=== PATIENT | female | born 1935 | race Caucasian/White ===

== ENCOUNTER → 2016-07-11 | Outpatient (CLI) | payer MEDICARE, BC ==
--- NOTE | 2016-07-11 13:44 | MM ---
Reason for exam: history of breast cancer, mastectomy. Last mammogram was performed 1 year and 3 months ago. History: Patient is postmenopausal, has history of breast cancer at age 79, and has history of other cancer at age 74. Family history of breast cancer in 2 aunts and breast cancer in 2 cousins. Malignant MG pre op needle loc RT of the right breast, May 21, 2015. Malignant US biopsy breast VAD RT of the right breast, April 23, 2015. Physical Findings: Nurse did not find any significant physical abnormalities on exam. MG 3D Diag Mammo W/Cad LT CC and MLO view(s) were taken of the left breast. Prior study comparison: April 23, 2015, right breast MG diagnostic mammo RT wo CAD. April 13, 2015, bilateral MG 3d diag mammo w/cad NEYMAR. There are scattered fibroglandular densities. Finding: There are typically benign vascular calcifications in the left breast. No significant changes in finding since April 23, 2015 and April 13, 2015. These results were verbally communicated with the patient and result sheet given to the patient on 07/11/16. ASSESSMENT: Benign, BI-RAD 2 RECOMMENDATION: Follow-up diagnostic mammogram of the left breast in 1 year.
== END | disposition home or self-care (01) ==
LOC: RADMAMWWP 12:35
PROVIDERS: ATTEND Family Medicine
DX: Z08 Encounter for follow-up examination after completed treatment for malignant neoplasm (principal); Z85.3 Personal history of malignant neoplasm of breast; Z90.11 Acquired absence of right breast and nipple
CPT/HCPCS: G0206; G0279

== ENCOUNTER 2016-07-25 16:31 | Inpatient (IN) | payer MEDICARE, BC ==
--- NOTE | 2016-07-25 16:40 | ED ---
General Adult HPI - General Chief complaint: Chest Pain Stated complaint: Chest Pain Time Seen by Provider: 07/25/16 16:35 Source: patient, RN notes reviewed, old records reviewed Mode of arrival: wheelchair Limitations: no limitations - History of Present Illness Initial comments: This is an 80-year-old female here with chest pain today. Patient states history of cardiac disease, recent history of mitral valve replacement. She did have cardiac catheterization around time of mitral valve replacement. Patient did have chest pain today which was relieved with 2 nitro, which it wasn 't relieved with the first nitro she became anxious, and the [facility] [place] emergency room for evaluation. Patient still with chest at this time, no shortness of breath. No recent cough congestion or fever. No travel history. - Related Data Home Medications Medication Instructions Recorded Confirmed Cholecalciferol [Vitamin D3] 1,000 unit PO DAILY 05/18/15 07/25/16 Cyanocobalamin [Vitamin B-12] 500 mcg PO DAILY 05/18/15 07/25/16 Meclizine [Antivert] 25 mg PO TID PRN 05/18/15 07/25/16 Multivitamins, Thera [Multivitamin] 1 tab PO DAILY 05/18/15 07/25/16 Anastrozole [Arimidex] 1 mg PO DAILY 09/14/15 07/25/16 Ferrous Sulfate [Iron (65 MG 325 mg PO DAILY 04/25/16 07/25/16 Elemental)] Isosorbide Mononitrate ER [Imdur] 30 mg PO DAILY 04/25/16 07/25/16 Levothyroxine Sodium [Synthroid] 100 mcg PO DAILY 04/25/16 07/25/16 Nitroglycerin Sl Tabs [Nitrostat] 0.4 mg PO Q5M PRN 04/25/16 07/25/16 Pravastatin Sodium 40 mg PO HS 04/25/16 07/25/16 Ranitidine HCl 150 mg PO DAILY 04/25/16 07/25/16 Furosemide [Lasix] 40 mg PO DAILY 05/20/16 07/25/16 Amiodarone [Cordarone] 200 mg PO DAILY 06/08/16 07/25/16 Carvedilol [Coreg*] 25 mg PO BID-W/MEALS 06/08/16 07/25/16 Warfarin [Coumadin] 3 mg PO STEVENSON 06/08/16 07/25/16 Warfarin [Coumadin] 4 mg PO MOTUWETHFRSA 06/08/16 07/25/16 HYDROcodone/APAP 5-325MG [[place] 1 tab PO DAILY PRN 07/25/16 07/25/16 5-325] Previous Rx's Medication Instructions Recorded Aspirin 81 mg PO DAILY chew 03/17/16 Pyridostigmine [Mestinon] 30 mg PO BID tab 03/17/16 Allergies Allergy/AdvReac Type Severity Reaction Status Date / Time morphine AdvReac Severe Nausea & Verified 07/25/16 17:56 Vomiting Review of Systems ROS Statement: Those systems with pertinent positive or pertinent negative responses have been documented in the HPI. ROS Other: All systems not noted in ROS Statement are negative. Past Medical History Past Medical History: Atrial Fibrillation, Coronary Artery Disease (CAD), Cancer , Heart Failure, Diabetes Mellitus, Eye Disorder, Hyperlipidemia, Hypertension, Myocardial Infarction ([place]), Mitral Valve Prolapse (MVP), Osteoarthritis (OA), Pneumonia, Respiratory Disorder, Thyroid Disorder Additional Past Medical History / Comment(s): Paroxysmal Afib. Chronic CHF. RT Eye Occular Myasthenia Gravis. Chronic Back Pain. DJD. 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 DIET CONTROLLED DM. FREQ UTI'S. SKIN CA. RT breast CA with surgery. OCC Vertigo. Chronic Respiratory Failure. HOME 02 2 LITERS N/C ATC PRN. CHRONIC Anemia. DIVERTICULAR DX. hypothyroid Last Myocardial Infarction Date:: 04/2014 History of Any Multi-Drug Resistant Organisms: None Reported Past Surgical History: Appendectomy, Back Surgery, Breast Surgery, Cardiac Valve Replacement, Heart Catheterization, Heart Catheterization With Stent, Hysterectomy, Orthopedic Surgery Additional Past Surgical History / Comment(s): 02/2016 MVR. NEYMAR CTR, bilateral Rotator Cuff Repair. EXC Skin CA. TITANIUM VIMAL IN BACK, 7 BACK FUSIONS, 3 NECK FUSIONS. Stent Proximal RCA; HEART CATH 09-29-14. EXC NEYMAR CATARACTS, POSS Lens Implants, Bilateral Eye Laser. RT BREAST LUMPECTOMY x 2, RT BREAST SIMPLE MASTECTOMY 06/2015. ORIF Ankles. Colonoscopy. Past Anesthesia/Blood Transfusion Reactions: No Reported Reaction Additional Past Anesthesia/Blood Transfusion Reaction / Comment(s): Pt has recently received blood without reaction. Date of Last Stent Placement:: 08/17/2013 Past Psychological History: No Psychological Hx Reported Additional Psychological History / Comment(s): Pt resides with her spouse of 63 yrs. She uses a walker to ambulate. She has a very supportive family. She no longer drives-her spouse takes her to appointments. Smoking Status: Former smoker Past Alcohol Use History: None Reported Additional Past Alcohol Use History / Comment(s): STARTED SMOKING AT AGE 11 SMOKED 1/2 PPD QUIT 40 YEARS AGO Past Drug Use History: None Reported - Past Family History Father History Unknown: Yes Family Medical History: No Reported History Additional Family Medical History / Comment(s): DAD IN MVA AT AGE 52 Mother History Unknown: Yes Family Medical History: Congestive Heart Failure (CHF) Additional Family Medical History / Comment(s): RHEUMATIC FEVER. Mother of CHF at the age of 59yrs. General Exam Limitations: no limitations General appearance: alert, in no apparent distress Head exam: Present: atraumatic, normocephalic, normal inspection Eye exam: Present: normal appearance, PERRL, EOMI. Absent: scleral icterus, conjunctival injection, periorbital swelling ENT exam: Present: normal exam, mucous membranes moist Neck exam: Present: normal inspection. Absent: tenderness, meningismus, lymphadenopathy Respiratory exam: Present: normal lung sounds bilaterally. Absent: respiratory distress, wheezes, rales, rhonchi, stridor Cardiovascular Exam: Present: regular rate, normal rhythm, normal heart sounds. Absent: systolic murmur, diastolic murmur, rubs, gallop, clicks GI/Abdominal exam: Present: soft, normal bowel sounds. Absent: distended, tenderness, guarding, rebound, rigid Extremities exam: Present: normal inspection, full ROM, normal capillary refill. Absent: tenderness, pedal edema, joint swelling, calf tenderness Back exam: Present: normal inspection Neurological exam: Present: alert, oriented X3, CN II-XII intact Psychiatric exam: Present: normal affect, normal mood Skin exam: Present: warm, dry, intact, normal color. Absent: rash Course Vital Signs 07/25/16 07/25/16 07/25/16 16:35 17:34 18:32 Temperature 98 F Pulse Rate 71 53 L Respiratory 20 18 18 Rate Blood Pressure 153/68 185/74 O2 Sat by Pulse 97 96 Oximetry 07/25/16 19:13 Temperature 97.4 F L Pulse Rate 65 Respiratory 18 Rate Blood Pressure 175/77 O2 Sat by Pulse 100 Oximetry - Reevaluation(s) Reevaluation #1: 07/25/16 19:26 Patient still chest pain EKG Findings - EKG Comments: EKG Findings:: EKG shows normal sinus rhythm at 73, MI 180, QRS 84, QTC 489 Medical Decision Making - Medical Decision Making 80 female year for evaluation of chest pain, patient has strong cardiac history and heart disease, EKG shows no still elevation, troponin is negative patient will be admitted for cardiac observation - Lab Data Result diagrams: 07/25/16 17:35 07/25/16 17:35 Lab Results 07/25/16 07/25/16 07/25/16 Range/Units 17:35 17:35 17:35 WBC 4.8 (3.8-10.6) k/uL RBC 3.45 L (3.80-5.40) m/uL Hgb 11.0 L (11.4-16.0) gm/dL Hct 33.4 L (34.0-46.0) % MCV 96.8 (80.0-100.0) fL MCH 32.0 (25.0-35.0) pg MCHC 33.0 (31.0-37.0) g/dL RDW 15.9 H (11.5-15.5) % Plt Count 209 (150-450) k/uL Neutrophils % 61 % Lymphocytes % 23 % Monocytes % 7 % Eosinophils % 4 % Basophils % 1 % Neutrophils # 2.9 (1.3-7.7) k/uL Lymphocytes # 1.1 (1.0-4.8) k/uL Monocytes # 0.3 (0-1.0) k/uL Eosinophils # 0.2 (0-0.7) k/uL Basophils # 0.0 (0-0.2) k/uL PT (9.0-12.0) sec INR (<1.1) APTT (22.0-30.0) sec Sodium 145 (137-145) mmol/L Potassium 3.7 (3.5-5.1) mmol/L Chloride 107 (98-107) mmol/L Carbon Dioxide 31 H (22-30) mmol/L Anion Gap 7 mmol/L BUN 24 H (7-17) mg/dL Creatinine 0.60 (0.52-1.04) mg/dL Est GFR (MDRD) Af Amer >60 (>60 ml/min/1.73 sqM) Est GFR (MDRD) Non-Af >60 (>60 ml/min/1.73 sqM) Glucose 89 (74-99) mg/dL Calcium 8.5 (8.4-10.2) mg/dL Phosphorus 3.9 (2.5-4.5) mg/dL Magnesium 1.8 (1.6-2.3) mg/dL Total Bilirubin 0.7 (0.2-1.3) mg/dL AST 40 H (14-36) U/L ALT 28 (9-52) U/L Alkaline Phosphatase 88 (38-126) U/L Total Creatine Kinase 54 (30-135) U/L CK-MB (CK-2) 0.3 (0.0-2.4) ng/mL CK-MB (CK-2) Rel Index 0.6 Troponin I 0.023 (0.000-0.034) ng/mL NT-Pro-B Natriuret Pep pg/mL Total Protein 6.5 (6.3-8.2) g/dL Albumin 3.7 (3.5-5.0) g/dL Urine Color Urine Appearance (Clear) Urine pH (5.0-8.0) Ur Specific [place] (1.001-1.035) Urine Protein (Negative) Urine Glucose (UA) (Negative) Urine Ketones (Negative) Urine Blood (Negative) Urine Nitrate (Negative) Urine Bilirubin (Negative) Urine Urobilinogen (<2.0) mg/dL Ur Leukocyte Esterase (Negative) Urine WBC (0-5) /hpf Ur Squamous Epith Cells (0-4) /hpf Hyaline Casts (0-2) /lpf Urine Mucus (None) /hpf Urine Yeast (Budding) (None) /hpf 07/25/16 07/25/16 07/25/16 Range/Units 17:35 17:35 17:35 WBC (3.8-10.6) k/uL RBC (3.80-5.40) m/uL Hgb (11.4-16.0) gm/dL Hct (34.0-46.0) % MCV (80.0-100.0) fL MCH (25.0-35.0) pg MCHC (31.0-37.0) g/dL RDW (11.5-15.5) % Plt Count (150-450) k/uL Neutrophils % % Lymphocytes % % Monocytes % % Eosinophils % % Basophils % % Neutrophils # (1.3-7.7) k/uL Lymphocytes # (1.0-4.8) k/uL Monocytes # (0-1.0) k/uL Eosinophils # (0-0.7) k/uL Basophils # (0-0.2) k/uL PT 24.1 H (9.0-12.0) sec INR 2.5 (<1.1) APTT 32.5 H (22.0-30.0) sec Sodium (137-145) mmol/L Potassium (3.5-5.1) mmol/L Chloride (98-107) mmol/L Carbon Dioxide (22-30) mmol/L Anion Gap mmol/L BUN (7-17) mg/dL Creatinine (0.52-1.04) mg/dL Est GFR (MDRD) Af Amer (>60 ml/min/1.73 sqM) Est GFR (MDRD) Non-Af (>60 ml/min/1.73 sqM) Glucose (74-99) mg/dL Calcium (8.4-10.2) mg/dL Phosphorus (2.5-4.5) mg/dL Magnesium (1.6-2.3) mg/dL Total Bilirubin (0.2-1.3) mg/dL AST (14-36) U/L ALT (9-52) U/L Alkaline Phosphatase (38-126) U/L Total Creatine Kinase (30-135) U/L CK-MB (CK-2) (0.0-2.4) ng/mL CK-MB (CK-2) Rel Index Troponin I (0.000-0.034) ng/mL NT-Pro-B Natriuret Pep 1340 pg/mL Total Protein (6.3-8.2) g/dL Albumin (3.5-5.0) g/dL Urine Color Yellow Urine Appearance Cloudy H (Clear) Urine pH 5.5 (5.0-8.0) Ur Specific [place] 1.017 (1.001-1.035) Urine Protein Trace H (Negative) Urine Glucose (UA) Negative (Negative) Urine Ketones Negative (Negative) Urine Blood Trace H (Negative) Urine Nitrate Positive H (Negative) Urine Bilirubin Negative (Negative) Urine Urobilinogen <2.0 (<2.0) mg/dL Ur Leukocyte Esterase Moderate H (Negative) Urine WBC 29 H (0-5) /hpf Ur Squamous Epith Cells 1 (0-4) /hpf Hyaline Casts 1 (0-2) /lpf Urine Mucus Occasional H (None) /hpf Urine Yeast (Budding) Occasional H (None) /hpf - Radiology Data Radiology results: report reviewed (Chest x-ray two-view is negative for acute disease), image reviewed Critical Care Time Critical Care Time: Yes Total Critical Care Time: 31 Disposition Clinical Impression: Chest pain in adult Disposition: ADMITTED IP TO THIS [facility] Condition: Undetermined Referrals: Oscar Blancas MD [Primary Care Provider] - 1-2 days
[2016-07-25 17:43] LABS: Basophils % (A) 1 %; CH 31.7; CHCM 32.9; Eosinophils # (A) 0.2 k/uL (0-0.7); Eosinophils % (A) 4 %; HCT 33.4 % (34.0-46.0); HDW 2.75; Luc # (Auto) 0.19; Luc % (Auto) 4; Lymphocytes # (A) 1.1 k/uL (1.0-4.8); Lymphocytes % (A) 23 %; MCV 96.8 fL (80.0-100.0); Mean Platelet Volume 7.2; Monocytes # (A) 0.3 k/uL (0-1.0); Monocytes % (A) 7 %; Neutrophils # (A) 2.9 k/uL (1.3-7.7); Neutrophils % (A) 61 %; RBC 3.45 m/uL (3.80-5.40); RDW 15.9 % (11.5-15.5); WBC 4.8 k/uL (3.8-10.6); WBC (Perox) 4.89
[2016-07-25 17:53] LABS: ALT 28 U/L (9-52); AST 40 U/L (14-36); Alkaline Phosphatase 88 U/L (38-126); Anion Gap 7 mmol/L; Blood Urea Nitrogen 24 mg/dL (7-17); Calcium 8.5 mg/dL (8.4-10.2); Carbon Dioxide 31 mmol/L (22-30); Chloride 107 mmol/L (98-107); Glucose 89 mg/dL (74-99); Magnesium 1.8 mg/dL (1.6-2.3); Non-African American GFR(MDRD) >60 (>60 ml/min/1.73 sqM); Phosphorous 3.9 mg/dL (2.5-4.5); Potassium 3.7 mmol/L (3.5-5.1); Sodium 145 mmol/L (137-145); Total Bilirubin 0.7 mg/dL (0.2-1.3); Total Protein 6.5 g/dL (6.3-8.2)
[2016-07-25 17:54] LABS: INR 2.5 (<1.1); Partial Thromboplastin Time 32.5 sec (22.0-30.0); Prothrombin Time 24.1 sec (9.0-12.0)
[2016-07-25 17:57] LABS: Appearance,Urine Cloudy (Clear); Bilirubin,Urine Negative (Negative); Glucose,Urine (UA) Negative (Negative); Ketones,Urine Negative (Negative); Leukocyte Esterase,Urine Moderate (Negative); Mucus,Urine Occasional /hpf; Nitrite,Urine Positive (Negative); PH, Urine 5.5 (5.0-8.0); Particle Count 107532; Protein,Urine Trace (Negative); Specific Gravity,Urine 1.017 (1.001-1.035); Squamous Epithelial Cell,Urine 1 /hpf (0-4); UA Billing (MACRO vs. MICRO) MICRO; Urobilinogen,Urine <2.0 mg/dL (<2.0); WBC,Urine 29 /hpf (0-5)
--- NOTE | 2016-07-25 17:58 | XR ---
EXAMINATION TYPE: XR chest 2V DATE OF EXAM: 07/25/2016 5:46 PM COMPARISON: May 20, 2016 HISTORY: Weakness and chest pain TECHNIQUE: Frontal and lateral views of the chest are obtained. FINDINGS: Heart is enlarged. There is no gross heart failure. There are sternal wires. There are blaise st leads. There is posterior fusion surgery at the thoracolumbar junction. There are small calcified granulomata scattered in the lungs. There are chest leads. IMPRESSION: Cardiomegaly. Healed granulomatous disease. No active cardiopulmonary disease. No change .
[2016-07-25 18:16] LABS: Creatine Kinase MB 0.3 ng/mL (0.0-2.4); Troponin I 0.023 ng/mL (0.000-0.034)
[2016-07-25] MEDS ORDERED: ASPIRIN 81 MG CHEW PO STA (19:24)
[2016-07-25] MEDS ORDERED: HEPARIN SODIUM,PORCINE 5,000 UNIT/ML 1 ML VIAL IV PRN (19:24)
[2016-07-25] MEDS ORDERED: HEPARIN SODIUM,PORCINE 5,000 UNIT/ML 1 ML VIAL IV ONE (19:24)
[2016-07-25] MEDS ORDERED: NITROGLYCERIN SL TABS 0.4 MG TAB SUBLINGUAL PRN (19:24)
[2016-07-25] MEDS: SODIUM CHLORIDE 0.9% 1,000 ML IV SCH (19:35)
[2016-07-25] MEDS: HEPARIN SODIUM,PORCINE/D5W PMX 25,000 UNIT in DEXTROSE/WATER 1 500ML.BAG IV SCH (19:39)
[2016-07-25] MEDS ORDERED: MECLIZINE 25 MG TAB PO PRN (20:59)
[2016-07-25] MEDS ORDERED: WARFARIN 2 MG TAB PO SCH (21:00)
[2016-07-25] MEDS: HYDROcodone/APAP 5-325MG 1 EACH TAB PO PRN (21:14)
[2016-07-25] MEDS: PRAVASTATIN SODIUM 40 MG TAB PO SCH (21:42)
[2016-07-25] MEDS: PYRIDOSTIGMINE 60 MG TAB PO SCH (21:43)
[2016-07-25 22:10] LABS: Glucose,Whole Blood 133 mg/dL (75-99)
[2016-07-25] MEDS: KETOROLAC 30 MG/ML 1 ML VIAL IVP PRN (23:04)
[2016-07-26 00:25] LABS: Creatine Kinase MB 0.5 ng/mL (0.0-2.4)
[2016-07-26 00:39] LABS: Troponin I 0.038 ng/mL (0.000-0.034)
[2016-07-26] MEDS: KETOROLAC 30 MG/ML 1 ML VIAL IVP PRN ×2 (04:50→15:44)
[2016-07-26] MEDS ORDERED: ACETAMINOPHEN TAB 325 MG TAB PO PRN (04:58)
[2016-07-26] MEDS: SODIUM CHLORIDE 0.9% 1,000 ML IV SCH ×2 (06:46→20:52)
[2016-07-26] MEDS: LEVOTHYROXINE 100 MCG TAB PO SCH (06:47)
[2016-07-26 06:53] LABS: Cholesterol 168 mg/dL (<200); HDL Cholesterol 62 mg/dL (40-60); Triglycerides 69 mg/dL (<150)
[2016-07-26 06:54] LABS: Glucose,Whole Blood 100 mg/dL (75-99)
[2016-07-26 07:18] LABS: Creatine Kinase MB 0.4 ng/mL (0.0-2.4); Troponin I 0.026 ng/mL (0.000-0.034)
--- NOTE | 2016-07-26 08:43 | CONS ---
DATE OF CONSULTATION: CHIEF COMPLAINT: Chest pain Gi is an 80-year-old lady with a history of coronary artery disease, status post two-vessel angioplasty mitral regurgitation, status post mitral valve replacement, atrial fibrillation, status post cardioversion who presents to [facility] complaining of chest pain. She describes it as a chest pressure in the precardial area without definite radiation to neck, arm or back. She describes it as pressure-like sensation, came on at rest. Was not relieved with first nitroglycerin but was relieved with a second nitroglycerin. When she came to the emergency room. She was still having chest pain. Did not have any shortness of breath and this gradually resolved. She is on Coumadin and INR is therapeutic. EKG shows sinus rhythm with occasional PVCs and nonspecific ST-T wave changes. Past medical history significant for mitral regurgitation, status post mitral valve repair, coronary artery disease, status post multivessel angioplasty, hypertension, dyslipidemia. Medications include: 1. Antivert. 2. Multivitamin. 3. Imdur. 4. Levothyroxine. 5. Pravastatin. 6. Zantac. 7. Lasix. 8. Cordarone. 9. Coreg 25 b.i.d. 10. Coumadin. 11. Max. PATIENT IS ALLERGIC TO MORPHINE. FAMILY HISTORY: Negative for premature coronary artery disease. SOCIAL HISTORY: Negative for smoking, ETOH or drug abuse. REVIEW OF SYSTEMS: HEENT: Unremarkable. CARDIAC: As described above. RESPIRATORY: Negative. GI: Negative. GENITOURINARY: Negative. Allergy/immunology: Negative. SKIN: Negative. MUSCULOSKELETAL: Significant for back pain. PSYCHOSOCIAL: Negative. ENDOCRINE: Negative. DERM: Negative. HEMATOLOGICAL: Negative. CONSTITUTIONAL: Negative. Oncological: Negative. The rest of the system review is not relevant. On exam, patient is comfortable at rest. Heart rate is 68 beats per minute, blood pressure is 160/78, respiratory rate is 18. There is no jugular venous distention. Carotid upstroke is normal. There is no bruit. Chest exam reveals diminished air entry at the bases. Heart exam reveals first and second heart sounds and a systolic murmur at the apex. ABDOMEN: Soft. Exam of the extremities did not reveal any edema. Peripheral pulses are felt. Labs show that she has had 3 sets of troponins that were 0.2, 03 and 03 suggestive of non-ST segment myocardial infarction. Lipid profile shows an LDL cholesterol of 92. EKG reviewed. ASSESSMENT: 1. Non-ST segment elevation myocardial infarction in a patient with known CAD status post prior angioplasty. 2. Mitral regurgitation status post mitral valve repair. 3. History of atrial fibrillation status post cardioversion. 4. Dyslipidemia. 5. Hypertension. PLAN: I am going to admit the patient to the hospital. Continue the IV heparin and once the INR comes down, we will schedule her for a cardiac catheterization with Dr. Cornell Hua her primary speech therapist.
[2016-07-26] MEDS ORDERED: ASPIRIN 325 MG TAB PO SCH (09:00)
[2016-07-26] MEDS: FAMOTIDINE 20 MG TAB PO SCH (09:08)
[2016-07-26] MEDS: CYANOCOBALAMIN 500 MCG TAB PO SCH (09:08)
[2016-07-26] MEDS: FUROSEMIDE 40 MG TAB PO SCH (09:08)
[2016-07-26] MEDS: ISOSORBIDE MONONITRATE ER 30 MG TAB.ER.24H PO SCH (09:08)
[2016-07-26] MEDS: FERROUS SULFATE 325 MG TAB PO SCH (09:09)
[2016-07-26] MEDS: AMIODARONE 200 MG TAB PO SCH (09:09)
[2016-07-26] MEDS: MULTIVITAMINS, THERA 1 EACH TAB PO SCH (09:09)
[2016-07-26] MEDS: ASPIRIN 81 MG CHEW PO SCH (09:09)
[2016-07-26] MEDS: PYRIDOSTIGMINE 60 MG TAB PO SCH ×2 (09:09→21:15)
[2016-07-26] MEDS: CHOLECALCIFEROL 1,000 UNIT TAB PO SCH (09:09)
[2016-07-26] MEDS: CARVEDILOL 12.5 MG TAB PO SCH ×2 (09:10→17:17)
[2016-07-26] MEDS: ANASTROZOLE 1 MG TAB PO SCH (09:11)
[2016-07-26] MEDS: ATORVASTATIN 80 MG TAB PO SCH (10:43)
[2016-07-26 12:15] LABS: Glucose,Whole Blood 92 mg/dL (75-99)
[2016-07-26 12:51] LABS: Hemoglobin A1C 5.1 % (4.2-6.1)
[2016-07-26] MEDS: HYDROcodone/APAP 5-325MG 1 EACH TAB PO PRN (13:35)
--- NOTE | 2016-07-26 14:21 | P.HPIM ---
History of Present Illness H&P Date: 07/26/16 Chief Complaint: Chest pain 80-year-old female presented on the day of admission to the emergency room with a chief complaint of developing chest discomfort. Patient does have a history of coronary artery disease with a recent mitral valve replacement done. Patient reportedly had a heart catheterization done around the time that her mitral valve was replaced. Patient did undergo mitral valve replacement in February 2016 for mitral valve stenosis. Additionally the patient has had an angioplasty with stenting to the right coronary artery. Patient also has a history of atrial fibrillation status post cardioversion. Patient states the chest pressure did not radiate to the neck or arm . Patient stated that she did take a sublingual nitro there was some relief subsequent the patient was admitted to the services of the attending with a cardiology consultation requested. Patient is on Coumadin for atrial fibrillation and the INR on admission was 2.5. Review of Systems Essentially unremarkable except as mentioned in the present illness Past Medical History Past Medical History: Atrial Fibrillation, Coronary Artery Disease (CAD), Cancer , Heart Failure, Diabetes Mellitus, Eye Disorder, Hyperlipidemia, Hypertension, Myocardial Infarction ([place]), Mitral Valve Prolapse (MVP), Osteoarthritis (OA), Pneumonia, Respiratory Disorder, Thyroid Disorder Additional Past Medical History / Comment(s): Paroxysmal Afib. Chronic CHF. RT Eye Occular Myasthenia Gravis. Chronic Back Pain. DJD. 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 DIET CONTROLLED DM. FREQ UTI'S. SKIN CA. RT breast CA with surgery. OCC Vertigo. Chronic Respiratory Failure. HOME 02 2 LITERS N/C ATC PRN. CHRONIC Anemia. DIVERTICULAR DX. hypothyroid Last Myocardial Infarction Date:: 04/2014 History of Any Multi-Drug Resistant Organisms: None Reported Past Surgical History: Appendectomy, Back Surgery, Breast Surgery, Cardiac Valve Replacement, Heart Catheterization, Heart Catheterization With Stent, Hysterectomy, Orthopedic Surgery Additional Past Surgical History / Comment(s): 02/2016 MVR. NEYMAR CTR, bilateral Rotator Cuff Repair. EXC Skin CA. TITANIUM VIMAL IN BACK, 7 BACK FUSIONS, 3 NECK FUSIONS. Stent Proximal RCA; HEART CATH 09-29-14. EXC NEYMAR CATARACTS, POSS Lens Implants, Bilateral Eye Laser. RT BREAST LUMPECTOMY x 2, RT BREAST SIMPLE MASTECTOMY 06/2015. ORIF Ankles. Colonoscopy. Past Anesthesia/Blood Transfusion Reactions: No Reported Reaction Additional Past Anesthesia/Blood Transfusion Reaction / Comment(s): Pt has recently received blood without reaction. Date of Last Stent Placement:: 08/17/2013 Past Psychological History: No Psychological Hx Reported Additional Psychological History / Comment(s): Pt resides with her spouse of 63 yrs. She uses a walker NEEDED. She has a very supportive family. She no longer drives-her spouse takes her to appointments. Smoking Status: Former smoker Past Alcohol Use History: None Reported Additional Past Alcohol Use History / Comment(s): STARTED SMOKING AT AGE 11 SMOKED 1/2 PPD QUIT 40 YEARS AGO Past Drug Use History: None Reported - Past Family History Father History Unknown: Yes Family Medical History: No Reported History Additional Family Medical History / Comment(s): DAD IN MVA AT AGE 52 Mother History Unknown: Yes Family Medical History: Congestive Heart Failure (CHF) Additional Family Medical History / Comment(s): RHEUMATIC FEVER. Mother of CHF at the age of 59yrs. Medications and Allergies Home Medications Medication Instructions Recorded Confirmed Type Cholecalciferol [Vitamin D3] 1,000 unit PO DAILY 05/18/15 07/25/16 History Cyanocobalamin [Vitamin B-12] 500 mcg PO DAILY 05/18/15 07/25/16 History Meclizine [Antivert] 25 mg PO TID PRN 05/18/15 07/25/16 History Multivitamins, Thera [Multivitamin] 1 tab PO DAILY 05/18/15 07/25/16 History Anastrozole [Arimidex] 1 mg PO DAILY 09/14/15 07/25/16 History Ferrous Sulfate [Iron (65 MG 325 mg PO DAILY 04/25/16 07/25/16 History Elemental)] Isosorbide Mononitrate ER [Imdur] 30 mg PO DAILY 04/25/16 07/25/16 History Levothyroxine Sodium [Synthroid] 100 mcg PO DAILY 04/25/16 07/25/16 History Nitroglycerin Sl Tabs [Nitrostat] 0.4 mg PO Q5M PRN 04/25/16 07/25/16 History Pravastatin Sodium 40 mg PO HS 04/25/16 07/25/16 History Ranitidine HCl 150 mg PO DAILY 04/25/16 07/25/16 History Furosemide [Lasix] 40 mg PO DAILY 05/20/16 07/25/16 History Amiodarone [Cordarone] 200 mg PO DAILY 06/08/16 07/25/16 History Carvedilol [Coreg*] 25 mg PO BID-W/MEALS 06/08/16 07/25/16 History Warfarin [Coumadin] 3 mg PO STEVENSON 06/08/16 07/25/16 History Warfarin [Coumadin] 4 mg PO MOTUWETHFRSA 06/08/16 07/25/16 History HYDROcodone/APAP 5-325MG [[place] 1 tab PO BID PRN 07/25/16 07/25/16 History 5-325] Allergies Allergy/AdvReac Type Severity Reaction Status Date / Time morphine AdvReac Severe Nausea & Verified 07/25/16 20:21 Vomiting Physical Exam Vitals: Vital Signs Temp Pulse Resp BP Pulse Ox 07/26/16 12:00 97.4 F L 56 L 16 114/56 98 Intake and Output 07/25/16 07/26/16 07/26/16 22:59 06:59 14:59 Intake Total 240 Balance 240 Intake: Oral 240 Other: Voiding Method Toilet # Voids 1 # Bowel Movements 1 GENERAL APPEARANCE: 80-year-old female patient is alert, oriented, in no acute distress resting comfortably in bed. VITAL SIGNS: Reviewed HEENT: Head is normocephalic and atraumatic. Pupils are equal and reactive. The nares are patent. Oropharynx is clear without lesions. NECK: Supple without lymphadenopathy. Traches midline. HEART: S1, S2. Irregular monitor atrial fibrillation LUNGS: No crackles or wheezes are heard adequate air movement bilaterally posterior diminished at the bases. ABDOMEN: Soft, nontender, nondistended with good bowel sounds. No peritoneal signs. No palpable organomegaly or masses. EXTREMITIES: Normal skin color and turgor. No cyanosis, rash, ulceration, clubbing or edema. Radial pedal pulses are 2/4 bilaterally. NEUROLOGICAL: No focal deficits. Strength and sensation are grossly intact. Results CBC & Chem 7: 07/25/16 17:35 07/25/16 17:35 Thrombosis Risk Factor Assmnt - Choose All That Apply Any of the Below Risk Factors Present?: Yes Each Factor Represents 1 point: Serious lung disease incl. pneumonia (< 1month) Other Risk Factors: Yes Each Risk Factor Represents 2 Points: Malignancy Each Risk Factor Represents 3 Points: Age 75 years or older Other congenital or acquired thrombophilia - If yes, enter type in comment: No Thrombosis Risk Factor Assessment Total Risk Factor Score: 6 Thrombosis Risk Factor Assessment Level: High Risk Assessment and Plan Plan: Impression Present on admission chest pain elevated troponin suspect due to a non-ST elevated [place] History of paroxysmal atrial fibrillation monitor currently showing sinus rhythm History of breast cancer right with a right mastectomy Mitral valve stenosis status post mitral valve replacement February 2016 Acute on chronic diastolic and systolic congestive heart failure EF 4 45-50% per echocardiogram May 2016 Echocardiogram May 2016 pulmonary hypertension Therapeutic INR present on admission Hypertension essential History of atrial fibrillation status post cardioversion currently sinus Dyslipidemia Plan Hold Coumadin for now cardiology indicate they will do a heart catheterization by her primary inseam trimmer Dr. ADAM Hua when the INR comes down Repeat labs in the morning Resume home meds DVT and GI prophylaxis Further recommendations pending Continue IV heparin until the INR comes down patient will be scheduled for the heart catheterization The above dictated assessment and findings were discussed with dr mejia . Impression and the plan of care have been dictated as directed. Antonina Appiah nurse practitioner acting as a scribe for dr mejia
[2016-07-26 14:41] LABS: INR 2.3 (<1.1); Prothrombin Time 22.2 sec (9.0-12.0)
[2016-07-26 17:16] LABS: Glucose,Whole Blood 93 mg/dL (75-99)
[2016-07-26] MEDS: HEPARIN SODIUM,PORCINE/D5W PMX 25,000 UNIT in DEXTROSE/WATER 1 500ML.BAG IV SCH (20:51)
[2016-07-26 21:10] LABS: Glucose,Whole Blood 92 mg/dL (75-99)
[2016-07-26] MEDS: PRAVASTATIN SODIUM 40 MG TAB PO SCH (21:15)
[2016-07-27] MEDS: KETOROLAC 30 MG/ML 1 ML VIAL IVP PRN ×2 (03:39→17:09)
[2016-07-27 04:31] LABS: INR 2.5 (<1.1); Prothrombin Time 23.8 sec (9.0-12.0)
[2016-07-27 04:40] LABS: Partial Thromboplastin Time 109.8 sec (22.0-30.0)
[2016-07-27] MEDS: SODIUM CHLORIDE 0.9% 1,000 ML IV SCH ×3 (06:03→20:26)
[2016-07-27 06:20] LABS: Glucose,Whole Blood 97 mg/dL (75-99)
[2016-07-27] MEDS: LEVOTHYROXINE 100 MCG TAB PO SCH (06:30)
[2016-07-27] MEDS: CARVEDILOL 12.5 MG TAB PO SCH ×2 (06:30→17:09)
[2016-07-27] MEDS ORDERED: PHYTONADIONE ORAL 5 MG/5 ML ORAL.SYRG PO STA (08:07)
[2016-07-27] MEDS: MULTIVITAMINS, THERA 1 EACH TAB PO SCH (08:22)
[2016-07-27] MEDS: FERROUS SULFATE 325 MG TAB PO SCH (08:22)
[2016-07-27] MEDS: FAMOTIDINE 20 MG TAB PO SCH (08:22)
[2016-07-27] MEDS: CHOLECALCIFEROL 1,000 UNIT TAB PO SCH (08:22)
[2016-07-27] MEDS: ASPIRIN 81 MG CHEW PO SCH (08:22)
[2016-07-27] MEDS: CYANOCOBALAMIN 500 MCG TAB PO SCH (08:22)
[2016-07-27] MEDS: PYRIDOSTIGMINE 60 MG TAB PO SCH ×2 (08:23→20:26)
[2016-07-27] MEDS: ANASTROZOLE 1 MG TAB PO SCH (08:23)
[2016-07-27] MEDS: AMIODARONE 200 MG TAB PO SCH (08:24)
[2016-07-27] MEDS: ATORVASTATIN 80 MG TAB PO SCH (08:25)
[2016-07-27] MEDS: FUROSEMIDE 40 MG TAB PO SCH (08:29)
--- NOTE | 2016-07-27 10:05 | P.PN ---
Subjective 80-year-old female up ambulating in the room. Patient currently is denying any chest pain shortness of breath dizziness or lightheadedness. Patient is aware the plan of care. Patient is scheduled for heart catheterization tomorrow if the INR has been corrected. The INR this morning was 2.5. Patient was given vitamin K. Objective - Vital Signs Vital signs: Vital Signs Temp 96.9 F L 07/27/16 04:00 Pulse 58 L 07/27/16 04:00 Resp 16 07/27/16 04:00 BP 118/59 07/27/16 04:00 Pulse Ox 94 L 07/27/16 04:00 Intake & Output 07/26/16 07/27/16 07/27/16 18:59 06:59 18:59 Intake Total 740 1347.352 Balance 740 1347.352 Weight 59.4 kg Intake: IV 840 Heparin Sodium,Porcine/ 700 D5w Pmx 25,000 unit In Dextrose/Water 1 500ml. bag @ 12 UNITS/KG/HR 14. 26 mls/hr IV .Q24H [facility] Rx #:[id number] Sodium Chloride 0.9% 1, 140 000 ml @ 100 mls/hr IV . Q10H [facility] Rx#:[id number] Intake, IV Titration 507.352 Amount Heparin Sodium,Porcine/ 507.352 D5w Pmx 25,000 unit In Dextrose/Water 1 500ml. bag @ 12 UNITS/KG/HR 14. 26 mls/hr IV .Q24H [facility] Rx #:[id number] Oral 740 Other: Voiding Method Toilet # Voids 1 1 # Bowel Movements 1 - Exam GENERAL APPEARANCE: 80-year-old female patient is alert, oriented, in no acute distress. Up in room denying shortness of breath denying chest pain VITAL SIGNS: Reviewed HEENT: Head is normocephalic and atraumatic. Pupils are equal and reactive. The nares are patent. Oropharynx is clear without lesions. NECK: Supple without lymphadenopathy. Traches midline. HEART: S1, S2. Regular rate and rhythm. Monitor currently is showing sinus bradycardia rate in the 50s denying chest pain there is been no further episodes of atrial fibrillation LUNGS: No crackles or wheezes are heard. On room air with no shortness of breath ABDOMEN: Soft, nontender, nondistended with good bowel sounds. No peritoneal signs. No palpable organomegaly or masses. EXTREMITIES: Normal skin color and turgor. No cyanosis, rash, ulceration, clubbing or edema. Radial pedal pulses are 2/4 bilaterally. NEUROLOGICAL: No focal deficits. Strength and sensation are grossly intact. - Labs CBC & Chem 7: 07/25/16 17:35 07/25/16 17:35 Labs: Abnormal Lab Results - Last 24 Hours (Table) 07/27/16 Range/Units 04:08 PT 23.8 H (9.0-12.0) sec APTT 109.8 H* (22.0-30.0) sec Assessment and Plan Plan: Impression Present on admission chest pain elevated troponin suspect due to a non-ST elevated RI History of paroxysmal atrial fibrillation monitor currently showing sinus rhythm History of breast cancer right with a right mastectomy Mitral valve stenosis status post mitral valve replacement February 2016 Acute on chronic diastolic and systolic congestive heart failure EF 4 45-50% per echocardiogram May 2016 Echocardiogram May 2016 pulmonary hypertension Therapeutic INR present on admission Hypertension essential History of atrial fibrillation status post cardioversion currently sinus Dyslipidemia Plan Hold Coumadin for now cardiology indicate they will do a heart catheterization by 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 ADAM Hua when the INR comes down Repeat labs in the morning Resume home meds DVT and GI prophylaxis Further recommendations pending Continue IV heparin until the INR comes down patient will be scheduled for the heart catheterization The above dictated assessment and findings were discussed with dr mejia . Impression and the plan of care have been dictated as directed. Antonina Appiah nurse practitioner acting as a scribe for dr mejia
[2016-07-27] MEDS: ISOSORBIDE MONONITRATE ER 30 MG TAB.ER.24H PO SCH (11:40)
[2016-07-27 11:56] LABS: Glucose,Whole Blood 86 mg/dL (75-99)
--- NOTE | 2016-07-27 12:43 | HP ---
DATE OF ADMISSION: CHIEF COMPLAINT: Chest pain. HISTORY OF PRESENT ILLNESS: This is another admission for this 80-year-old white female who is in and out of the hospital all the time for cardiac problems. She has coronary artery disease and unstable angina. She recently underwent a mitral valve replacement. She also has had a right mastectomy in the last year, started to have chest pain once again typical of her angina She came back to the emergency room. REVIEW OF SYSTEMS: She has had no fever, chills, nausea, vomiting, syncope, diaphoresis, etc. Past medical history, family history and personal and social histories are all otherwise unremarkable and noncontributory or unchanged. PHYSICAL EXAMINATION: Blood pressure 121/64 with a pulse of 71 and irregular, respirations of 32 and she is afebrile. GENERAL: She appeared to be comfortable and in no acute distress. Skin color is normal. Head, ears, eyes, nose, mouth, and throat were normal. Neck veins not distended. Thyroid is not enlarged. Chest is clear. Cardiac exam demonstrated atrial fibrillation. The abdomen is soft, nontender. Extremities are normal. IMPRESSION: 1. Unstable angina. 2. Coronary artery disease. 3. Status post mitral valve replacement. 4. Status post right mastectomy. PLAN: 1. Bed rest. 2. IV fluids. 3. Cardiac enzymes. 4. Cardiology consult. 5. She is going for cardiac cath tomorrow.
--- NOTE | 2016-07-27 13:28 | PN ---
80-year-old lady that was admitted to the hospital with chest pain and is to undergo cardiac catheterization by my associate, Dr. Cornell Hua. Her INR is still elevated at 2.5. She is on heparin, which I am going to stop. Her trope was slightly elevated at 0.038. She has had episodes of chest, but comfortable now. On exam, comfortable at rest. Vital signs are stable. Chest exam reveals good air entry bilaterally. Heart exam reveals first and second heart sounds, irregular rhythm. ABDOMEN: Soft. Exam of the extremities did not reveal edema. Peripheral pulses are felt. ASSESSMENT: 1. Non-ST segment elevation myocardial infarction. 2. History of atrial fibrillation status post cardioversion. PLAN: Mitral regurgitation, status post mitral valve repair. PLAN: I am giving a dose of vitamin K to the patient today, hoping that we can do the cardiac catheterization tomorrow.
[2016-07-27] MEDS: PRAVASTATIN SODIUM 40 MG TAB PO SCH (20:26)
[2016-07-27] MEDS: HYDROcodone/APAP 5-325MG 1 EACH TAB PO PRN (20:51)
[2016-07-28] MEDS: CARVEDILOL 12.5 MG TAB PO SCH ×2 (06:19→17:27)
[2016-07-28] MEDS: LEVOTHYROXINE 100 MCG TAB PO SCH (06:19)
[2016-07-28] MEDS: CYANOCOBALAMIN 500 MCG TAB PO SCH (06:20)
[2016-07-28] MEDS: ATORVASTATIN 80 MG TAB PO SCH (06:20)
[2016-07-28] MEDS: AMIODARONE 200 MG TAB PO SCH (06:20)
[2016-07-28] MEDS: ANASTROZOLE 1 MG TAB PO SCH (06:20)
[2016-07-28] MEDS: ASPIRIN 81 MG CHEW PO SCH (06:20)
[2016-07-28] MEDS: FAMOTIDINE 20 MG TAB PO SCH (06:21)
[2016-07-28] MEDS: PYRIDOSTIGMINE 60 MG TAB PO SCH ×2 (06:21→21:17)
[2016-07-28] MEDS: CHOLECALCIFEROL 1,000 UNIT TAB PO SCH (06:21)
[2016-07-28] MEDS: MULTIVITAMINS, THERA 1 EACH TAB PO SCH (06:21)
[2016-07-28] MEDS: FERROUS SULFATE 325 MG TAB PO SCH (06:21)
[2016-07-28] MEDS: ISOSORBIDE MONONITRATE ER 30 MG TAB.ER.24H PO SCH (06:21)
[2016-07-28] MEDS: SODIUM CHLORIDE 0.9% 1,000 ML IV SCH ×5 (06:29→21:17)
[2016-07-28 06:51] LABS: INR 1.4 (<1.1); Prothrombin Time 13.7 sec (9.0-12.0)
[2016-07-28] MEDS ORDERED: IV FLUID CONTINUATION 1,000 ML IV ONE (09:10)
[2016-07-28] MEDS ORDERED: MIDAZOLAM 2 MG/2 ML VIAL ONE (09:15)
[2016-07-28] MEDS ORDERED: diphenhydrAMINE 50 MG/ML 1 ML VIAL ONE (09:15)
[2016-07-28] MEDS ORDERED: diphenhydrAMINE 50 MG/ML 1 ML VIAL IVP ONE (09:21)
[2016-07-28] MEDS ORDERED: MIDAZOLAM 2 MG/2 ML VIAL IV ONE (09:23)
[2016-07-28] MEDS ORDERED: LIDOCAINE 2% INJ 20 MG/ML SQ ONE (09:24)
[2016-07-28] MEDS ORDERED: IOHEXOL 350 MG/ML 100 ML BOTTLE INJ ONE (09:52)
[2016-07-28] MEDS ORDERED: RX INFO: IV CONTRAST WAS GIVEN 1 EACH MISC MISCELLANE PRN (09:53)
[2016-07-28] MEDS: HYDROcodone/APAP 5-325MG 1 EACH TAB PO PRN ×2 (10:33→21:17)
[2016-07-28] MEDS: KETOROLAC 30 MG/ML 1 ML VIAL IVP PRN (11:30)
[2016-07-28] MEDS: FUROSEMIDE 40 MG TAB PO SCH (12:34)
--- NOTE | 2016-07-28 16:03 | P.PN ---
Subjective 80-year-old female being seen on rounds is scheduled today for heart catheterization by cardiology service as part of workup for elevated troponin suggesting a non-ST elevated IN. The INR is down to 1.4 today the plan is to proceed with the planned scheduled heart catheterization patient currently states that she's having intermittent episodes of chest discomfort. Objective - Vital Signs Vital signs: Vital Signs Temp 97.5 F L 07/28/16 14:52 Pulse 55 L 07/28/16 14:52 Resp 16 07/28/16 14:52 BP 88/41 07/28/16 14:52 Pulse Ox 93 L 07/28/16 14:52 Intake & Output 07/27/16 07/28/16 07/28/16 18:59 06:59 18:59 Intake Total 270 400 495 Output Total 975 400 Balance -705 0 495 Weight 62.6 kg Intake: IV 400 Sodium Chloride 0.9% 1, 400 000 ml @ 100 mls/hr IV . Q10H [facility] Rx#:[id number] Intake, IV Titration 375 Amount Sodium Chloride 0.9% 1, 375 000 ml @ 75 mls/hr IV . [id number] [facility] Rx#:[id number] Oral 270 120 Output: Urine 975 400 Other: Voiding Method Toilet # Voids 2 1 - Exam GENERAL APPEARANCE: 80-year-old female patient is alert, oriented, in no acute distress. Resting comfortably in bed states still has intermittent episodes of chest discomfort VITAL SIGNS: Reviewed HEENT: Head is normocephalic and atraumatic. Pupils are equal and reactive. The nares are patent. Oropharynx is clear without lesions. NECK: Supple without lymphadenopathy. Traches midline. HEART: S1, S2. Regular rate and rhythm. Monitor showing sinus rhythm denying chest pain there is been no further episodes of atrial fibrillation LUNGS: No crackles or wheezes are heard. On room air with no shortness of breath ABDOMEN: Soft, nontender, nondistended with good bowel sounds. No peritoneal signs. No palpable organomegaly or masses. EXTREMITIES: Normal skin color and turgor. No cyanosis, rash, ulceration, clubbing or edema. Radial pedal pulses are 2/4 bilaterally. NEUROLOGICAL: No focal deficits. Strength and sensation are grossly intact. - Labs CBC & Chem 7: 07/25/16 17:35 07/25/16 17:35 Labs: Abnormal Lab Results - Last 24 Hours (Table) 07/28/16 Range/Units 05:33 PT 13.7 H (9.0-12.0) sec Assessment and Plan Plan: Impression Present on admission chest pain elevated troponin suspect due to a non-ST elevated IN History of paroxysmal atrial fibrillation monitor currently showing sinus rhythm History of breast cancer right with a right mastectomy Mitral valve stenosis status post mitral valve replacement February 2016 Acute on chronic diastolic and systolic congestive heart failure EF 4 45-50% per echocardiogram May 2016 Echocardiogram May 2016 pulmonary hypertension Therapeutic INR present on admission Hypertension essential History of atrial fibrillation status post cardioversion currently sinus Dyslipidemia Plan Await the results from heart catheterization Repeat labs in the morning Resume home meds DVT and GI prophylaxis Further recommendations pending Continue IV heparin until the INR comes down patient will be scheduled for the heart catheterization The above dictated assessment and findings were discussed with dr mejia . Impression and the plan of care have been dictated as directed. Antonina Appiah nurse practitioner acting as a scribe for dr mejia
[2016-07-28] MEDS: ENOXAPARIN 60 MG/0.6 ML SYRINGE SQ SCH (17:29)
--- NOTE | 2016-07-28 17:49 | PN ---
DATE OF SERVICE: 07/27/2016 CHIEF COMPLAINT: Unstable angina. HISTORY OF PRESENT ILLNESS: This lady is still having a little discomfort but she is stable. Vital signs are normal. She is still over anticoagulated and will go for a cath tomorrow. PHYSICAL EXAM: CHEST: Clear. CARDIAC: Unchanged with A. fib and her murmur. ABDOMEN: Soft, nontender. IMPRESSION: 1. Unstable angina pectoris. 2. Coronary artery disease. 3. Status post mitral valve replacement. PLAN: Postpone cardiac catheter until tomorrow.
[2016-07-28] MEDS ORDERED: WARFARIN 2 MG TAB PO SCH (18:00)
[2016-07-28] MEDS: PRAVASTATIN SODIUM 40 MG TAB PO SCH (21:17)
[2016-07-29] MEDS: HYDROcodone/APAP 5-325MG 1 EACH TAB PO PRN (05:46)
[2016-07-29 06:31] LABS: Basophils % (A) 0 %; CH 31.3; CHCM 31.3; Eosinophils # (A) 0.2 k/uL (0-0.7); Eosinophils % (A) 5 %; HCT 32.1 % (34.0-46.0); HDW 2.62; HGB 10.1 gm/dL (11.4-16.0); Hypochromasia Slight; Luc # (Auto) 0.14; Luc % (Auto) 3; Lymphocytes # (A) 0.8 k/uL (1.0-4.8); Lymphocytes % (A) 18 %; MCH 31.9 pg (25.0-35.0); MCHC 31.6 g/dL (31.0-37.0); MCV 100.7 fL (80.0-100.0); Macrocytosis Slight; Mean Platelet Volume 7.6; Monocytes # (A) 0.4 k/uL (0-1.0); Monocytes % (A) 8 %; Neutrophils % (A) 65 %; RBC 3.18 m/uL (3.80-5.40); RDW 15.9 % (11.5-15.5); WBC 4.6 k/uL (3.8-10.6); WBC (Perox) 5.02
[2016-07-29] MEDS: CARVEDILOL 12.5 MG TAB PO SCH (06:33)
[2016-07-29] MEDS: LEVOTHYROXINE 100 MCG TAB PO SCH (06:33)
[2016-07-29] MEDS: ENOXAPARIN 60 MG/0.6 ML SYRINGE SQ SCH (06:33)
[2016-07-29 06:39] LABS: INR 1.2 (<1.1); Prothrombin Time 11.5 sec (9.0-12.0)
[2016-07-29 06:48] LABS: Anion Gap 8 mmol/L; Blood Urea Nitrogen 24 mg/dL (7-17); Calcium 8.1 mg/dL (8.4-10.2); Carbon Dioxide 23 mmol/L (22-30); Chloride 110 mmol/L (98-107); Glucose 114 mg/dL (74-99); Non-African American GFR(MDRD) >60 (>60 ml/min/1.73 sqM); Potassium 4.3 mmol/L (3.5-5.1); Sodium 141 mmol/L (137-145)
[2016-07-29 07:09] LABS: Manual Review Performed
--- NOTE | 2016-07-29 08:09 | CC ---
DATE OF SERVICE: 07/28/2016 PROCEDURE: Left heart catheterization and coronary angiography and left ventriculography. PERFORMED BY: Dr. Cornell Hua. CLINICAL INFORMATION: Mrs. Nia Castañeda is an 80-year-old lady with a history of paroxysmal A. 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 Coronary angiography at that time revealed a stable 40% mid RCA lesion and no significant disease in left system and therefore she only had isolated mitral valve replacement with a tissue valve but did not have bypass surgery. She came into the hospital with chest pain, had a borderline troponin elevation, was advised cardiac catheterization after evaluation by Dr. Wills. PROCEDURE NOTE: Under local anesthesia and strict aseptic precautions, a 6 Argentine introduced was placed in the right femoral artery. Prior to the procedure, I had a long discussion with the patient regarding the rationale, risks, benefits, and options. Using standard Sera catheters, I performed coronary angiography, and a pigtail catheter was used to perform an LV gram. The sheath was taken out and Angio-Seal device used to secure hemostasis and she was sent to the room in stable condition. CARDIAC CATHETERIZATION FINDINGS: HEMODYNAMICS: The left ventricular end-diastolic pressure was about 16 mmHg and there was no gradient across the aortic valve. CORONARY ANGIOGRAPHY FINDINGS: RIGHT CORONARY ARTERY: This vessel was stented in 2013 when she presented with acute [place]. This stent was performed in the ostial portion. RCA is widely patent in the proximal one third. In the middle one third, there is a 40% stable unchanged lesion compared to the study from 2013. Distally the vessel bifurcates into PDA and PLV, both of which have minor irregularities. LEFT MAIN CORONARY ARTERY: A short, patent, disease-free vessel that bifurcates into LAD and circumflex. LEFT ANTERIOR DESCENDING CORONARY ARTERY: Fair caliber vessel extends along the anterior wall, gives of a diagonal branch that has about a 40% narrowing and LAD runs along all the way to the apex supplying a fair amount of myocardium, has minor irregularities, but no significant obstructive disease is noted. LEFT POSTERIOR CIRCUMFLEX CORONARY ARTERY: Technically, a nondominant vessel; gives off 3 different branches. All 3 of them have about 30% to 40% narrowing, minor irregularities. No significant disease is noted. Compared to the previous angiogram from the fall of 2015, there is no significant progression of disease in the coronary system. LEFT VENTRICULOGRAM: This was performed in 30-degree ROPER projection. The study reveals the left ventricle is of normal size with good systolic function; ejection fraction of 60% without mitral regurgitation. FINAL IMPRESSION: This patient has noncritical triple-vessel disease with 30% to 40% narrowing specifically the RCA that was stented in 2013 is widely patent at the ostium, midportion has a stable 40% lesion, unchanged. Left ventricular systolic function is well-preserved. Left system has noncritical disease, unchanged. RECOMMENDATIONS: Findings were discussed with the patient in detail. There was no family available. I am recommending continued medical therapy with risk factor modification and patient can be discharged tomorrow.
--- NOTE | 2016-07-29 08:11 | LTR ---
July 28, 2016 SHANITA GARCIA MD RE: GarryDante Dear Dr. Garcia: Thank you for the opportunity to participate in the care f Mrs. Castañeda. I am pleased to report to you that she does not have any significant obstructive CAD that would require intervention. Continued medical therapy with risk factor modification is being advised. I am enclosing a cardiac cath report for your records. Thank you for your referral and please call for questions. With kindest regards. Sincerely yours, KENDALL MCKEON MD
[2016-07-29 08:44] VITALS: BP 125/64; PULSE 60; RESP 16; TEMP 96.9
[2016-07-29] MEDS: FAMOTIDINE 20 MG TAB PO SCH (08:54)
[2016-07-29] MEDS: CHOLECALCIFEROL 1,000 UNIT TAB PO SCH (08:54)
[2016-07-29] MEDS: ATORVASTATIN 80 MG TAB PO SCH (08:54)
[2016-07-29] MEDS: ASPIRIN 81 MG CHEW PO SCH (08:54)
[2016-07-29] MEDS: AMIODARONE 200 MG TAB PO SCH (08:54)
[2016-07-29] MEDS: CYANOCOBALAMIN 500 MCG TAB PO SCH (08:54)
[2016-07-29] MEDS: ANASTROZOLE 1 MG TAB PO SCH (08:54)
[2016-07-29] MEDS: ISOSORBIDE MONONITRATE ER 30 MG TAB.ER.24H PO SCH (08:54)
[2016-07-29] MEDS: FERROUS SULFATE 325 MG TAB PO SCH (08:54)
[2016-07-29] MEDS: PYRIDOSTIGMINE 60 MG TAB PO SCH (08:56)
[2016-07-29] MEDS ORDERED: ENOXAPARIN 60 MG/0.6 ML SYRINGE SQ SCH (09:30)
--- NOTE | 2016-07-29 09:45 | P.DS ---
Providers Date of admission: 07/26/16 08:04 Expected date of discharge: 07/29/16 Attending physician: Oscar Blancas Consults: Dr. Anand cardiology Primary care physician: Oscar Blancas Hospital Course: 80-year-old female who presented on the day of admission to the emergency room to be evaluated for chief complaint of chest discomfort. Patient does have a history of paroxysmal atrial fibrillation is on anticoagulation Coumadin. 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 Additionally at that time patient had an angiogram done which showed a stable 40 % RCA lesion with no significant disease in the left system. Patient has been followed by cardiology. Patient was admitted this time with elevated troponin. The INR was also elevated when the INR was corrected and the Coumadin had been held patient did undergo heart catheterization on July 26 it showed a noncritical triple-vessel disease with 30% in the RCA that was stented in 2013 which is patent stent stable postprocedure patient was denying any chest pain shortness of breath dizziness or lightheadedness patient was felt to be appropriate to be discharged home Cardiology recommended that the patient be given Lovenox daily subcu at home for 3 days to bridge the INR patient was aware of how to give the Lovenox and this was set up by the case briefer 3 doses $10 co-pay Impression discharge diagnosis Status post left heart catheterization July 28 showed noncritical triple- vessel disease patent stent to the RCA LV gram preserved EF 60% without mitral regurgImpression Present on admission chest pain elevated troponin suspect due to a non-ST elevated MD History of paroxysmal atrial fibrillation monitor currently showing sinus rhythm History of breast cancer right with a right mastectomy Mitral valve stenosis status post mitral valve replacement February 2016 Acute on chronic diastolic and systolic congestive heart failure EF 4 45-50% per echocardiogram May 2016 Echocardiogram May 2016 pulmonary hypertension Therapeutic INR present on admission Hypertension essential History of paroxysmal atrial fibrillation status post cardioversion currently sinus Dyslipidemia The above dictated assessment and findings were discussed with Dr. Blancas. Impression and the plan of care have been dictated as directed. Antonina Appiah nurse practitioner acting as a scribe for Dr. Blancas. Patient Condition at Discharge: Undetermined Plan - Discharge Summary New Discharge Prescriptions: Enoxaparin [Lovenox] 60 mg SQ Q12HR #6 syringe Discharge Medication List Cholecalciferol [Vitamin D3] 1,000 unit PO DAILY 05/18/15 [History] Cyanocobalamin [Vitamin B-12] 500 mcg PO DAILY 05/18/15 [History] Meclizine [Antivert] 25 mg PO TID PRN 05/18/15 [History] Multivitamins, Thera [Multivitamin] 1 tab PO DAILY 05/18/15 [History] Anastrozole [Arimidex] 1 mg PO DAILY 09/14/15 [History] Aspirin 81 mg PO DAILY chew 03/17/16 [Rx] Pyridostigmine [Mestinon] 30 mg PO BID tab 03/17/16 [Rx] Ferrous Sulfate [Iron (65 MG Elemental)] 325 mg PO DAILY 04/25/16 [History] Isosorbide Mononitrate ER [Imdur] 30 mg PO DAILY 04/25/16 [History] Levothyroxine Sodium [Synthroid] 100 mcg PO DAILY 04/25/16 [History] Nitroglycerin Sl Tabs [Nitrostat] 0.4 mg PO Q5M PRN 04/25/16 [History] Pravastatin Sodium 40 mg PO HS 04/25/16 [History] Ranitidine HCl 150 mg PO DAILY 04/25/16 [History] Furosemide [Lasix] 40 mg PO DAILY 05/20/16 [History] Amiodarone [Cordarone] 200 mg PO DAILY 06/08/16 [History] Carvedilol [Coreg*] 25 mg PO BID-W/MEALS 06/08/16 [History] Warfarin [Coumadin] 3 mg PO STEVENSON 06/08/16 [History] Warfarin [Coumadin] 4 mg PO [id number] 06/08/16 [History] HYDROcodone/APAP 5-325MG [[place] 5-325] 1 tab PO BID PRN 07/25/16 [History] Enoxaparin [Lovenox] 60 mg SQ Q12HR #6 syringe 07/29/16 [Rx] Follow up Appointment(s)/Referral(s): Oscar Blancas MD [Primary Care Provider] - 1-2 days Glenis Hua MD [STAFF PHYSICIAN] - 08/02/16 8:30 am Activity/Diet/Wound Care/Special Instructions: Nursing is to instruct the patient on taking Lovenox as directed for next 3 days Discharge Disposition: HOME SELF-CARE
--- NOTE | 2016-07-29 10:05 | P.PN ---
Subjective Principal diagnosis: Chest pain This is an 80-year-old female with history of coronary artery disease status post two-vessel angioplasty, mitral regurgitation status post mitral valve replacement, proximal atrial fibrillation status post cardioversion, who presented to the hospital with symptoms of chest discomfort. She was taken to the cardiac catheterization lab, where patient was found to have noncritical triple-vessel disease with 30-40% narrowing specifically the RCA that was stented in 2013 is widely patent at the ostium, midportion has a stable 40% lesion, unchanged. LV function is well-preserved. Medical therapy is advised. Patient was seen and examined this morning, complained of some mild dizziness earlier, blood pressure stable. She was initiated on Lovenox 60 mg subcu twice a day to be discharged with, PT/INR will be obtained on Monday. She has been resumed on her home Coumadin dose. INR 1.2 today. Objective - Vital Signs Vital signs: Vital Signs Temp 96.9 F L 07/29/16 08:00 Pulse 60 07/29/16 08:00 Resp 16 07/29/16 08:00 BP 125/64 07/29/16 08:00 Pulse Ox 96 07/29/16 08:00 Intake & Output 07/28/16 07/29/16 07/29/16 18:59 06:59 18:59 Intake Total 715 Output Total 325 200 Balance 715 -325 -200 Weight 62.4 kg Intake: Intake, IV Titration 375 Amount Sodium Chloride 0.9% 1, 375 000 ml @ 75 mls/hr IV . [id number] [facility] Rx#:[id number] Oral 340 Output: Urine 325 200 Other: Voiding Method Toilet # Voids 1 - Exam PHYSICAL EXAMINATION: HEENT: Head is atraumatic, normocephalic. Pupils equal, round. Neck is supple. There is no elevated jugular venous pressure. HEART EXAMINATION: Heart S1 and S2 systolic murmur is heard. CHEST EXAMINATION: Lungs are clear to auscultation and precussion. No chest wall tenderness is noted on palpation or with deep breathing. ABDOMEN: Soft, nontender. Bowel sounds are heard. No organomegaly noted. Right groin soft, no evidence of any hematoma. EXTREMITIES: 2+ peripheral pulses with no evidence of peripheral edema and no calf tenderness noted. NEUROLOGIC patient is awake, alert and oriented -3. . - Labs CBC & Chem 7: 07/29/16 05:42 07/29/16 05:42 Labs: Abnormal Lab Results - Last 24 Hours (Table) 07/29/16 07/29/16 Range/Units 05:42 05:42 RBC 3.18 L (3.80-5.40) m/uL Hgb 10.1 L (11.4-16.0) gm/dL Hct 32.1 L (34.0-46.0) % MCV 100.7 H (80.0-100.0) fL RDW 15.9 H (11.5-15.5) % Lymphocytes # 0.8 L (1.0-4.8) k/uL Chloride 110 H (98-107) mmol/L BUN 24 H (7-17) mg/dL Glucose 114 H (74-99) mg/dL Calcium 8.1 L (8.4-10.2) mg/dL Assessment and Plan (1) Chest pain Status: Acute (2) Status post cardiac catheterization Status: Acute (3) CAD (coronary artery disease) Status: Acute (4) Diabetes Status: Acute (5) HTN (hypertension) Status: Acute (6) Hyperlipemia Status: Acute (7) Hypothyroid Status: Acute (8) Paroxysmal a-fib Status: Acute (9) S/P MVR (mitral valve replacement) Status: Acute Plan: From cardiology's perspective, patient may be able to be discharged home today. She will be discharged home with Lovenox 60 mg subcu twice a day or 3 days along with her home Coumadin dose. A follow-up appointment will be made with Dr. Pricilla Hua in the office post discharge. DNP note has been reviewed, I agree with a documented findings and plan of care. Patient was seen and examined.
[2016-07-29] MEDS ORDERED: MULTIVITAMINS, THERA 1 EACH TAB PO SCH (12:00)
--- NOTE | 2016-07-30 11:28 | PN ---
DATE OF SERVICE: 07/28/2016 CHIEF COMPLAINT: Chest pain. HISTORY OF PRESENT ILLNESS: This lady is doing well and she may be going home today and this will be arranged by the nurse practitioner. We will follow her up in the office. PHYSICAL EXAMINATION: Chest is clear. Cardiac exam is unchanged in A. fib. ABDOMEN: Soft, nontender. IMPRESSION: 1. Unstable angina pectoris. 2. Coronary artery disease. 3. Atrial fibrillation. 4. Cancer of the breast. PLAN: Probably home today.
[2016-07-31] MEDS ORDERED: WARFARIN 3 MG TAB PO SCH (18:00)
== END 2016-07-29 11:06 | disposition home or self-care (01) | DRG 280 ==
LOC: EC 16:31 → 3OBS 19:35 → OBSVTOIN 07-26 08:04 → 6SEL 07-26 20:13
PROVIDERS: ADMIT Family Medicine; ATTEND Family Medicine
PROC: B2111ZZ Fluoroscopy of Multiple Coronary Arteries using Low Osmolar Contrast (ICD-10-PCS; principal; 2016-07-28 09:00)
PROC: B2151ZZ Fluoroscopy of Left Heart using Low Osmolar Contrast (ICD-10-PCS; principal; 2016-07-28 09:00)
PROC: 4A023N7 Measurement of Cardiac Sampling and Pressure, Left Heart, Percutaneous Approach (ICD-10-PCS; principal; 2016-07-28 09:00)
DX: I21.4 Non-ST elevation (NSTEMI) myocardial infarction (principal); I50.43 Acute on chronic combined systolic (congestive) and diastolic (congestive) heart failure; J96.10 Chronic respiratory failure, unspecified whether with hypoxia or hypercapnia; G70.00 Myasthenia gravis without (acute) exacerbation; I27.2 Other secondary pulmonary hypertension; E11.9 Type 2 diabetes mellitus without complications; D64.9 Anemia, unspecified; E03.9 Hypothyroidism, unspecified; E78.5 Hyperlipidemia, unspecified; I25.2 Old myocardial infarction; I48.0 Paroxysmal atrial fibrillation; I49.3 Ventricular premature depolarization; G89.29 Other chronic pain; M19.90 Unspecified osteoarthritis, unspecified site; M54.9 Dorsalgia, unspecified; I25.10 Atherosclerotic heart disease of native coronary artery without angina pectoris; I11.0 Hypertensive heart disease with heart failure; Z79.01 Long term (current) use of anticoagulants; Z79.82 Long term (current) use of aspirin; Z79.899 Other long term (current) drug therapy; Z85.3 Personal history of malignant neoplasm of breast; Z87.891 Personal history of nicotine dependence; Z85.828 Personal history of other malignant neoplasm of skin; Z88.5 Allergy status to narcotic agent; Z95.2 Presence of prosthetic heart valve; Z95.5 Presence of coronary angioplasty implant and graft; Z98.1 Arthrodesis status; Z82.49 Family history of ischemic heart disease and other diseases of the circulatory system
CPT/HCPCS: 36415; 71020; 80048; 80053; 80061; 81001; 82550; 82553; 83036; 83735; 83880; 84100; 84484; 85025; 85610; 85730; 93005; 93458; 94760; 96365; 96366; 96375; 96376; 99291

== ENCOUNTER 2016-08-25 18:59 | Observation (INO) | payer MEDICARE, BC ==
[2016-08-25] MEDS ORDERED: ASPIRIN 81 MG CHEW PO STA (19:33)
[2016-08-25] MEDS ORDERED: NITROGLYCERIN OINT 1 INCH/GM PACKET TOPICAL STA (19:33)
--- NOTE | 2016-08-25 19:36 | ED ---
General Adult HPI - General Chief complaint: Upper Respiratory Infection Stated complaint: CHEST CONGESTION, PAIN, POSS PNEUMONIA Time Seen by Provider: 08/25/16 19:15 Source: patient, RN notes reviewed Mode of arrival: ambulatory Limitations: no limitations - History of Present Illness Initial comments: This is an 80-year-old female with past medical history significant for bypass surgery breast cancer with mastectomy and cervical spine and lumbar spine surgeries. Patient comes in today because she states late this afternoon she started having chest pain across her chest and made her mildly short of breath. Patient states she did notice anything making it better or worse. Patient states he first became went and now it's there constantly. Patient states she was worried that she might have pneumonia. Patient denies any coughing patient denies any fever or chills. Patient states she had pneumonia one year ago and was concerned that it might be pneumonia again. Patient denies any upper respiratory symptoms. Patient denies a sore throat or ear pain. Patient denies headache patient denies numbness weakness. Patient denies lightheadedness dizziness or near syncopal episode. Patient denies abdominal pain patient denies nausea vomiting or diarrhea. - Related Data Home Medications Medication Instructions Recorded Confirmed Cholecalciferol [Vitamin D3] 1,000 unit PO DAILY 05/18/15 08/25/16 Cyanocobalamin [Vitamin B-12] 500 mcg PO DAILY 05/18/15 08/25/16 Meclizine [Antivert] 25 mg PO TID PRN 05/18/15 08/25/16 Multivitamins, Thera [Multivitamin] 1 tab PO DAILY 05/18/15 08/25/16 Anastrozole [Arimidex] 1 mg PO DAILY 09/14/15 08/25/16 Ferrous Sulfate [Iron (65 MG 325 mg PO DAILY 04/25/16 08/25/16 Elemental)] Isosorbide Mononitrate ER [Imdur] 30 mg PO DAILY 04/25/16 08/25/16 Levothyroxine Sodium [Synthroid] 100 mcg PO DAILY 04/25/16 08/25/16 Nitroglycerin Sl Tabs [Nitrostat] 0.4 mg PO Q5M PRN 04/25/16 08/25/16 Pravastatin Sodium 40 mg PO HS 04/25/16 08/25/16 Ranitidine HCl 150 mg PO DAILY 04/25/16 08/25/16 Furosemide [Lasix] 40 mg PO DAILY 05/20/16 08/25/16 Amiodarone [Cordarone] 200 mg PO DAILY 06/08/16 08/25/16 Carvedilol [Coreg*] 25 mg PO BID-W/MEALS 06/08/16 08/25/16 Warfarin [Coumadin] 4 mg PO SUMOTUWEFRSA 06/08/16 08/25/16 Warfarin [Coumadin] 5 mg PO TH 06/08/16 08/25/16 Previous Rx's Medication Instructions Recorded Aspirin 81 mg PO DAILY chew 03/17/16 Pyridostigmine [Mestinon] 30 mg PO BID tab 03/17/16 Allergies Allergy/AdvReac Type Severity Reaction Status Date / Time morphine AdvReac Severe Nausea & Verified 08/25/16 19:36 Vomiting Review of Systems ROS Statement: Those systems with pertinent positive or pertinent negative responses have been documented in the HPI. ROS Other: All systems not noted in ROS Statement are negative. Past Medical History Past Medical History: Atrial Fibrillation, Coronary Artery Disease (CAD), Cancer , Heart Failure, Diabetes Mellitus, Eye Disorder, Hyperlipidemia, Hypertension, Myocardial Infarction (LA), Mitral Valve Prolapse (MVP), Osteoarthritis (OA), Pneumonia, Respiratory Disorder, Thyroid Disorder Additional Past Medical History / Comment(s): Paroxysmal Afib. Chronic CHF. RT Eye Occular Myasthenia Gravis. Chronic Back Pain. DJD. 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 DIET CONTROLLED DM. FREQ UTI'S. SKIN CA. RT breast CA with surgery. OCC Vertigo. Chronic Respiratory Failure. HOME 02 2 LITERS N/C ATC PRN. CHRONIC Anemia. DIVERTICULAR DX. hypothyroid Last Myocardial Infarction Date:: 04/2014 History of Any Multi-Drug Resistant Organisms: None Reported Past Surgical History: Appendectomy, Back Surgery, Breast Surgery, Cardiac Valve Replacement, Heart Catheterization, Heart Catheterization With Stent, Hysterectomy, Orthopedic Surgery Additional Past Surgical History / Comment(s): 02/2016 MVR. NEYMAR CTR, bilateral Rotator Cuff Repair. EXC Skin CA. TITANIUM VIMAL IN BACK, 7 BACK FUSIONS, 3 NECK FUSIONS. Stent Proximal RCA; HEART CATH 09-29-14. EXC NEYMAR CATARACTS, POSS Lens Implants, Bilateral Eye Laser. RT BREAST LUMPECTOMY x 2, RT BREAST SIMPLE MASTECTOMY 06/2015. ORIF Ankles. Colonoscopy. Past Anesthesia/Blood Transfusion Reactions: No Reported Reaction Additional Past Anesthesia/Blood Transfusion Reaction / Comment(s): Pt has recently received blood without reaction. Date of Last Stent Placement:: 08/17/2013 Past Psychological History: No Psychological Hx Reported Additional Psychological History / Comment(s): Pt resides with her spouse of 63 yrs. She uses a walker NEEDED. She has a very supportive family. She no longer drives-her spouse takes her to appointments. Smoking Status: Former smoker Past Alcohol Use History: None Reported Additional Past Alcohol Use History / Comment(s): STARTED SMOKING AT AGE 11 SMOKED 1/2 PPD QUIT 40 YEARS AGO Past Drug Use History: None Reported - Past Family History Father History Unknown: Yes Family Medical History: No Reported History Additional Family Medical History / Comment(s): DAD IN MVA AT AGE 52 Mother History Unknown: Yes Family Medical History: Congestive Heart Failure (CHF) Additional Family Medical History / Comment(s): RHEUMATIC FEVER. Mother of CHF at the age of 59yrs. General Exam - General Exam Comments Initial Comments: GENERAL: Patient is well-developed and well-nourished. Patient is nontoxic and well- hydrated and is in no acute distress. ENT: Neck is soft and supple. No significant lymphadenopathy is noted. Oropharynx is clear. Moist mucous membranes. Neck has full range of motion without eliciting any pain. EYES: The sclera were anicteric and conjunctiva were pink and moist. Extraocular movements were intact and pupils were equal round and reactive to light. Eyelids were unremarkable. PULMONARY: Unlabored respirations. Good breath sounds bilaterally. No audible rales rhonchi or wheezing was noted. CARDIOVASCULAR: There is a regular rate and rhythm without any murmurs gallops or rubs. Patient has had a mastectomy ABDOMEN: Soft and nontender with normal bowel sounds. No palpable organomegaly was noted. There is no palpable pulsatile mass. SKIN: Skin is clear with no lesions or rashes and otherwise unremarkable. NEUROLOGIC: Patient is alert and oriented x3. Cranial nerves II through XII are grossly intact. Motor and sensory are also intact. Normal speech, volume and content. Symmetrical smile. MUSCULOSKELETAL: Normal extremities with adequate strength and full range of motion. No lower extremity swelling or edema. No calf tenderness. LYMPHATICS: No significant lymphadenopathy is noted PSYCHIATRIC: Normal psychiatric evaluation. Normal interpersonal interactions appears functionally intact in deals appropriately with others. No signs of depression. No signs of anxiety. Limitations: no limitations Course Vital Signs 08/25/16 08/25/16 19:12 19:48 Temperature 97.6 F Pulse Rate 65 62 Respiratory 18 18 Rate Blood Pressure 171/81 158/72 O2 Sat by Pulse 96 98 Oximetry Medical Decision Making - Medical Decision Making She has a normal sinus rhythm 64 bpm WV interval is 210 QRS 78 QT interval is 456 QTC is 470. Patient's EKG shows no ST segment elevation or depression. Patient's chest x-ray shows no acute abnormality. I reviewed the patient's recent cardiac catheterization in July. I spoke with Dr. Mcconnell and he wanted the patient observed overnight. I wrote admitting orders. - Lab Data Result diagrams: 08/25/16 19:45 08/25/16 19:45 Lab Results 08/25/16 08/25/16 08/25/16 Range/Units 19:45 19:45 19:45 WBC 5.4 (3.8-10.6) k/uL RBC 3.79 L (3.80-5.40) m/uL Hgb 12.3 (11.4-16.0) gm/dL Hct 37.2 (34.0-46.0) % MCV 98.1 (80.0-100.0) fL MCH 32.5 (25.0-35.0) pg MCHC 33.2 (31.0-37.0) g/dL RDW 15.6 H (11.5-15.5) % Plt Count 169 (150-450) k/uL Neutrophils % 57 % Lymphocytes % 26 % Monocytes % 8 % Eosinophils % 5 % Basophils % 1 % Neutrophils # 3.1 (1.3-7.7) k/uL Lymphocytes # 1.4 (1.0-4.8) k/uL Monocytes # 0.4 (0-1.0) k/uL Eosinophils # 0.3 (0-0.7) k/uL Basophils # 0.0 (0-0.2) k/uL PT (9.0-12.0) sec INR (<1.1) APTT (22.0-30.0) sec Sodium 141 (137-145) mmol/L Potassium 3.9 (3.5-5.1) mmol/L Chloride 102 (98-107) mmol/L Carbon Dioxide 31 H (22-30) mmol/L Anion Gap 8 mmol/L BUN 21 H (7-17) mg/dL Creatinine 0.69 (0.52-1.04) mg/dL Est GFR (MDRD) Af Amer >60 (>60 ml/min/1.73 sqM) Est GFR (MDRD) Non-Af >60 (>60 ml/min/1.73 sqM) Glucose 95 (74-99) mg/dL Calcium 9.0 (8.4-10.2) mg/dL Magnesium 1.8 (1.6-2.3) mg/dL Total Bilirubin 0.9 (0.2-1.3) mg/dL AST 46 H (14-36) U/L ALT 28 (9-52) U/L Alkaline Phosphatase 102 (38-126) U/L Total Creatine Kinase 37 (30-135) U/L CK-MB (CK-2) 0.4 (0.0-2.4) ng/mL CK-MB (CK-2) Rel Index 1.1 Troponin I 0.018 (0.000-0.034) ng/mL Total Protein 7.3 (6.3-8.2) g/dL Albumin 4.2 (3.5-5.0) g/dL 08/25/16 Range/Units 19:45 WBC (3.8-10.6) k/uL RBC (3.80-5.40) m/uL Hgb (11.4-16.0) gm/dL Hct (34.0-46.0) % MCV (80.0-100.0) fL MCH (25.0-35.0) pg MCHC (31.0-37.0) g/dL RDW (11.5-15.5) % Plt Count (150-450) k/uL Neutrophils % % Lymphocytes % % Monocytes % % Eosinophils % % Basophils % % Neutrophils # (1.3-7.7) k/uL Lymphocytes # (1.0-4.8) k/uL Monocytes # (0-1.0) k/uL Eosinophils # (0-0.7) k/uL Basophils # (0-0.2) k/uL PT 25.0 H (9.0-12.0) sec INR 2.6 (<1.1) APTT 32.1 H (22.0-30.0) sec Sodium (137-145) mmol/L Potassium (3.5-5.1) mmol/L Chloride (98-107) mmol/L Carbon Dioxide (22-30) mmol/L Anion Gap mmol/L BUN (7-17) mg/dL Creatinine (0.52-1.04) mg/dL Est GFR (MDRD) Af Amer (>60 ml/min/1.73 sqM) Est GFR (MDRD) Non-Af (>60 ml/min/1.73 sqM) Glucose (74-99) mg/dL Calcium (8.4-10.2) mg/dL Magnesium (1.6-2.3) mg/dL Total Bilirubin (0.2-1.3) mg/dL AST (14-36) U/L ALT (9-52) U/L Alkaline Phosphatase (38-126) U/L Total Creatine Kinase (30-135) U/L CK-MB (CK-2) (0.0-2.4) ng/mL CK-MB (CK-2) Rel Index Troponin I (0.000-0.034) ng/mL Total Protein (6.3-8.2) g/dL Albumin (3.5-5.0) g/dL Disposition Clinical Impression: Chest pain Disposition: ADMITTED IP TO THIS [facility] Time of Disposition: 20:37
[2016-08-25 20:01] LABS: Basophils % (A) 1 %; CH 32.2; CHCM 33.1; Eosinophils # (A) 0.3 k/uL (0-0.7); Eosinophils % (A) 5 %; HCT 37.2 % (34.0-46.0); HDW 2.72; HGB 12.3 gm/dL (11.4-16.0); Luc # (Auto) 0.21; Luc % (Auto) 4; Lymphocytes # (A) 1.4 k/uL (1.0-4.8); Lymphocytes % (A) 26 %; MCH 32.5 pg (25.0-35.0); MCHC 33.2 g/dL (31.0-37.0); MCV 98.1 fL (80.0-100.0); Mean Platelet Volume 8.3; Monocytes # (A) 0.4 k/uL (0-1.0); Monocytes % (A) 8 %; Neutrophils # (A) 3.1 k/uL (1.3-7.7); Neutrophils % (A) 57 %; RBC 3.79 m/uL (3.80-5.40); RDW 15.6 % (11.5-15.5); WBC 5.4 k/uL (3.8-10.6); WBC (Perox) 5.14
[2016-08-25 20:15] LABS: ALT 28 U/L (9-52); AST 46 U/L (14-36); Alkaline Phosphatase 102 U/L (38-126); Anion Gap 8 mmol/L; Blood Urea Nitrogen 21 mg/dL (7-17); Carbon Dioxide 31 mmol/L (22-30); Chloride 102 mmol/L (98-107); Glucose 95 mg/dL (74-99); Magnesium 1.8 mg/dL (1.6-2.3); Non-African American GFR(MDRD) >60 (>60 ml/min/1.73 sqM); Potassium 3.9 mmol/L (3.5-5.1); Sodium 141 mmol/L (137-145); Total Bilirubin 0.9 mg/dL (0.2-1.3); Total Protein 7.3 g/dL (6.3-8.2)
[2016-08-25 20:19] LABS: INR 2.6 (<1.1); Partial Thromboplastin Time 32.1 sec (22.0-30.0)
[2016-08-25 20:28] LABS: Creatine Kinase MB 0.4 ng/mL (0.0-2.4); Troponin I 0.018 ng/mL (0.000-0.034)
--- NOTE | 2016-08-25 20:30 | XR ---
EXAMINATION TYPE: XR chest 2V DATE OF EXAM: 08/25/2016 8:07 PM COMPARISON: 07/25/2016 HISTORY: Chest pain cough and congestion TECHNIQUE: Frontal and lateral views of the chest are obtained. FINDINGS: Heart appears enlarged. There is no heart failure. Lungs are clear of consolidation. There are no hilar masses. There is no pleural effusion. There is vertebroplasty noted. There is posterior thoracolumbar spine fusion surgery. Thoracic aorta is atheromatous. IMPRESSION: Cardiomegaly. No active cardiopulmonary disease. No change.
[2016-08-25] MEDS ORDERED: NITROGLYCERIN SL TABS 0.4 MG TAB SUBLINGUAL PRN (20:37)
[2016-08-25] MEDS ORDERED: WARFARIN 1 MG TAB PO SCH (21:00)
[2016-08-25] MEDS ORDERED: PRAVASTATIN SODIUM 40 MG TAB PO SCH (21:00)
[2016-08-25] MEDS ORDERED: HYDROcodone/APAP 5-325MG 1 EACH TAB PO STA (21:01)
[2016-08-25] MEDS ORDERED: WARFARIN 5 MG TAB PO SCH (21:07)
[2016-08-25 22:33] VITALS: BMI 23.1
[2016-08-25] MEDS ORDERED: HYDROmorphone 1 MG/ML 1 ML SYRINGE IVP PRN (23:28)
[2016-08-25] MEDS: NITROGLYCERIN OINT 1 INCH/GM PACKET TOPICAL SCH (23:51)
[2016-08-26 02:56] LABS: Creatine Kinase MB 0.3 ng/mL (0.0-2.4); Troponin I 0.017 ng/mL (0.000-0.034)
[2016-08-26] MEDS ORDERED: MECLIZINE 25 MG TAB PO PRN (05:09)
[2016-08-26] MEDS ORDERED: LEVOTHYROXINE 100 MCG TAB PO SCH (06:30)
[2016-08-26 06:33] LABS: Glucose,Whole Blood 93 mg/dL (75-99)
[2016-08-26] MEDS: NITROGLYCERIN OINT 1 INCH/GM PACKET TOPICAL SCH (06:35)
[2016-08-26] MEDS ORDERED: CARVEDILOL 12.5 MG TAB PO SCH (07:30)
[2016-08-26] MEDS ORDERED: ACETAMINOPHEN TAB 325 MG TAB PO PRN (08:17)
[2016-08-26 08:29] VITALS: RESP 20
[2016-08-26 08:43] LABS: Creatine Kinase MB 0.3 ng/mL (0.0-2.4); Troponin I 0.021 ng/mL (0.000-0.034)
[2016-08-26] MEDS ORDERED: FUROSEMIDE 40 MG TAB PO SCH (09:00)
[2016-08-26] MEDS ORDERED: FERROUS SULFATE 325 MG TAB PO SCH (09:00)
[2016-08-26] MEDS ORDERED: PYRIDOSTIGMINE 60 MG TAB PO SCH (09:00)
[2016-08-26] MEDS ORDERED: ASPIRIN 325 MG TAB PO SCH (09:00)
[2016-08-26] MEDS ORDERED: FAMOTIDINE 20 MG TAB PO SCH (09:00)
[2016-08-26] MEDS ORDERED: MULTIVITAMINS, THERA 1 EACH TAB PO SCH (09:00)
[2016-08-26] MEDS ORDERED: AMIODARONE 200 MG TAB PO SCH (09:00)
[2016-08-26] MEDS ORDERED: CHOLECALCIFEROL 1,000 UNIT TAB PO SCH (09:00)
[2016-08-26] MEDS ORDERED: ISOSORBIDE MONONITRATE ER 30 MG TAB.ER.24H PO SCH (09:00)
[2016-08-26] MEDS ORDERED: CYANOCOBALAMIN 500 MCG TAB PO SCH (09:00)
[2016-08-26] MEDS ORDERED: ANASTROZOLE 1 MG TAB PO SCH (09:00)
[2016-08-26] MEDS ORDERED: HYDROcodone/APAP 5-325MG 1 EACH TAB PO PRN (09:29)
[2016-08-26 10:28] LABS: Cholesterol 185 mg/dL (<200); HDL Cholesterol 57 mg/dL (40-60); Triglycerides 133 mg/dL (<150)
[2016-08-26 11:30] VITALS: BP 132/62; PULSE 62; TEMP 97
[2016-08-26 11:31] LABS: Glucose,Whole Blood 90 mg/dL (75-99)
--- NOTE | 2016-08-26 13:04 | HP ---
DATE OF ADMISSION: CHIEF COMPLAINT: Chest pain. HISTORY OF PRESENT ILLNESS: This is another recent admission for this 80-year-old white female who is in and out frequently with episodes of chest pain. She has also had a right mastectomy. She had a cath recently. REVIEW OF SYSTEMS: She denies any palpitation, syncope, nausea, etc. She was short of breath and diaphoretic. She has had no neurologic problems, change in the vision or the hearing, cough, hemoptysis, abdominal pain, vomiting, diarrhea, melena, hematochezia, jaundice, etc. Past medical history, family history, and personal and social histories are all otherwise unremarkable and noncontributory or unchanged. PHYSICAL EXAMINATION: Blood pressure 138/80 with a pulse of 78 and regular, respirations 30, and she is afebrile. GENERAL: She appeared to well developed, well nourished in no acute distress. Skin color is normal. Skin is warm and dry. Lymph nodes are not enlarged. Head, ears, eyes, nose, mouth, and throat were normal. Neck veins are not distended. Thyroid is not enlarged. Chest is clear. Cardiac exam is normal. ABDOMEN: Soft, nontender. IMPRESSION: 1. Chest pain. 2. Coronary artery disease. 3. Status post right mastectomy. PLAN: 1. Bed rest. 2. IV fluids. 3. Serial EKGs and enzymes. 4. Cardiology consult.
--- NOTE | 2016-08-26 13:06 | PN ---
DATE OF SERVICE: 08/26/2016 CHIEF COMPLAINT: Chest pain. HISTORY OF PRESENT ILLNESS: This lady is doing well and enzymes are being followed. She probably will be able to go home later today. PHYSICAL EXAM: CHEST: Clear. Cardiac exam is normal. ABDOMEN: Soft, nontender. IMPRESSION: 1. Coronary artery disease. 2. Unstable angina pectoris. 3. Carcinoma of the right breast. OPERATIONS: None. CONSULTATIONS: Cardiology. She is improved.
--- NOTE | 2016-08-26 13:42 | NM ---
EXAMINATION TYPE: NM bone scan whole body DATE OF EXAM: 08/26/2016 1:36 PM COMPARISON: NONE HISTORY: Chronic back pain Delayed whole-body scanning was performed following the injection of 27.5 mCi Tc 99m MDP. Images acq uired 3.25 hours post injection. FINDINGS: There is increased activity in the posterior elements at T11 and T12. No other definite focal abnorma lity is seen. IMPRESSION: Increased activity in the posterior elements at T11 and T12, likely degenerative.
--- NOTE | 2016-08-26 14:25 | P.DS ---
Providers Date of admission: 08/25/16 20:37 Expected date of discharge: 08/26/16 Attending physician: Oscar Mejia Primary care physician: Oscar Mejia [facility] Course: This is an 80-year-old female presented on the day of admission to the emergency room to be evaluated for chest congestion. Patient stated that she started having some chest discomfort across her chest in the afternoon decided to come to the emergency room to be evaluated. Patient additionally stated that she felt slightly short of breath. Patient denies any cough fever or chills. Patient states that she was concerned since she had pneumonia approximately a year ago was concerned that it might be pneumonia again patient was afebrile no white count chest x-ray showed no acute abnormality. Additionally the patient had a recent heart catheterization in July 2016 that showed no acute findings heart catheterization was done on 07/28/2016 showed noncritical triple-vessel disease patent stent to the RCA LV gram preserved EF 60% without mitral regurg patient does have a history of mitral valve stenosis status post mitral valve replacement February 2016 patient was admitted to the services of the attending. Cardiac enzymes were negative 3 sets. Patient was complaining of generalized body pain. Did undergo a nuclear bone scan of the whole body done on the it showed increase activity in the posterior elements at T11 and T12 likely degenerative no definitive focal abnormality noted. Patient is clinically stable and appropriate proceed with a discharge to home Impression discharge diagnosis Present on admission chest pain atypical features evidence of acute coronary syndrome Nuclear bone scan whole body showed increase activity in the posterior elements at T11 and T 12 likely degenerative History of breast cancer right breast Known coronary artery disease Hypertension essential Chronic diastolic and systolic congestive heart failure LV gram EF 60% Paroxysmal atrial fibrillation status post cardioversion current sinus on Coumadin therapeutic on the INR Dyslipidemia Chronic debility The above dictated assessment and findings were discussed with dr mejia Impression and the plan of care have been dictated as directed. Antonina Appiah nurse practitioner acting as a scribe for dr mejia Plan - Discharge Summary Discharge Medication List Cholecalciferol [Vitamin D3] 1,000 unit PO DAILY 05/18/15 [History] Cyanocobalamin [Vitamin B-12] 500 mcg PO DAILY 05/18/15 [History] Meclizine [Antivert] 25 mg PO TID PRN 05/18/15 [History] Multivitamins, Thera [Multivitamin] 1 tab PO DAILY 05/18/15 [History] Anastrozole [Arimidex] 1 mg PO DAILY 09/14/15 [History] Aspirin 81 mg PO DAILY chew 03/17/16 [Rx] Pyridostigmine [Mestinon] 30 mg PO BID tab 03/17/16 [Rx] Ferrous Sulfate [Iron (65 MG Elemental)] 325 mg PO DAILY 04/25/16 [History] Isosorbide Mononitrate ER [Imdur] 30 mg PO DAILY 04/25/16 [History] Levothyroxine Sodium [Synthroid] 100 mcg PO DAILY 04/25/16 [History] Nitroglycerin Sl Tabs [Nitrostat] 0.4 mg PO Q5M PRN 04/25/16 [History] Pravastatin Sodium 40 mg PO HS 04/25/16 [History] Ranitidine HCl 150 mg PO DAILY 04/25/16 [History] Furosemide [Lasix] 40 mg PO DAILY 05/20/16 [History] Amiodarone [Cordarone] 200 mg PO DAILY 06/08/16 [History] Carvedilol [Coreg*] 25 mg PO BID-W/MEALS 06/08/16 [History] Warfarin [Coumadin] 4 mg PO SUMOTUWEFRSA 06/08/16 [History] Warfarin [Coumadin] 5 mg PO TH 06/08/16 [History] Follow up Appointment(s)/Referral(s): Oscar Mejia MD [Primary Care Provider] - 1-2 days Discharge Disposition: HOME SELF-CARE
[2016-08-26] MEDS ORDERED: WARFARIN 2 MG TAB PO SCH (18:00)
[2016-08-27] MEDS ORDERED: ASPIRIN 81 MG CHEW PO SCH (09:00)
== END 2016-08-26 15:28 | disposition home or self-care (01) ==
LOC: EC 18:59 → 6SEL 20:37
PROVIDERS: ADMIT Family Medicine; ATTEND Family Medicine
DX: R07.89 Other chest pain (principal); I24.9 Acute ischemic heart disease, unspecified; C50.911 Malignant neoplasm of unspecified site of right female breast; I25.10 Atherosclerotic heart disease of native coronary artery without angina pectoris; I50.42 Chronic combined systolic (congestive) and diastolic (congestive) heart failure; I11.0 Hypertensive heart disease with heart failure; I48.0 Paroxysmal atrial fibrillation; E78.5 Hyperlipidemia, unspecified; R53.81 Other malaise; E11.9 Type 2 diabetes mellitus without complications; I25.2 Old myocardial infarction; Z79.899 Other long term (current) drug therapy; Z79.01 Long term (current) use of anticoagulants; Z79.811 Long term (current) use of aromatase inhibitors; Z88.5 Allergy status to narcotic agent; Z87.891 Personal history of nicotine dependence; Z82.49 Family history of ischemic heart disease and other diseases of the circulatory system; Z95.5 Presence of coronary angioplasty implant and graft; Z95.2 Presence of prosthetic heart valve; M54.9 Dorsalgia, unspecified; G89.29 Other chronic pain; E03.9 Hypothyroidism, unspecified; Z79.82 Long term (current) use of aspirin; Z90.11 Acquired absence of right breast and nipple; G70.00 Myasthenia gravis without (acute) exacerbation; R42 Dizziness and giddiness; J96.10 Chronic respiratory failure, unspecified whether with hypoxia or hypercapnia; Z98.1 Arthrodesis status
CPT/HCPCS: 36415; 93005; 80061; 80053; 82550 ×2; 82553 ×2; 83735; 84484 ×2; 85025; 85610; 85730; 71020; 78306; 99284; G0378 ×2; A9503; S0170; J1170; 96374

== ENCOUNTER 2016-09-26 04:49 | Observation (INO) | payer MEDICARE, BC ==
[2016-09-26 05:56] LABS: Basophils # (A) 0.1 k/uL (0-0.2); Basophils % (A) 1 %; CH 32.4; CHCM 32.9; Eosinophils # (A) 0.2 k/uL (0-0.7); Eosinophils % (A) 4 %; Luc # (Auto) 0.11; Luc % (Auto) 2; Lymphocytes # (A) 1.3 k/uL (1.0-4.8); Lymphocytes % (A) 25 %; MCH 31.2 pg (25.0-35.0); MCHC 31.5 g/dL (31.0-37.0); MCV 98.9 fL (80.0-100.0); Macrocytosis Slight; Mean Platelet Volume 7.2; Monocytes # (A) 0.3 k/uL (0-1.0); Monocytes % (A) 6 %; Neutrophils # (A) 3.2 k/uL (1.3-7.7); Neutrophils % (A) 62 %; RBC 3.54 m/uL (3.80-5.40); RDW 15.4 % (11.5-15.5); WBC 5.1 k/uL (3.8-10.6); WBC (Perox) 5.12
[2016-09-26 06:12] LABS: ALT 29 U/L (9-52); AST 40 U/L (14-36); Alkaline Phosphatase 70 U/L (38-126); Amylase 69 U/L (30-110); Anion Gap 7 mmol/L; Blood Urea Nitrogen 19 mg/dL (7-17); Calcium 8.8 mg/dL (8.4-10.2); Carbon Dioxide 32 mmol/L (22-30); Chloride 104 mmol/L (98-107); Glucose 89 mg/dL (74-99); Magnesium 1.7 mg/dL (1.6-2.3); Non-African American GFR(MDRD) >60 (>60 ml/min/1.73 sqM); Potassium 3.7 mmol/L (3.5-5.1); Sodium 143 mmol/L (137-145); Total Bilirubin 0.8 mg/dL (0.2-1.3); Total Protein 6.9 g/dL (6.3-8.2)
[2016-09-26 06:16] LABS: INR 2.9 (<1.1); Partial Thromboplastin Time 37.3 sec (22.0-30.0); Prothrombin Time 28.5 sec (9.0-12.0)
--- NOTE | 2016-09-26 06:18 | XR ---
EXAM: XR Chest, 1 View. CLINICAL HISTORY: Reason: chest pain TECHNIQUE: Frontal view of the chest. COMPARISON: 08/25/16 FINDINGS: Allowing for differences in technique, cardiac and mediastinal silhouette likely stable with cardiomegaly again noted. No edema appreciated. Questionable increased left lung base opacity versus summation with overlying soft tissues. Correlate for left lung base symptoms. Postop changes and other unchanged findings. IMPRESSION: Possible increased left lung base opacity.
[2016-09-26 06:27] LABS: Creatine Kinase 28 U/L (30-135)
--- NOTE | 2016-09-26 06:37 | ED ---
Chest Pain HPI - General Source: patient Mode of arrival: wheelchair Limitations: no limitations - History of Present Illness MD Complaint: chest pain Onset/Timin -: hour(s) Onset: during rest Pain Location: substernal Pain Radiation: back Severity: moderate Quality: aching Consistency: constant Improves With: nothing Worsens With: nothing Treatments Prior to Arrival: nitroglycerin <Naseem Pollard - Last Filed: 09/26/16 06:52> <Conrado Agosto - Last Filed: 09/26/16 09:04> - General Chief Complaint: Chest Pain Stated Complaint: CHEST PAIN Time Seen by Provider: 09/26/16 04:55 - History of Present Illness Initial Comments: This patient is an 80-year-old woman who presents to be evaluated after she developed substernal chest pain this morning. The patient states that she had been sleeping then got up to use the bathroom. When she returned to the bed she noted that she was having some substernal chest pain. She states that it is an ache, constant, moderate intensity. She took 2 nitroglycerin without any change in the pain and then they called EMS. She did not have any associated symptoms. (Naseem Pollard) - Related Data Home Medications Medication Instructions Recorded Confirmed Cholecalciferol [Vitamin D3] 1,000 unit PO DAILY 05/18/15 09/26/16 Cyanocobalamin [Vitamin B-12] 500 mcg PO DAILY 05/18/15 09/26/16 Meclizine [Antivert] 25 mg PO TID PRN 05/18/15 09/26/16 Multivitamins, Thera [Multivitamin 1 tab PO DAILY 05/18/15 09/26/16 (formulary)] Anastrozole [Arimidex] 1 mg PO DAILY 09/14/15 09/26/16 Ferrous Sulfate [Iron (65 MG 325 mg PO DAILY 04/25/16 09/26/16 Elemental)] Isosorbide Mononitrate ER [Imdur] 30 mg PO DAILY 04/25/16 09/26/16 Levothyroxine Sodium [Synthroid] 100 mcg PO DAILY 04/25/16 09/26/16 Nitroglycerin Sl Tabs [Nitrostat] 0.4 mg PO Q5M PRN 04/25/16 09/26/16 Pravastatin Sodium 40 mg PO HS 04/25/16 09/26/16 Ranitidine HCl 150 mg PO DAILY 04/25/16 09/26/16 Furosemide [Lasix] 40 mg PO DAILY 05/20/16 09/26/16 Amiodarone [Cordarone] 200 mg PO DAILY 06/08/16 09/26/16 Carvedilol [Coreg*] 25 mg PO BID-W/MEALS 06/08/16 09/26/16 Warfarin [Coumadin] 4 mg PO SUMOTUWEFRSA 06/08/16 09/26/16 Warfarin [Coumadin] 5 mg PO TH 06/08/16 09/26/16 Ibuprofen [Advil] 200 mg PO Q8HR PRN 09/26/16 09/26/16 Previous Rx's Medication Instructions Recorded Aspirin 81 mg PO DAILY chew 03/17/16 Pyridostigmine [Mestinon] 30 mg PO BID tab 03/17/16 Allergies Allergy/AdvReac Type Severity Reaction Status Date / Time morphine AdvReac Severe Nausea & Verified 09/26/16 07:25 Vomiting Review of Systems ROS Other: All systems not noted in ROS Statement are negative. Constitutional: Denies: fever, chills Respiratory: Denies: cough, dyspnea Cardiovascular: Reports: chest pain. Denies: palpitations, orthopnea, edema, syncope Gastrointestinal: Denies: abdominal pain, nausea, vomiting Genitourinary: Denies: dysuria Musculoskeletal: Denies: back pain Skin: Denies: rash Neurological: Denies: headache, weakness, numbness <Naseem Pollard - Last Filed: 09/26/16 06:52> ROS Other: All systems not noted in ROS Statement are negative. <Conrado Agosto - Last Filed: 09/26/16 09:04> ROS Statement: Those systems with pertinent positive or pertinent negative responses have been documented in the HPI. EKG Findings - EKG Comments: EKG Findings:: Old anteroseptal infarct - EKG Results: EKG: interpreted by [facility], sinus rhythm (Rate 63 bpm), normal axis, normal ST/T <Naseem Pollard - Last Filed: 09/26/16 06:52> Past Medical History Past Medical History: Atrial Fibrillation, Coronary Artery Disease (CAD), Cancer , Heart Failure, Diabetes Mellitus, Eye Disorder, Hyperlipidemia, Hypertension, Myocardial Infarction ([place]), Mitral Valve Prolapse (MVP), Osteoarthritis (OA), Pneumonia, Respiratory Disorder, Thyroid Disorder Additional Past Medical History / Comment(s): Paroxysmal Afib. Chronic CHF. RT Eye Occular Myasthenia Gravis. Chronic Back Pain. DJD. 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 DIET CONTROLLED DM. FREQ UTI'S. SKIN CA. RT breast CA with surgery. OCC Vertigo. Chronic Respiratory Failure. HOME 02 2 LITERS N/C ATC PRN. CHRONIC Anemia. DIVERTICULAR DX. hypothyroid Last Myocardial Infarction Date:: 04/2014 History of Any Multi-Drug Resistant Organisms: None Reported Past Surgical History: Appendectomy, Back Surgery, Breast Surgery, Cardiac Valve Replacement, Heart Catheterization, Heart Catheterization With Stent, Hysterectomy, Orthopedic Surgery Additional Past Surgical History / Comment(s): 02/2016 MVR. NEYMAR CTR, bilateral Rotator Cuff Repair. EXC Skin CA. TITANIUM VIMAL IN BACK, 7 BACK FUSIONS, 3 NECK FUSIONS. Stent Proximal RCA; HEART CATH 09-29-14. EXC NEYMAR CATARACTS, POSS Lens Implants, Bilateral Eye Laser. RT BREAST LUMPECTOMY x 2, RT BREAST SIMPLE MASTECTOMY 06/2015. ORIF Ankles. Colonoscopy. Past Anesthesia/Blood Transfusion Reactions: No Reported Reaction Additional Past Anesthesia/Blood Transfusion Reaction / Comment(s): Pt has recently received blood without reaction. Date of Last Stent Placement:: 08/17/2013 Past Psychological History: No Psychological Hx Reported Additional Psychological History / Comment(s): Pt resides with her spouse of 63 yrs. She uses a walker NEEDED. She has a very supportive family. She no longer drives-her spouse takes her to appointments. Smoking Status: Former smoker Past Alcohol Use History: None Reported Additional Past Alcohol Use History / Comment(s): STARTED SMOKING AT AGE 11 SMOKED 1/2 PPD QUIT 40 YEARS AGO Past Drug Use History: None Reported - Past Family History Father History Unknown: Yes Family Medical History: No Reported History Additional Family Medical History / Comment(s): DAD IN MVA AT AGE 52 Mother History Unknown: Yes Family Medical History: Congestive Heart Failure (CHF) Additional Family Medical History / Comment(s): RHEUMATIC FEVER. Mother of CHF at the age of 59yrs. <Naseem Pollard - Last Filed: 09/26/16 06:52> General Exam Limitations: no limitations General appearance: alert, in no apparent distress Head exam: Present: atraumatic, normocephalic Eye exam: Present: normal appearance. Absent: scleral icterus, conjunctival injection Neck exam: Present: normal inspection, full ROM Respiratory exam: Present: normal lung sounds bilaterally. Absent: respiratory distress, wheezes, rales, rhonchi, stridor Cardiovascular Exam: Present: regular rate, normal rhythm, normal heart sounds. Absent: systolic murmur, diastolic murmur, rubs, gallop GI/Abdominal exam: Present: soft. Absent: distended, tenderness, guarding, rebound Extremities exam: Present: normal inspection, normal capillary refill. Absent: pedal edema, calf tenderness Back exam: Present: normal inspection. Absent: CVA tenderness (R), CVA tenderness (L) Neurological exam: Present: alert Skin exam: Present: warm, dry, intact, normal color. Absent: rash <Naseem Pollard - Last Filed: 09/26/16 06:52> Course <Naseem Pollard - Last Filed: 09/26/16 06:52> <Conrado Agosto - Last Filed: 09/26/16 09:04> Vital Signs 09/26/16 09/26/16 09/26/16 04:50 06:30 08:00 Temperature 97.9 F Pulse Rate 65 61 62 Respiratory 16 16 14 Rate Blood Pressure 196/82 153/70 148/65 O2 Sat by Pulse 97 93 L 93 L Oximetry - Reevaluation(s) Reevaluation #1: 09/26/16 08:26 Chest x-ray shows cardiomegaly. Cannot rule out left lung base opacity versus summation. (Conrado Agosto) Chest Pain MDM <Naseem Pollard - Last Filed: 09/26/16 06:52> <Conrado Agosto - Last Filed: 09/26/16 09:04> - [facility] Patient reevaluated and resting comfortably in bed without complaints. Case discussed in detail with Dr. Blancas who does want his patient to be admitted secondary to substantial previous cardiac history. Cardiology consult. Patient and family updated. (Conrado Agosto) Disposition <Naseem Pollard - Last Filed: 09/26/16 06:52> <Conrado Agosto - Last Filed: 09/26/16 09:04> Clinical Impression: Chest pain in adult Disposition: ADMITTED IP TO THIS HOSP
[2016-09-26 06:40] LABS: Creatine Kinase MB 0.3 ng/mL (0.0-2.4); Troponin I <0.012 ng/mL (0.000-0.034)
[2016-09-26] MEDS ORDERED: ASPIRIN 81 MG CHEW PO STA (09:05)
[2016-09-26] MEDS ORDERED: NITROGLYCERIN SL TABS 0.4 MG TAB SUBLINGUAL PRN (09:05)
[2016-09-26] MEDS ORDERED: IBUPROFEN 200 MG TAB PO PRN (10:14)
[2016-09-26] MEDS ORDERED: MECLIZINE 25 MG TAB PO PRN (10:14)
[2016-09-26] MEDS ORDERED: NITROGLYCERIN OINT 1 INCH/GM PACKET TOPICAL SCH (12:00)
[2016-09-26 12:04] LABS: Glucose,Whole Blood 107 mg/dL (75-99)
[2016-09-26 13:03] LABS: Creatine Kinase MB 0.2 ng/mL (0.0-2.4); Troponin I 0.018 ng/mL (0.000-0.034)
[2016-09-26] MEDS: HYDROcodone/APAP 5-325MG 1 EACH TAB PO PRN ×2 (16:15→22:40)
[2016-09-26] MEDS ORDERED: CARVEDILOL 12.5 MG TAB PO SCH (17:30)
[2016-09-26] MEDS: CARVEDILOL 12.5 MG TAB PO SCH (17:39)
[2016-09-26] MEDS ORDERED: WARFARIN 2 MG TAB PO SCH (18:00)
[2016-09-26 20:24] LABS: Creatine Kinase MB 0.2 ng/mL (0.0-2.4); Troponin I 0.017 ng/mL (0.000-0.034)
[2016-09-26] MEDS ORDERED: PRAVASTATIN SODIUM 40 MG TAB PO SCH (21:00)
--- NOTE | 2016-09-26 21:21 | CONS ---
DATE OF CONSULTATION: This is an 80-year-old lady with a known history of CAD, previous inferior KS and PTCA and stenting of RCA. She has rheumatic mitral valve stenosis and regurgitation and underwent mitral valve replacement with a tissue valve that was performed probably almost like a year ago. This lady has paroxysmal atrial fibrillation and has had a previous electrical cardioversion. She presents here mostly with complaints of chest pain. Her mitral valve replacement with a tissue valve and modified Maze procedure was performed in February 2016. Since then, she has had multiple hospitalizations. Prior to that cardiac cath revealed that the RCA was patent. She had no significant disease and did not have any bypass. She has electrical cardioversion since then. She presented to the hospital mainly with an episode of chest pain. The quality of the pain seems very atypical. She is pain-free, resting comfortably. Denies any chest pain at the time of my evaluation. She is not short of breath. Pain occurred in the midsternal area, sharp in nature, lasting a few seconds with some radiation to the back, but it was a very brief episode of pain occurred at rest. PAST MEDICAL HISTORY: 1. CAD, previous inferior KS and PCI of RCA, but no bypass surgery when she had valve replacement since RCA was patent. 2. Status post mitral valve replacement for rheumatic mitral stenosis. 3. Paroxysmal atrial fibrillation. 4. Hypertension. 5. History of myasthenia gravis. Medications at home include: 1. Vitamin supplements. 2. Antivert. 3. Coumadin and INR was 2.9. 4. Thyroid supplements. 5. Pravastatin 40 mg daily. 6. Lasix 40 mg daily. 7. Amiodarone 200 mg daily. 8. Carvedilol 25 mg b.i.d. 9. ( ) 12.5 mg daily. 10. Coumadin. 11. She also takes Mestinon 30 mg b.i.d. 12. Aspirin 81 a day. SHE IS ALLERGIC TO MORPHINE. On examination, blood pressure is 110/70, pulse rate is 70 per minute, regular. HEENT: Unremarkable. Fundus was not examined by me. Neck is supple. There is JVD of 1 cm. No carotid bruit. Heart exam reveals S1 and S2 heard normally. There is a short systolic murmur. No diastolic murmur is audible. Lungs are clear. ABDOMEN: Soft, nontender. Lower extremities reveal diminished pulses. No edema. Central nervous system is normal. EKG revealed sinus mechanism, sinus bradycardia, nonspecific ST-T changes. LABORATORY DATA: Revealed that her 3 sets of troponins are normal. IMPRESSION: 1. Atypical chest pain. 2. History of paroxysmal atrial fibrillation now sinus rhythm well anticoagulated. 3. Status post mitral valve replacement with a tissue valve for rheumatic mitral stenosis. 4. History of hypertension. 5. History of previous inferior myocardial infarction and PCI of RCA. RECOMMENDATIONS: I am recommending that we continue current medications. Increase activity. No heparinization is necessary. If she has no further symptoms, and additional troponin is normal, she can be discharged tomorrow and follow-up with me as an outpatient. I explained to the patient the pain was atypical, but no intervention is necessary and no work-up is necessary at this time. She understands and agrees and will be discharged tomorrow. Thank you very much for the consult.
[2016-09-26] MEDS: PYRIDOSTIGMINE 60 MG TAB PO SCH (22:40)
[2016-09-27] MEDS ORDERED: LEVOTHYROXINE 100 MCG TAB PO SCH (06:30)
[2016-09-27 08:56] VITALS: BP 118/61; PULSE 53; RESP 18; TEMP 97.5
[2016-09-27] MEDS: HYDROcodone/APAP 5-325MG 1 EACH TAB PO PRN (08:58)
[2016-09-27] MEDS: PYRIDOSTIGMINE 60 MG TAB PO SCH (08:59)
[2016-09-27] MEDS ORDERED: FAMOTIDINE 20 MG TAB PO SCH (09:00)
[2016-09-27] MEDS ORDERED: ISOSORBIDE MONONITRATE ER 30 MG TAB.ER.24H PO SCH (09:00)
[2016-09-27] MEDS ORDERED: FUROSEMIDE 40 MG TAB PO SCH (09:00)
[2016-09-27] MEDS ORDERED: ASPIRIN 325 MG TAB PO SCH (09:00)
[2016-09-27] MEDS: CARVEDILOL 12.5 MG TAB PO SCH (09:00)
[2016-09-27] MEDS ORDERED: AMIODARONE 200 MG TAB PO SCH (09:00)
[2016-09-27] MEDS ORDERED: ASPIRIN 81 MG CHEW PO SCH (09:00)
[2016-09-27] MEDS ORDERED: FERROUS SULFATE 325 MG TAB PO SCH (09:00)
[2016-09-27] MEDS ORDERED: ANASTROZOLE 1 MG TAB PO SCH (09:00)
[2016-09-27 09:16] LABS: Cholesterol 164 mg/dL (<200); HDL Cholesterol 46 mg/dL (40-60); Triglycerides 107 mg/dL (<150)
--- NOTE | 2016-09-27 09:48 | P.DS ---
Providers Date of admission: 09/26/16 09:05 Expected date of discharge: 09/27/16 Attending physician: Oscar Mejia Consults: Dr. ADAM Hua Primary care physician: Oscar Mejia [facility] Course: 80-year-old female presented presented to the emergency room with a chief complaint of developing midsternal chest discomfort. Patient stated that she woke up with the discomfort took 3 sublingual nitroglycerin did not obtain relief came into the emergency room to be evaluated for the above-mentioned symptoms cardiology consultation was requested. Patient does have a history of coronary artery disease prior inferior wall myocardial infarction with prior stenting to the RCA. Additionally patient has history of rheumatic mitral valve disease and underwent a mitral valve replacement tissue valve approximately a year ago. Additionally patient has a history of paroxysmal atrial fibrillation and has had a previous electrical cardioversion. Patient was admitted monitored with no further episodes of chest pain. Cardiac enzymes 3 sets were negative. Cardiology indicates the patient could be discharged recommendations were to decrease the beta brijesh Coreg dose down secondary to episodes of sinus bradycardia rate in the 50s. Since being admitted patient has remained pain-free no further recommendations patient was felt to be stable and appropriate proceed with a discharge to home Impression discharge diagnosis Present on admission atypical chest pain negative cardiac enzymes no evidence of acute coronary syndrome History of paroxysmal atrial fibrillation now sinus rhythm anticoagulated History of coronary artery disease prior coronary stenting to the right coronary artery Hypertension essential benign A history of valvular heart disease status post tissue mitral valve replacement History of breast cancer The above dictated assessment and findings were discussed with dr mejia Impression and the plan of care have been dictated as directed. Antonina Appiah nurse practitioner acting as a scribe for dr mejia Plan - Discharge Summary New Discharge Prescriptions: Carvedilol [Coreg*] 12.5 mg PO BID-W/MEALS #60 tab Discharge Medication List Cholecalciferol [Vitamin D3] 1,000 unit PO DAILY 05/18/15 [History] Cyanocobalamin [Vitamin B-12] 500 mcg PO DAILY 05/18/15 [History] Meclizine [Antivert] 25 mg PO TID PRN 05/18/15 [History] Multivitamins, Thera [Multivitamin (formulary)] 1 tab PO DAILY 05/18/15 [History ] Anastrozole [Arimidex] 1 mg PO DAILY 09/14/15 [History] Aspirin 81 mg PO DAILY chew 03/17/16 [Rx] Pyridostigmine [Mestinon] 30 mg PO BID tab 03/17/16 [Rx] Ferrous Sulfate [Iron (65 MG Elemental)] 325 mg PO DAILY 04/25/16 [History] Isosorbide Mononitrate ER [Imdur] 30 mg PO DAILY 04/25/16 [History] Levothyroxine Sodium [Synthroid] 100 mcg PO DAILY 04/25/16 [History] Nitroglycerin Sl Tabs [Nitrostat] 0.4 mg PO Q5M PRN 04/25/16 [History] Pravastatin Sodium 40 mg PO HS 04/25/16 [History] Ranitidine HCl 150 mg PO DAILY 04/25/16 [History] Furosemide [Lasix] 40 mg PO DAILY 05/20/16 [History] Amiodarone [Cordarone] 200 mg PO DAILY 06/08/16 [History] Warfarin [Coumadin] 4 mg PO SUMOTUWEFRSA 06/08/16 [History] Warfarin [Coumadin] 5 mg PO TH 06/08/16 [History] Ibuprofen [Advil] 200 mg PO Q8HR PRN 09/26/16 [History] Carvedilol [Coreg*] 12.5 mg PO BID-W/MEALS #60 tab 09/27/16 [Rx] Follow up Appointment(s)/Referral(s): Oscar Mejia MD [Primary Care Provider] - 1-2 days Glenis Hua MD [STAFF PHYSICIAN] - 1 Week Discharge Disposition: HOME SELF-CARE
[2016-09-27] MEDS ORDERED: MULTIVITAMINS, THERA 1 EACH TAB PO SCH (12:00)
[2016-09-27] MEDS ORDERED: CHOLECALCIFEROL 1,000 UNIT TAB PO SCH (12:00)
[2016-09-27] MEDS ORDERED: CYANOCOBALAMIN 500 MCG TAB PO SCH (12:00)
--- NOTE | 2016-09-28 06:22 | HP ---
DATE OF ADMISSION: 09/26/2016 CHIEF COMPLAINT: Chest pain. HISTORY OF PRESENT ILLNESS: This is another admission for this 80-year-old white female who has coronary artery disease and has been in and out of the hospital frequently with unstable angina. She just had a heart catheterization a few weeks ago. She came back in with typical angina with shortness of breath and mild diaphoresis. It was not relieved by her nitroglycerin. In the emergency room, her studies were negative. REVIEW OF SYSTEMS: She has no other complaints such as syncope, dizziness, orthopnea, PND, etc. Past medical history, family history and personal and social histories are all otherwise unremarkable and noncontributory and unchanged. PHYSICAL EXAMINATION: Blood pressure 152/83 with a pulse of 77, respirations of 20, and she is afebrile. In general, she appeared to be well developed, well nourished and well preserved for her age. Skin color is normal. Skin is warm and dry. Lymph nodes are not enlarged. Head, ears, eyes, nose, mouth, and throat were normal. Neck veins distended. Thyroid is not enlarged. Chest is clear. Cardiac exam is normal. ABDOMEN: Soft, nontender. EXTREMITIES: Normal. IMPRESSION: 1. Unstable angina pectoris. 2. Coronary artery disease. 3. Status post right mastectomy. PLAN: 1. Bed rest. 2. IV fluids. 3. Serial EKGs and enzymes. 4. Cardiology consult.
--- NOTE | 2016-09-28 06:38 | PN ---
DATE OF SERVICE: 09/27/2016 CHIEF COMPLAINT: Chest pain. HISTORY OF PRESENT ILLNESS: This lady is doing well and she has had no further pain. She has been cleared by Cardiology and her enzymes are normal. PHYSICAL EXAM: Chest is clear. Cardiac exam is normal. ABDOMEN: Soft, nontender. IMPRESSION: Unstable angina. PLAN: Home today and this will be arranged by the nurse practitioner.
[2016-09-29] MEDS ORDERED: WARFARIN 5 MG TAB PO SCH (18:00)
== END 2016-09-27 11:07 | disposition home or self-care (01) ==
LOC: EC 04:49 → INTOOBSV 09:05 → 3OBS 09:05
PROVIDERS: ADMIT Family Medicine; ATTEND Family Medicine
DX: R07.89 Other chest pain (principal); I48.0 Paroxysmal atrial fibrillation; I25.10 Atherosclerotic heart disease of native coronary artery without angina pectoris; I11.0 Hypertensive heart disease with heart failure; I50.9 Heart failure, unspecified; I25.2 Old myocardial infarction; E78.5 Hyperlipidemia, unspecified; I05.2 Rheumatic mitral stenosis with insufficiency; I05.8 Other rheumatic mitral valve diseases; J96.10 Chronic respiratory failure, unspecified whether with hypoxia or hypercapnia; E03.9 Hypothyroidism, unspecified; Z79.01 Long term (current) use of anticoagulants; Z79.811 Long term (current) use of aromatase inhibitors; Z79.82 Long term (current) use of aspirin; Z79.899 Other long term (current) drug therapy; Z87.891 Personal history of nicotine dependence; Z88.5 Allergy status to narcotic agent; Z95.2 Presence of prosthetic heart valve; Z95.5 Presence of coronary angioplasty implant and graft; E11.9 Type 2 diabetes mellitus without complications; Z99.81 Dependence on supplemental oxygen
CPT/HCPCS: 99285 ×2; 36415; 93005; 85379; 80061; 80053; 82150; 82550; 82553; 83690; 83735; 84484; 85025; 85610; 85730; 71010; G0378 ×2; S0170

== ENCOUNTER 2016-10-23 11:56 | Emergency (ER) | payer MEDICARE, BC ==
[2016-10-23 12:03] VITALS: BP 167/70; PULSE 86; RESP 20; TEMP 97.5
--- NOTE | 2016-10-23 12:56 | ED ---
Fall HPI - General Chief Complaint: Fall Stated Complaint: Fall Time Seen by Provider: 10/23/16 12:42 Source: patient, family Mode of arrival: wheelchair - History of Present Illness MD Complaint: fall Fall From: standing When Fall Occurred: 1-3 hours [employer] Fall Witnessed: no Place Fall Occurred: home Loss of Consciousness: none Prolonged Down Time?: no Symptoms Prior to Fall: none (Denies dizziness, chest pain, headache. Was reaching for something on the ground. ) Location: head Severity: mild Severity scale (1-10): 3 Quality: burning, sharp, aching Context: tripped/slipped (Was reaching for a pop on the ground, walker was not locked and slipped foward, she then fell down asw the walker moved forward and she hit her head on a glass table, then sat down. Did not injure herself any where else. ) Associated Symptoms: headache, other (Denies vision change, nausea, abdominal pain, vomiting, substance use. ) - Related Data Home Medications Medication Instructions Recorded Confirmed Cholecalciferol [Vitamin D3] 1,000 unit PO DAILY 05/18/15 09/26/16 Cyanocobalamin [Vitamin B-12] 500 mcg PO DAILY 05/18/15 09/26/16 Meclizine [Antivert] 25 mg PO TID PRN 05/18/15 09/26/16 Multivitamins, Thera [Multivitamin 1 tab PO DAILY 05/18/15 09/26/16 (formulary)] Anastrozole [Arimidex] 1 mg PO DAILY 09/14/15 09/26/16 Ferrous Sulfate [Iron (65 MG 325 mg PO DAILY 04/25/16 09/26/16 Elemental)] Isosorbide Mononitrate ER [Imdur] 30 mg PO DAILY 04/25/16 09/26/16 Levothyroxine Sodium [Synthroid] 100 mcg PO DAILY 04/25/16 09/26/16 Nitroglycerin Sl Tabs [Nitrostat] 0.4 mg PO Q5M PRN 04/25/16 09/26/16 Pravastatin Sodium 40 mg PO HS 04/25/16 09/26/16 Ranitidine HCl 150 mg PO DAILY 04/25/16 09/26/16 Furosemide [Lasix] 40 mg PO DAILY 05/20/16 09/26/16 Amiodarone [Cordarone] 200 mg PO DAILY 06/08/16 09/26/16 Warfarin [Coumadin] 4 mg PO SUMOTUWEFRSA 06/08/16 09/26/16 Warfarin [Coumadin] 5 mg PO TH 06/08/16 09/26/16 Ibuprofen [Advil] 200 mg PO Q8HR PRN 09/26/16 09/26/16 Previous Rx's Medication Instructions Recorded Aspirin 81 mg PO DAILY chew 03/17/16 Pyridostigmine [Mestinon] 30 mg PO BID tab 03/17/16 Carvedilol [Coreg*] 12.5 mg PO BID-W/MEALS #60 tab 09/27/16 Allergies Allergy/AdvReac Type Severity Reaction Status Date / Time morphine AdvReac Severe Nausea & Verified 10/23/16 12:04 Vomiting Review of Systems ROS Statement: Those systems with pertinent positive or pertinent negative responses have been documented in the HPI. ROS Other: All systems not noted in ROS Statement are negative. Past Medical History Past Medical History: Atrial Fibrillation, Coronary Artery Disease (CAD), Cancer , Heart Failure, Diabetes Mellitus, Eye Disorder, Hyperlipidemia, Hypertension, Myocardial Infarction ([place]), Mitral Valve Prolapse (MVP), Osteoarthritis (OA), Pneumonia, Respiratory Disorder, Thyroid Disorder Additional Past Medical History / Comment(s): Paroxysmal Afib. Chronic CHF. RT Eye Occular Myasthenia Gravis. Chronic Back Pain. DJD. 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 DIET CONTROLLED DM. FREQ UTI'S. SKIN CA. RT breast CA with surgery. OCC Vertigo. Chronic Respiratory Failure. HOME 02 2 LITERS N/C ATC PRN. CHRONIC Anemia. DIVERTICULAR DX. hypothyroid Last Myocardial Infarction Date:: 04/2014 History of Any Multi-Drug Resistant Organisms: None Reported Past Surgical History: Appendectomy, Back Surgery, Breast Surgery, Cardiac Valve Replacement, Heart Catheterization, Heart Catheterization With Stent, Hysterectomy, Orthopedic Surgery Additional Past Surgical History / Comment(s): 02/2016 MVR. NEYMAR CTR, bilateral Rotator Cuff Repair. EXC Skin CA. TITANIUM VIMAL IN BACK, 7 BACK FUSIONS, 3 NECK FUSIONS. Stent Proximal RCA; HEART CATH 09-29-14. EXC NEYMAR CATARACTS, POSS Lens Implants, Bilateral Eye Laser. RT BREAST LUMPECTOMY x 2, RT BREAST SIMPLE MASTECTOMY 06/2015. ORIF Ankles. Colonoscopy. Past Anesthesia/Blood Transfusion Reactions: No Reported Reaction Additional Past Anesthesia/Blood Transfusion Reaction / Comment(s): Pt has recently received blood without reaction. Date of Last Stent Placement:: 08/17/2013 Past Psychological History: No Psychological Hx Reported Additional Psychological History / Comment(s): Pt resides with her spouse of 63 yrs. She uses a walker NEEDED. She has a very supportive family. She no longer drives-her spouse takes her to appointments. Smoking Status: Former smoker Past Alcohol Use History: None Reported Additional Past Alcohol Use History / Comment(s): STARTED SMOKING AT AGE 11 SMOKED 1/2 PPD QUIT 40 YEARS AGO Past Drug Use History: None Reported - Past Family History Father History Unknown: Yes Family Medical History: No Reported History Additional Family Medical History / Comment(s): DAD IN MVA AT AGE 52 Mother History Unknown: Yes Family Medical History: Congestive Heart Failure (CHF) Additional Family Medical History / Comment(s): RHEUMATIC FEVER. Mother of CHF at the age of 59yrs. General Exam Limitations: no limitations General appearance: alert, in no apparent distress Head exam: Present: other (edema left parietal scalp with central abrasion, 1mm opening centrally, hemostasis obtained) Eye exam: Present: normal appearance, PERRL, EOMI Pupils: Present: normal accommodation, irregular ENT exam: Present: normal exam Neck exam: Present: normal inspection, full ROM Respiratory exam: Present: normal lung sounds bilaterally Cardiovascular Exam: Present: regular rate, normal rhythm GI/Abdominal exam: Present: soft Extremities exam: Present: normal inspection, full ROM Back exam: Present: normal inspection Neurological exam: Present: alert, oriented X3, CN II-XII intact Psychiatric exam: Present: normal affect, normal mood Skin exam: Present: other (2cm abrasion with 1mm opening centrally) Course Vital Signs 10/23/16 12:00 Temperature 97.5 F L Pulse Rate 86 Respiratory 20 Rate Blood Pressure 167/70 O2 Sat by Pulse 100 Oximetry Medical Decision Making - Medical Decision Making 80-year-old female came to the ER with her daughter after sustaining a fall at home. She was reaching for a soda on the ground when her walker pushed forward in front of her as it was not blocked. As the walker advanced forward she fell down and hit her head on a glass coffee table and then sat on the ground. She did not injure anything else. She also states that she was feeling well prior to the fall. She had no symptoms prior to the fall and does report a headache after. She denies any constitutional symptoms including dizziness, vision change, nausea, vomiting, abdominal pain. On physical exam she does have a nodule on her parietal scalp with a central abrasion approximately 2 cm in length with a 1 mm opening centrally. She had no neurological deficits. She was given a Tylenol 3 in the ER to help with discomfort. She is to continue [id number] Tylenol or Motrin at home for pain. The area was thoroughly cleansed and explored bacitracin was applied and wound care structures were given. Based on the appearance of the wound no repair is needed. The patient is following up with her primary care on Monday. Discussed warning signs and symptoms that would prompt her return to the ER and her and her daughter voiced understanding. Disposition Clinical Impression: Fall, Scalp abrasion, non-infected Disposition: HOME SELF-CARE Condition: Good Instructions: Fall Prevention for Older Adults (ED), Abrasion (ED) Referrals: Oscar Blancas MD [Primary Care Provider] - 1-2 days Time of Disposition: 13:14
== END 2016-10-23 13:21 | disposition home or self-care (01) ==
LOC: EC 11:56
DX: S00.01XA Abrasion of scalp, initial encounter (principal); I25.10 Atherosclerotic heart disease of native coronary artery without angina pectoris; I50.9 Heart failure, unspecified; I48.0 Paroxysmal atrial fibrillation; E78.5 Hyperlipidemia, unspecified; I10 Essential (primary) hypertension; I25.2 Old myocardial infarction; E03.9 Hypothyroidism, unspecified; Z87.891 Personal history of nicotine dependence; Z79.899 Other long term (current) drug therapy; Z79.01 Long term (current) use of anticoagulants; Z88.5 Allergy status to narcotic agent; Z85.3 Personal history of malignant neoplasm of breast; Z85.828 Personal history of other malignant neoplasm of skin; Z95.5 Presence of coronary angioplasty implant and graft; Z90.11 Acquired absence of right breast and nipple; W01.198A Fall on same level from slipping, tripping and stumbling with subsequent striking against other object, initial encounter; Y92.009 Unspecified place in unspecified non-institutional (private) residence as the place of occurrence of the external cause
CPT/HCPCS: 99283

== ENCOUNTER → 2016-11-01 | Outpatient (CLI) | payer MEDICARE, BC ==
--- NOTE | 2016-11-01 13:44 | CT ---
EXAMINATION TYPE: CT brain wo con DATE OF EXAM: 11/01/2016 1:40 PM COMPARISON: 06/08/2016 HISTORY: Recent fall, struck Lt side of head CT DLP: 1047.[address] of the brain was performed. The ventricles, basal cisterns and sulci overlying the cerebral convexities demonstrate moderate enla rgement. There is no evidence for intracranial hemorrhage or sulcal effacement. There is decreased attenuation about the periventricular white matter and deep white matter of both c erebral hemispheres, compatible with chronic small vessel ischemia. Differential diagnosis does inclu de demyelination. No mass effects are seen.No midline shift. Osseous calvarium is intact. If symptoms persist consider MRI. IMPRESSION: 1. Age related atrophic and chronic small vessel ischemic change without acute intracranial process s een at this time.
== END | disposition home or self-care (01) ==
LOC: RADCTMAIN 12:40
PROVIDERS: ATTEND Psychiatry & Neurology Neurology
DX: G31.1 Senile degeneration of brain, not elsewhere classified (principal); I67.82 Cerebral ischemia; Z87.820 Personal history of traumatic brain injury
CPT/HCPCS: 70450

== ENCOUNTER → 2016-11-11 | Outpatient (CLI) | payer MEDICARE, BC ==
--- NOTE | 2016-11-11 17:00 | BD ---
EXAMINATION TYPE: MG DEXA axial skeleton. DATE OF EXAM: 11/11/2016 9:41 AM COMPARISON: 04.13.2015 CLINICAL HISTORY: 81-year-old female M54.9 BACK PAIN Height: 60.5 Weight: 134 FRAX RISK QUESTIONS: Alcohol (3 or more units per day): NO Family History (Parent hip fracture): NO HIP BREAK Glucocorticoids (More than 3mos): NO (Ex: prednisone, prednisolone, methylprednisolone, dexamethasone, and hydrocortisone). History of Fracture in Adulthood: YES Secondary Osteoporosis: 1. Type 1 Diabetes: YES 2. Hyperthyroidism: NO 3. Menopause before 45: AT 44 4. Malnutrition: UNKNOWN 5. Chronic liver disease: YES Rheumatoid Arthritis: NO Current Tobacco Use: NO RISK FACTORS HISTORY OF: Surgery to Spine YES, BOTH CERVICAL FUSION AND LUMBAR FUSION... When: Approximately 5 YRS AGO Other Fractures since Age 49: YES, BOTH ANKLES AND FINGERS When: >AGE 50 Family History of Osteoporosis: YES, MOTHER Smoke tobacco: NO Drink Alcohol: NO Active: CANNOT, SO NO Diet low in dairy products/other sources of calcium: NO Postmenopausal woman: AT AGE 44 YRS OLD, HYST. Lost more than 2 inches in height since high school: YES Frequent falls: UNSTEADY, IN W/C Poor Health: FRAIL Adrenal Insufficiency: NO MEDICATIONS: Osteoporosis Medications: NO Additional Medications: LASIX, MESTINON, VITAMIN D, ASPIRIN, NITRO STAT, ZANTAC, ISOSORBIDE, L THYROX INE, NARCO, ANASTROZOLE, CARVEDILOL, AMIODARONE, COUMADIN, ANTIVERT, attached MED LIST IN PACS Additional History: HX OF BREAST CANCER AND SPINAL FUSIONS, EXAM MEASUREMENTS: LUMBAR AND CERVICAL FUSIONS, NO LUMBAR SCAN. Bone mineral density about the R hip (g/cm2): 0.971 Bone mineral density about the L hip (g/cm2): 1.038 T Score values are as follows: -----R Neck: -1.5 -----L Neck: -1.4 -----R Total: -0.3 -----L Total: 0.2 Bone mineral density has: Decreased -11.1%SINCE THE STUDY OF 04.13.2015 FRAX %'S: 19.5% CHANCE OF A MAJOR OSTEOPOROTIC FX AND A 4.5% CHANCE OIF A HIP FX.....PROBABILITY OF FX IN 10 YRS TIME IMPRESSION: Osteopenia as indicated by T score values in both hips. Lumbar spine measurements were not taken give n prior surgery. There is slightly increased risk of fracture and the patient may be considered for treatment. Re-Screen 2-5 years. NOTE: T-SCORE=SD OF THE YOUNG ADULT MEAN.
== END | disposition home or self-care (01) ==
LOC: RADBDWWP 09:00
PROVIDERS: ATTEND Family Medicine
DX: M85.80 Other specified disorders of bone density and structure, unspecified site (principal); M54.9 Dorsalgia, unspecified; Z88.5 Allergy status to narcotic agent; Z88.6 Allergy status to analgesic agent
CPT/HCPCS: 77080

== ENCOUNTER → 2016-11-23 | Outpatient (CLI) | payer MEDICARE, BC ==
--- NOTE | 2016-11-23 14:39 | CT ---
EXAMINATION TYPE: CT hip LT wo con DATE OF EXAM: 11/23/2016 COMPARISON: Previous CT pelvis dated 06/08/2016 HISTORY: Fall TECHNIQUE: Helical acquisition through the left hip was obtained without intravenous contrast. The da ta was reformatted in axial, coronal and sagittal projections. Volume rendered three-dimensional imag ing was performed on the CT scanner. CT DLP: 321 mGycm Automated exposure control for dose reduction was used. FINDINGS: There is extensive diverticulosis involving the sigmoid colon. There are mild degenerative changes within the left hip. No fracture, dislocation or other acute osse ous lesion is seen. IMPRESSION: 1. NO EVIDENCE OF FRACTURE. 2. DEGENERATIVE CHANGE. 3. DIVERTICULOSIS OF THE SIGMOID COLON.
== END | disposition home or self-care (01) ==
LOC: RADCTMAIN 14:09
PROVIDERS: ATTEND Family Medicine
DX: M25.852 Other specified joint disorders, left hip (principal)

== ENCOUNTER 2016-11-25 14:35 | Emergency (ER) | payer MEDICARE, BC ==
[2016-11-25 14:49] VITALS: BP 155/68; PULSE 74; RESP 18; TEMP 98.1
--- NOTE | 2016-11-25 15:28 | ED ---
Fall HPI - General Chief Complaint: Fall Stated Complaint: Fell/Hip pain Time Seen by Provider: 11/25/16 15:23 Source: patient, RN notes reviewed Mode of arrival: ambulatory Limitations: no limitations - History of Present Illness Initial Comments: 81-year-old female presents emergency Department chief complaint left hip pain. Patient states she fell on Monday. Patient was seen in the hospital in [place] and had x-rays, CAT scans performed. She states she had a CAT scan her head, neck, hip and hand. Patient states that they're all negative at a time she's had continued pain follow-up with PCP had x-ray and a CT of her left hip and states that did not show any fracture. Patient states that she was not given any pain medication and states that she needs something for the pain. Patient denies any back pain no bowel bladder incontinence or retention. Patient states she is able to family but it just feels sore. - Related Data Home Medications Medication Instructions Recorded Confirmed Cholecalciferol [Vitamin D3] 1,000 unit PO DAILY 05/18/15 09/26/16 Cyanocobalamin [Vitamin B-12] 500 mcg PO DAILY 05/18/15 09/26/16 Meclizine [Antivert] 25 mg PO TID PRN 05/18/15 09/26/16 Multivitamins, Thera [Multivitamin 1 tab PO DAILY 05/18/15 09/26/16 (formulary)] Anastrozole [Arimidex] 1 mg PO DAILY 09/14/15 09/26/16 Ferrous Sulfate [Iron (65 MG 325 mg PO DAILY 04/25/16 09/26/16 Elemental)] Isosorbide Mononitrate ER [Imdur] 30 mg PO DAILY 04/25/16 09/26/16 Levothyroxine Sodium [Synthroid] 100 mcg PO DAILY 04/25/16 09/26/16 Nitroglycerin Sl Tabs [Nitrostat] 0.4 mg PO Q5M PRN 04/25/16 09/26/16 Pravastatin Sodium 40 mg PO HS 04/25/16 09/26/16 Ranitidine HCl 150 mg PO DAILY 04/25/16 09/26/16 Furosemide [Lasix] 40 mg PO DAILY 05/20/16 09/26/16 Amiodarone [Cordarone] 200 mg PO DAILY 06/08/16 09/26/16 Warfarin [Coumadin] 4 mg PO SUMOTUWEFRSA 06/08/16 09/26/16 Warfarin [Coumadin] 5 mg PO TH 06/08/16 09/26/16 Ibuprofen [Advil] 200 mg PO Q8HR PRN 09/26/16 09/26/16 Previous Rx's Medication Instructions Recorded Aspirin 81 mg PO DAILY chew 03/17/16 Pyridostigmine [Mestinon] 30 mg PO BID tab 03/17/16 Carvedilol [Coreg*] 12.5 mg PO BID-W/MEALS #60 tab 09/27/16 Acetaminophen-Codeine 300-30mg 1 tab PO Q4H PRN #20 tablet 11/25/16 [Tylenol #3] Allergies Allergy/AdvReac Type Severity Reaction Status Date / Time morphine AdvReac Severe Nausea & Verified 10/23/16 12:04 Vomiting Review of Systems ROS Statement: Those systems with pertinent positive or pertinent negative responses have been documented in the HPI. ROS Other: All systems not noted in ROS Statement are negative. Past Medical History Past Medical History: Atrial Fibrillation, Coronary Artery Disease (CAD), Cancer , Heart Failure, Diabetes Mellitus, Eye Disorder, Hyperlipidemia, Hypertension, Myocardial Infarction (GA), Mitral Valve Prolapse (MVP), Osteoarthritis (OA), Pneumonia, Respiratory Disorder, Thyroid Disorder Additional Past Medical History / Comment(s): Paroxysmal Afib. Chronic CHF. RT Eye Occular Myasthenia Gravis. Chronic Back Pain. DJD. 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 DIET CONTROLLED DM. FREQ UTI'S. SKIN CA. RT breast CA with surgery. OCC Vertigo. Chronic Respiratory Failure. HOME 02 2 LITERS N/C ATC PRN. CHRONIC Anemia. DIVERTICULAR DX. hypothyroid Last Myocardial Infarction Date:: 04/2014 History of Any Multi-Drug Resistant Organisms: None Reported Past Surgical History: Appendectomy, Back Surgery, Breast Surgery, Cardiac Valve Replacement, Heart Catheterization, Heart Catheterization With Stent, Hysterectomy, Orthopedic Surgery Additional Past Surgical History / Comment(s): 02/2016 MVR. NEYMAR CTR, bilateral Rotator Cuff Repair. EXC Skin CA. TITANIUM VIMAL IN BACK, 7 BACK FUSIONS, 3 NECK FUSIONS. Stent Proximal RCA; HEART CATH 09-29-14. EXC NEYMAR CATARACTS, POSS Lens Implants, Bilateral Eye Laser. RT BREAST LUMPECTOMY x 2, RT BREAST SIMPLE MASTECTOMY 06/2015. ORIF Ankles. Colonoscopy. Past Anesthesia/Blood Transfusion Reactions: No Reported Reaction Additional Past Anesthesia/Blood Transfusion Reaction / Comment(s): Pt has recently received blood without reaction. Date of Last Stent Placement:: 08/17/2013 Past Psychological History: No Psychological Hx Reported Additional Psychological History / Comment(s): Pt resides with her spouse of 63 yrs. She uses a walker NEEDED. She has a very supportive family. She no longer drives-her spouse takes her to appointments. Smoking Status: Former smoker Past Alcohol Use History: None Reported Additional Past Alcohol Use History / Comment(s): STARTED SMOKING AT AGE 11 SMOKED 1/2 PPD QUIT 40 YEARS AGO Past Drug Use History: None Reported - Past Family History Father History Unknown: Yes Family Medical History: No Reported History Additional Family Medical History / Comment(s): DAD IN MVA AT AGE 52 Mother History Unknown: Yes Family Medical History: Congestive Heart Failure (CHF) Additional Family Medical History / Comment(s): RHEUMATIC FEVER. Mother of CHF at the age of 59yrs. General Exam Limitations: no limitations General appearance: alert, in no apparent distress Neck exam: Present: normal inspection, full ROM. Absent: tenderness, meningismus, lymphadenopathy Respiratory exam: Present: normal lung sounds bilaterally. Absent: respiratory distress, wheezes, rales, rhonchi, stridor Cardiovascular Exam: Present: regular rate, normal rhythm, normal heart sounds. Absent: systolic murmur, diastolic murmur, rubs, gallop, clicks Extremities exam: Present: other (There is mild tenderness in the lateral portion, patient has full range of motion neurovascular intact full strength 5/5 ) Course Vital Signs 11/25/16 14:45 Temperature 98.1 F Pulse Rate 74 Respiratory 18 Rate Blood Pressure 155/68 O2 Sat by Pulse 95 Oximetry Medical Decision Making - Medical Decision Making 81-year-old female presented for pain in her left hip. Patient's had extensive imaging of her left hip including multiple x-rays and CAT scan with no abnormality. Patient be given pain medication at this time and discharge. Disposition Clinical Impression: Fall, Contusion of left hip Disposition: HOME SELF-CARE Condition: Stable Instructions: Hip Contusion (ED) Additional Instructions: Please return to the Emergency Department if symptoms worsen or any other concerns. Prescriptions: Acetaminophen-Codeine 300-30mg [Tylenol #3] 1 tab PO Q4H PRN #20 tablet PRN Reason: pain Referrals: Oscar Blancas MD [Primary Care Provider] - 1-2 days Time of Disposition: 15:28
== END 2016-11-25 15:42 | disposition home or self-care (01) ==
LOC: EC 14:35
DX: S70.02XA Contusion of left hip, initial encounter (principal); I48.0 Paroxysmal atrial fibrillation; E03.9 Hypothyroidism, unspecified; E78.5 Hyperlipidemia, unspecified; I11.0 Hypertensive heart disease with heart failure; I50.9 Heart failure, unspecified; Z85.3 Personal history of malignant neoplasm of breast; Z85.828 Personal history of other malignant neoplasm of skin; Z88.5 Allergy status to narcotic agent; Z87.891 Personal history of nicotine dependence; Z79.811 Long term (current) use of aromatase inhibitors; Z79.01 Long term (current) use of anticoagulants; Z79.899 Other long term (current) drug therapy; W19.XXXA Unspecified fall, initial encounter
CPT/HCPCS: 99283

== ENCOUNTER 2016-11-28 21:06 | Emergency (ER) | payer MEDICARE, BC ==
[2016-11-28 21:11] VITALS: BP 154/69; PULSE 70; RESP 18; TEMP 99.2
[2016-11-28] MEDS ORDERED: HYDROcodone/APAP 5-325MG 1 EACH TAB PO STA (21:38)
--- NOTE | 2016-11-28 21:44 | ED ---
General Adult HPI - General Chief complaint: Recheck/Abnormal Lab/Rx Stated complaint: Lt Hip Pain/Fall Time Seen by Provider: 11/28/16 21:18 Source: patient, family, RN notes reviewed, old records reviewed Mode of arrival: EMS Limitations: no limitations - History of Present Illness Initial comments: Chief complaint and history of present illness a 81-year-old female here because of persistent left hip pain. Past history finds the patient fell in the [facility]. Had x-rays and CAT scan at that time reported to be negative. She returned home he continued complaining of pain another set of x- rays and CAT scan was done that was reported as negative. Patient takes [place] for pain one tablet per day he states when she takes [place] the pain goes away is able to ambulate with a walker. - Related Data Home Medications Medication Instructions Recorded Confirmed Cholecalciferol [Vitamin D3] 1,000 unit PO DAILY 05/18/15 09/26/16 Cyanocobalamin [Vitamin B-12] 500 mcg PO DAILY 05/18/15 09/26/16 Meclizine [Antivert] 25 mg PO TID PRN 05/18/15 09/26/16 Multivitamins, Thera [Multivitamin 1 tab PO DAILY 05/18/15 09/26/16 (formulary)] Anastrozole [Arimidex] 1 mg PO DAILY 09/14/15 09/26/16 Ferrous Sulfate [Iron (65 MG 325 mg PO DAILY 04/25/16 09/26/16 Elemental)] Isosorbide Mononitrate ER [Imdur] 30 mg PO DAILY 04/25/16 09/26/16 Levothyroxine Sodium [Synthroid] 100 mcg PO DAILY 04/25/16 09/26/16 Nitroglycerin Sl Tabs [Nitrostat] 0.4 mg PO Q5M PRN 04/25/16 09/26/16 Pravastatin Sodium 40 mg PO HS 04/25/16 09/26/16 Ranitidine HCl 150 mg PO DAILY 04/25/16 09/26/16 Furosemide [Lasix] 40 mg PO DAILY 05/20/16 09/26/16 Amiodarone [Cordarone] 200 mg PO DAILY 06/08/16 09/26/16 Warfarin [Coumadin] 4 mg PO SUMOTUWEFRSA 06/08/16 09/26/16 Warfarin [Coumadin] 5 mg PO TH 06/08/16 09/26/16 Ibuprofen [Advil] 200 mg PO Q8HR PRN 09/26/16 09/26/16 Previous Rx's Medication Instructions Recorded Aspirin 81 mg PO DAILY chew 03/17/16 Pyridostigmine [Mestinon] 30 mg PO BID tab 03/17/16 Carvedilol [Coreg*] 12.5 mg PO BID-W/MEALS #60 tab 09/27/16 Acetaminophen-Codeine 300-30mg 1 tab PO Q4H PRN #20 tablet 11/25/16 [Tylenol #3] Hydrocodone/Acetaminophen [[place] 1 each PO Q6HR PRN #20 tab 11/28/16 5-325] Allergies Allergy/AdvReac Type Severity Reaction Status Date / Time morphine AdvReac Severe Nausea & Verified 11/28/16 21:11 Vomiting Review of Systems ROS Statement: Those systems with pertinent positive or pertinent negative responses have been documented in the HPI. Review of systems no other complaints other than persistent area pain around the left hip. All systems are reviewed. Past medical processing significant for rhinitis or hyperlipidemia, hypertension, previous ID, M.D., OA, pneumonia, respiratory, hypothyroidism, paroxysmal A. fib. The patient's surgeries include back surgery and breast surgery cardiac valve replacement. Heart catheterization several times. Hysterectomy, appendectomy, mitral valve replacement. Family history noncontributory ALLERGIES to morphine. Patient does take [place] for the past year for chronic pain to her neck and back she's had fusion of her cervical spine and lumbar spine nonsmoker nondrinker ROS Other: All systems not noted in ROS Statement are negative. Past Medical History Past Medical History: Atrial Fibrillation, Coronary Artery Disease (CAD), Cancer , Heart Failure, Diabetes Mellitus, Eye Disorder, Hyperlipidemia, Hypertension, Myocardial Infarction (ID), Mitral Valve Prolapse (MVP), Osteoarthritis (OA), Pneumonia, Respiratory Disorder, Thyroid Disorder Additional Past Medical History / Comment(s): Paroxysmal Afib. Chronic CHF. RT Eye Occular Myasthenia Gravis. Chronic Back Pain. DJD. 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 DIET CONTROLLED DM. FREQ UTI'S. SKIN CA. RT breast CA with surgery. OCC Vertigo. Chronic Respiratory Failure. HOME 02 2 LITERS N/C ATC PRN. CHRONIC Anemia. DIVERTICULAR DX. hypothyroid Last Myocardial Infarction Date:: 04/2014 History of Any Multi-Drug Resistant Organisms: None Reported Past Surgical History: Appendectomy, Back Surgery, Breast Surgery, Cardiac Valve Replacement, Heart Catheterization, Heart Catheterization With Stent, Hysterectomy, Orthopedic Surgery Additional Past Surgical History / Comment(s): 02/2016 MVR. NEYMAR CTR, bilateral Rotator Cuff Repair. EXC Skin CA. TITANIUM VIMAL IN BACK, 7 BACK FUSIONS, 3 NECK FUSIONS. Stent Proximal RCA; HEART CATH 09-29-14. EXC NEYMAR CATARACTS, POSS Lens Implants, Bilateral Eye Laser. RT BREAST LUMPECTOMY x 2, RT BREAST SIMPLE MASTECTOMY 06/2015. ORIF Ankles. Colonoscopy. Past Anesthesia/Blood Transfusion Reactions: No Reported Reaction Additional Past Anesthesia/Blood Transfusion Reaction / Comment(s): Pt has recently received blood without reaction. Date of Last Stent Placement:: 08/17/2013 Past Psychological History: No Psychological Hx Reported Additional Psychological History / Comment(s): Pt resides with her spouse of 63 yrs. She uses a walker NEEDED. She has a very supportive family. She no longer drives-her spouse takes her to appointments. Smoking Status: Former smoker Past Alcohol Use History: None Reported Additional Past Alcohol Use History / Comment(s): STARTED SMOKING AT AGE 11 SMOKED 1/2 PPD QUIT 40 YEARS AGO Past Drug Use History: None Reported - Past Family History Father History Unknown: Yes Family Medical History: No Reported History Additional Family Medical History / Comment(s): DAD IN MVA AT AGE 52 Mother History Unknown: Yes Family Medical History: Congestive Heart Failure (CHF) Additional Family Medical History / Comment(s): RHEUMATIC FEVER. Mother of CHF at the age of 59yrs. General Exam - General Exam Comments Initial Comments: General: Vital signs stable temperature 99.2 pulse 70 respiratory rate 18 pulse ox 97% room air blood pressure 154/69 The patient is awake and alert, in no distress, and does not appear acutely ill. Pain if she rests and sits still. Pain increases if she sits in a chair become stiff and sore to get up. When she uses her muscles to lift twist return abduct or adduct her leg hurts. The neck is supple, there is no tenderness . Cardiovascular: No complaint chest pain or palpitations. Respiratory: No shortness of breath no audible wheezes. Back: Chronic back pain Musculoskeletal: Ankle left hip area. Active range of motion causes pain passive range of motion does not cause pain. Review of the CAT scan of the hip with report by radiologist that it is negative. Scuffs patient bone bruise and musculoskeletal pain without fracture. Neurological: No neuro deficit Skin: No rash Cooperative, appropriate mood & affect, normal judgment. Limitations: no limitations Course Vital Signs 11/28/16 21:07 Temperature 99.2 F Pulse Rate 70 Respiratory 18 Rate Blood Pressure 154/69 O2 Sat by Pulse 97 Oximetry Medical Decision Making - Medical Decision Making Vital decision making patient states she ran out of her [place] at home. She wants a refill. She's been on it for a year. We discussed range of motion both active and passively. She has no pain with passive range of motion. Area neurovascular status of the foot is intact. No pain with manipulation of the knee passively. Patient states her family physician is arranging for her to have follow-up. Announced her tomorrow. She is requesting [place] pain medication for home use as needed. Disposition Clinical Impression: Left hip pain, Encounter for medication refill Disposition: HOME SELF-CARE Condition: Fair Instructions: Hip Pain (ED), Arthralgia (ED) Additional Instructions: Keep moving her muscles around her hip gently. Don't sit in one place for a prolonged period of time. Take pain medication as directed and follow up with your family physician Prescriptions: Hydrocodone/Acetaminophen [[place] 5-325] 1 each PO Q6HR PRN #20 tab PRN Reason: Pain Referrals: Oscar Blancas MD [Primary Care Provider] - 1-2 days Time of Disposition: 21:47
== END 2016-11-28 21:59 | disposition home or self-care (01) ==
LOC: EC 21:06
DX: M25.552 Pain in left hip (principal); Z76.0 Encounter for issue of repeat prescription; I11.0 Hypertensive heart disease with heart failure; I50.9 Heart failure, unspecified; E78.5 Hyperlipidemia, unspecified; I25.10 Atherosclerotic heart disease of native coronary artery without angina pectoris; M19.90 Unspecified osteoarthritis, unspecified site; E03.9 Hypothyroidism, unspecified; D64.9 Anemia, unspecified; I48.0 Paroxysmal atrial fibrillation; Z87.891 Personal history of nicotine dependence; Z79.01 Long term (current) use of anticoagulants; Z79.899 Other long term (current) drug therapy; Z88.5 Allergy status to narcotic agent; Z95.5 Presence of coronary angioplasty implant and graft; Z85.828 Personal history of other malignant neoplasm of skin
CPT/HCPCS: 99284

== ENCOUNTER 2016-11-29 15:27 | Inpatient (IN) | payer MEDICARE, BC ==
--- NOTE | 2016-11-29 15:51 | ED ---
Fall HPI - General Chief Complaint: Fall Stated Complaint: Fall. Hip Injury Time Seen by Provider: 11/29/16 15:28 Source: patient, RN notes reviewed Mode of arrival: ambulatory - History of Present Illness Initial Comments: 81-year-old female presents emergency Department with chief complaint of fall. Patient states that she was getting up from her chair she stood up and lost her balance and fell onto her left hip. Patient states she was unable to get up again and then called the ambulance. Patient complains of left hip pain. Patient states that even when they did get her up to standing she still was unable to bear weight onto her left hip. Patient denies any head injury or any other trauma. Patient states she was concerned due to her symptoms so she thought that she should be seen. Patient denies any recent fever, chills, shortness of breath, chest pain, back pain, abdominal pain, nausea vomiting, numbness or tingling, dysuria or hematuria, constipation or diarrhea, headaches or visual changes, or any other current symptoms. - Related Data Home Medications Medication Instructions Recorded Confirmed Cholecalciferol [Vitamin D3] 1,000 unit PO DAILY 05/18/15 11/29/16 Cyanocobalamin [Vitamin B-12] 500 mcg PO DAILY 05/18/15 11/29/16 Meclizine [Antivert] 25 mg PO TID PRN 05/18/15 11/29/16 Multivitamins, Thera [Multivitamin 1 tab PO DAILY 05/18/15 11/29/16 (formulary)] Anastrozole [Arimidex] 1 mg PO DAILY 09/14/15 11/29/16 Isosorbide Mononitrate ER [Imdur] 30 mg PO DAILY 04/25/16 11/29/16 Levothyroxine Sodium [Synthroid] 100 mcg PO DAILY 04/25/16 11/29/16 Nitroglycerin Sl Tabs [Nitrostat] 0.4 mg PO Q5M PRN 04/25/16 11/29/16 Ranitidine HCl 150 mg PO DAILY 04/25/16 11/29/16 Furosemide [Lasix] 40 mg PO DAILY 05/20/16 11/29/16 Amiodarone [Cordarone] 200 mg PO DAILY 06/08/16 11/29/16 Carvedilol [Coreg] 6.25 mg PO BID 11/28/16 11/29/16 Ranolazine [Ranexa] 500 mg PO BID 11/28/16 11/29/16 Warfarin Sodium [Coumadin] 4 mg PO MOWEFR 11/28/16 11/29/16 Warfarin [Coumadin] 3 mg PO SUTUTHSA 11/28/16 11/29/16 Hydrocodone/Acetaminophen [Jordan 1 tab PO Q6HR PRN 11/29/16 11/29/16 5-325] Previous Rx's Medication Instructions Recorded Aspirin 81 mg PO DAILY chew 03/17/16 Pyridostigmine [Mestinon] 30 mg PO BID tab 03/17/16 Allergies Allergy/AdvReac Type Severity Reaction Status Date / Time morphine AdvReac Severe Nausea & Verified 11/29/16 15:52 Vomiting Review of Systems ROS Statement: Those systems with pertinent positive or pertinent negative responses have been documented in the HPI. ROS Other: All systems not noted in ROS Statement are negative. Past Medical History Past Medical History: Atrial Fibrillation, Coronary Artery Disease (CAD), Cancer , Heart Failure, Diabetes Mellitus, Eye Disorder, Hyperlipidemia, Hypertension, Myocardial Infarction ([place]), Mitral Valve Prolapse (MVP), Osteoarthritis (OA), Pneumonia, Respiratory Disorder, Thyroid Disorder Additional Past Medical History / Comment(s): Paroxysmal Afib. Chronic CHF. RT Eye Occular Myasthenia Gravis. Chronic Back Pain. DJD. 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 DIET CONTROLLED DM. FREQ UTI'S. SKIN CA. RT breast CA with surgery. OCC Vertigo. Chronic Respiratory Failure. HOME 02 2 LITERS N/C ATC PRN. CHRONIC Anemia. DIVERTICULAR DX. hypothyroid Last Myocardial Infarction Date:: 04/2014 History of Any Multi-Drug Resistant Organisms: None Reported Past Surgical History: Appendectomy, Back Surgery, Breast Surgery, Cardiac Valve Replacement, Heart Catheterization, Heart Catheterization With Stent, Hysterectomy, Orthopedic Surgery Additional Past Surgical History / Comment(s): 02/2016 MVR. NEYMAR CTR, bilateral Rotator Cuff Repair. EXC Skin CA. TITANIUM VIMAL IN BACK, 7 BACK FUSIONS, 3 NECK FUSIONS. Stent Proximal RCA; HEART CATH 09-29-14. EXC NEYMAR CATARACTS, POSS Lens Implants, Bilateral Eye Laser. RT BREAST LUMPECTOMY x 2, RT BREAST SIMPLE MASTECTOMY 06/2015. ORIF Ankles. Colonoscopy. Past Anesthesia/Blood Transfusion Reactions: No Reported Reaction Additional Past Anesthesia/Blood Transfusion Reaction / Comment(s): Pt has recently received blood without reaction. Date of Last Stent Placement:: 08/17/2013 Past Psychological History: No Psychological Hx Reported Additional Psychological History / Comment(s): Pt resides with her spouse of 63 yrs. She uses a walker NEEDED. She has a very supportive family. She no longer drives-her spouse takes her to appointments. Smoking Status: Former smoker Past Alcohol Use History: None Reported Additional Past Alcohol Use History / Comment(s): STARTED SMOKING AT AGE 11 SMOKED 1/2 PPD QUIT 40 YEARS AGO Past Drug Use History: None Reported - Past Family History Father History Unknown: Yes Family Medical History: No Reported History Additional Family Medical History / Comment(s): DAD IN MVA AT AGE 52 Mother History Unknown: Yes Family Medical History: Congestive Heart Failure (CHF) Additional Family Medical History / Comment(s): RHEUMATIC FEVER. Mother of CHF at the age of 59yrs. General Exam - General Exam Comments Initial Comments: General: The patient is awake and alert, in no distress, and does not appear acutely ill. Neck: The neck is supple, there is no tenderness. Cardiovascular: There is a regular rate and rhythm. No murmur, rub or gallop is appreciated. Respiratory: Lungs are clear to auscultation, respirations are non-labored, breath sounds are equal. No wheezes, stridor, rales, or rhonchi. Musculoskeletal: sensation intact with 2+ pulses throughout the left lower extremity. Left ankle. Patient has pain in the hip with range motion of left knee. Patient has tenderness along the lateral left hip. No obvious deformity noted. There is some external rotation noted and pain on logroll test. Neurological: CN II-XII intact, There are no obvious motor or sensory deficits. Coordination appears grossly intact. Speech is normal. Skin: Skin is warm and dry and no rashes or lesions are noted. Psychiatric: Normal mood and affect. Limitations: no limitations Course Vital Signs 11/29/16 15:35 Temperature 98.7 F Pulse Rate 72 Respiratory 18 Rate Blood Pressure 156/97 O2 Sat by Pulse 95 Oximetry Medical Decision Making - Medical Decision Making 81-year-old female presents emergency department chief complaint of fall with left hip pain. This time patient does appear to have a femoral neck fracture. This time Dr. Sanchez through their PA neck was discussed with and they will admit. The like medical and cardiology consult. We'll place the patient nothing by mouth at midnight. This tenderness was discussed with patient management plan. All questions have been answered. - Lab Data Result diagrams: 11/29/16 16:20 11/29/16 16:20 Lab Results 11/29/16 11/29/16 11/29/16 Range/Units 16:20 16:20 16:20 WBC 5.4 (3.8-10.6) k/uL RBC 3.41 L (3.80-5.40) m/uL Hgb 11.3 L (11.4-16.0) gm/dL Hct 34.9 (34.0-46.0) % MCV 102.3 H (80.0-100.0) fL MCH 33.1 (25.0-35.0) pg MCHC 32.4 (31.0-37.0) g/dL RDW 16.2 H (11.5-15.5) % Plt Count 215 (150-450) k/uL Neutrophils % 74 % Lymphocytes % 13 % Monocytes % 6 % Eosinophils % 3 % Basophils % 1 % Neutrophils # 4.0 (1.3-7.7) k/uL Lymphocytes # 0.7 L (1.0-4.8) k/uL Monocytes # 0.3 (0-1.0) k/uL Eosinophils # 0.2 (0-0.7) k/uL Basophils # 0.0 (0-0.2) k/uL Anisocytosis Slight Macrocytosis Slight PT 11.6 (9.0-12.0) sec INR 1.2 (<1.1) APTT 27.4 (22.0-30.0) sec Sodium 137 (137-145) mmol/L Potassium 4.2 (3.5-5.1) mmol/L Chloride 108 H (98-107) mmol/L Carbon Dioxide 22 (22-30) mmol/L Anion Gap 7 mmol/L BUN 18 H (7-17) mg/dL Creatinine 0.53 (0.52-1.04) mg/dL Est GFR (MDRD) Af Amer >60 (>60 ml/min/1.73 sqM) Est GFR (MDRD) Non-Af >60 (>60 ml/min/1.73 sqM) Glucose 124 H (74-99) mg/dL Calcium 8.2 L (8.4-10.2) mg/dL Total Bilirubin 1.1 (0.2-1.3) mg/dL AST 45 H (14-36) U/L ALT 24 (9-52) U/L Alkaline Phosphatase 74 (38-126) U/L Total Protein 6.3 (6.3-8.2) g/dL Albumin 3.3 L (3.5-5.0) g/dL - Radiology Data Radiology results: report reviewed, image reviewed Disposition Clinical Impression: Fracture of neck of left femur, Fall Disposition[facility] Condition: Stable Referrals: Oscar Blancas MD [Primary Care Provider] - 1-2 days Time of Disposition: 17:05 Decision Date: 11/29/16 Decision Time: 17:05
[2016-11-29] MEDS ORDERED: HYDROmorphone 1 MG/ML 1 ML SYRINGE IVP STA (16:08)
[2016-11-29 16:32] LABS: Anisocytosis Slight; Basophils % (A) 1 %; CH 33.3; CHCM 32.8; Eosinophils # (A) 0.2 k/uL (0-0.7); Eosinophils % (A) 3 %; HCT 34.9 % (34.0-46.0); HDW 2.83; HGB 11.3 gm/dL (11.4-16.0); Luc # (Auto) 0.18; Luc % (Auto) 3; Lymphocytes # (A) 0.7 k/uL (1.0-4.8); Lymphocytes % (A) 13 %; MCH 33.1 pg (25.0-35.0); MCHC 32.4 g/dL (31.0-37.0); MCV 102.3 fL (80.0-100.0); Macrocytosis Slight; Mean Platelet Volume 7.7; Monocytes # (A) 0.3 k/uL (0-1.0); Monocytes % (A) 6 %; Neutrophils % (A) 74 %; RBC 3.41 m/uL (3.80-5.40); RDW 16.2 % (11.5-15.5); WBC 5.4 k/uL (3.8-10.6)
[2016-11-29 16:40] LABS: ALT 24 U/L (9-52); AST 45 U/L (14-36); Alkaline Phosphatase 74 U/L (38-126); Anion Gap 7 mmol/L; Blood Urea Nitrogen 18 mg/dL (7-17); Calcium 8.2 mg/dL (8.4-10.2); Carbon Dioxide 22 mmol/L (22-30); Chloride 108 mmol/L (98-107); Glucose 124 mg/dL (74-99); Non-African American GFR(MDRD) >60 (>60 ml/min/1.73 sqM); Potassium 4.2 mmol/L (3.5-5.1); Sodium 137 mmol/L (137-145); Total Bilirubin 1.1 mg/dL (0.2-1.3); Total Protein 6.3 g/dL (6.3-8.2)
[2016-11-29 16:47] LABS: INR 1.2 (<1.1); Partial Thromboplastin Time 27.4 sec (22.0-30.0); Prothrombin Time 11.6 sec (9.0-12.0)
[2016-11-29] MEDS ORDERED: HYDROcodone/APAP 5-325MG 1 EACH TAB PO PRN (17:06)
[2016-11-29] MEDS ORDERED: NALOXONE 0.4 MG/ML 1 ML VIAL IV PRN (17:06)
[2016-11-29] MEDS ORDERED: ONDANSETRON 4 MG/2 ML VIAL IVP PRN (17:06)
--- NOTE | 2016-11-29 17:07 | XR ---
EXAMINATION TYPE: XR Hip LT and AP Pelvis DATE OF EXAM: 11/29/2016 COMPARISON: 06/08/2016 HISTORY: Hip pain TECHNIQUE: A single AP view of the pelvis is obtained. Two views of the left hip are obtained. FINDINGS: There is an impacted subcapital fracture of the left femur. Pelvic ring is intact. Sacroili ac joints are intact. There is multilevel lower lumbar spine fusion surgery. IMPRESSION: There is an acute impacted subcapital fracture left femur.
--- NOTE | 2016-11-29 17:08 | XR ---
EXAMINATION TYPE: XR chest 1V DATE OF EXAM: 11/29/2016 COMPARISON: 09/26/2016 HISTORY: Chest pain TECHNIQUE: Single frontal view of the chest is obtained. FINDINGS: Heart is enlarged. There is no gross heart failure. There are sternal wires. There is no d efinite pleural effusion. There are multiple surgical clips over the right breast. IMPRESSION: Cardiomegaly. No heart failure. No significant change compared to last exam.
[2016-11-29] MEDS ORDERED: MECLIZINE 25 MG TAB PO PRN (17:09)
[2016-11-29] MEDS: SODIUM CHLORIDE 0.9% 1,000 ML IV SCH (18:21)
[2016-11-29] MEDS: HYDROmorphone 1 MG/ML 1 ML SYRINGE IV PRN ×2 (18:22→21:23)
--- NOTE | 2016-11-29 19:16 | P.HPOR ---
History of Present Illness H&P Date: 11/29/16 Chief Complaint: Left femoral neck fracture This is an 81-year-old female who was seen and examined today on the surgical floor [facility]. Patient was brought to the emergency room today after a fall at home. After arrival at the hospital, imaging and lab test were done. Images did demonstrate a left femoral neck fracture. I was contacted by the emergency room PA, we discussed the case and images. She was admitted under our orthopedic care. Both internal medicine and cardiac consults have been placed for clearance. Patient is a detailed history with regards to left hip over the last week or so. She describes a fall that happened in [facility] [place] at [facility] when she was visiting. She was taken to an urgent care at that time were imaging studies were done, and there were no acute fractures or dislocations appreciated. She later returned home, and followed up with her primary care doctor is still had a lot of pain in the left hip. A CAT scan have been ordered, those results reviewed no acute fractures or dislocations. Patient states that today she was getting up out of her chair, her daughter and were helping her, when she lost her balance and fell directly on the left side. She was unable to weight-bear, EMS was contacted and she was brought to the hospital. Patient denies any previous orthopedic surgery to the left lower or right lower extremities. Patient has a rather extensive cervical and lumbar spine history with multiple surgeries. Her most recent surgery was on her lumbar spine in 2009. Patient does utilize a walker with ambulation. Patient denies any chest pain, shortness of breath, lightheadedness, headaches, abdominal discomfort, fever or chills. Patient has a rather extensive cardiac history with a open heart procedure done less than a year ago, she is treated for A. fib with Coumadin. Review of Systems Constitutional: Reports as per HPI Past Medical History Past Medical History: Atrial Fibrillation, Coronary Artery Disease (CAD), Cancer , Heart Failure, Diabetes Mellitus, Eye Disorder, Hyperlipidemia, Hypertension, Myocardial Infarction ([place]), Mitral Valve Prolapse (MVP), Osteoarthritis (OA), Pneumonia, Respiratory Disorder, Thyroid Disorder Additional Past Medical History / Comment(s): Paroxysmal Afib. Chronic CHF. RT Eye Occular Myasthenia Gravis. Chronic Back Pain. DJD. 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 DIET CONTROLLED DM. FREQ UTI'S. SKIN CA. RT breast CA with surgery. OCC Vertigo. Chronic Respiratory Failure. HOME 02 2 LITERS N/C ATC PRN. CHRONIC Anemia. DIVERTICULAR DX. hypothyroid Last Myocardial Infarction Date:: 04/2014 History of Any Multi-Drug Resistant Organisms: None Reported Past Surgical History: Appendectomy, Back Surgery, Breast Surgery, Cardiac Valve Replacement, Heart Catheterization, Heart Catheterization With Stent, Hysterectomy, Orthopedic Surgery Additional Past Surgical History / Comment(s): 02/2016 MVR. NEYMAR CTR, bilateral Rotator Cuff Repair. EXC Skin CA. TITANIUM VIMAL IN BACK, 7 BACK FUSIONS, 3 NECK FUSIONS. Stent Proximal RCA; HEART CATH 09-29-14. EXC NEYMAR CATARACTS, POSS Lens Implants, Bilateral Eye Laser. RT BREAST LUMPECTOMY x 2, RT BREAST SIMPLE MASTECTOMY 06/2015. ORIF Ankles. Colonoscopy. Past Anesthesia/Blood Transfusion Reactions: No Reported Reaction Additional Past Anesthesia/Blood Transfusion Reaction / Comment(s): Pt has recently received blood without reaction. Date of Last Stent Placement:: 08/17/2013 Past Psychological History: No Psychological Hx Reported Additional Psychological History / Comment(s): Pt resides with her spouse of 63 yrs. She uses a walker NEEDED. She has a very supportive family. She no longer drives-her spouse takes her to appointments. Smoking Status: Former smoker Past Alcohol Use History: None Reported Additional Past Alcohol Use History / Comment(s): STARTED SMOKING AT AGE 11 SMOKED 1/2 PPD QUIT 40 YEARS AGO Past Drug Use History: None Reported - Past Family History Father History Unknown: Yes Family Medical History: No Reported History Additional Family Medical History / Comment(s): DAD IN MVA AT AGE 52 Mother History Unknown: Yes Family Medical History: Congestive Heart Failure (CHF) Additional Family Medical History / Comment(s): RHEUMATIC FEVER. Mother of CHF at the age of 59yrs. Medications and Allergies Home Medications Medication Instructions Recorded Confirmed Type Cholecalciferol [Vitamin D3] 1,000 unit PO DAILY 05/18/15 11/29/16 History Cyanocobalamin [Vitamin B-12] 500 mcg PO DAILY 05/18/15 11/29/16 History Meclizine [Antivert] 25 mg PO TID PRN 05/18/15 11/29/16 History Multivitamins, Thera [Multivitamin 1 tab PO DAILY 05/18/15 11/29/16 History (formulary)] Anastrozole [Arimidex] 1 mg PO DAILY 09/14/15 11/29/16 History Isosorbide Mononitrate ER [Imdur] 30 mg PO DAILY 04/25/16 11/29/16 History Levothyroxine Sodium [Synthroid] 100 mcg PO DAILY 04/25/16 11/29/16 History Nitroglycerin Sl Tabs [Nitrostat] 0.4 mg PO Q5M PRN 04/25/16 11/29/16 History Ranitidine HCl 150 mg PO DAILY 04/25/16 11/29/16 History Furosemide [Lasix] 40 mg PO DAILY 05/20/16 11/29/16 History Amiodarone [Cordarone] 200 mg PO DAILY 06/08/16 11/29/16 History Carvedilol [Coreg] 6.25 mg PO BID 11/28/16 11/29/16 History Ranolazine [Ranexa] 500 mg PO BID 11/28/16 11/29/16 History Warfarin Sodium [Coumadin] 4 mg PO MOWEFR 11/28/16 11/29/16 History Warfarin [Coumadin] 3 mg PO SUTUTHSA 11/28/16 11/29/16 History Hydrocodone/Acetaminophen [Wells 1 tab PO Q6HR PRN 11/29/16 11/29/16 History 5-325] Allergies Allergy/AdvReac Type Severity Reaction Status Date / Time morphine AdvReac Severe Nausea & Verified 11/29/16 15:52 Vomiting Physical Examination Left lower extremity: No obvious open lesions or sores visualized. There is no significant ecchymosis or soft tissue swelling present. Patient's leg is shortened and externally rotated. Logroll maneuver reproduces pain in the groin. She is unable to straight leg raise. She is nontender with palpation surrounding the left knee, left foot or ankle. Plantar flexion, dorsiflexion, EHL, FHL are intact. Her sensory exam to light touch throughout the extremity is intact. Dorsal pedis pulses 2+ Exam of the right lower extremity, no obvious open lesions or sores. Her range of motion is intact with both hip flexion, internal and external rotation. Her range of motion is also intact at the knee and foot and ankle. Brief exam of the upper extremities demonstrated no obvious loss of motion. She denies any pain involving the bilateral shoulders, elbows, wrist, hands. Results - Labs Labs: Abnormal Lab Results - Last 24 Hours (Table) 11/29/16 11/29/16 Range/Units 16:20 16:20 RBC 3.41 L (3.80-5.40) m/uL Hgb 11.3 L (11.4-16.0) gm/dL MCV 102.3 H (80.0-100.0) fL RDW 16.2 H (11.5-15.5) % Lymphocytes # 0.7 L (1.0-4.8) k/uL Chloride 108 H (98-107) mmol/L BUN 18 H (7-17) mg/dL Glucose 124 H (74-99) mg/dL Calcium 8.2 L (8.4-10.2) mg/dL AST 45 H (14-36) U/L Albumin 3.3 L (3.5-5.0) g/dL H & H 11/29/16 Range/Units 16:20 Hgb 11.3 L (11.4-16.0) gm/dL Hct 34.9 (34.0-46.0) % Coagulation 11/29/16 Range/Units 16:20 INR 1.2 (<1.1) Result Diagrams: 11/29/16 16:20 11/29/16 16:20 - Diagnostic results Hip x-ray: report reviewed, image reviewed Assessment and Plan Plan: Imaging: Views of the left hip were reviewed, they do demonstrate a left femoral neck fracture. No other fractures or dislocations were noted Assessment: 1. Left femoral neck fracture 2. Status post fall from standing 3. Multiple medical comorbidities Plan: 1. I did discuss with the patient today that she will need surgical intervention for this problem. She understands this and would like to proceed. I did discuss with her that there will be the possibility of 2 separate surgeries, either a hemiarthroplasty or total hip arthroplasty. I will be discussion with my attending regarding this, and we will discuss the procedure further with the patient when the decision has been made. 2. Nonweightbearing left lower extremity 3. Regular diet at this time, she'll be nothing by mouth the night before surgery 4. GI and DVT prophylaxis, we'll discontinue Coumadin. We'll begin Lovenox tonight 5. Medical clearances 6. Cardiac clearances 7. Pain control, utilize oral medication 8. Obtain consent, planning for surgery on 12/01/2016 9. We'll continue to follow the patient during inpatient stay, further recommendations to follow Time with Patient: Less than 30
[2016-11-29 21:15] LABS: Glucose,Whole Blood 158 mg/dL (75-99)
[2016-11-29] MEDS: CARVEDILOL 6.25 MG TAB PO SCH (21:19)
[2016-11-29] MEDS: RANOLAZINE 500 MG TAB.ER.12H PO SCH (21:19)
[2016-11-30 00:11] VITALS: BMI 22.9
[2016-11-30] MEDS: HYDROmorphone 1 MG/ML 1 ML SYRINGE IV PRN ×7 (01:23→22:51)
[2016-11-30] MEDS: SODIUM CHLORIDE 0.9% 1,000 ML IV SCH ×2 (05:20→11:22)
[2016-11-30 07:25] LABS: Anisocytosis Slight; Basophils % (A) 0 %; CH 33.1; CHCM 32.4; Eosinophils # (A) 0.2 k/uL (0-0.7); Eosinophils % (A) 3 %; HDW 2.79; HGB 11.1 gm/dL (11.4-16.0); Luc # (Auto) 0.21; Luc % (Auto) 3; Lymphocytes # (A) 0.8 k/uL (1.0-4.8); Lymphocytes % (A) 11 %; MCH 32.7 pg (25.0-35.0); MCHC 31.8 g/dL (31.0-37.0); MCV 102.9 fL (80.0-100.0); Macrocytosis Slight; Mean Platelet Volume 7.5; Monocytes # (A) 0.4 k/uL (0-1.0); Monocytes % (A) 6 %; Neutrophils # (A) 5.6 k/uL (1.3-7.7); Neutrophils % (A) 78 %; WBC 7.2 k/uL (3.8-10.6); WBC (Perox) 7.31
[2016-11-30 07:30] LABS: ALT 19 U/L (9-52); AST 47 U/L (14-36); Alkaline Phosphatase 60 U/L (38-126); Anion Gap 5 mmol/L; Blood Urea Nitrogen 13 mg/dL (7-17); Calcium 8.3 mg/dL (8.4-10.2); Carbon Dioxide 26 mmol/L (22-30); Chloride 106 mmol/L (98-107); Glucose 98 mg/dL (74-99); Non-African American GFR(MDRD) >60 (>60 ml/min/1.73 sqM); Potassium 4.4 mmol/L (3.5-5.1); Sodium 137 mmol/L (137-145); Total Bilirubin 1.1 mg/dL (0.2-1.3); Total Protein 6.1 g/dL (6.3-8.2)
[2016-11-30 07:33] LABS: Glucose,Whole Blood 113 mg/dL (75-99)
[2016-11-30 07:43] LABS: INR 1.1 (<1.1); Prothrombin Time 11.3 sec (9.0-12.0)
[2016-11-30 08:09] LABS: Hemoglobin A1C 4.5 % (4.2-6.1)
[2016-11-30] MEDS: INSULIN LISPRO (humaLOG) 300 UNIT/3 ML VIAL SQ SCH ×4 (08:47→20:28)
[2016-11-30] MEDS: LEVOTHYROXINE 100 MCG TAB PO SCH (08:50)
[2016-11-30] MEDS: AMIODARONE 200 MG TAB PO SCH (08:50)
[2016-11-30] MEDS: CARVEDILOL 6.25 MG TAB PO SCH ×2 (08:50→17:43)
[2016-11-30] MEDS: FAMOTIDINE 20 MG TAB PO SCH (08:51)
[2016-11-30] MEDS: ANASTROZOLE 1 MG TAB PO SCH (08:51)
[2016-11-30] MEDS: ASPIRIN 81 MG CHEW PO SCH (08:51)
[2016-11-30] MEDS: RANOLAZINE 500 MG TAB.ER.12H PO SCH ×2 (08:52→20:27)
[2016-11-30] MEDS: FUROSEMIDE 40 MG TAB PO SCH (08:52)
[2016-11-30] MEDS: ISOSORBIDE MONONITRATE ER 30 MG TAB.ER.24H PO SCH (08:52)
[2016-11-30] MEDS: CHOLECALCIFEROL 1,000 UNIT TAB PO SCH (08:53)
[2016-11-30] MEDS: MULTIVITAMINS, THERA 1 EACH TAB PO SCH (08:53)
[2016-11-30] MEDS: CYANOCOBALAMIN 500 MCG TAB PO SCH (08:53)
[2016-11-30] MEDS ORDERED: ENOXAPARIN 30 MG/0.3 ML SYRINGE SQ STA (10:16)
[2016-11-30] MEDS ORDERED: FUROSEMIDE 10 MG/ML 2 ML VIAL IV ONE (10:23)
[2016-11-30 11:53] LABS: Glucose,Whole Blood 112 mg/dL (75-99)
--- NOTE | 2016-11-30 12:17 | CONS ---
DATE OF CONSULTATION: Mrs. Castañeda is an 81-year-old female who is seen for cardiac evaluation. This patient is admitted with a fall and sustained the fracture of the hip and she requires surgery. Patient has multiple cardiac problems. She has a history of coronary artery disease with a prior history of stent and the valvular heart disease, patient had mitral valve replacement with bioprosthetic valve in February 2016. Patient had a repeat cardiac catheterization done in July 2016, which it showed only mild coronary artery disease. She has a history of paroxysmal atrial fibrillation and history of prior myocardial infarction, hypertension, and hyperlipidemia. According to the patient, she had been functional. She has been up and about and she was up walking around. She denied any orthopnea, PND or any significant chest pain. Patient denies any cough with expectoration or significant bladder or bowel problems at present. Past medical history includes mitral valve replacement, prior history of cardiac catheterization, history of neck fusion and back fusion, right breast lumpectomy, history of colonoscopy, bilateral cataract surgery and lens implantation, appendectomy, history of hypertension, hyperlipidemia and paroxysmal atrial fibrillation. Patient's home medications included Coumadin, Ranexa, Zantac, Mestinon, Antivert, Synthroid, Imdur, Lasix 40 mg daily, Coreg 6.25 mg daily and Cordarone 200 mg daily. Physical examination at present reveals an 81-year-old female who does not appear to be in any acute distress. She is lying flat. The patient is afebrile. Blood pressure is 154/67 mmHg, heart rate is 75 per minute, oxygen saturation is 98%. Head/ENT examination is negative. Neck is supple. There is no significant increase in jugular venous pressure noted. Both the carotid pulses are felt. There is no bruit. Chest is symmetrical. HEART: There is mild left parasternal heave noted. First and second heart sounds are normal. There is a systolic murmur heard at the apex suggestive of mitral insufficiency. There is ejection systolic murmur noted suggestive of mild degree of aortic stenosis. Lungs reveal a few scattered wheezes. Abdomen is soft. EXTREMITIES: There is no evidence of any leg edema. Chest x-ray is suggestive of mild congestive cardiac failure. Patient's hemoglobin is 11.1. Electrolytes are normal. Creatinine is 0.49. Patient's INR is 1.1. FINAL IMPRESSION: This patient is admitted with a hip fracture. Patient has a history of mitral valve replacement, paroxysmal atrial fibrillation and coronary artery disease. The patient is not in any acute respiratory distress or not having any symptoms of unstable angina. Chest x-ray is suggestive of mild congestive cardiac failure. We do not have any EKG available in the chart at present. We will get an EKG and echocardiogram to assess the left ventricular systolic function. I will give patient one dose of Lasix 20 mg IV and BNP will be done. Patient is considered an acceptable, but increased risk of surgery. This was discussed with the patient. Patient will get one dose of Lovenox today and in the postop period when it is okay with the surgeons, patient will be treated with Coumadin and Lovenox. Thank you very much for letting me participate in the care of this nice lady.
--- NOTE | 2016-11-30 12:20 | P.PN ---
Subjective Principal diagnosis: Left femoral neck fracture Patient is seen today resting in her hospital bed, she appears comfortable. Her pain is controlled at this time. She denies any chest pain, shortness of breath, lightheadedness, headache, abdominal discomfort, fever or chills. Objective - Vital Signs Vital signs: Vital Signs Temp 97.6 F 11/30/16 07:00 Pulse 77 11/30/16 07:00 Resp 16 11/30/16 07:00 BP 154/67 11/30/16 07:00 Pulse Ox 98 11/30/16 07:00 Intake & Output 11/29/16 11/30/16 11/30/16 18:59 06:59 18:59 Intake Total 1200 Output Total 800 Balance 1200 -800 Weight 62.596 kg Intake: Intake, IV Titration 1200 Amount Sodium Chloride 0.9% 1, 1200 000 ml @ 100 mls/hr IV . Q10H MAYNOR Rx#:[id number] Output: Urine 800 Other: Voiding Method Indwelling Catheter - Exam Left lower extremity: Obvious shortening and and external rotation of the left leg noted. There are no obvious open lesions or sores present. No significant areas of ecchymosis or soft tissue swelling. Plantar flexion, dorsiflexion, EHL, FHL are intact. Logroll maneuver the hip reproduces pain, she is unable to straight leg raise. Sensory exam to light touch throughout the extremity is intact. Dorsal pedis pulses 2+. - Labs CBC & Chem 7: 11/30/16 06:36 11/30/16 06:36 Labs: Abnormal Lab Results - Last 24 Hours (Table) 11/29/16 11/29/16 11/29/16 Range/Units 16:20 16:20 20:53 RBC 3.41 L (3.80-5.40) m/uL Hgb 11.3 L (11.4-16.0) gm/dL MCV 102.3 H (80.0-100.0) fL RDW 16.2 H (11.5-15.5) % Lymphocytes # 0.7 L (1.0-4.8) k/uL Chloride 108 H (98-107) mmol/L BUN 18 H (7-17) mg/dL Creatinine (0.52-1.04) mg/dL Glucose 124 H (74-99) mg/dL POC Glucose (mg/dL) 158 H (75-99) mg/dL Calcium 8.2 L (8.4-10.2) mg/dL AST 45 H (14-36) U/L Total Protein (6.3-8.2) g/dL Albumin 3.3 L (3.5-5.0) g/dL 11/30/16 11/30/16 11/30/16 Range/Units 06:36 06:36 07:01 RBC 3.40 L (3.80-5.40) m/uL Hgb 11.1 L (11.4-16.0) gm/dL MCV 102.9 H (80.0-100.0) fL RDW 16.0 H (11.5-15.5) % Lymphocytes # 0.8 L (1.0-4.8) k/uL Chloride (98-107) mmol/L BUN (7-17) mg/dL Creatinine 0.49 L (0.52-1.04) mg/dL Glucose (74-99) mg/dL POC Glucose (mg/dL) 113 H (75-99) mg/dL Calcium 8.3 L (8.4-10.2) mg/dL AST 47 H (14-36) U/L Total Protein 6.1 L (6.3-8.2) g/dL Albumin 3.2 L (3.5-5.0) g/dL 11/30/16 Range/Units 11:50 RBC (3.80-5.40) m/uL Hgb (11.4-16.0) gm/dL MCV (80.0-100.0) fL RDW (11.5-15.5) % Lymphocytes # (1.0-4.8) k/uL Chloride (98-107) mmol/L BUN (7-17) mg/dL Creatinine (0.52-1.04) mg/dL Glucose (74-99) mg/dL POC Glucose (mg/dL) 112 H (75-99) mg/dL Calcium (8.4-10.2) mg/dL AST (14-36) U/L Total Protein (6.3-8.2) g/dL Albumin (3.5-5.0) g/dL Assessment and Plan Plan: Assessment: 1. Left femoral neck fracture Plan: 1. Pain control, continue use of oral medication 2. Nonweightbearing left lower extremity 3. Patient is scheduled for a hemiarthroplasty of the left hip on the morning of 12/01/2016. 4. Medical and cardiac clearances 5. Obtain consent 6. Nothing by mouth after midnight 7. Further recommendations to follow Time with Patient: Less than 30
--- NOTE | 2016-11-30 12:49 | ECHOF ---
Referral Reason:pre-op MEASUREMENTS -------- HEIGHT: 165.1 cm WEIGHT: 62.6 kg BP: 154/67 IVSd: 1.3 cm (0.6 - 1.1) LVIDd: 3.8 cm (3.9 - 5.3) LVPWd: 1.3 cm (0.6 - 1.1) IVSs: 1.7 cm LVIDs: 2.4 cm LVPWs: 1.7 cm Ao Diam: 2.9 cm (2.0 - 3.7) AV Cusp: 1.3 cm (1.5 - 2.6) LA Diam: 4.9 cm (2.7 - 3.8) MV E Harry: 1.73 m/s MV DecT: 186 ms MV A Harry: 1.16 m/s MV E/A Ratio: 1.49 AR PHT: 481 ms RAP: 5.00 mmHg RVSP: 45.15 mmHg FINDINGS -------- Sinus rhythm. This was a technically good study. There is mild concentric left ventricular hypertrophy. Overall left ventricular systolic function is low-normal with, an EF between 50 - 55 %. The right ventricle is normal in size and function. The left atrium is markedly dilated. The right atrium is normal in size. Aortic valve is trileaflet and is mildly thickened. There is moderate aortic regurgitation. Mild mitral annular calcification present. Mild mitral regurgitation is present. Normally functioning bioprosthetic mitral valve. Mild tricuspid regurgitation present. There is mild pulmonary hypertension. The right ventricular systolic pressure, as measured by Doppler, is 45.15mmHg. Pulmonic valve appears structurally normal. The aortic root size is normal. The pericardium is normal. CONCLUSIONS -------- 1. Sinus rhythm. 2. Mild mitral annular calcification present. 3. Mild mitral regurgitation is present. 4. Normally functioning bioprosthetic mitral valve. 5. Mild tricuspid regurgitation present. 6. There is mild pulmonary hypertension. 7. The right ventricular systolic pressure, as measured by Doppler, is 45.15mmHg. 8. Pulmonic valve appears structurally normal. 9. The aortic root size is normal. 10. The pericardium is normal. 11. This was a technically good study. 12. There is mild concentric left ventricular hypertrophy. 13. Overall left ventricular systolic function is low-normal with, an EF between 50 - 55 %. 14. The right ventricle is normal in size and function. 15. The left atrium is markedly dilated. 16. The right atrium is normal in size. 17. Aortic valve is trileaflet and is mildly thickened. 18. There is moderate aortic regurgitation. SHUTTLE FINAL INSPECTOR: Yoko Terrazas RDCS
--- NOTE | 2016-11-30 15:24 | P.CONS ---
History of Present Illness - Reason for Consult Consult date: 11/30/16 Medical management - History of Present Illness 81-year-old female presented on the day of admission to the emergency room to be evaluated after patient had experienced a fall landing on the left hip developed left hip pain was not able to get up needed to activate the EMS system. Patient stated that she was getting up from her chair when she went to stand up she lost balance and fell onto the left hip. Patient stated that she could not get herself back up. Patient not able to bear any weight on the left hip without experiencing pain. Patient denied head injury or denied any other trauma. Patient was seen in the emergency room x-rays obtained showed a left femoral neck fracture. Subsequently the [facility] a request for medical eval for medical management patient is well known to Dr. Blancas service. Patient's last hospitalization was September 27 at which time the patient was treated for chest discomfort. Patient was seen by cardiology service that admission . Patient does have a history of coronary artery disease with prior stenting to the RCA. 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 Patient does have a history of paroxysmal atrial fibrillation. In which the patient is on anticoagulation Coumadin at home. When questioning patient patient states has not been experiencing any recent chest pain INR on admission was 1.1 currently patient is resting in bed does not appear in acute distress and denying dizziness lightheadedness denies chest pain or shortness of breath when questioning Review of Systems Essentially unremarkable except as mentioned in the present illness Past Medical History Past Medical History: Atrial Fibrillation, Coronary Artery Disease (CAD), Cancer , Heart Failure, Diabetes Mellitus, Eye Disorder, Hyperlipidemia, Hypertension, Myocardial Infarction (AR), Mitral Valve Prolapse (MVP), Osteoarthritis (OA), Pneumonia, Respiratory Disorder, Thyroid Disorder Additional Past Medical History / Comment(s): Paroxysmal Afib. Chronic CHF. RT Eye Occular Myasthenia Gravis. Chronic Back Pain. DJD. 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 DIET CONTROLLED DM. FREQ UTI'S. SKIN CA. RT breast CA with surgery. OCC Vertigo. Chronic Respiratory Failure. HOME 02 2 LITERS N/C ATC PRN. CHRONIC Anemia. DIVERTICULAR DX. hypothyroid Last Myocardial Infarction Date:: 04/2014 History of Any Multi-Drug Resistant Organisms: None Reported Past Surgical History: Appendectomy, Back Surgery, Breast Surgery, Cardiac Valve Replacement, Heart Catheterization, Heart Catheterization With Stent, Hysterectomy, Orthopedic Surgery Additional Past Surgical History / Comment(s): 02/2016 MVR. NEYMAR CTR, bilateral Rotator Cuff Repair. EXC Skin CA. TITANIUM VIMAL IN BACK, 7 BACK FUSIONS, 3 NECK FUSIONS. Stent Proximal RCA; HEART CATH 09-29-14. EXC NEYMAR CATARACTS, POSS Lens Implants, Bilateral Eye Laser. RT BREAST LUMPECTOMY x 2, RT BREAST SIMPLE MASTECTOMY 06/2015. ORIF Ankles. Colonoscopy. Past Anesthesia/Blood Transfusion Reactions: No Reported Reaction Additional Past Anesthesia/Blood Transfusion Reaction / Comm: Pt has recently received blood without reaction. Date of Last Stent Placement:: 08/17/2013 Past Psychological History: No Psychological Hx Reported Additional Psychological History / Comment(s): Pt resides with her spouse of 63 yrs. She uses a walker NEEDED. She has a very supportive family. She no longer drives-her spouse takes her to appointments. Smoking Status: Former smoker Past Alcohol Use History: None Reported Additional Past Alcohol Use History / Comment(s): STARTED SMOKING AT AGE 11 SMOKED 1/2 PPD QUIT 40 YEARS AGO Past Drug Use History: None Reported - Past Family History Father History Unknown: Yes Family Medical History: No Reported History Additional Family Medical History / Comment(s): DAD IN MVA AT AGE 52 Mother History Unknown: Yes Family Medical History: Congestive Heart Failure (CHF) Additional Family Medical History / Comment(s): RHEUMATIC FEVER. Mother of CHF at the age of 59yrs. Medications and Allergies Home Medications Medication Instructions Recorded Confirmed Type Cholecalciferol [Vitamin D3] 1,000 unit PO DAILY 05/18/15 11/29/16 History Cyanocobalamin [Vitamin B-12] 500 mcg PO DAILY 05/18/15 11/29/16 History Meclizine [Antivert] 25 mg PO TID PRN 05/18/15 11/29/16 History Multivitamins, Thera [Multivitamin 1 tab PO DAILY 05/18/15 11/29/16 History (formulary)] Anastrozole [Arimidex] 1 mg PO DAILY 09/14/15 11/29/16 History Isosorbide Mononitrate ER [Imdur] 30 mg PO DAILY 04/25/16 11/29/16 History Levothyroxine Sodium [Synthroid] 100 mcg PO DAILY 04/25/16 11/29/16 History Nitroglycerin Sl Tabs [Nitrostat] 0.4 mg PO Q5M PRN 04/25/16 11/29/16 History Ranitidine HCl 150 mg PO DAILY 04/25/16 11/29/16 History Furosemide [Lasix] 40 mg PO DAILY 05/20/16 11/29/16 History Amiodarone [Cordarone] 200 mg PO DAILY 06/08/16 11/29/16 History Carvedilol [Coreg] 6.25 mg PO BID 11/28/16 11/29/16 History Ranolazine [Ranexa] 500 mg PO BID 11/28/16 11/29/16 History Warfarin Sodium [Coumadin] 4 mg PO MOWEFR 11/28/16 11/29/16 History Warfarin [Coumadin] 3 mg PO SUTUTHSA 11/28/16 11/29/16 History Hydrocodone/Acetaminophen [[place] 1 tab PO Q6HR PRN 11/29/16 11/29/16 History 5-325] Allergies Allergy/AdvReac Type Severity Reaction Status Date / Time morphine AdvReac Severe Nausea & Verified 11/29/16 15:52 Vomiting Physical Exam Vitals: Vital Signs Temp Pulse Pulse Resp BP BP Pulse Ox 11/30/16 07:00 97.6 F 77 16 154/67 98 11/30/16 02:23 96.9 F L 77 16 151/75 98 11/29/16 20:00 97.3 F L 72 18 146/99 11/29/16 18:05 99.5 F 74 16 157/69 96 11/29/16 17:07 68 18 181/73 99 11/29/16 15:35 98.7 F 72 18 156/97 95 Intake and Output 11/30/16 11/30/16 11/30/16 06:59 14:59 22:59 Intake Total 1200 Output Total 2575 Balance 1200 -2575 Intake: Intake, IV Titration 1200 Amount Sodium Chloride 0.9% 1, 1200 000 ml @ 100 mls/hr IV . Q10H [facility] Rx#:[id number] Output: Urine 2575 Uretheral (Quigley) 1775 Other: Voiding Method Indwelling Catheter GENERAL APPEARANCE: The patient is alert, oriented, in no acute distress. VITAL SIGNS: HEENT: Head is normocephalic and atraumatic. Pupils are equal and reactive. The nares are patent. Oropharynx is clear without lesions. NECK: Supple without lymphadenopathy. Traches midline. HEART: S1, S2. Regular rate and rhythm. LUNGS: No crackles or wheezes are heard. ABDOMEN: Soft, nontender, nondistended with good bowel sounds. No peritoneal signs. No palpable organomegaly or masses. EXTREMITIES: Normal skin color and turgor. No cyanosis, rash, ulceration, clubbing or edema. Radial pedal pulses are 2/4 bilaterally. NEUROLOGICAL: No focal deficits. Strength and sensation are grossly intact. Results CBC & Chem 7: 11/30/16 06:36 11/30/16 06:36 Labs: Abnormal Lab Results - Last 24 Hours (Table) 11/29/16 11/29/16 11/29/16 Range/Units 16:20 16:20 20:53 RBC 3.41 L (3.80-5.40) m/uL Hgb 11.3 L (11.4-16.0) gm/dL MCV 102.3 H (80.0-100.0) fL RDW 16.2 H (11.5-15.5) % Lymphocytes # 0.7 L (1.0-4.8) k/uL Chloride 108 H (98-107) mmol/L BUN 18 H (7-17) mg/dL Creatinine (0.52-1.04) mg/dL Glucose 124 H (74-99) mg/dL POC Glucose (mg/dL) 158 H (75-99) mg/dL Calcium 8.2 L (8.4-10.2) mg/dL AST 45 H (14-36) U/L Total Protein (6.3-8.2) g/dL Albumin 3.3 L (3.5-5.0) g/dL 11/30/16 11/30/16 11/30/16 Range/Units 06:36 06:36 07:01 RBC 3.40 L (3.80-5.40) m/uL Hgb 11.1 L (11.4-16.0) gm/dL MCV 102.9 H (80.0-100.0) fL RDW 16.0 H (11.5-15.5) % Lymphocytes # 0.8 L (1.0-4.8) k/uL Chloride (98-107) mmol/L BUN (7-17) mg/dL Creatinine 0.49 L (0.52-1.04) mg/dL Glucose (74-99) mg/dL POC Glucose (mg/dL) 113 H (75-99) mg/dL Calcium 8.3 L (8.4-10.2) mg/dL AST 47 H (14-36) U/L Total Protein 6.1 L (6.3-8.2) g/dL Albumin 3.2 L (3.5-5.0) g/dL 11/30/16 Range/Units 11:50 RBC (3.80-5.40) m/uL Hgb (11.4-16.0) gm/dL MCV (80.0-100.0) fL RDW (11.5-15.5) % Lymphocytes # (1.0-4.8) k/uL Chloride (98-107) mmol/L BUN (7-17) mg/dL Creatinine (0.52-1.04) mg/dL Glucose (74-99) mg/dL POC Glucose (mg/dL) 112 H (75-99) mg/dL Calcium (8.4-10.2) mg/dL AST (14-36) U/L Total Protein (6.3-8.2) g/dL Albumin (3.5-5.0) g/dL Assessment and Plan Plan: Impression Present on admission pain left hip suspect due to a left femoral neck fracture Prior to admission of fall getting out of a chair stood lost balance landed on left hip Known coronary artery disease prior coronary stenting to the right coronary 2013 History of paroxysmal atrial fibrillation on anticoagulation Coumadin History of mitral valve replacement History of breast cancer right breast Hypertension Dyslipidemia Echocardiogram done November 30 left ventricular systolic function normal EF between 50 and 55%. Heart catheterization 07/26/2016 noncritical triple-vessel disease with patent stent to the RCA Chronic debility due to comorbidities advanced age plan Pain control Resume home meds as appropriate Hold Coumadin Anticipate patient will need subacute rehab in the discharge plan Patient is felt to be medically stable and appropriate to proceed with the orthopedic procedure for repair of the left femoral neck fracture defer to the timing per orthopedic service The above dictated assessment and findings were discussed with dr jackie Mohamud and the plan of care have been dictated as directed. Antonina Appiah nurse practitioner acting as a scribe for dr blancas
[2016-11-30 17:07] LABS: Glucose,Whole Blood 146 mg/dL (75-99)
--- NOTE | 2016-11-30 17:21 | CONS ---
DATE OF CONSULTATION: CHIEF COMPLAINT: Fall and pain in the left hip. HISTORY OF PRESENT ILLNESS: This is another of many hospitalizations for this 81-year-old female who has had multiple medical problems over the last several years including coronary artery disease, cancer of the right breast and fracture left hip. She apparently fell at home and was brought in, evaluated, diagnosed and admitted. REVIEW OF SYSTEMS: She has not had any TIAs, syncope, dizziness, etc. She has had no change in vision or the hearing. She has had no recent chest pain, diaphoresis, shortness of breath, cough, hemoptysis, abdominal pain, vomiting, diarrhea, melena, hematochezia, hematuria, frequency, urgency, etc. Past medical history, family history, personal and social histories were all unremarkable and unchanged from her recent admitting and discharge summaries. ALLERGIES: SHE IS ALLERGIC TO PRAVASTATIN, ULTRAM AND MORPHINE. She is on: 1. Levothyroxine 0.1 a day. 2. Ranexa 500 mg twice a day. 3. Coumadin 3 mg Monday, , Monday and Monday and 4 mg the other days. 4. She is on Zantac 150 mg twice a day. 5. Coreg 6.25 twice a day. 6. Trazodone 50 mg 1 or 2 q.h.s. 7. Vicodin 5 q.4 p.r.n. 8. Lasix 40 mg once a day./ 9. Isosorbide mononitrate 30 mg once a day. 10. Updrafts, albuterol and ipratropium. 11. Iron 325 once a day. 12. Meclizine 12.5 t.i.d. p.r.n. 13. Pyridostigmine 60 mg once a day. 14. Anastrozole 1 mg once a day. 15. Vitamin D3. 16. Vitamin B12. 17. Nitrostat sublingual p.r.n. 18. 81 mg of aspirin. Her history is otherwise unchanged. PHYSICAL EXAM: Blood pressure 100/58, pulse 84, respirations 16. She is afebrile. GENERAL: She appeared to be slightly pale and in no acute distress. She is awake, alert. HEENT: Head, ears, eyes, nose, mouth, and throat were normal. NECK: Neck veins are not distended. Carotids are normal. CHEST: Clear. The right breast is absent. CARDIAC: Normal with normal sinus rhythm. Cardiac exam is normal. ABDOMEN: Soft and nontender without visceromegaly or masses. Right breast is absent. EXTREMITIES: Normal except for the left hip, which is ( ). NEUROLOGICAL: She is intact. IMPRESSION: 1. Fracture of the left hip. 2. Coronary artery disease. 3. Carcinoma of the right breast. 4. Unstable angina pectoris. RECOMMENDATIONS: None. Should be evaluated by pulmonology and cardiology.
--- NOTE | 2016-11-30 17:45 | PN ---
DATE OF SERVICE: Left hip fracture. HISTORY OF PRESENT ILLNESS: This lady is doing fairly well and is being prepared for surgery tomorrow. She is not particularly short of breath and she has had no fever, cough, chest pain, etc. PHYSICAL EXAMINATION: CHEST: Clear and cardiac murmurs heard. ABDOMEN: Soft, nontender. IMPRESSION: 1. Fracture of left hip. 2. Coronary artery disease. 3. Carcinoma of the breast. PLAN: Prepare for surgery tomorrow.
[2016-11-30 20:09] LABS: Glucose,Whole Blood 147 mg/dL (75-99)
[2016-12-01] MEDS: HYDROmorphone 1 MG/ML 1 ML SYRINGE IV PRN (02:26)
[2016-12-01] MEDS ORDERED: ONDANSETRON 4 MG/2 ML VIAL IVP ONE ×3 (05:53→08:44)
[2016-12-01] MEDS ORDERED: DEXAMETHASONE SOD PHOSPHATE 10 MG/ML 1 ML VIAL IV ONE (05:53)
[2016-12-01] MEDS ORDERED: LIDOCAINE 1% 20 ML VIAL (10MG/ML) FOR IV START INTRADERMA PRN (05:53)
[2016-12-01] MEDS ORDERED: MIDAZOLAM 2 MG/2 ML VIAL IV PRN (05:53)
[2016-12-01] MEDS ORDERED: IV FLUID CONTINUATION 1,000 ML IV ONE ×2 (06:11)
[2016-12-01 06:36] LABS: Glucose,Whole Blood 123 mg/dL (75-99)
[2016-12-01] MEDS ORDERED: PHENYLEPHRINE-0.9% NACL SYG 1 MG/10 ML SYRINGE ONE (06:56)
[2016-12-01] MEDS ORDERED: LIDOCAINE 1% INJ 10MG/ML (20 ML MDV) ONE (06:56)
[2016-12-01] MEDS ORDERED: fentaNYL (PF) 50 MCG/ML 2 ML AMP ONE (06:56)
[2016-12-01] MEDS ORDERED: PROPOFOL 10 MG/ML 20 ML VIAL IV ONE (06:56)
[2016-12-01] MEDS ORDERED: SUCCINYLCHOLINE CHLORIDE 100 MG/5 ML SYR IV ONE (06:56)
[2016-12-01] MEDS ORDERED: SODIUM CHLORIDE 0.9% 50 ML with ceFAZolin 2,000 MG IV ONE ×2 (07:00)
[2016-12-01] MEDS ORDERED: ceFAZolin 3,000 MG in SODIUM CHLORIDE 0.9% IRRIGATIO 3,000 ML IRRIGATION ONE (07:28)
[2016-12-01] MEDS ORDERED: LACTATED RINGERS 1,000 ML IV ONE (07:44)
--- NOTE | 2016-12-01 08:16 | P.OP ---
Date of Procedure: 12/01/16 Preoperative Diagnosis: Left hip displaced femoral neck fracture Postoperative Diagnosis: Left hip displaced femoral neck fracture Procedure(s) Performed: Left hip hemiarthroplasty Implants: 1. Depuy Corail cementless femoral stem KA size 11 standard collar 2. Depuy modular metal femoral head 45 mm with a 0 tapered spacer Anesthesia: spinal Surgeon: Kevin Sanchez Vehicle Maintenance Technician #1: Willem Elliott Estimated Blood Loss (ml): 60 Pathology: other (Femoral head) Condition: stable Disposition: PACU Indications for Procedure: 81-year-old patient seen with a displaced left hip femoral neck fracture. I recommended left hip hemiarthroplasty. I discussed the procedure, risks, complications and recovery. Patient and family were agreeable. Consent was obtained. Operative Findings: See description of procedure Description of Procedure: The patient was taken to the operative suite. The patient received preoperative IV antibiotics. The patient underwent a spinal anesthetic by the department of anesthesia. The patient was then transferred to the operative table and placed a lateral position. The left hip was then prepped and draped in the normal sterile orthopedic fashion. A posterior lateral incision was made sharply through skin. Dissection was taken down to the tensor fascia deepti. That was incised along line the skin incision. We then inserted and rotated the extremity which exposed the short external rotators. They were tagged and incised and retracted. A 19 incision was made through the capsule. This exposed the displaced femoral neck fracture. A saw was utilized to resect the residual femoral neck. A corkscrew was utilized to remove the fractured femoral head. That was templated to a 45 mm. I began serial broaching working with her to a size 11 which had good rotational stability and fit. I calcar planed. I placed a trial standard offset neck with a 45 mm endoprosthetic head 0 neck offset. The hip was reduced. We did with range of motion good stability noted. Leg lengths appeared grossly equal. The hip was now dislocated. The trial components removed. We irrigated the wound copiously with pulse lavage mechanical irrigation. There appeared be good hemostasis. The implants were opened. I now introduced my size 11 standard offset Corail femoral stem with purchase noted. I then introduced my 45 mm metallic endoprosthetic head with a 0 offset tapped it down major secure. We now reduce the hip. We good stability. Wound was irrigated with pulse lavage mechanical irrigation. The posterior capsule was repaired with #3 Vicryl. The short external rotators were repaired with #3 Vicryl. The tensor fascia lot was repaired with #3 Vicryl. The subcu soft tissues were approximated 2-0 Vicryl. The skin was approximated with 3-0 running subcutaneous suture followed by pernio and Dermabond. Sterile dressings were applied. Patient was then transferred to a bed and then recovery stable condition. Darrick RIOS assisted with the procedure.
[2016-12-01] MEDS ORDERED: NALOXONE 0.4 MG/ML 1 ML VIAL IV PRN (08:17)
[2016-12-01] MEDS ORDERED: hydrOXYzine PAMOATE 25 MG CAP PO PRN (08:17)
[2016-12-01] MEDS ORDERED: HYDROmorphone 1 MG/ML 1 ML SYRINGE IVP PRN ×3 (08:17)
[2016-12-01] MEDS: HYDROmorphone 1 MG/ML 1 ML SYRINGE IVP PRN ×2 (08:50→09:00)
[2016-12-01] MEDS ORDERED: ENOXAPARIN 30 MG/0.3 ML SYRINGE SQ SCH (09:00)
[2016-12-01] MEDS: LACTATED RINGERS 1,000 ML IV SCH (09:38)
[2016-12-01] MEDS: SODIUM CHLORIDE 0.9% 1,000 ML IV SCH ×3 (09:39→21:02)
[2016-12-01] MEDS: INSULIN LISPRO (humaLOG) 300 UNIT/3 ML VIAL SQ SCH ×4 (09:39→21:03)
--- NOTE | 2016-12-01 09:54 | XR ---
EXAMINATION TYPE: XR Hip Complete LT DATE OF EXAM: 12/01/2016 COMPARISON: NONE HISTORY: Postsurgical TECHNIQUE: One view submitted. FINDINGS: There is a prosthetic hip in near anatomic alignment. There is soft tissue edema and emphysema. IMPRESSION: 1. Postoperative change. Appears in near-anatomic alignment.
[2016-12-01 11:44] LABS: Glucose,Whole Blood 169 mg/dL (75-99)
[2016-12-01] MEDS: ANASTROZOLE 1 MG TAB PO SCH (12:05)
[2016-12-01] MEDS: ASPIRIN 81 MG CHEW PO SCH (12:05)
[2016-12-01] MEDS: CARVEDILOL 6.25 MG TAB PO SCH ×2 (12:05→17:23)
[2016-12-01] MEDS: AMIODARONE 200 MG TAB PO SCH (12:05)
[2016-12-01] MEDS: LEVOTHYROXINE 100 MCG TAB PO SCH (12:05)
[2016-12-01] MEDS: ISOSORBIDE MONONITRATE ER 30 MG TAB.ER.24H PO SCH (12:06)
[2016-12-01] MEDS: RANOLAZINE 500 MG TAB.ER.12H PO SCH ×2 (12:06→21:07)
--- NOTE | 2016-12-01 12:29 | PN ---
This patient underwent hip surgery. No complications were noted during surgery. She is stable. She is alert and awake. Denies any chest pain, shortness of breath. No respiratory distress is noted. Skin is dry and warm. Blood pressure is 100/60 mmHg. First and second heart sounds are normal. Lungs are clear to auscultation and percussion. We will give her a dose of Coreg this evening as long as her blood pressure is about 90 systolic.
[2016-12-01] MEDS: CHOLECALCIFEROL 1,000 UNIT TAB PO SCH (12:45)
[2016-12-01] MEDS: FUROSEMIDE 40 MG TAB PO SCH (12:46)
[2016-12-01] MEDS: CYANOCOBALAMIN 500 MCG TAB PO SCH (12:46)
[2016-12-01] MEDS: MULTIVITAMINS, THERA 1 EACH TAB PO SCH (12:46)
[2016-12-01] MEDS: FAMOTIDINE 20 MG TAB PO SCH (12:46)
[2016-12-01 13:38] LABS: Basophils % (A) 0 %; CHCM 32.8; Eosinophils % (A) 0 %; HCT 33.1 % (34.0-46.0); HDW 2.86; HGB 10.7 gm/dL (11.4-16.0); Luc # (Auto) 0.07; Luc % (Auto) 1; Lymphocytes # (A) 0.4 k/uL (1.0-4.8); Lymphocytes % (A) 4 %; MCHC 32.5 g/dL (31.0-37.0); MCV 101.5 fL (80.0-100.0); Macrocytosis Slight; Mean Platelet Volume 7.6; Monocytes # (A) 0.3 k/uL (0-1.0); Monocytes % (A) 3 %; Neutrophils # (A) 8.3 k/uL (1.3-7.7); Neutrophils % (A) 92 %; RBC 3.26 m/uL (3.80-5.40); WBC 9.1 k/uL (3.8-10.6); WBC (Perox) 9.13
[2016-12-01 13:50] LABS: INR 1.1 (<1.1); Prothrombin Time 11.3 sec (9.0-12.0)
[2016-12-01] MEDS: HYDROcodone/APAP 5-325MG 1 EACH TAB PO PRN (15:46)
[2016-12-01 17:14] LABS: Glucose,Whole Blood 169 mg/dL (75-99)
[2016-12-01] MEDS: ceFAZolin 2 GM in SODIUM CHLORIDE 0.9% 100 ML IVPB SCH ×2 (17:22→23:39)
[2016-12-01] MEDS ORDERED: WARFARIN 7.5 MG TAB PO ONE (18:00)
[2016-12-01 20:02] LABS: Glucose,Whole Blood 183 mg/dL (75-99)
[2016-12-01] MEDS: SENNOSIDES-DOCUSATE SODIUM 1 EACH TAB PO SCH (21:07)
--- NOTE | 2016-12-01 22:06 | PN ---
CHIEF COMPLAINT: Fracture of the left hip. HISTORY OF PRESENT ILLNESS: This lady is doing well. She is awake and alert and going down for surgery. PHYSICAL EXAMINATION: She is slightly pale. Cardiac exam is normal. Chest is clear. ABDOMEN: Soft, nontender. IMPRESSION: 1. Fracture of the left hip. 2. Carcinoma of the right breast. 3. Coronary artery disease. 4. Congestive heart failure. PLAN: No change in program. Set up rehab after her surgery.
[2016-12-02] MEDS: HYDROcodone/APAP 5-325MG 1 EACH TAB PO PRN ×3 (01:05→15:09)
[2016-12-02 01:34] VITALS: RESP 16
[2016-12-02] MEDS: LEVOTHYROXINE 100 MCG TAB PO SCH (05:54)
[2016-12-02] MEDS: LACTATED RINGERS 1,000 ML IV SCH (07:12)
[2016-12-02] MEDS: CARVEDILOL 6.25 MG TAB PO SCH (07:25)
[2016-12-02] MEDS: ANASTROZOLE 1 MG TAB PO SCH (07:26)
[2016-12-02] MEDS: AMIODARONE 200 MG TAB PO SCH (07:26)
[2016-12-02] MEDS: ISOSORBIDE MONONITRATE ER 30 MG TAB.ER.24H PO SCH (07:27)
[2016-12-02] MEDS: RANOLAZINE 500 MG TAB.ER.12H PO SCH (07:27)
[2016-12-02] MEDS: SODIUM CHLORIDE 0.9% 1,000 ML IV SCH (07:27)
[2016-12-02] MEDS: FUROSEMIDE 40 MG TAB PO SCH (07:27)
[2016-12-02] MEDS: FAMOTIDINE 20 MG TAB PO SCH (07:27)
[2016-12-02] MEDS: INSULIN LISPRO (humaLOG) 300 UNIT/3 ML VIAL SQ SCH ×2 (07:39→12:37)
[2016-12-02 07:47] LABS: Glucose,Whole Blood 137 mg/dL (75-99)
[2016-12-02] MEDS ORDERED: ENOXAPARIN 40 MG/0.4 ML SYRINGE SQ SCH (09:00)
[2016-12-02] MEDS: ASPIRIN 81 MG CHEW PO SCH (09:16)
[2016-12-02] MEDS ORDERED: MAGNESIUM HYDROXIDE 2,400 MG/10 ML CUP PO PRN (11:11)
[2016-12-02] MEDS: CYANOCOBALAMIN 500 MCG TAB PO SCH (11:19)
[2016-12-02] MEDS: MULTIVITAMINS, THERA 1 EACH TAB PO SCH (11:19)
[2016-12-02] MEDS: CHOLECALCIFEROL 1,000 UNIT TAB PO SCH (11:19)
[2016-12-02] MEDS: SENNOSIDES-DOCUSATE SODIUM 1 EACH TAB PO SCH (11:22)
[2016-12-02 11:54] LABS: Glucose,Whole Blood 209 mg/dL (75-99)
[2016-12-02 13:27] LABS: INR 1.2 (<1.1)
--- NOTE | 2016-12-02 13:44 | P.PN ---
Subjective 81-year-old female being seen this morning is sitting up in a chair. Patient is pleasant cooperative oriented 3. Denies dizziness lightheadedness or chest pain or shortness of breath Patient states pain medication effective for pain control. Patient is postop December 01 left hip hemiarthroplasty due to a left hip displaced femoral neck fracture after patient had sustained a fall from a standing position when getting up out of a chair Objective - Vital Signs Vital signs: Vital Signs Temp 97.7 F 12/02/16 07:00 Pulse 90 12/02/16 08:00 Resp 16 12/02/16 08:00 BP 118/56 12/02/16 07:00 Pulse Ox 97 12/02/16 07:00 Intake & Output 12/01/16 12/02/16 12/02/16 18:59 06:59 18:59 Intake Total 1261 590 Output Total 830 350 200 Balance 431 240 -200 Weight 62.596 kg Intake: IV 701 Intake, IV Titration 560 Amount Sodium Chloride 0.9% 1, 560 000 ml @ 80 mls/hr IV . [id number] [facility] Rx#:[id number] Oral 590 Output: Urine 770 350 200 Uretheral (Quigley) 550 200 Estimated Blood Loss 60 Other: Voiding Method Indwelling Catheter Indwelling Catheter - Exam Physical exam 81-year-old female pleasant cooperative oriented 3 sitting up in a chair Lungs essentially clear adequate air entry on room air Heart S1-S2 audible and regular denying chest pain Abdomen soft nontender reports no nausea vomiting Extremities dressing to the left hip dry below-knee MARLYN hose on trace pedal edema - Labs CBC & Chem 7: 12/01/16 13:27 11/30/16 06:36 Labs: Abnormal Lab Results - Last 24 Hours (Table) 12/01/16 12/01/16 12/01/16 Range/Units 13:27 16:47 19:56 RBC 3.26 L (3.80-5.40) m/uL Hgb 10.7 L (11.4-16.0) gm/dL Hct 33.1 L (34.0-46.0) % MCV 101.5 H (80.0-100.0) fL RDW 16.0 H (11.5-15.5) % Neutrophils # 8.3 H (1.3-7.7) k/uL Lymphocytes # 0.4 L (1.0-4.8) k/uL POC Glucose (mg/dL) 169 H 183 H (75-99) mg/dL 12/02/16 12/02/16 Range/Units 07:37 11:52 RBC (3.80-5.40) m/uL Hgb (11.4-16.0) gm/dL Hct (34.0-46.0) % MCV (80.0-100.0) fL RDW (11.5-15.5) % Neutrophils # (1.3-7.7) k/uL Lymphocytes # (1.0-4.8) k/uL POC Glucose (mg/dL) 137 H 209 H (75-99) mg/dL Assessment and Plan Plan: Impression Present on admission pain left hip suspect due to a left femoral neck fracture Prior to admission of fall getting out of a chair stood lost balance landed on left hip Known coronary artery disease prior coronary stenting to the right coronary 2013 History of paroxysmal atrial fibrillation on anticoagulation Coumadin History of mitral valve replacement History of breast cancer right breast Hypertension Dyslipidemia Echocardiogram done November 30 left ventricular systolic function normal EF between 50 and 55%. Heart catheterization 07/26/2016 noncritical triple-vessel disease with patent stent to the RCA Chronic debility due to comorbidities advanced age Postop December 01 left hip hemiarthroplasty due to a left hip displaced femoral neck fracture plan Pain control Resume home meds as appropriate Continue recommendations by cardiology and orthopedic service Continue postop orthopedic care Anticipate patient will need subacute rehab in the discharge plan patient requests [facility] ECF placement The above dictated assessment and findings were discussed with Dr. Lloyd nowak covering for dr mejia Impression and the plan of care have been dictated as directed. Antonina Appiah nurse practitioner acting as a scribe fo Dr. Lloyd nowak covering for dr mejia
[2016-12-02 14:10] VITALS: TEMP 98.1
--- NOTE | 2016-12-02 14:54 | PN ---
This patient is status post hip surgery. Patient is doing fairly well. She remains comfortable. No respiratory distress is noted. Patient's vital signs are stable. Blood pressure is 130/80 mmHg. First and second heart sounds are normal. There is a grade 2/6 systolic murmur noted over the left sternal border. Lungs are clinically clear to auscultation and percussion. IMPRESSION: Patient is stable status post surgery. I will recommend increasing the dose of Lovenox to 40 mg subcutaneously twice a day. Discontinue baby aspirin and continue the Coumadin. Lovenox can be discontinued when the patient's INR is in the therapeutic range. Thank you very much for letting us participate in the care of this nice lady.
[2016-12-02 15:07] VITALS: BP 101/49
--- NOTE | 2016-12-02 15:57 | P.PN ---
Subjective Principal diagnosis: Status post left hip hemiarthroplasty Patient is seen today resting in her hospital chair, she appears comfortable. Her pain is controlled at this time. She denies any chest pain, shortness of breath, lightheadedness, headache, abdominal discomfort, fever or chills. Objective - Vital Signs Vital signs: Vital Signs Temp 98.1 F 12/02/16 14:09 Pulse 79 12/02/16 15:07 Resp 16 12/02/16 14:09 BP 101/49 12/02/16 15:07 Pulse Ox 93 L 12/02/16 14:09 Intake & Output 12/01/16 12/02/16 12/02/16 18:59 06:59 18:59 Intake Total 1261 590 Output Total 830 350 250 Balance 431 240 -250 Weight 62.596 kg Intake: IV 701 Intake, IV Titration 560 Amount Sodium Chloride 0.9% 1, 560 000 ml @ 80 mls/hr IV . [id number] MAYNOR Rx#:[id number] Oral 590 Output: Urine 770 350 250 Uretheral ([place]) 550 200 Estimated Blood Loss 60 Other: Voiding Method Indwelling Catheter Indwelling Catheter # Voids 1 - Exam Left lower extremity: Incision is clean, dry and intact. Minimal soft tissue swelling and ecchymosis present around the left posterior hip. Calf is soft, no tenderness with palpation. Plantar flexion, dorsiflexion, EHL, FHL are intact. Sensory exam to light touch throughout the extremities intact. Cap refills less than 2 seconds. - Labs CBC & Chem 7: 12/01/16 13:27 11/30/16 06:36 Labs: Abnormal Lab Results - Last 24 Hours (Table) 12/01/16 12/01/16 12/02/16 Range/Units 16:47 19:56 07:37 POC Glucose (mg/dL) 169 H 183 H 137 H (75-99) mg/dL 12/02/16 Range/Units 11:52 POC Glucose (mg/dL) 209 H (75-99) mg/dL Assessment and Plan Plan: Assessment: 1. Postop day # 1 status post left hip hemiarthroplasty Plan: 1. Pain control, patient will be discharged home on oral medication 2. GI and DVT prophylaxis, patient will be discharged to rehab with Lovenox and Coumadin 3. Weight-bear as tolerated, posterior hip precautions, utilize hip abductor pillow while lying flat 4. Medical recommendations 5. Cardiac recommendations 6. Discharge planning: Patient will be discharged to rehab today Time with Patient: Less than 30
--- NOTE | 2016-12-02 16:01 | P.DS ---
Providers Date of admission: 11/29/16 17:31 Expected date of discharge: 12/02/16 Attending physician: Kevin Sanchez Consults: 11/29/16 17:07 Consult Physician Routine Consulting Provider: Glenis Hua Consult Reason/Comments: medical clearance Do you want consulting provider notified?: Yes Consult Physician Routine Consulting Provider: Oscar Blancas Reason/Comments: medical clearance Do you want consulting provider notified?: Yes Primary care physician: Oscar Blancas Hospital Course: Date of admission: 11/29/2016 Date of discharge: 12/02/2016 Admission diagnosis: Left femoral neck fracture Discharge diagnosis: Status post left hip hemiarthroplasty Attending physician: Dr. Sanchez Surgical procedures: Left hip hemiarthroplasty Brief history: Patient is a 81-year-old female who was admitted to the hospital on 11/29/2016 after sustaining a fall at home which caused a left femoral neck fracture. Patient was scheduled for surgery on 12/01/[address] Sanchez for a left hip hemiarthroplasty. Hospital course: Details of patient's surgery can be found in operative report. Patient tolerated the procedure well and was subsequently transported to orthopedic floor. Patient's orthopeidc and medical care was provided daily. Patient had daily laboratory tests performed for evaluation of overall blood counts. Patient had daily physical therapy to include strengthening range of motion as well as education with walker ambulation. Patient was treated with Lovenox and Coumadin for their postoperative DVT prophylaxis during their inpatient stay. Patient was noted to have a relatively uneventful postoperative course. Patient reported satisfactory pain control with oral pain medications by postoperative day 1. Patient showed satisfactory progress with physical therapy. Patient moved steadily through the program and had no difficulty meeting the goals by postoperative day 1. Given patient's otherwise satisfactory course and having met physical therapy goals, plan is to discharge patient rehab on postoperative day 1. Discharge condition/disposition: Patient will be discharged rehab in stable condition. Discharge medications: Instructions are given on resumption of patient's normal daily medications per primary care recommendation, in addition patient will be prescribed [place] 5 mg/325 mg, Colace 100 mg, Lovenox 30 mg. Discharge instructions: 1. Wound care and infection precautions, keep incision dry and covered while showering, no lotions, creams, moisturizers. No soaking, tubs, pools, hottubs. Do not scrub over the incision. 2. Weight-bear as tolerated with walker / cane until follow-up. Posterior hip precautions, utilize hip abductor pillow 3. Ice and elevate when necessary. Do not exceed 20 minutes per hour with ice pack. 4. Utilize compression sleeve until seen at first follow up appointment. 5. Visiting nursing care. 6. Home physical therapy 7. Pain meds and anticoagulants per prescription. 8. Pain medication has potential to cause constipation. Increase oral fluid and fiber intake. Contact primary care provider if you have not had a bowel movement within 48 hours after discharge 9. No anti-inflammatory medication until discussed at first post operative visit, this including Motrin, Aleve, Mobic, Diclofenac. 10. Follow up in office at 2 weeks postop with Darrick Elliott PA-C 11. Follow up with your primary care doctor 7-10 days after discharge. 12. Contact [facility] with any questions, . Procedures: Left hip hemiarthroplasty Patient Condition at Discharge: Fair Plan - Discharge Summary New Discharge Prescriptions: New Docusate [Colace] 100 mg PO DAILY #30 capsule Hydrocodone/Acetaminophen [[place] 5-325] 1 each PO Q6HR PRN #60 tab PRN Reason: Pain Enoxaparin [Lovenox] 30 mg SQ Q12H #30 syringe No Action Meclizine [Antivert] 25 mg PO TID PRN PRN Reason: DIZZINESS Multivitamins, Thera [Multivitamin (formulary)] 1 tab PO DAILY Cyanocobalamin [Vitamin B-12] 500 mcg PO DAILY Cholecalciferol [Vitamin D3] 1,000 unit PO DAILY Anastrozole [Arimidex] 1 mg PO DAILY Pyridostigmine [Mestinon] 30 mg PO BID tab Levothyroxine Sodium [Synthroid] 100 mcg PO DAILY Isosorbide Mononitrate ER [Imdur] 30 mg PO DAILY Ranitidine HCl 150 mg PO DAILY Nitroglycerin Sl Tabs [Nitrostat] 0.4 mg PO Q5M PRN PRN Reason: Chest Pain Furosemide [Lasix] 40 mg PO DAILY Amiodarone [Cordarone] 200 mg PO DAILY Ranolazine [Ranexa] 500 mg PO BID Carvedilol [Coreg] 6.25 mg PO BID Warfarin [Coumadin] 3 mg PO SUTUTHSA Warfarin Sodium [Coumadin] 4 mg PO MOWEFR Discharge Medication List Cholecalciferol [Vitamin D3] 1,000 unit PO DAILY 05/18/15 [History] Cyanocobalamin [Vitamin B-12] 500 mcg PO DAILY 05/18/15 [History] Meclizine [Antivert] 25 mg PO TID PRN 05/18/15 [History] Multivitamins, Thera [Multivitamin (formulary)] 1 tab PO DAILY 05/18/15 [History ] Anastrozole [Arimidex] 1 mg PO DAILY 09/14/15 [History] Pyridostigmine [Mestinon] 30 mg PO BID tab 03/17/16 [Rx] Isosorbide Mononitrate ER [Imdur] 30 mg PO DAILY 04/25/16 [History] Levothyroxine Sodium [Synthroid] 100 mcg PO DAILY 04/25/16 [History] Nitroglycerin Sl Tabs [Nitrostat] 0.4 mg PO Q5M PRN 04/25/16 [History] Ranitidine HCl 150 mg PO DAILY 04/25/16 [History] Furosemide [Lasix] 40 mg PO DAILY 05/20/16 [History] Amiodarone [Cordarone] 200 mg PO DAILY 06/08/16 [History] Carvedilol [Coreg] 6.25 mg PO BID 11/28/16 [History] Ranolazine [Ranexa] 500 mg PO BID 11/28/16 [History] Warfarin Sodium [Coumadin] 4 mg PO MOWEFR 11/28/16 [History] Warfarin [Coumadin] 3 mg PO SUTUTHSA 11/28/16 [History] Docusate [Colace] 100 mg PO DAILY #30 capsule 12/02/16 [Rx] Enoxaparin [Lovenox] 30 mg SQ Q12H #30 syringe 12/02/16 [Rx] Hydrocodone/Acetaminophen [[place] 5-325] 1 each PO Q6HR PRN #60 tab 12/02/16 [Rx] Follow up Appointment(s)/Referral(s): Oscar Blancas MD [Primary Care Provider] - 1-2 days (Patient to call and schedule follow up appointment after discharge from [facility].) Kevin Sanchez DO [Doctor of Osteopathic Medicine] - 2 Weeks (Office closed. Patient to call and schedule follow up appointment.) [facility], [NON-STAFF] - As Needed Willem Elliott PAC [PHYSICIAN DEBURRER] - 2 Weeks Activity/Diet/Wound Care/Special Instructions: Orthopedic Discharge Instructions: 1. Wound care and infection precautions, keep incision dry and covered while showering, no lotions, creams, moisturizers. No soaking, pools, hot tubs. Do not scrub over incision. 2. Weight-bear as tolerated with walker / cane until follow-up. 3. Posterior hip precautions, please utilize a hip abductor pillow while lying in bed 4. Ice and elevate when necessary. Do not exceed 20 minutes per hour with ice pack. 5. Utilize compression sleeve until seen at first follow up appointment. 6. Visiting nursing care. 7. Home physical therapy. 8. Pain meds and anticoagulants per prescription. 9. Pain medication has potential to cause constipation. Increase oral fluid and fiber intake. Contact primary care provider if you have not had a bowel movement within 48 hours after discharge. 10. No anti-inflammatory medication until discussed at first post operative visit, this including Motrin, Aleve, Mobic, Diclofenac, Aspirin. 11. Follow up in office at 2 weeks postop with Darrick Elliott PA-C 12. Follow up with your primary care doctor 7-10 days after discharge. 13. Contact [facility] with any questions, . Anticoagulation instructions: Utilize Lovenox and Coumadin until INR is therapeutic Daily INR draws Discharge Disposition: TRANSFER TO SNF/ECF
[2016-12-02 16:41] VITALS: PULSE 90
[2016-12-02] MEDS ORDERED: WARFARIN 5 MG TAB PO ONE ×2 (18:00)
[2016-12-02] MEDS ORDERED: ENOXAPARIN 30 MG/0.3 ML SYRINGE SQ SCH (21:00)
== END 2016-12-02 17:20 | DRG 470 ==
LOC: EC 15:27 → 3SUR 17:31
PROVIDERS: ADMIT Orthopaedic Surgery; ATTEND Orthopaedic Surgery
PROC: 0SRS0JA Replacement of Left Hip Joint, Femoral Surface with Synthetic Substitute, Uncemented, Open Approach (ICD-10-PCS; principal; 2016-12-01 07:00)
DX: S72.002A Fracture of unspecified part of neck of left femur, initial encounter for closed fracture (principal); J96.10 Chronic respiratory failure, unspecified whether with hypoxia or hypercapnia; G70.00 Myasthenia gravis without (acute) exacerbation; I11.0 Hypertensive heart disease with heart failure; I50.9 Heart failure, unspecified; E11.9 Type 2 diabetes mellitus without complications; E03.9 Hypothyroidism, unspecified; E78.5 Hyperlipidemia, unspecified; I05.8 Other rheumatic mitral valve diseases; I25.2 Old myocardial infarction; I48.0 Paroxysmal atrial fibrillation; G89.29 Other chronic pain; M19.90 Unspecified osteoarthritis, unspecified site; M54.9 Dorsalgia, unspecified; K57.90 Diverticulosis of intestine, part unspecified, without perforation or abscess without bleeding; I25.10 Atherosclerotic heart disease of native coronary artery without angina pectoris; Z79.01 Long term (current) use of anticoagulants; Z79.811 Long term (current) use of aromatase inhibitors; Z79.82 Long term (current) use of aspirin; Z79.899 Other long term (current) drug therapy; Z85.828 Personal history of other malignant neoplasm of skin; Z85.3 Personal history of malignant neoplasm of breast; Z88.5 Allergy status to narcotic agent; Z88.8 Allergy status to other drugs, medicaments and biological substances; Z98.1 Arthrodesis status; Z95.5 Presence of coronary angioplasty implant and graft; Z95.2 Presence of prosthetic heart valve; Z87.891 Personal history of nicotine dependence; Z82.49 Family history of ischemic heart disease and other diseases of the circulatory system; W01.0XXA Fall on same level from slipping, tripping and stumbling without subsequent striking against object, initial encounter; Y92.009 Unspecified place in unspecified non-institutional (private) residence as the place of occurrence of the external cause
CPT/HCPCS: 36415; 71010; 73502; 80053; 83036; 83880; 85025; 85610; 85730; 86850; 86900; 86901; 88305; 88311; 93306; 96374; 99284; 99285

== ENCOUNTER 2017-03-22 08:13 | Emergency (ER) | payer BC, MEDICARE ==
[2017-03-22] MEDS ORDERED: HYDROcodone/APAP 5-325MG 1 EACH TAB PO STA (08:42)
--- NOTE | 2017-03-22 08:48 | ED ---
Fall HPI - General Chief Complaint: Fall Stated Complaint: FALL Time Seen by Provider: 03/22/17 08:36 Source: patient, family, RN notes reviewed Mode of arrival: wheelchair Limitations: no limitations - History of Present Illness Initial Comments: This 81-year-old female presents emergency Department chief complaint head injury, left elbow pain in left foot pain. She states she was in her walker wheelchair yesterday being pushed by her daughter nausea hit a bump and she fell backwards striking her head. Patient states is a large area of swelling which has improved though she takes Coumadin. Patient also complains of abrasion to her left elbow pain with range of motion. She also states her left foot is very painful when she steps on it and she's had prior fractures. Patient denies any areas of bleeding denies dizziness denies headache at this time. - Related Data Home Medications Medication Instructions Recorded Confirmed Cholecalciferol [Vitamin D3] 1,000 unit PO DAILY 05/18/15 03/22/17 Cyanocobalamin [Vitamin B-12] 500 mcg PO DAILY 05/18/15 03/22/17 Meclizine [Antivert] 25 mg PO TID PRN 05/18/15 03/22/17 Multivitamins, Thera [Multivitamin 1 tab PO DAILY 05/18/15 03/22/17 (formulary)] Anastrozole [Arimidex] 1 mg PO DAILY 09/14/15 03/22/17 Isosorbide Mononitrate ER [Imdur] 30 mg PO DAILY 04/25/16 03/22/17 Levothyroxine Sodium [Synthroid] 100 mcg PO DAILY 04/25/16 03/22/17 Nitroglycerin Sl Tabs [Nitrostat] 0.4 mg PO Q5M PRN 04/25/16 03/22/17 Ranitidine HCl 150 mg PO DAILY 04/25/16 03/22/17 Furosemide [Lasix] 40 mg PO DAILY 05/20/16 03/22/17 Carvedilol [Coreg] 6.25 mg PO BID 11/28/16 03/22/17 Ranolazine [Ranexa] 500 mg PO BID 11/28/16 03/22/17 Warfarin Sodium [Coumadin] 4 mg PO MOWEFR 11/28/16 03/22/17 Warfarin [Coumadin] 3 mg PO SUTUTHSA 11/28/16 03/22/17 Amiodarone [Cordarone] 100 mg PO DAILY 03/22/17 03/22/17 Aspirin 81 mg PO DAILY 03/22/17 03/22/17 Hydrocodone/Acetaminophen [[place] 1 tab PO Q6HR PRN 03/22/17 03/22/17 5-325] Lisinopril [Prinivil] 10 mg PO DAILY 03/22/17 03/22/17 Previous Rx's Medication Instructions Recorded Pyridostigmine [Mestinon] 30 mg PO BID tab 03/17/16 Allergies Allergy/AdvReac Type Severity Reaction Status Date / Time morphine AdvReac Severe Nausea & Verified 03/22/17 08:30 Vomiting Review of Systems ROS Statement: Those systems with pertinent positive or pertinent negative responses have been documented in the HPI. ROS Other: All systems not noted in ROS Statement are negative. Past Medical History Past Medical History: Atrial Fibrillation, Coronary Artery Disease (CAD), Cancer , Heart Failure, Diabetes Mellitus, Eye Disorder, Hyperlipidemia, Hypertension, Myocardial Infarction ([place]), Mitral Valve Prolapse (MVP), Osteoarthritis (OA), Pneumonia, Respiratory Disorder, Thyroid Disorder Additional Past Medical History / Comment(s): Paroxysmal Afib. Chronic CHF. RT Eye Occular Myasthenia Gravis. Chronic Back Pain. DJD. 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 DIET CONTROLLED DM. FREQ UTI'S. SKIN CA. RT breast CA with surgery. OCC Vertigo. Chronic Respiratory Failure. HOME 02 2 LITERS N/C ATC PRN. CHRONIC Anemia. DIVERTICULAR DX. hypothyroid Last Myocardial Infarction Date:: 04/2014 History of Any Multi-Drug Resistant Organisms: None Reported Past Surgical History: Appendectomy, Back Surgery, Breast Surgery, Cardiac Valve Replacement, Heart Catheterization, Heart Catheterization With Stent, Hysterectomy, Orthopedic Surgery Additional Past Surgical History / Comment(s): 02/2016 MVR. NEYMAR CTR, bilateral Rotator Cuff Repair. EXC Skin CA. TITANIUM VIMAL IN BACK, 7 BACK FUSIONS, 3 NECK FUSIONS. Stent Proximal RCA; HEART CATH 09-29-14. EXC NEYMAR CATARACTS, POSS Lens Implants, Bilateral Eye Laser. RT BREAST LUMPECTOMY x 2, RT BREAST SIMPLE MASTECTOMY 06/2015. ORIF Ankles. Colonoscopy. Past Anesthesia/Blood Transfusion Reactions: No Reported Reaction Additional Past Anesthesia/Blood Transfusion Reaction / Comment(s): Pt has recently received blood without reaction. Date of Last Stent Placement:: 08/17/2013 Past Psychological History: No Psychological Hx Reported Smoking Status: Former smoker Past Alcohol Use History: None Reported Past Drug Use History: None Reported - Past Family History Father History Unknown: Yes Family Medical History: No Reported History Additional Family Medical History / Comment(s): DAD IN MVA AT AGE 52 Mother History Unknown: Yes Family Medical History: Congestive Heart Failure (CHF) Additional Family Medical History / Comment(s): RHEUMATIC FEVER. Mother of CHF at the age of 59yrs. General Exam Limitations: no limitations, physical limitation General appearance: alert, in no apparent distress Head exam: Present: atraumatic, normocephalic, normal inspection Eye exam: Present: normal appearance, PERRL, EOMI. Absent: scleral icterus, conjunctival injection, periorbital swelling ENT exam: Present: normal exam, normal oropharynx, mucous membranes moist, TM's normal bilaterally, normal external ear exam Neck exam: Present: normal inspection, full ROM. Absent: tenderness, meningismus, lymphadenopathy Respiratory exam: Present: normal lung sounds bilaterally. Absent: respiratory distress, wheezes, rales, rhonchi, stridor Cardiovascular Exam: Present: regular rate, normal rhythm, normal heart sounds. Absent: systolic murmur, diastolic murmur, rubs, gallop, clicks Extremities exam: Present: other (Left elbow there is tenderness palpation pain with range of motion small abrasion, left foot tenderness with palpation, no obvious deformity neurovascular intact) Neurological exam: Present: alert, oriented X3, CN II-XII intact, reflexes normal. Absent: motor sensory deficit Skin exam: Present: warm, dry, intact, normal color. Absent: rash Course Vital Signs 03/22/17 03/22/17 08:16 10:05 Temperature 97.5 F L 97.0 F L Pulse Rate 80 68 Respiratory 20 16 Rate Blood Pressure 124/68 100/50 O2 Sat by Pulse 98 98 Oximetry Medical Decision Making - Medical Decision Making 81-year-old gentleman emergency Department chief complaint of fall. Patient CT does not show an acute intracranial bleed. Patient does have hematoma on her scalp. Patient left elbow does not show acute fracture. Patient right flank there is no acute fracture on x-ray there is questionable fracture over her first MTP region though she has no tenderness. Patient follow-up with PCP and orthopedic and return if symptoms worsen. Disposition Clinical Impression: Fall, Scalp hematoma, Head injury, Foot sprain, Contusion, elbow Disposition: HOME SELF-CARE Condition: Stable Instructions: Head Injury (ED) Additional Instructions: Please return to the Emergency Department if symptoms worsen or any other concerns. Referrals: Oscar Blancas MD [Primary Care Provider] - 1-2 days Time of Disposition: 10:12
--- NOTE | 2017-03-22 09:33 | CT ---
EXAMINATION TYPE: CT brain wo con DATE OF EXAM: 03/22/2017 COMPARISON: Prior CT brain 11/01/2016 HISTORY: Fall and trauma and pain CT DLP: 1144.7 mGycm Automated exposure control for dose reduction was used. Helical imaging through the brain FINDINGS: No significant interval change is evident. Cerebral vascular calcifications are present. There is no hemorrhage or hydrocephalus. Periventricular white matter low-attenuation is again seen. Calvarium an d orbits shows a stable appearance. Minimal hemorrhage present within the posterior parietal scalp to wards the midline. IMPRESSION: NO ACUTE BRAIN ABNORMALITY. SMALL CEPHALOHEMATOMA. AGE-RELATED CHANGES.
--- NOTE | 2017-03-22 09:57 | XR ---
EXAMINATION TYPE: XR elbow complete LT DATE OF EXAM: 03/22/2017 CLINICAL HISTORY: Fall with olecranon pain TECHNIQUE: Frontal, lateral and oblique images of the left elbow are obtained. COMPARISON: None FINDINGS: Mild olecranon enthesopathy at the insertion of the distal triceps tendon is seen. No evid ence of acute fracture or dislocation of the left elbow. No abnormal fat pad signs are seen. The ove rlying soft tissue appears unremarkable. No joint effusion. IMPRESSION: 1. There is no acute fracture or dislocation in the left elbow. 2. Mild olecranon enthesopathy at the insertion of the distal triceps tendon. 3. No joint effusion.
--- NOTE | 2017-03-22 10:02 | XR ---
EXAMINATION TYPE: XR foot complete LT DATE OF EXAM: 03/22/2017 CLINICAL HISTORY: Fall and foot pain history of fracture in the left lateral malleolus. TECHNIQUE: Frontal, lateral, and oblique images of the left foot are obtained. COMPARISON: None FINDINGS: There is diffuse osseous demineralization and mild osteoarthropathy with hallux valgus def ormity. Small Achilles and plantar enthesophytes are also noted. Bipartite sesamoid bone deep to the distal first metatarsal versus sesamoid bone fracture is present. No other suspicious areas seen to s uggest additional possible fracture. No radiopaque foreign body. The overlying soft tissue appears un remarkable. IMPRESSION: 1. Bipartite sesamoid versus fracture of the sesamoid at the plantar surface of the distal first meta tarsal. Correlate for point tenderness. 2. Diffuse osseous demineralization. 3. Mild osteoarthropathy. 4. Small Achilles and plantar fascial enthesophytes.
[2017-03-22 10:05] VITALS: BP 100/50; PULSE 68; RESP 16; TEMP 97
== END 2017-03-22 10:21 | disposition home or self-care (01) ==
LOC: EC 08:13
DX: S93.602A Unspecified sprain of left foot, initial encounter (principal); S00.03XA Contusion of scalp, initial encounter; S50.02XA Contusion of left elbow, initial encounter; I48.91 Unspecified atrial fibrillation; I25.10 Atherosclerotic heart disease of native coronary artery without angina pectoris; I50.9 Heart failure, unspecified; I11.0 Hypertensive heart disease with heart failure; E11.9 Type 2 diabetes mellitus without complications; E78.5 Hyperlipidemia, unspecified; I25.2 Old myocardial infarction; M19.90 Unspecified osteoarthritis, unspecified site; E03.9 Hypothyroidism, unspecified; Z85.828 Personal history of other malignant neoplasm of skin; Z87.891 Personal history of nicotine dependence; Z79.82 Long term (current) use of aspirin; Z79.01 Long term (current) use of anticoagulants; Z79.899 Other long term (current) drug therapy; Z88.5 Allergy status to narcotic agent; W18.00XA Striking against unspecified object with subsequent fall, initial encounter; Y92.89 Other specified places as the place of occurrence of the external cause
CPT/HCPCS: 70450; 99284

== ENCOUNTER 2017-05-06 05:03 | Observation (INO) | payer MEDICARE, BC ==
--- NOTE | 2017-05-06 05:05 | ED ---
General Adult HPI - General Stated complaint: Chest Pain Time Seen by Provider: 05/06/17 05:05 Source: RN notes reviewed, old records reviewed - History of Present Illness Initial comments: This is a 81-year-old female to the ER for evaluation. Patient coming in for evaluation of chest pain. Patient has anterior chest pain heaviness and shortness of breath. Patient is also feeling nauseous. Patient states that she hasn't been taking all medications as prescribed, she was recently prescribed. Medication for urinary tract infection states that it is upsetting her stomach. Denies diarrhea without still nauseous. No fevers. Mild cough and congestion mild shortness of breath. Patient does do breathing treatments at home but has not been doing them lately. And complaining of chest pain at this time - Related Data Home Medications Medication Instructions Recorded Confirmed Cholecalciferol [Vitamin D3] 1,000 unit PO DAILY 05/18/15 05/06/17 Cyanocobalamin [Vitamin B-12] 500 mcg PO DAILY 05/18/15 05/06/17 Anastrozole [Arimidex] 1 mg PO DAILY 09/14/15 05/06/17 Isosorbide Mononitrate ER [Imdur] 30 mg PO DAILY 04/25/16 05/06/17 Levothyroxine Sodium [Synthroid] 100 mcg PO DAILY 04/25/16 05/06/17 Nitroglycerin Sl Tabs [Nitrostat] 0.4 mg PO Q5M PRN 04/25/16 05/06/17 Ranitidine HCl 150 mg PO DAILY 04/25/16 05/06/17 Furosemide [Lasix] 40 mg PO DAILY 05/20/16 05/06/17 Carvedilol [Coreg] 12.5 mg PO QAM 11/28/16 05/06/17 Ranolazine [Ranexa] 500 mg PO BID 11/28/16 05/06/17 Aspirin 81 mg PO DAILY 03/22/17 05/06/17 Lisinopril [Prinivil] 10 mg PO DAILY 03/22/17 05/06/17 Amiodarone [Cordarone] 200 mg PO DAILY 05/06/17 05/06/17 Carvedilol [Coreg] 6.25 mg PO DAILY@1200 05/06/17 05/06/17 Ipratropium-Albuterol Nebulize 3 ml INHALATION RT-TID 05/06/17 05/06/17 [Duoneb 0.5 mg-3 mg/3 ml Soln] Meclizine [Antivert] 25 mg PO TID 05/06/17 05/06/17 Multivitamins, Thera [Multivitamin 1 tab PO DAILY 05/06/17 05/06/17 (formulary)] Warfarin [Coumadin] 8 mg PO DAILY@1800 05/06/17 05/06/17 Previous Rx's Medication Instructions Recorded Pyridostigmine [Mestinon] 30 mg PO BID tab 03/17/16 Potassium Chloride [K-Tab ER] 20 meq PO DAILY #30 tablet.er 05/06/17 Allergies Allergy/AdvReac Type Severity Reaction Status Date / Time morphine AdvReac Severe Nausea & Verified 05/06/17 11:28 Vomiting Review of Systems ROS Statement: Those systems with pertinent positive or pertinent negative responses have been documented in the HPI. ROS Other: All systems not noted in ROS Statement are negative. Past Medical History Past Medical History: Atrial Fibrillation, Coronary Artery Disease (CAD), Cancer , Heart Failure, Diabetes Mellitus, Eye Disorder, Hyperlipidemia, Hypertension, Myocardial Infarction ([place]), Mitral Valve Prolapse (MVP), Osteoarthritis (OA), Pneumonia, Respiratory Disorder, Thyroid Disorder Additional Past Medical History / Comment(s): Paroxysmal Afib. Chronic CHF. RT Eye Occular Myasthenia Gravis. Chronic Back Pain. DJD. 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 DIET CONTROLLED DM. FREQ UTI'S. SKIN CA. RT breast CA with surgery. OCC Vertigo. Chronic Respiratory Failure. HOME 02 2 LITERS N/C ATC PRN. CHRONIC Anemia. DIVERTICULAR DX. hypothyroid Last Myocardial Infarction Date:: 04/2014 History of Any Multi-Drug Resistant Organisms: None Reported Past Surgical History: Appendectomy, Back Surgery, Breast Surgery, Cardiac Valve Replacement, Heart Catheterization, Heart Catheterization With Stent, Hysterectomy, Orthopedic Surgery Additional Past Surgical History / Comment(s): 02/2016 MVR. NEYMAR CTR, bilateral Rotator Cuff Repair. EXC Skin CA. TITANIUM VIMAL IN BACK, 7 BACK FUSIONS, 3 NECK FUSIONS. Stent Proximal RCA; HEART CATH 09-29-14. EXC NEYMAR CATARACTS, POSS Lens Implants, Bilateral Eye Laser. RT BREAST LUMPECTOMY x 2, RT BREAST SIMPLE MASTECTOMY 06/2015. ORIF Ankles. Colonoscopy. Past Anesthesia/Blood Transfusion Reactions: No Reported Reaction Additional Past Anesthesia/Blood Transfusion Reaction / Comment(s): Pt has recently received blood without reaction. Date of Last Stent Placement:: 08/17/2013 Past Psychological History: No Psychological Hx Reported Smoking Status: Former smoker Past Alcohol Use History: None Reported Past Drug Use History: None Reported - Past Family History Father History Unknown: Yes Family Medical History: No Reported History Additional Family Medical History / Comment(s): DAD IN MVA AT AGE 52 Mother History Unknown: Yes Family Medical History: Congestive Heart Failure (CHF) Additional Family Medical History / Comment(s): RHEUMATIC FEVER. Mother of CHF at the age of 59yrs. General Exam General appearance: alert, in no apparent distress, anxious Head exam: Present: atraumatic, normocephalic, normal inspection Eye exam: Present: normal appearance, PERRL, EOMI. Absent: scleral icterus, conjunctival injection, periorbital swelling ENT exam: Present: normal exam, mucous membranes moist Neck exam: Present: normal inspection. Absent: tenderness, meningismus, lymphadenopathy Respiratory exam: Present: normal lung sounds bilaterally. Absent: respiratory distress, wheezes, rales, rhonchi, stridor Cardiovascular Exam: Present: regular rate, normal rhythm, normal heart sounds. Absent: systolic murmur, diastolic murmur, rubs, gallop, clicks GI/Abdominal exam: Present: soft, normal bowel sounds. Absent: distended, tenderness, guarding, rebound, rigid Extremities exam: Present: normal inspection, full ROM, normal capillary refill. Absent: tenderness, pedal edema, joint swelling, calf tenderness Back exam: Present: normal inspection Neurological exam: Present: alert, oriented X3, CN II-XII intact Psychiatric exam: Present: normal affect, normal mood Skin exam: Present: warm, dry, intact, normal color. Absent: rash Course Vital Signs 05/06/17 05/06/17 05/06/17 05:05 05:19 05:21 Temperature 98.6 F Pulse Rate 87 80 Pulse Rate [ Pulse Oximetery ] Respiratory 18 Rate Blood Pressure 172/75 Blood Pressure [Left Arm] O2 Sat by Pulse 91 L 95 Oximetry 05/06/17 05/06/17 05/06/17 05:36 06:42 07:40 Temperature 98.0 F Pulse Rate 77 75 Pulse Rate [ 70 Pulse Oximetery ] Respiratory 18 16 Rate Blood Pressure 126/82 Blood Pressure 123/71 [Left Arm] O2 Sat by Pulse 98 96 Oximetry - Reevaluation(s) Reevaluation #1: 05/06/17 05:09 Patient well-known to facility, medical record prior ER record full reviewed Reevaluation #2: 05/06/17 05:09 Patient is not taking care of herself up to par, states that yesterday was the would have been the birthday of her who recently passed EKG Findings - EKG Comments: EKG Findings:: EKG shows normal sinus rhythm rate of 76, PA 150, QRS 80, QTC 5: 15 Medical Decision Making - Medical Decision Making 81 female to ER for evaluation regarding chest pain. History of chest pain history of heart disease. Also coming in with recent history of increased stress. Patient will be admitted for cardiac observation. - Lab Data Result diagrams: 05/06/17 05:40 05/06/17 16:40 - Radiology Data Radiology results: report reviewed (rest x-rays negative for acute disease), image reviewed Disposition Clinical Impression: CAD (coronary artery disease), Chest pain Disposition: ADMITTED IP TO THIS [facility] Condition: Undetermined
[2017-05-06] MEDS ORDERED: IPRATROPIUM-ALBUTEROL 3 ML NEB INHALATION STA (05:09)
[2017-05-06] MEDS ORDERED: LORazepam 2 MG/ML INJ IV STA (05:09)
[2017-05-06] MEDS ORDERED: NITROGLYCERIN SL TABS 0.4 MG TAB SUBLINGUAL PRN (05:19)
[2017-05-06] MEDS ORDERED: ALPRAZolam 0.25 MG TAB PO PRN (05:19)
[2017-05-06] MEDS ORDERED: SODIUM CHLORIDE 0.9% 1,000 ML IV SCH (05:30)
[2017-05-06 05:56] LABS: Basophils % (A) 0 %; CH 32.9; CHCM 34.2; Eosinophils # (A) 0.4 k/uL (0-0.7); Eosinophils % (A) 6 %; HCT 37.7 % (34.0-46.0); HDW 3.37; HGB 12.6 gm/dL (11.4-16.0); Luc # (Auto) 0.19; Luc % (Auto) 3; Lymphocytes # (A) 0.5 k/uL (1.0-4.8); Lymphocytes % (A) 6 %; MCH 32.4 pg (25.0-35.0); MCHC 33.5 g/dL (31.0-37.0); MCV 96.8 fL (80.0-100.0); Mean Platelet Volume 7.3; Monocytes # (A) 0.4 k/uL (0-1.0); Monocytes % (A) 5 %; Neutrophils # (A) 5.9 k/uL (1.3-7.7); Neutrophils % (A) 80 %; RBC 3.89 m/uL (3.80-5.40); RDW 15.6 % (11.5-15.5); WBC 7.4 k/uL (3.8-10.6); WBC (Perox) 7.53
[2017-05-06 06:15] LABS: INR 2.9 (<1.2); Prothrombin Time 28.1 sec (9.0-12.0)
--- NOTE | 2017-05-06 06:21 | XR ---
INDICATION: Weakness COMPARISON: CXR 11/29/16 FINDINGS: Frontal and lateral views of the chest are obtained. The heart is mildly enlarged. Pulmonary vascularity is mildly increased. There is been prior midline sternotomy. Thoracic aorta is calcified. There is blunting of the left costophrenic angle suggesting small pleural effusion. There is left basilar airspace disease, most likely atelectasis. There is no pneumothorax. Surgical clips project over the right breast. There is no evidence of acute fracture. There has been prior instrumentation of the lumbar spine with multilevel vertebral augmentation. There has been prior fusion of the upper thoracic spine. IMPRESSION: 1. Cardiomegaly, mild pulmonary congestion, and small left pleural effusion with left basilar atelectasis.
[2017-05-06 06:32] LABS: Anion Gap 8 mmol/L; Calcium 8.2 mg/dL (8.4-10.2); Carbon Dioxide 27 mmol/L (22-30); Chloride 105 mmol/L (98-107); Glucose 102 mg/dL (74-99); Non-African American GFR(MDRD) >60 (>60 ml/min/1.73 sqM); Sodium 140 mmol/L (137-145); Total Protein 6.8 g/dL (6.3-8.2)
[2017-05-06 06:36] LABS: AST 42 U/L (14-36); Blood Urea Nitrogen 18 mg/dL (7-17); Magnesium 1.5 mg/dL (1.6-2.3); Phosphorus 2.9 mg/dL (2.5-4.5)
[2017-05-06 06:37] LABS: ALT 29 U/L (9-52); Alkaline Phosphatase 68 U/L (38-126)
[2017-05-06] MEDS ORDERED: POTASSIUM BICARB-CITRIC ACID 25 MEQ TABLET.EFF PO STA (06:40)
[2017-05-06] MEDS ORDERED: MAGNESIUM OXIDE 400 MG TAB PO STA (06:40)
[2017-05-06 06:51] LABS: Creatine Kinase MB 0.3 ng/mL (0.0-2.4); Troponin I 0.021 ng/mL (0.000-0.034)
[2017-05-06] MEDS: POTASSIUM CHLORIDE 10 MEQ, LIDOCAINE 2% INJ 10 MG in SODIUM CHLORIDE 0.9% 100 ML IVPB SCH ×3 (07:00→10:42)
[2017-05-06] MEDS: MAGNESIUM SULFATE-D5W PMX 1 GM in DEXTROSE/WATER 1 100ML.BAG IVPB SCH ×2 (07:01→10:43)
[2017-05-06 07:04] LABS: Appearance,Urine Cloudy (Clear); Bilirubin,Urine Negative (Negative); Glucose,Urine (UA) Negative (Negative); Granular Casts,Urine 1 /lpf (0); Ketones,Urine 1+ (Negative); Leukocyte Esterase,Urine Negative (Negative); Mucus,Urine Many /hpf; Nitrite,Urine Negative (Negative); Particle Count 15604; Protein,Urine 1+ (Negative); RBC,Urine 3 /hpf (0-5); Squamous Epithelial Cell,Urine 1 /hpf (0-4); UA Billing (MACRO vs. MICRO) MICRO; Urobilinogen,Urine <2.0 mg/dL (<2.0); WBC,Urine 2 /hpf (0-5)
[2017-05-06 09:41] VITALS: RESP 16
[2017-05-06] MEDS ORDERED: Potassium Replacement Protocol 1 EACH MISC MISCELLANE PRN (09:52)
--- NOTE | 2017-05-06 10:06 | CONS ---
CONSULTATION This is an 81-year-old lady with a known history of rheumatic mitral valve disease, status post mitral valve replacement, CAD with previous inferior NV and stenting of RCA. She also has paroxysmal atrial fibrillation, hypothyroidism, and hypertension. This lady underwent cardiac catheterization in July of this year and the cardiac cath revealed a 40% RCA lesion without any other significant disease. She recently lost her a couple of months ago and still seems to be grieving. She came into the hospital with complaints of having an anterior chest pain and shortness of breath and also had some nausea. Apparently, she had some emesis as well at home. Her potassium level is low. She was recently diagnosed with a UTI and took some antibiotics which upset her stomach. She had nausea and vomiting with this and then had some pain in the chest after this episode. The pain in the chest appears to be musculoskeletal. Her EKG is unremarkable. Her initial troponin is normal and EKG is unremarkable. She remains in a sinus rhythm. PAST MEDICAL HISTORY: 1. CAD with a history of inferior NV and PCI in 2013 of RCA. 2. Status post mitral valve replacement with a tissue valve for rheumatic heart disease for mitral valve, rheumatic heart disease and rheumatic mitral valve stenosis. 3. History of hypothyroidism. 4. Paroxysmal atrial fibrillation status post previous cardioversion. 5. History of some depression. MEDICATIONS: At home include lisinopril, amiodarone 100 mg daily, levothyroxine 100 mcg daily, Lasix 40 mg daily, Coreg 12.5 mg in the morning, 6.25 in the afternoon and Coumadin 3 mg daily. PT/INR today is good at 2.6. PHYSICAL EXAMINATION: Blood pressure is 120/70, pulse rate is about 70 per minute, regular. HEENT: Unremarkable. Fundus was not examined by me. Neck is supple. There is no JVD of 1 cm. No carotid bruit. Heart exam reveals S1, S2 heard normally. There is a short systolic murmur. Lungs revealed decent air entry. Abdomen is soft, nontender. Lower extremities reveal normal pulses. No edema. Central nervous system is normal. EKG revealed sinus mechanism with a slightly prolonged QT. Evidence of Q-waves in inferior leads. Prior inferior NV cannot be totally excluded. IMPRESSION: 1. Atypical chest pain. 2. History of mitral valve replacement for a rheumatic mitral valve stenosis with a tissue valve. 3. Paroxysmal atrial fibrillation, now in sinus rhythm. 4. Hypothyroidism. RECOMMENDATIONS: Her laboratory data suggests that the potassium is 3.2 and magnesium is also low. I am recommending that we supplement potassium and magnesium aggressively. Repeat a blood test at 4 o'clock. If this is normal, she can be discharged this evening. I discussed my thoughts in detail with the patient. Thank you very much for the consult. DAO / MARIKAN: [id number] /
[2017-05-06 12:09] LABS: Creatine Kinase MB 0.3 ng/mL (0.0-2.4); Troponin I 0.021 ng/mL (0.000-0.034)
[2017-05-06] MEDS: POTASSIUM CHLORIDE ER 20 MEQ TAB.ER PO SCH ×3 (12:12→15:06)
--- NOTE | 2017-05-06 12:52 | P.HPIM ---
History of Present Illness This is a 81-year-old female to the ER for evaluation. Patient coming in for evaluation of chest pain. Patient has anterior chest pain heaviness and shortness of breath. Patient is also feeling nauseous. Patient states that she hasn't been taking all medications as prescribed, she was recently prescribed. Medication for urinary tract infection states that it is upsetting her stomach. Denies diarrhea without still nauseous. No fevers. Mild cough and congestion mild shortness of breath. Patient does do breathing treatments at home but has not been doing them lately. And complaining of chest pain at this time he had patient's chest pain completely resolved at this point of time he is to be [place] skeletal reproducible patient had the cannot disease in the past patient underwent cardiac ablation of July which showed 40% stenosis of RCA patient was a valid by cardiology rule out a concurrent syndromes they cleared her for discharge patient will be discharged to follow with primary care patient is an outpatient patient is on Lasix at this time which will be continued and the patient is hypokalemic potassium will be supplemented and patient will be given prescription for potassium upon discharge and patient will follow with Dr. Blancas as an outpatient Review of Systems REVIEW OF SYSTEMS: CONSTITUTIONAL: No fever, no malaise, no fatigue. HEENT: No recent visual problems or hearing problems. Denied any sore throat. CARDIOVASCULAR: No orthopnea, PND, no palpitations, no syncope. PULMONARY: No shortness of breath, no cough, no hemoptysis. GASTROINTESTINAL: No diarrhea, no nausea, no vomiting, no abdominal pain. Normoactive bowel sounds. NEUROLOGICAL: No headaches, no weakness, no numbness. HEMATOLOGICAL: Denies any bleeding or petechiae. GENITOURINARY: Denies any burning micturition, frequency, or urgency. MUSCULOSKELETAL/RHEUMATOLOGICAL: Denies any joint pain, swelling, or any muscle pain. ENDOCRINE: Denies any polyuria or polydipsia. The rest of the 14-point review of systems is negative. Past Medical History Past Medical History: Atrial Fibrillation, Coronary Artery Disease (CAD), Cancer , Heart Failure, Diabetes Mellitus, Eye Disorder, Hyperlipidemia, Hypertension, Myocardial Infarction ([place]), Mitral Valve Prolapse (MVP), Osteoarthritis (OA), Pneumonia, Respiratory Disorder, Thyroid Disorder Additional Past Medical History / Comment(s): Paroxysmal Afib. Chronic CHF. RT Eye Occular Myasthenia Gravis. Chronic Back Pain. DJD. 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 DIET CONTROLLED DM. FREQ UTI'S. SKIN CA. RT breast CA with surgery. OCC Vertigo. Chronic Respiratory Failure. HOME 02 2 LITERS N/C ATC PRN. CHRONIC Anemia. DIVERTICULAR DX. hypothyroid Last Myocardial Infarction Date:: 04/2014 History of Any Multi-Drug Resistant Organisms: None Reported Past Surgical History: Appendectomy, Back Surgery, Breast Surgery, Cardiac Valve Replacement, Heart Catheterization, Heart Catheterization With Stent, Hysterectomy, Orthopedic Surgery Additional Past Surgical History / Comment(s): 02/2016 MVR. NEYMAR CTR, bilateral Rotator Cuff Repair. EXC Skin CA. TITANIUM VIMAL IN BACK, 7 BACK FUSIONS, 3 NECK FUSIONS. Stent Proximal RCA; HEART CATH 09-29-14. EXC NEYMAR CATARACTS, POSS Lens Implants, Bilateral Eye Laser. RT BREAST LUMPECTOMY x 2, RT BREAST SIMPLE MASTECTOMY 06/2015. ORIF Ankles. Colonoscopy. Past Anesthesia/Blood Transfusion Reactions: No Reported Reaction Additional Past Anesthesia/Blood Transfusion Reaction / Comment(s): Pt has recently received blood without reaction. Date of Last Stent Placement:: 08/17/2013 Past Psychological History: No Psychological Hx Reported Additional Psychological History / Comment(s): Pt resides with her spouse of 63 yrs. She uses a walker NEEDED. She has a very supportive family. She no longer drives-her spouse takes her to appointments. Smoking Status: Former smoker Past Alcohol Use History: None Reported Additional Past Alcohol Use History / Comment(s): STARTED SMOKING AT AGE 11 SMOKED 1/2 PPD QUIT 40 YEARS AGO Past Drug Use History: None Reported - Past Family History Father History Unknown: Yes Family Medical History: No Reported History Additional Family Medical History / Comment(s): DAD IN MVA AT AGE 52 Mother History Unknown: Yes Family Medical History: Congestive Heart Failure (CHF) Additional Family Medical History / Comment(s): RHEUMATIC FEVER. Mother of CHF at the age of 59yrs. Medications and Allergies Home Medications Medication Instructions Recorded Confirmed Type Cholecalciferol [Vitamin D3] 1,000 unit PO DAILY 05/18/15 05/06/17 History Cyanocobalamin [Vitamin B-12] 500 mcg PO DAILY 05/18/15 05/06/17 History Anastrozole [Arimidex] 1 mg PO DAILY 09/14/15 05/06/17 History Pyridostigmine [Mestinon] 30 mg PO BID tab 03/17/16 05/06/17 Rx Isosorbide Mononitrate ER [Imdur] 30 mg PO DAILY 04/25/16 05/06/17 History Levothyroxine Sodium [Synthroid] 100 mcg PO DAILY 04/25/16 05/06/17 History Nitroglycerin Sl Tabs [Nitrostat] 0.4 mg PO Q5M PRN 04/25/16 05/06/17 History Ranitidine HCl 150 mg PO DAILY 04/25/16 05/06/17 History Furosemide [Lasix] 40 mg PO DAILY 05/20/16 05/06/17 History Carvedilol [Coreg] 12.5 mg PO QAM 11/28/16 05/06/17 History Ranolazine [Ranexa] 500 mg PO BID 11/28/16 05/06/17 History Aspirin 81 mg PO DAILY 03/22/17 05/06/17 History Lisinopril [Prinivil] 10 mg PO DAILY 03/22/17 05/06/17 History Amiodarone [Cordarone] 200 mg PO DAILY 05/06/17 05/06/17 History Carvedilol [Coreg] 6.25 mg PO DAILY@1200 05/06/17 05/06/17 History Ipratropium-Albuterol Nebulize 3 ml INHALATION RT-TID 05/06/17 05/06/17 History [Duoneb 0.5 mg-3 mg/3 ml Soln] Meclizine [Antivert] 25 mg PO TID 05/06/17 05/06/17 History Multivitamins, Thera [Multivitamin 1 tab PO DAILY 05/06/17 05/06/17 History (formulary)] Potassium Chloride [K-Tab ER] 20 meq PO DAILY #30 tablet.er 05/06/17 Rx Warfarin [Coumadin] 8 mg PO DAILY@1800 05/06/17 05/06/17 History Allergies Allergy/AdvReac Type Severity Reaction Status Date / Time morphine AdvReac Severe Nausea & Verified 05/06/17 11:28 Vomiting Physical Exam Vitals: Vital Signs Temp Pulse Pulse Resp BP BP Pulse Ox 05/06/17 12:00 98.2 F 72 16 107/53 95 05/06/17 07:40 98.0 F 70 16 123/71 96 05/06/17 06:42 75 18 126/82 98 05/06/17 05:36 77 05/06/17 05:21 80 05/06/17 05:05 98.6 F 87 18 172/75 91 L Intake and Output 05/05/17 05/06/17 05/06/17 22:59 06:59 14:59 Other: Weight 58.967 kg 59.4 kg Patient Weight 05/07/17 06:59 Weight 59.4 kg PHYSICAL EXAMINATION: GENERAL: The patient is alert and oriented x3, not in any acute distress. Well developed, well nourished. HEENT: Pupils are round and equally reacting to light. EOMI. No scleral icterus. No conjunctival pallor. Normocephalic, atraumatic. No pharyngeal erythema. No thyromegaly. CARDIOVASCULAR: S1 and S2 present. No murmurs, rubs, or gallops. Reproducible chest pain PULMONARY: Chest is clear to auscultation, no wheezing or crackles. ABDOMEN: Soft, nontender, nondistended, normoactive bowel sounds. No palpable organomegaly. MUSCULOSKELETAL: No joint swelling or deformity. EXTREMITIES: No cyanosis, clubbing, or pedal edema. NEUROLOGICAL: Gross neurological examination did not reveal any focal deficits. SKIN: No rashes. Results CBC & Chem 7: 05/06/17 05:40 05/06/17 05:40 Labs: Abnormal Lab Results - Last 24 Hours (Table) 05/06/17 05/06/17 05/06/17 Range/Units 05:40 05:40 05:40 RDW 15.6 H (11.5-15.5) % Lymphocytes # 0.5 L (1.0-4.8) k/uL PT 28.1 H (9.0-12.0) sec INR 2.9 H (<1.2) Potassium 3.0 L* (3.5-5.1) mmol/L BUN 18 H (7-17) mg/dL Glucose 102 H (74-99) mg/dL Calcium 8.2 L (8.4-10.2) mg/dL Magnesium 1.5 L (1.6-2.3) mg/dL AST 42 H (14-36) U/L Total Creatine Kinase (30-135) U/L Urine Appearance (Clear) Urine Protein (Negative) Urine Ketones (Negative) Urine Blood (Negative) Urine Mucus (None) /hpf 05/06/17 05/06/17 Range/Units 06:28 11:13 RDW (11.5-15.5) % Lymphocytes # (1.0-4.8) k/uL PT (9.0-12.0) sec INR (<1.2) Potassium (3.5-5.1) mmol/L BUN (7-17) mg/dL Glucose (74-99) mg/dL Calcium (8.4-10.2) mg/dL Magnesium (1.6-2.3) mg/dL AST (14-36) U/L Total Creatine Kinase 29 L (30-135) U/L Urine Appearance Cloudy H (Clear) Urine Protein 1+ H (Negative) Urine Ketones 1+ H (Negative) Urine Blood Small H (Negative) Urine Mucus Many H (None) /hpf Thrombosis Risk Factor Assmnt - Choose All That Apply Each Factor Represents 1 point: Abnormal pulmonary function (COPD) Each Risk Factor Represents 3 Points: Age 75 years or older Thrombosis Risk Factor Assessment Total Risk Factor Score: 4 Thrombosis Risk Factor Assessment Level: Moderate Risk Assessment and Plan Plan: 1 chest pain atypical and musculoskeletal was a valid by cardiology and patient is being discharged today #2 history of rheumatic mitral valve disease and mitral stenosis with mitral valve replacement and patient is on Coumadin which will be continued #3 proximal atrial fibrillation #4 hypothyroidism #5 coronary artery disease #6 congestive heart failure patient is euvolemic and do not know her ejection fraction at this time. #7 hypothyroidism #8 gastroesophageal reflux disease for which patient is on ranitidine which will be continued #9 hyperlipidemia #10 type 2 diabetes mellitus #11 hypertension For above-mentioned chronic medical problems patient will continue her home medication all the medications were reviewed prescription for potassium will be provided potassium will be replaced before her discharge she today and magnesium will be replaced as well
--- NOTE | 2017-05-06 12:53 | P.DS ---
Providers Date of admission: 05/06/17 05:19 Attending physician: Sammi Sheth Consults: 05/06/17 08:38 Consult Physician Routine Consulting Provider: Glenis Hua Consult Reason/Comments: chest pain Do you want consulting provider notified?: Yes Primary care physician: Oscar Blancas [facility] Course: Please refer to my departs summary and H&P for further details Patient Condition at Discharge: Undetermined Plan - Discharge Summary Discharge Rx Participant: No New Discharge Prescriptions: New Potassium Chloride [K-Tab ER] 20 meq PO DAILY #30 tablet.er No Action Cyanocobalamin [Vitamin B-12] 500 mcg PO DAILY Cholecalciferol [Vitamin D3] 1,000 unit PO DAILY Anastrozole [Arimidex] 1 mg PO DAILY Pyridostigmine [Mestinon] 30 mg PO BID tab Levothyroxine Sodium [Synthroid] 100 mcg PO DAILY Isosorbide Mononitrate ER [Imdur] 30 mg PO DAILY Ranitidine HCl 150 mg PO DAILY Nitroglycerin Sl Tabs [Nitrostat] 0.4 mg PO Q5M PRN PRN Reason: Chest Pain Furosemide [Lasix] 40 mg PO DAILY Ranolazine [Ranexa] 500 mg PO BID Carvedilol [Coreg] 12.5 mg PO QAM Lisinopril [Prinivil] 10 mg PO DAILY Aspirin 81 mg PO DAILY Amiodarone [Cordarone] 200 mg PO DAILY Carvedilol [Coreg] 6.25 mg PO DAILY@1200 Warfarin [Coumadin] 8 mg PO DAILY@1800 Multivitamins, Thera [Multivitamin (formulary)] 1 tab PO DAILY Ipratropium-Albuterol Nebulize [Duoneb 0.5 mg-3 mg/3 ml Soln] 3 ml INHALATION RT-TID Meclizine [Antivert] 25 mg PO TID Discharge Medication List Cholecalciferol [Vitamin D3] 1,000 unit PO DAILY 05/18/15 [History] Cyanocobalamin [Vitamin B-12] 500 mcg PO DAILY 05/18/15 [History] Anastrozole [Arimidex] 1 mg PO DAILY 09/14/15 [History] Pyridostigmine [Mestinon] 30 mg PO BID tab 03/17/16 [Rx] Isosorbide Mononitrate ER [Imdur] 30 mg PO DAILY 04/25/16 [History] Levothyroxine Sodium [Synthroid] 100 mcg PO DAILY 04/25/16 [History] Nitroglycerin Sl Tabs [Nitrostat] 0.4 mg PO Q5M PRN 04/25/16 [History] Ranitidine HCl 150 mg PO DAILY 04/25/16 [History] Furosemide [Lasix] 40 mg PO DAILY 05/20/16 [History] Carvedilol [Coreg] 12.5 mg PO QAM 11/28/16 [History] Ranolazine [Ranexa] 500 mg PO BID 11/28/16 [History] Aspirin 81 mg PO DAILY 03/22/17 [History] Lisinopril [Prinivil] 10 mg PO DAILY 03/22/17 [History] Amiodarone [Cordarone] 200 mg PO DAILY 05/06/17 [History] Carvedilol [Coreg] 6.25 mg PO DAILY@1200 05/06/17 [History] Ipratropium-Albuterol Nebulize [Duoneb 0.5 mg-3 mg/3 ml Soln] 3 ml INHALATION RT -TID 05/06/17 [History] Meclizine [Antivert] 25 mg PO TID 05/06/17 [History] Multivitamins, Thera [Multivitamin (formulary)] 1 tab PO DAILY 05/06/17 [History ] Potassium Chloride [K-Tab ER] 20 meq PO DAILY #30 tablet.er 05/06/17 [Rx] Warfarin [Coumadin] 8 mg PO DAILY@1800 05/06/17 [History] Follow up Appointment(s)/Referral(s): Oscar Blancas MD [Primary Care Provider] - 3 Days Discharge Disposition: HOME SELF-CARE
[2017-05-06 16:07] VITALS: BP 107/46; PULSE 75; TEMP 98
[2017-05-06 17:09] LABS: Anion Gap 5 mmol/L; Blood Urea Nitrogen 18 mg/dL (7-17); Carbon Dioxide 29 mmol/L (22-30); Chloride 104 mmol/L (98-107); Glucose 102 mg/dL (74-99); Magnesium 2.1 mg/dL (1.6-2.3); Non-African American GFR(MDRD) >60 (>60 ml/min/1.73 sqM); Potassium 3.9 mmol/L (3.5-5.1); Sodium 138 mmol/L (137-145)
[2017-05-06 17:20] LABS: Creatine Kinase MB 0.3 ng/mL (0.0-2.4); Troponin I 0.016 ng/mL (0.000-0.034)
[2017-05-07] MEDS ORDERED: ASPIRIN 325 MG TAB PO SCH (09:00)
== END 2017-05-06 18:07 | disposition home or self-care (01) ==
LOC: EC 05:03 → 3OBS 05:19
PROVIDERS: ADMIT Internal Medicine; ATTEND Internal Medicine
DX: R07.89 Other chest pain (principal); E83.42 Hypomagnesemia; I48.0 Paroxysmal atrial fibrillation; I25.10 Atherosclerotic heart disease of native coronary artery without angina pectoris; E11.9 Type 2 diabetes mellitus without complications; E78.5 Hyperlipidemia, unspecified; I25.2 Old myocardial infarction; I11.0 Hypertensive heart disease with heart failure; I50.9 Heart failure, unspecified; J96.10 Chronic respiratory failure, unspecified whether with hypoxia or hypercapnia; G70.00 Myasthenia gravis without (acute) exacerbation; M19.90 Unspecified osteoarthritis, unspecified site; M54.9 Dorsalgia, unspecified; G89.29 Other chronic pain; D64.9 Anemia, unspecified; E03.9 Hypothyroidism, unspecified; K21.9 Gastro-esophageal reflux disease without esophagitis; N39.0 Urinary tract infection, site not specified; F32.9 Major depressive disorder, single episode, unspecified; Z79.899 Other long term (current) drug therapy; Z79.811 Long term (current) use of aromatase inhibitors; Z79.82 Long term (current) use of aspirin; Z88.5 Allergy status to narcotic agent; Z79.01 Long term (current) use of anticoagulants; Z82.49 Family history of ischemic heart disease and other diseases of the circulatory system; Z85.3 Personal history of malignant neoplasm of breast; Z95.2 Presence of prosthetic heart valve; Z87.891 Personal history of nicotine dependence; Z99.81 Dependence on supplemental oxygen; Z95.5 Presence of coronary angioplasty implant and graft
CPT/HCPCS: 96361; 96366; 96365; 96375; 99285; 36415; 94640; 93005; 83880; 80053; 80048; 82550; 82553; 83735; 84100; 84484; 85025; 85610; 85730; 81001; 71020; G0378; J2001; J2060; J3480; J3475

== ENCOUNTER 2017-06-03 06:32 | Observation (INO) | payer MEDICARE, BC ==
[2017-06-03 06:56] LABS: Basophils # (A) 0.1 k/uL (0-0.2); Basophils % (A) 1 %; Eosinophils # (A) 0.2 k/uL (0-0.7); Eosinophils % (A) 4 %; HCT 36.3 % (34.0-46.0); HGB 11.9 gm/dL (11.4-16.0); Lymphocytes # (A) 1.4 k/uL (1.0-4.8); Lymphocytes % (A) 25 %; MCHC 32.8 g/dL (31.0-37.0); MCV 97.6 fL (80.0-100.0); Mean Platelet Volume 7.8; Monocytes # (A) 0.3 k/uL (0-1.0); Monocytes % (A) 6 %; Neutrophils # (A) 3.5 k/uL (1.3-7.7); Neutrophils % (A) 62 %; Platelet Count 241 k/uL (150-450); RBC 3.72 m/uL (3.80-5.40); RDW 15.2 % (11.5-15.5); WBC 5.6 k/uL (3.8-10.6)
[2017-06-03 07:08] LABS: INR 1.2 (<1.2); Partial Thromboplastin Time 25.9 sec (22.0-30.0); Prothrombin Time 11.3 sec (9.0-12.0)
[2017-06-03 07:18] LABS: Albumin 3.7 g/dL (3.5-5.0); Calcium 9.6 mg/dL (8.4-10.2); Magnesium 1.8 mg/dL (1.6-2.3); Potassium 4.7 mmol/L (3.5-5.1); Total Bilirubin 0.7 mg/dL (0.2-1.3); Total Protein 6.9 g/dL (6.3-8.2)
--- NOTE | 2017-06-03 07:22 | XR ---
EXAMINATION TYPE: XR chest 2V DATE OF EXAM: 06/03/2017 HISTORY: Chest Pain. REFERENCE: Previous study dated 05/24/2017. FINDINGS: There has been a midline sternotomy. There has been josette fixation of the thoracolumbar junct ion. There is also been an ACDF as well as posterior fusion in the lower cervical spine. Heart size is upper limits of normal. There are chronic increased markings throughout the chest. Ther e is no evidence of pneumonia or edema. Pleural spaces are clear. IMPRESSION: BORDERLINE CARDIOMEGALY.
[2017-06-03] MEDS ORDERED: SODIUM CHLORIDE 0.9% 500 ML IV ONE (07:47)
--- NOTE | 2017-06-03 07:47 | ED ---
General Adult HPI - General Chief complaint: Chest Pain Stated complaint: Chest Pain Time Seen by Provider: 06/03/17 07:00 Source: patient, family, EMS, RN notes reviewed, old records reviewed Mode of arrival: EMS Limitations: no limitations - History of Present Illness Initial comments: 81-year-old female presents for evaluation of dysuria and decreased urine output. No known history of kidney disease. She has been eating and drinking normally. She did have recent hospital admission for dizziness and chest pain. She does complain of some intermittent chest pain. This morning while walking to the bathroom she became very lightheaded. She denies any fever or chills. Denies abdominal pain. Denies vomiting or diarrhea. Chest pain is resolved at the time my evaluation. No shortness of breath. No diaphoresis. - Related Data Home Medications Medication Instructions Recorded Confirmed Cholecalciferol [Vitamin D3] 1,000 unit PO DAILY 05/18/15 05/24/17 Cyanocobalamin [Vitamin B-12] 500 mcg PO DAILY 05/18/15 05/24/17 Anastrozole [Arimidex] 1 mg PO DAILY 09/14/15 05/24/17 Isosorbide Mononitrate ER [Imdur] 30 mg PO DAILY 04/25/16 05/24/17 Levothyroxine Sodium [Synthroid] 100 mcg PO DAILY 04/25/16 05/24/17 Nitroglycerin Sl Tabs [Nitrostat] 0.4 mg PO Q5M PRN 04/25/16 05/24/17 Ranitidine HCl 150 mg PO DAILY 04/25/16 05/24/17 Furosemide [Lasix] 40 mg PO BID 05/20/16 05/24/17 Carvedilol [Coreg] 12.5 mg PO QAM 11/28/16 05/24/17 Ranolazine [Ranexa] 500 mg PO BID 11/28/16 05/24/17 Aspirin 81 mg PO DAILY 03/22/17 05/24/17 Lisinopril [Prinivil] 10 mg PO DAILY 03/22/17 05/24/17 Carvedilol [Coreg] 6.25 mg PO HS 05/06/17 05/24/17 Meclizine [Antivert] 25 mg PO TID 05/06/17 05/24/17 Multivitamins, Thera [Multivitamin 1 tab PO DAILY 05/06/17 05/24/17 (formulary)] Amiodarone HCl [Pacerone] 100 mg PO DAILY 05/16/17 05/24/17 Warfarin Sodium [Coumadin] 3 mg PO DAILY@1730 05/16/17 05/24/17 Previous Rx's Medication Instructions Recorded Pyridostigmine [Mestinon] 30 mg PO BID tab 03/17/16 Potassium Chloride [K-Tab ER] 20 meq PO DAILY #30 tablet.er 05/06/17 Levofloxacin [Levaquin] 250 mg PO Q24H #10 tab 05/29/17 Ondansetron [Zofran] 4 mg PO Q8HR PRN #30 tab 05/29/17 Polyethylene Glycol 3350 [Miralax] 17 gm PO BID #60 powd.pack 05/29/17 Allergies Allergy/AdvReac Type Severity Reaction Status Date / Time morphine AdvReac Severe Nausea & Verified 06/03/17 06:33 Vomiting Review of Systems ROS Statement: Those systems with pertinent positive or pertinent negative responses have been documented in the HPI. ROS Other: All systems not noted in ROS Statement are negative. Past Medical History Past Medical History: Atrial Fibrillation, Coronary Artery Disease (CAD), Cancer , Heart Failure, Diabetes Mellitus, Eye Disorder, Hyperlipidemia, Hypertension, Myocardial Infarction ([place]), Mitral Valve Prolapse (MVP), Osteoarthritis (OA), Pneumonia, Respiratory Disorder, Thyroid Disorder Additional Past Medical History / Comment(s): Paroxysmal Afib. Chronic CHF. RT Eye Occular Myasthenia Gravis. Chronic Back Pain. DJD. 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 DIET CONTROLLED DM. RECENT UTI. SKIN CA. RT breast CA with surgery. OCC Vertigo. CHRONIC Anemia. DIVERTICULAR DX. hypothyroid, L hip fracture with surgery. Last Myocardial Infarction Date:: 04/2014 History of Any Multi-Drug Resistant Organisms: None Reported Past Surgical History: Appendectomy, Back Surgery, Breast Surgery, Cardiac Valve Replacement, Heart Catheterization, Heart Catheterization With Stent, Hysterectomy, Orthopedic Surgery Additional Past Surgical History / Comment(s): 11/2016 L hip hemiarthroplasty, 2015 MVR. NEYMAR CTR, bilateral Rotator Cuff Repair. EXC Skin CA. TITANIUM VIMAL IN BACK, 7 BACK FUSIONS, 3 NECK FUSIONS. Stent Proximal RCA; HEART CATH . EXC NEYMAR CATARACTS, POSS Lens Implants, Bilateral Eye Laser. RT BREAST LUMPECTOMY x 2, RT BREAST SIMPLE MASTECTOMY 06/2015. ORIF Ankles. Colonoscopy. Past Anesthesia/Blood Transfusion Reactions: No Reported Reaction Additional Past Anesthesia/Blood Transfusion Reaction / Comment(s): Pt has recently received blood without reaction. Date of Last Stent Placement:: 08/17/2013 Past Psychological History: No Psychological Hx Reported Smoking Status: Former smoker Past Alcohol Use History: None Reported Past Drug Use History: None Reported - Past Family History Father History Unknown: Yes Family Medical History: No Reported History Additional Family Medical History / Comment(s): DAD IN MVA AT AGE 52 Mother History Unknown: Yes Family Medical History: Congestive Heart Failure (CHF) Additional Family Medical History / Comment(s): RHEUMATIC FEVER. Mother of CHF at the age of 59yrs. General Exam Limitations: no limitations General appearance: alert, in no apparent distress Head exam: Present: atraumatic, normocephalic Eye exam: Present: normal appearance, PERRL ENT exam: Present: normal exam Neck exam: Present: normal inspection. Absent: tenderness, meningismus Respiratory exam: Present: normal lung sounds bilaterally. Absent: respiratory distress, wheezes Cardiovascular Exam: Present: regular rate, normal rhythm GI/Abdominal exam: Present: soft. Absent: distended, tenderness Extremities exam: Present: normal inspection, normal capillary refill. Absent: pedal edema Neurological exam: Present: alert, oriented X3, CN II-XII intact. Absent: motor sensory deficit Psychiatric exam: Present: normal affect, normal mood Skin exam: Present: warm, dry, intact, cyanosis. Absent: diaphoretic Course Vital Signs 06/03/17 06/03/17 06/03/17 06:33 09:28 09:47 Temperature 98.0 F Pulse Rate 75 73 72 Respiratory 18 18 18 Rate Blood Pressure 139/63 131/58 132/59 O2 Sat by Pulse 97 100 98 Oximetry EKG Findings - EKG Comments: EKG Findings:: Normal sinus rhythm, rate of 77, VT interval 172, castration 92, QTC 477, no ST segment elevation or depression Medical Decision Making - Medical Decision Making 81-year-old female presenting with decreased urine output, and lightheadedness. Laboratory studies reveal normal white blood cell count, hemoglobin 11 9, creatinine 1.43 from recent baseline of 0.92. Troponin 0.018 which is at the patient's baseline level of troponin leak. Urinalysis is unremarkable. Patient proximally 100 mL of urine on bladder scan. Chest x-ray negative for focal pneumonia or edema. She is given IV hydration. Unable to contact patient's primary care physician. Patient will be placed in observation for IV hydration and repeat laboratory studies and reevaluation. - Lab Data Result diagrams: 06/03/17 06:46 06/03/17 06:46 Lab Results 06/03/17 06/03/17 06/03/17 Range/Units 06:46 06:46 06:46 WBC 5.6 (3.8-10.6) k/uL RBC 3.72 L (3.80-5.40) m/uL Hgb 11.9 (11.4-16.0) gm/dL Hct 36.3 (34.0-46.0) % MCV 97.6 (80.0-100.0) fL MCH 32.0 (25.0-35.0) pg MCHC 32.8 (31.0-37.0) g/dL RDW 15.2 (11.5-15.5) % Plt Count 241 (150-450) k/uL Neutrophils % 62 % Lymphocytes % 25 % Monocytes % 6 % Eosinophils % 4 % Basophils % 1 % Neutrophils # 3.5 (1.3-7.7) k/uL Lymphocytes # 1.4 (1.0-4.8) k/uL Monocytes # 0.3 (0-1.0) k/uL Eosinophils # 0.2 (0-0.7) k/uL Basophils # 0.1 (0-0.2) k/uL PT (9.0-12.0) sec INR (<1.2) APTT (22.0-30.0) sec Sodium 137 (137-145) mmol/L Potassium 4.7 (3.5-5.1) mmol/L Chloride 100 (98-107) mmol/L Carbon Dioxide 33 H (22-30) mmol/L Anion Gap 4 mmol/L BUN 35 H (7-17) mg/dL Creatinine 1.43 H (0.52-1.04) mg/dL Est GFR (MDRD) Af Amer 43 (>60 ml/min/1.73 sqM) Est GFR (MDRD) Non-Af 35 (>60 ml/min/1.73 sqM) Glucose 99 (74-99) mg/dL Calcium 9.6 (8.4-10.2) mg/dL Magnesium 1.8 (1.6-2.3) mg/dL Total Bilirubin 0.7 (0.2-1.3) mg/dL AST 35 (14-36) U/L ALT 25 (9-52) U/L Alkaline Phosphatase 65 (38-126) U/L Total Creatine Kinase <20 L (30-135) U/L CK-MB (CK-2) <0.2 (0.0-2.4) ng/mL CK-MB (CK-2) Rel Index Troponin I 0.018 (0.000-0.034) ng/mL Total Protein 6.9 (6.3-8.2) g/dL Albumin 3.7 (3.5-5.0) g/dL Urine Color Urine Appearance (Clear) Urine pH (5.0-8.0) Ur Specific [place] (1.001-1.035) Urine Protein (Negative) Urine Glucose (UA) (Negative) Urine Ketones (Negative) Urine Blood (Negative) Urine Nitrite (Negative) Urine Bilirubin (Negative) Urine Urobilinogen (<2.0) mg/dL Ur Leukocyte Esterase (Negative) 06/03/17 06/03/17 Range/Units 06:46 08:05 WBC (3.8-10.6) k/uL RBC (3.80-5.40) m/uL Hgb (11.4-16.0) gm/dL Hct (34.0-46.0) % MCV (80.0-100.0) fL MCH (25.0-35.0) pg MCHC (31.0-37.0) g/dL RDW (11.5-15.5) % Plt Count (150-450) k/uL Neutrophils % % Lymphocytes % % Monocytes % % Eosinophils % % Basophils % % Neutrophils # (1.3-7.7) k/uL Lymphocytes # (1.0-4.8) k/uL Monocytes # (0-1.0) k/uL Eosinophils # (0-0.7) k/uL Basophils # (0-0.2) k/uL PT 11.3 (9.0-12.0) sec INR 1.2 H (<1.2) APTT 25.9 (22.0-30.0) sec Sodium (137-145) mmol/L Potassium (3.5-5.1) mmol/L Chloride (98-107) mmol/L Carbon Dioxide (22-30) mmol/L Anion Gap mmol/L BUN (7-17) mg/dL Creatinine (0.52-1.04) mg/dL Est GFR (MDRD) Af Amer (>60 ml/min/1.73 sqM) Est GFR (MDRD) Non-Af (>60 ml/min/1.73 sqM) Glucose (74-99) mg/dL Calcium (8.4-10.2) mg/dL Magnesium (1.6-2.3) mg/dL Total Bilirubin (0.2-1.3) mg/dL AST (14-36) U/L ALT (9-52) U/L Alkaline Phosphatase (38-126) U/L Total Creatine Kinase (30-135) U/L CK-MB (CK-2) (0.0-2.4) ng/mL CK-MB (CK-2) Rel Index Troponin I (0.000-0.034) ng/mL Total Protein (6.3-8.2) g/dL Albumin (3.5-5.0) g/dL Urine Color Yellow Urine Appearance Clear (Clear) Urine pH 6.5 (5.0-8.0) Ur Specific [place] 1.012 (1.001-1.035) Urine Protein Negative (Negative) Urine Glucose (UA) Negative (Negative) Urine Ketones Negative (Negative) Urine Blood Negative (Negative) Urine Nitrite Negative (Negative) Urine Bilirubin Negative (Negative) Urine Urobilinogen <2.0 (<2.0) mg/dL Ur Leukocyte Esterase Negative (Negative) Disposition Clinical Impression: Acute renal injury, Dehydration Disposition: ADMITTED IP TO THIS [facility] Condition: Stable Referrals: Oscar Blancas MD [Primary Care Provider] - 1-2 days Decision to Admit Reason: Admit from EC Decision Date: 06/03/17 Decision Time: 09:25
[2017-06-03 07:55] LABS: Creatine Kinase <20 U/L (30-135)
[2017-06-03] MEDS: SODIUM CHLORIDE 0.9% 1,000 ML IV SCH ×2 (07:57→19:34)
[2017-06-03 08:07] LABS: Creatine Kinase MB <0.2 ng/mL (0.0-2.4); Troponin I 0.018 ng/mL (0.000-0.034)
[2017-06-03 08:16] LABS: Appearance,Urine Clear (Clear); Bilirubin,Urine Negative (Negative); Blood,Urine Negative (Negative); Color,Urine Yellow; Glucose,Urine (UA) Negative (Negative); Ketones,Urine Negative (Negative); Leukocyte Esterase,Urine Negative (Negative); Nitrite,Urine Negative (Negative); PH, Urine 6.5 (5.0-8.0); Protein,Urine Negative (Negative); Specific Gravity,Urine 1.012 (1.001-1.035); Urobilinogen,Urine <2.0 mg/dL (<2.0)
[2017-06-03] MEDS ORDERED: NALOXONE 0.4 MG/ML 1 ML VIAL IV PRN (10:32)
[2017-06-03] MEDS ORDERED: NITROGLYCERIN SL TABS 0.4 MG TAB SUBLINGUAL PRN (11:48)
[2017-06-03] MEDS ORDERED: HYDROcodone/APAP 5-325MG 1 EACH TAB PO PRN (11:48)
[2017-06-03] MEDS ORDERED: ONDANSETRON 4 MG TAB PO PRN (11:48)
[2017-06-03 11:51] LABS: Glucose,Whole Blood 150 mg/dL (75-99)
[2017-06-03] MEDS: CHOLECALCIFEROL 1,000 UNIT TAB PO SCH (12:45)
[2017-06-03] MEDS: FAMOTIDINE 20 MG TAB PO SCH (12:45)
[2017-06-03] MEDS: LEVOTHYROXINE 100 MCG TAB PO SCH (12:45)
[2017-06-03] MEDS: AMIODARONE 100 MG TAB PO SCH (12:45)
[2017-06-03] MEDS: ANASTROZOLE 1 MG TAB PO SCH (12:46)
[2017-06-03] MEDS: CARVEDILOL 12.5 MG TAB PO SCH (12:46)
[2017-06-03] MEDS: MULTIVITAMINS, THERA 1 EACH TAB PO SCH (12:46)
[2017-06-03] MEDS: FUROSEMIDE 40 MG TAB PO SCH ×2 (12:46→16:17)
[2017-06-03] MEDS: RANOLAZINE 500 MG TAB.ER.12H PO SCH ×2 (12:46→19:34)
[2017-06-03] MEDS: LISINOPRIL 10 MG TAB PO SCH (12:46)
[2017-06-03] MEDS: CYANOCOBALAMIN 500 MCG TAB PO SCH (12:46)
[2017-06-03] MEDS: POTASSIUM CHLORIDE ER 20 MEQ TAB.ER PO SCH (12:47)
[2017-06-03] MEDS: LEVOFLOXACIN 250 MG TAB PO SCH (12:47)
[2017-06-03] MEDS: ISOSORBIDE MONONITRATE ER 30 MG TAB.ER.24H PO SCH (12:47)
[2017-06-03] MEDS: MECLIZINE 25 MG TAB PO SCH ×3 (12:48→19:34)
[2017-06-03] MEDS: PYRIDOSTIGMINE 60 MG TAB PO SCH ×2 (12:48→19:33)
[2017-06-03] MEDS: POLYETHYLENE GLYCOL 3350 17 GM POWD.PACK PO SCH ×2 (12:49→19:31)
[2017-06-03] MEDS: ASPIRIN 81 MG PO SCH (16:21)
[2017-06-03 16:55] LABS: Glucose,Whole Blood 109 mg/dL (75-99)
[2017-06-03] MEDS: WARFARIN 3 MG TAB PO SCH (17:40)
[2017-06-03] MEDS: CARVEDILOL 6.25 MG TAB PO SCH (19:33)
[2017-06-03] MEDS: ACETAMINOPHEN TAB 325 MG TAB PO PRN (19:34)
[2017-06-04] MEDS: ACETAMINOPHEN TAB 325 MG TAB PO PRN ×2 (02:45→18:07)
[2017-06-04] MEDS: LEVOTHYROXINE 100 MCG TAB PO SCH (06:55)
[2017-06-04 07:03] LABS: Glucose,Whole Blood 107 mg/dL (75-99)
[2017-06-04] MEDS: FUROSEMIDE 40 MG TAB PO SCH ×2 (08:40→15:21)
[2017-06-04] MEDS: POTASSIUM CHLORIDE ER 20 MEQ TAB.ER PO SCH (08:41)
[2017-06-04] MEDS: CARVEDILOL 12.5 MG TAB PO SCH (08:41)
[2017-06-04] MEDS: AMIODARONE 100 MG TAB PO SCH (08:41)
[2017-06-04] MEDS: ANASTROZOLE 1 MG TAB PO SCH (08:41)
[2017-06-04] MEDS: MECLIZINE 25 MG TAB PO SCH ×3 (08:41→20:47)
[2017-06-04] MEDS: LISINOPRIL 10 MG TAB PO SCH (08:42)
[2017-06-04] MEDS: PYRIDOSTIGMINE 60 MG TAB PO SCH ×2 (08:42→20:47)
[2017-06-04] MEDS: RANOLAZINE 500 MG TAB.ER.12H PO SCH ×2 (08:42→20:47)
[2017-06-04] MEDS: FAMOTIDINE 20 MG TAB PO SCH (08:42)
[2017-06-04] MEDS: ISOSORBIDE MONONITRATE ER 30 MG TAB.ER.24H PO SCH (08:42)
[2017-06-04] MEDS: ASPIRIN 81 MG PO SCH (08:44)
[2017-06-04] MEDS: POLYETHYLENE GLYCOL 3350 17 GM POWD.PACK PO SCH ×2 (08:56→20:48)
[2017-06-04 09:16] LABS: ALT 28 U/L (9-52); AST 29 U/L (14-36); Albumin 3.2 g/dL (3.5-5.0); Alkaline Phosphatase 54 U/L (38-126); Anion Gap 7 mmol/L; Blood Urea Nitrogen 27 mg/dL (7-17); Carbon Dioxide 25 mmol/L (22-30); Chloride 105 mmol/L (98-107); Glucose 109 mg/dL (74-99); Potassium 4.5 mmol/L (3.5-5.1); Sodium 137 mmol/L (137-145); Total Bilirubin 0.4 mg/dL (0.2-1.3); Total Protein 6.3 g/dL (6.3-8.2)
[2017-06-04 09:28] LABS: Anisocytosis Slight; Basophils # (A) 0.1 k/uL (0-0.2); Basophils % (A) 1 %; Eosinophils # (A) 0.3 k/uL (0-0.7); Eosinophils % (A) 6 %; HGB 10.7 gm/dL (11.4-16.0); Hypochromasia Slight; Lymphocytes # (A) 1.1 k/uL (1.0-4.8); Lymphocytes % (A) 24 %; MCH 31.5 pg (25.0-35.0); MCHC 30.6 g/dL (31.0-37.0); Macrocytosis Slight; Monocytes # (A) 0.3 k/uL (0-1.0); Monocytes % (A) 7 %; Neutrophils # (A) 2.8 k/uL (1.3-7.7); Neutrophils % (A) 61 %; Platelet Count 193 k/uL (150-450); RDW 16.2 % (11.5-15.5); WBC 4.6 k/uL (3.8-10.6)
[2017-06-04 09:29] LABS: INR 1.2 (<1.2); MCV 102.9 fL (80.0-100.0); Prothrombin Time 11.8 sec (9.0-12.0)
[2017-06-04 11:41] LABS: Glucose,Whole Blood 112 mg/dL (75-99)
[2017-06-04] MEDS: CYANOCOBALAMIN 500 MCG TAB PO SCH (13:35)
[2017-06-04] MEDS: MULTIVITAMINS, THERA 1 EACH TAB PO SCH (13:35)
[2017-06-04] MEDS: LEVOFLOXACIN 250 MG TAB PO SCH (13:36)
[2017-06-04] MEDS: CHOLECALCIFEROL 1,000 UNIT TAB PO SCH (13:36)
[2017-06-04] MEDS: SODIUM CHLORIDE 0.9% 1,000 ML IV SCH ×2 (13:37→20:46)
[2017-06-04 16:47] LABS: Glucose,Whole Blood 103 mg/dL (75-99)
[2017-06-04] MEDS: WARFARIN 3 MG TAB PO SCH ×2 (17:21→18:08)
[2017-06-04 19:53] LABS: Glucose,Whole Blood 105 mg/dL (75-99)
[2017-06-04] MEDS: CARVEDILOL 6.25 MG TAB PO SCH (20:46)
[2017-06-04] MEDS: traZODone HCL 50 MG TAB PO PRN (22:41)
[2017-06-05] MEDS: LEVOTHYROXINE 100 MCG TAB PO SCH (06:34)
--- NOTE | 2017-06-05 06:49 | HP ---
HISTORY AND PHYSICAL CHIEF COMPLAINT: Chest pain and shortness of breath. HISTORY OF PRESENT ILLNESS: This another admission for this 81-year-old, white female. She just went home several days ago. Every time she goes home she develops shortness of breath, nausea, vomiting and chest pain. She came back to the emergency room and was admitted. REVIEW OF SYSTEMS: She denies any headaches, hemoptysis, fever and chills, melena hematochezia, renal disease, etc. Past medical history, family history, personal and social history are all otherwise unremarkable and unchanged. PHYSICAL EXAMINATION: Blood pressure is 141/79 with a pulse of 83 and irregular. Respirations were 40. In general, she appeared to be in no acute distress. Skin is dry and lymph nodes not enlarged. Head, ears, eyes, nose, mouth, and throat were normal. Neck veins were slightly distended. Chest demonstrates rales at bases. The cardiac exam demonstrated what sounded like atrial fibrillation with an S4. The abdomen is soft, nontender. EXTREMITIES: Normal. Neurologic: She was intact. IMPRESSION: 1. Chest pain. 2. Coronary artery disease. 3. Unstable angina. 4. Heart failure. 5. Intractable nausea and vomiting. 6. Diabetes. 7. Depression. PLAN: 1. Bed rest. 2. IV fluids. 3. Monitor chest pain and vomiting and try to discharge again soon. MMODL / IJN: [id number] /
--- NOTE | 2017-06-05 06:55 | PN ---
PROGRESS NOTE CHIEF COMPLAINT: Abdominal pain and near syncope and nausea. HISTORY OF PRESENT ILLNESS: This lady is feeling better. She is not nauseated now and she has had no chest pain. PHYSICAL EXAM: CHEST: Clear. Cardiac exam is normal. Abdomen is soft, nontender. IMPRESSION: 1. Near syncope. 2. Nausea. 3. Coronary artery disease. 4. Carcinoma of the breast. PLAN: Increase activity and if she remains stable, we will send her home tomorrow. MMODL / IJN: [id number] /
[2017-06-05 07:22] LABS: Glucose,Whole Blood 116 mg/dL (75-99)
[2017-06-05] MEDS: ISOSORBIDE MONONITRATE ER 30 MG TAB.ER.24H PO SCH (08:48)
[2017-06-05] MEDS: ASPIRIN 81 MG PO SCH (08:48)
[2017-06-05] MEDS: MECLIZINE 25 MG TAB PO SCH ×3 (08:48→22:34)
[2017-06-05] MEDS: AMIODARONE 100 MG TAB PO SCH (08:48)
[2017-06-05] MEDS: LISINOPRIL 10 MG TAB PO SCH (08:48)
[2017-06-05] MEDS: FUROSEMIDE 40 MG TAB PO SCH (08:48)
[2017-06-05] MEDS: FAMOTIDINE 20 MG TAB PO SCH (08:48)
[2017-06-05] MEDS: CARVEDILOL 12.5 MG TAB PO SCH (08:49)
[2017-06-05] MEDS: RANOLAZINE 500 MG TAB.ER.12H PO SCH ×2 (08:49→22:34)
[2017-06-05] MEDS: POTASSIUM CHLORIDE ER 20 MEQ TAB.ER PO SCH (08:49)
[2017-06-05] MEDS: ANASTROZOLE 1 MG TAB PO SCH (08:49)
[2017-06-05] MEDS: PYRIDOSTIGMINE 60 MG TAB PO SCH ×2 (08:49→22:34)
[2017-06-05] MEDS: POLYETHYLENE GLYCOL 3350 17 GM POWD.PACK PO SCH ×2 (08:53→22:34)
[2017-06-05] MEDS ORDERED: CARVEDILOL 6.25 MG TAB PO STA (11:14)
[2017-06-05 11:36] LABS: Glucose,Whole Blood 110 mg/dL (75-99)
[2017-06-05] MEDS: LEVOFLOXACIN 250 MG TAB PO SCH (11:58)
[2017-06-05] MEDS: CYANOCOBALAMIN 500 MCG TAB PO SCH (11:58)
[2017-06-05] MEDS: MULTIVITAMINS, THERA 1 EACH TAB PO SCH (11:58)
[2017-06-05] MEDS: SODIUM CHLORIDE 0.9% 1,000 ML IV SCH (11:58)
[2017-06-05] MEDS: CHOLECALCIFEROL 1,000 UNIT TAB PO SCH (11:58)
[2017-06-05] MEDS: ACETAMINOPHEN TAB 325 MG TAB PO PRN ×2 (13:30→23:28)
[2017-06-05] MEDS: FUROSEMIDE 20 MG TAB PO SCH (16:57)
[2017-06-05] MEDS: CARVEDILOL 6.25 MG TAB PO SCH (16:58)
[2017-06-05 17:03] LABS: Glucose,Whole Blood 106 mg/dL (75-99)
[2017-06-05] MEDS ORDERED: WARFARIN 2 MG TAB PO SCH (18:00)
[2017-06-05 19:51] LABS: Glucose,Whole Blood 104 mg/dL (75-99)
[2017-06-05] MEDS: traZODone HCL 50 MG TAB PO PRN (23:26)
[2017-06-06 01:52] VITALS: RESP 16
[2017-06-06] MEDS: ACETAMINOPHEN TAB 325 MG TAB PO PRN (06:47)
[2017-06-06] MEDS: LEVOTHYROXINE 100 MCG TAB PO SCH (06:47)
[2017-06-06 06:57] LABS: Glucose,Whole Blood 100 mg/dL (75-99)
[2017-06-06 07:21] VITALS: BP 113/66; PULSE 63; TEMP 97.9
[2017-06-06] MEDS: POLYETHYLENE GLYCOL 3350 17 GM POWD.PACK PO SCH ×2 (08:23→08:30)
[2017-06-06] MEDS: RANOLAZINE 500 MG TAB.ER.12H PO SCH (08:23)
[2017-06-06] MEDS: ANASTROZOLE 1 MG TAB PO SCH (08:23)
[2017-06-06] MEDS: FUROSEMIDE 20 MG TAB PO SCH (08:23)
[2017-06-06] MEDS: ISOSORBIDE MONONITRATE ER 30 MG TAB.ER.24H PO SCH (08:24)
[2017-06-06] MEDS: CARVEDILOL 6.25 MG TAB PO SCH (08:24)
[2017-06-06] MEDS: ASPIRIN 81 MG PO SCH (08:24)
[2017-06-06] MEDS: MECLIZINE 25 MG TAB PO SCH (08:24)
[2017-06-06] MEDS: PYRIDOSTIGMINE 60 MG TAB PO SCH (08:24)
[2017-06-06] MEDS: AMIODARONE 100 MG TAB PO SCH (08:25)
[2017-06-06] MEDS: FAMOTIDINE 20 MG TAB PO SCH (08:25)
[2017-06-06] MEDS: POTASSIUM CHLORIDE ER 20 MEQ TAB.ER PO SCH (08:25)
[2017-06-06] MEDS: LISINOPRIL 10 MG TAB PO SCH (09:15)
[2017-06-06] MEDS: SODIUM CHLORIDE 0.9% 1,000 ML IV SCH (09:15)
[2017-06-06 10:50] VITALS: BMI 20.9
[2017-06-06 11:38] LABS: Glucose,Whole Blood 110 mg/dL (75-99)
--- NOTE | 2017-06-06 12:50 | PN ---
PROGRESS NOTE DATE OF SERVICE: 06/05/17 CHIEF COMPLAINT: Dizziness and lightheadedness. HISTORY OF PRESENT ILLNESS: This lady seems to be doing well. There has been no change in her clinical picture or laboratory studies, but she still has occasional episodes of dizziness. Some of her medication dosage has been dropped now, but she is still having trouble. She has had no chest pain or palpitation. PHYSICAL EXAM: Color is good. Chest is clear. Cardiac exam is normal. The abdomen is soft, nontender. IMPRESSION: 1. Episodes of dizziness, etiology unknown. 2. Coronary artery disease. 3. Status post carcinoma of the breast. 4. Arrhythmia. PLAN: Try to increase activity and hopefully she will be able to go home tomorrow. MMODL / IJN: [id number] /
--- NOTE | 2017-06-06 16:52 | DS ---
DISCHARGE SUMMARY CHIEF COMPLAINT: CAD, CA of breast, dizziness and near-syncope. HISTORY OF PRESENT ILLNESS AND PHYSICAL EXAM: Details of this lady's history and physical can be found in the initial workup. LABORATORY STUDIES: While she was in the hospital she had laboratory studies, details of which can be found in the laboratory section of her chart. COURSE IN THE HOSPITAL: After admission, she was placed on bedrest, started on intravenous fluids and seen by Cardiology. She had no further problems, including chest pain, arrhythmia, etc. She did complain of a lot of dizziness and this did not seem to subside. It was felt it could be due to labyrinthitis. It was felt that she could go home, but there was concern about her unsteadiness. She will be with her daughter. She refuses to go to an extended care facility. She will be seen in the office in several days. FINAL DIAGNOSES: 1. Near-syncope. 2. Palpitations. 3. Coronary artery disease. 4. Carcinoma of the breast. OPERATIONS: None. CONSULTATIONS: Cardiology. She is improved. MMODL / IJN: [id number] /
--- NOTE | 2017-06-26 12:02 | CDI ---
Outpatient Documentation Clarification Form Date: 06-26-17 CDS/Plant Guide Name: Karely Hussein Phone: If you have question, contact Nikki Bowers Space Systems Operations Manager at [phone] M-F 8:30 am to 6pm. Patient Name: Dante Castañeda Admit Date: 06-03-17 Discharge Date: 06-06-17 ATTENTION: The Clinical Documentation Specialists (CDI) and [facility] Coding Staff appreciate your assistance in clarifying documentation. Please respond to the clarification below the line at the bottom and electronically sign. The CDI & [facility] Coding staff will review the response and follow-up if needed. Please note: Queries are made part of the Legal Health Record. If you have any questions, please contact the author of this message via ITS or call the Space Systems Operations Manager. Dr. Blancas, Please specify secondary diagnosis of "Carcinoma of breast" or "history of carcinoma of breast" below the line on this page. Thank you, Karely ERWIN
--- NOTE | 2017-06-28 09:12 | DS ---
DISCHARGE SUMMARY ADDENDUM: DIAGNOSIS: History of carcinoma of the breast. MMODL / IJN: [id number] /
== END 2017-06-06 12:25 | disposition home health service (06) ==
LOC: EC 06:32 → 3OBS 10:32 → 3SUR 20:59
PROVIDERS: ADMIT Family Medicine; ATTEND Family Medicine
DX: R55 Syncope and collapse (principal); R00.2 Palpitations; R06.02 Shortness of breath; R07.89 Other chest pain; R11.2 Nausea with vomiting, unspecified; R30.0 Dysuria; R42 Dizziness and giddiness; R10.9 Unspecified abdominal pain; I25.110 Atherosclerotic heart disease of native coronary artery with unstable angina pectoris; Z85.3 Personal history of malignant neoplasm of breast; E86.0 Dehydration; I11.0 Hypertensive heart disease with heart failure; I48.0 Paroxysmal atrial fibrillation; I50.9 Heart failure, unspecified; N17.9 Acute kidney failure, unspecified; E11.9 Type 2 diabetes mellitus without complications; E78.5 Hyperlipidemia, unspecified; I34.1 Nonrheumatic mitral (valve) prolapse; M19.90 Unspecified osteoarthritis, unspecified site; G70.00 Myasthenia gravis without (acute) exacerbation; G89.29 Other chronic pain; M54.9 Dorsalgia, unspecified; D64.9 Anemia, unspecified; E03.9 Hypothyroidism, unspecified; I25.2 Old myocardial infarction; F32.9 Major depressive disorder, single episode, unspecified; K57.90 Diverticulosis of intestine, part unspecified, without perforation or abscess without bleeding; Z79.811 Long term (current) use of aromatase inhibitors; Z79.899 Other long term (current) drug therapy; Z79.82 Long term (current) use of aspirin; Z79.01 Long term (current) use of anticoagulants; Z88.5 Allergy status to narcotic agent; Z87.01 Personal history of pneumonia (recurrent); Z85.828 Personal history of other malignant neoplasm of skin; Z95.5 Presence of coronary angioplasty implant and graft; Z98.1 Arthrodesis status; Z95.2 Presence of prosthetic heart valve; Z87.891 Personal history of nicotine dependence
CPT/HCPCS: 36415; 71020; 80053; 81003; 82550; 82553; 83735; 84484; 85025; 85610; 85730; 87086; 93005; 96360; 96361; 99285

== ENCOUNTER 2017-08-04 07:24 | Observation (INO) | payer MEDICARE, BC ==
[2017-08-04 08:25] LABS: Basophils % (A) 1 %; Eosinophils # (A) 0.3 k/uL (0-0.7); Eosinophils % (A) 5 %; HGB 11.7 gm/dL (11.4-16.0); Lymphocytes # (A) 1.1 k/uL (1.0-4.8); Lymphocytes % (A) 22 %; MCH 31.8 pg (25.0-35.0); MCHC 31.5 g/dL (31.0-37.0); MCV 100.8 fL (80.0-100.0); Macrocytosis Slight; Mean Platelet Volume 7.7; Monocytes # (A) 0.3 k/uL (0-1.0); Monocytes % (A) 6 %; Neutrophils # (A) 3.2 k/uL (1.3-7.7); Neutrophils % (A) 65 %; Platelet Count 233 k/uL (150-450); RBC 3.67 m/uL (3.80-5.40); RDW 15.5 % (11.5-15.5); WBC 4.9 k/uL (3.8-10.6)
--- NOTE | 2017-08-04 08:38 | XR ---
EXAMINATION TYPE: XR chest 2V DATE OF EXAM: 08/04/2017 COMPARISON: Earlier today and 05/16/2017 HISTORY: 81-year-old female with chest pain TECHNIQUE: Frontal and lateral views FINDINGS: Heart upper limits of normal in size. Atherosclerotic arch calcifications. Median sternotomy wires ar e present with prosthetic cardiac valve. Surgical clips in the right axilla. Additional surgical clip s projecting in the right breast. Mild interstitial prominence. Thoracolumbar fusion hardware with ve rtebroplasty changes in the lower spine. Probable cement emboli scattered throughout. Additional ACDF and posterior cervical fusion. No consolidation or pleural effusion. IMPRESSION: No acute cardiopulmonary process. 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
[2017-08-04 08:42] LABS: INR 1.4 (<1.2); Partial Thromboplastin Time 28.1 sec (22.0-30.0); Prothrombin Time 13.2 sec (9.0-12.0)
[2017-08-04 08:47] LABS: Creatine Kinase 32 U/L (30-135)
[2017-08-04 08:58] LABS: ALT 19 U/L (9-52); AST 48 U/L (14-36); Albumin 3.9 g/dL (3.5-5.0); Alkaline Phosphatase 70 U/L (38-126); Anion Gap 9 mmol/L; Blood Urea Nitrogen 19 mg/dL (7-17); Calcium 9.1 mg/dL (8.4-10.2); Carbon Dioxide 35 mmol/L (22-30); Chloride 98 mmol/L (98-107); Glucose 95 mg/dL (74-99); Magnesium 1.7 mg/dL (1.6-2.3); Sodium 142 mmol/L (137-145); Total Protein 7.1 g/dL (6.3-8.2)
[2017-08-04 09:01] LABS: Troponin I 0.021 ng/mL (0.000-0.034)
--- NOTE | 2017-08-04 09:22 | ED ---
General Adult HPI - General Chief complaint: Chest Pain Stated complaint: CHEST PAINS Time Seen by Provider: 08/04/17 07:36 Source: patient, EMS, RN notes reviewed, old records reviewed Mode of arrival: EMS Limitations: no limitations - History of Present Illness Initial comments: This is a 1-year-old female to the ER for evaluation of chest pain and angina. Patient has history of heart disease. Cardiac surgery. Patient coming in with anterior chest pain no radiation. Patient was relieved with nitroglycerin. Patient does admit to mild anxiety. No fevers or cough or congestion or nausea vomiting no other complaints. Patient is currently pain-free - Related Data Home Medications Medication Instructions Recorded Confirmed Cholecalciferol [Vitamin D3] 1,000 unit PO DAILY 05/18/15 08/04/17 Cyanocobalamin [Vitamin B-12] 1,000 mcg PO DAILY 05/18/15 08/04/17 Anastrozole [Arimidex] 1 mg PO DAILY 09/14/15 08/04/17 Isosorbide Mononitrate ER [Imdur] 30 mg PO DAILY 04/25/16 08/04/17 Levothyroxine Sodium [Synthroid] 100 mcg PO DAILY 04/25/16 08/04/17 Nitroglycerin Sl Tabs [Nitrostat] 0.4 mg PO Q5M PRN 04/25/16 08/04/17 Ranitidine HCl 150 mg PO DAILY 04/25/16 08/04/17 Furosemide [Lasix] 40 mg PO BID 05/20/16 08/04/17 Carvedilol [Coreg] 12.5 mg PO QAM 11/28/16 08/04/17 Ranolazine [Ranexa] 500 mg PO BID 11/28/16 08/04/17 Aspirin 81 mg PO DAILY 03/22/17 08/04/17 Lisinopril [Prinivil] 10 mg PO DAILY 03/22/17 08/04/17 Meclizine [Antivert] 25 mg PO TID 05/06/17 08/04/17 Amiodarone HCl [Pacerone] 100 mg PO DAILY 05/16/17 08/04/17 HYDROcodone/APAP 5-325MG [[place] 1 tab PO DAILY PRN 06/03/17 08/04/17 5-325] traZODone HCL 50 mg PO HS PRN 06/03/17 08/04/17 Carvedilol [Coreg] 6.25 mg PO HS 08/04/17 08/04/17 Warfarin [Coumadin] 3 mg PO SUTUWEFRSA 08/04/17 08/04/17 Warfarin [Coumadin] 4 mg PO MOTH 08/04/17 08/04/17 Previous Rx's Medication Instructions Recorded Pyridostigmine [Mestinon] 30 mg PO BID tab 03/17/16 Potassium Chloride [K-Tab ER] 20 meq PO DAILY #30 tablet.er 05/06/17 Ondansetron [Zofran] 4 mg PO Q8HR PRN #30 tab 05/29/17 Allergies Allergy/AdvReac Type Severity Reaction Status Date / Time morphine AdvReac Severe Nausea & Verified 08/04/17 07:51 Vomiting Review of Systems ROS Statement: Those systems with pertinent positive or pertinent negative responses have been documented in the HPI. ROS Other: All systems not noted in ROS Statement are negative. Past Medical History Past Medical History: Atrial Fibrillation, Coronary Artery Disease (CAD), Cancer , Heart Failure, Diabetes Mellitus, Eye Disorder, Hyperlipidemia, Hypertension, Myocardial Infarction ([place]), Mitral Valve Prolapse (MVP), Osteoarthritis (OA), Pneumonia, Respiratory Disorder, Thyroid Disorder Additional Past Medical History / Comment(s): Paroxysmal Afib. Chronic CHF. RT Eye Occular Myasthenia Gravis. Chronic Back Pain. DJD. 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 DIET CONTROLLED DM. RECENT UTI. SKIN CA. RT breast CA with surgery. OCC Vertigo. CHRONIC Anemia. DIVERTICULAR DX. hypothyroid, L hip fracture with surgery. Last Myocardial Infarction Date:: 04/2014 History of Any Multi-Drug Resistant Organisms: None Reported Past Surgical History: Appendectomy, Back Surgery, Breast Surgery, Cardiac Valve Replacement, Heart Catheterization, Heart Catheterization With Stent, Hysterectomy, Orthopedic Surgery Additional Past Surgical History / Comment(s): 11/2016 L hip hemiarthroplasty, 2015 MVR. NEYMAR CTR, bilateral Rotator Cuff Repair. EXC Skin CA. TITANIUM VIMAL IN BACK, 7 BACK FUSIONS, 3 NECK FUSIONS. Stent Proximal RCA; HEART CATH . EXC NEYMAR CATARACTS, POSS Lens Implants, Bilateral Eye Laser. RT BREAST LUMPECTOMY x 2, RT BREAST SIMPLE MASTECTOMY 06/2015. ORIF Ankles. Colonoscopy. Past Anesthesia/Blood Transfusion Reactions: No Reported Reaction Additional Past Anesthesia/Blood Transfusion Reaction / Comment(s): Pt has recently received blood without reaction. Date of Last Stent Placement:: 08/17/2013 Past Psychological History: No Psychological Hx Reported Smoking Status: Former smoker Past Alcohol Use History: None Reported Past Drug Use History: None Reported - Past Family History Father History Unknown: Yes Family Medical History: No Reported History Additional Family Medical History / Comment(s): DAD IN MVA AT AGE 52 Mother History Unknown: Yes Family Medical History: Congestive Heart Failure (CHF) Additional Family Medical History / Comment(s): RHEUMATIC FEVER. Mother of CHF at the age of 59yrs. General Exam Limitations: no limitations General appearance: alert, in no apparent distress, anxious Head exam: Present: atraumatic, normocephalic, normal inspection Eye exam: Present: normal appearance, PERRL, EOMI. Absent: scleral icterus, conjunctival injection, periorbital swelling ENT exam: Present: normal exam, mucous membranes moist Neck exam: Present: normal inspection. Absent: tenderness, meningismus, lymphadenopathy Respiratory exam: Present: normal lung sounds bilaterally. Absent: respiratory distress, wheezes, rales, rhonchi, stridor Cardiovascular Exam: Present: regular rate, normal rhythm, normal heart sounds. Absent: systolic murmur, diastolic murmur, rubs, gallop, clicks GI/Abdominal exam: Present: soft, normal bowel sounds. Absent: distended, tenderness, guarding, rebound, rigid Extremities exam: Present: normal inspection, full ROM, normal capillary refill. Absent: tenderness, pedal edema, joint swelling, calf tenderness Back exam: Present: normal inspection Neurological exam: Present: alert, oriented X3, CN II-XII intact Psychiatric exam: Present: normal affect, normal mood Skin exam: Present: warm, dry, intact, normal color. Absent: rash Course Vital Signs 08/04/17 08/04/17 07:28 08:33 Temperature 98 F Pulse Rate 66 61 Respiratory 18 18 Rate Blood Pressure 168/62 139/68 O2 Sat by Pulse 97 100 Oximetry - Reevaluation(s) Reevaluation #1: 08/04/17 09:31 Patient's pain is resolved, patient remained without pain Reevaluation #2: 08/04/17 09:31 Records are reviewed including prior heart catheterizations EKG Findings - EKG Comments: EKG Findings:: EKG shows normal sinus rhythm rate of 64, OK 170, QRS 82, QTc 507 Medical Decision Making - Medical Decision Making 79 female the ER for evaluation of chest pain, anterior chest pain no radiation no nausea no vomiting or diaphoresis and shortness of breath. Pain is relieved with nitro, patient at this point is pain-free. Patient has been pain-free throughout ER stay, patient was discharged - Lab Data Result diagrams: 08/04/17 08:00 08/04/17 08:00 Lab Results 08/04/17 08/04/17 08/04/17 Range/Units 08:00 08:00 08:00 WBC 4.9 (3.8-10.6) k/uL RBC 3.67 L (3.80-5.40) m/uL Hgb 11.7 (11.4-16.0) gm/dL Hct 37.0 (34.0-46.0) % MCV 100.8 H (80.0-100.0) fL MCH 31.8 (25.0-35.0) pg MCHC 31.5 (31.0-37.0) g/dL RDW 15.5 (11.5-15.5) % Plt Count 233 (150-450) k/uL Neutrophils % 65 % Lymphocytes % 22 % Monocytes % 6 % Eosinophils % 5 % Basophils % 1 % Neutrophils # 3.2 (1.3-7.7) k/uL Lymphocytes # 1.1 (1.0-4.8) k/uL Monocytes # 0.3 (0-1.0) k/uL Eosinophils # 0.3 (0-0.7) k/uL Basophils # 0.0 (0-0.2) k/uL Macrocytosis Slight PT (9.0-12.0) sec INR (<1.2) APTT (22.0-30.0) sec Sodium 142 (137-145) mmol/L Potassium 3.0 L* (3.5-5.1) mmol/L Chloride 98 (98-107) mmol/L Carbon Dioxide 35 H (22-30) mmol/L Anion Gap 9 mmol/L BUN 19 H (7-17) mg/dL Creatinine 0.67 (0.52-1.04) mg/dL Est GFR (MDRD) Af Amer >60 (>60 ml/min/1.73 sqM) Est GFR (MDRD) Non-Af >60 (>60 ml/min/1.73 sqM) Glucose 95 (74-99) mg/dL Calcium 9.1 (8.4-10.2) mg/dL Magnesium 1.7 (1.6-2.3) mg/dL Total Bilirubin 1.0 (0.2-1.3) mg/dL AST 48 H (14-36) U/L ALT 19 (9-52) U/L Alkaline Phosphatase 70 (38-126) U/L Total Creatine Kinase 32 (30-135) U/L CK-MB (CK-2) <0.2 (0.0-2.4) ng/mL CK-MB (CK-2) Rel Index Troponin I 0.021 (0.000-0.034) ng/mL Total Protein 7.1 (6.3-8.2) g/dL Albumin 3.9 (3.5-5.0) g/dL 08/04/17 Range/Units 08:00 WBC (3.8-10.6) k/uL RBC (3.80-5.40) m/uL Hgb (11.4-16.0) gm/dL Hct (34.0-46.0) % MCV (80.0-100.0) fL MCH (25.0-35.0) pg MCHC (31.0-37.0) g/dL RDW (11.5-15.5) % Plt Count (150-450) k/uL Neutrophils % % Lymphocytes % % Monocytes % % Eosinophils % % Basophils % % Neutrophils # (1.3-7.7) k/uL Lymphocytes # (1.0-4.8) k/uL Monocytes # (0-1.0) k/uL Eosinophils # (0-0.7) k/uL Basophils # (0-0.2) k/uL Macrocytosis PT 13.2 H (9.0-12.0) sec INR 1.4 H (<1.2) APTT 28.1 (22.0-30.0) sec Sodium (137-145) mmol/L Potassium (3.5-5.1) mmol/L Chloride (98-107) mmol/L Carbon Dioxide (22-30) mmol/L Anion Gap mmol/L BUN (7-17) mg/dL Creatinine (0.52-1.04) mg/dL Est GFR (MDRD) Af Amer (>60 ml/min/1.73 sqM) Est GFR (MDRD) Non-Af (>60 ml/min/1.73 sqM) Glucose (74-99) mg/dL Calcium (8.4-10.2) mg/dL Magnesium (1.6-2.3) mg/dL Total Bilirubin (0.2-1.3) mg/dL AST (14-36) U/L ALT (9-52) U/L Alkaline Phosphatase (38-126) U/L Total Creatine Kinase (30-135) U/L CK-MB (CK-2) (0.0-2.4) ng/mL CK-MB (CK-2) Rel Index Troponin I (0.000-0.034) ng/mL Total Protein (6.3-8.2) g/dL Albumin (3.5-5.0) g/dL - Radiology Data Radiology results: report reviewed (Chest x-rays negative for acute disease), image reviewed Disposition Clinical Impression: Chest pain in adult, Chest pain Disposition: HOME SELF-CARE Condition: Good Instructions: Chest Pain (ED) Referrals: Oscar Blancas MD [Primary Care Provider] - 1-2 days
[2017-08-04 09:27] LABS: Creatine Kinase MB <0.2 ng/mL (0.0-2.4)
[2017-08-04] MEDS ORDERED: POTASSIUM CHLORIDE ER 20 MEQ TAB.ER PO STA (09:32)
[2017-08-04] MEDS ORDERED: ASPIRIN 81 MG PO STA (12:49)
[2017-08-04] MEDS ORDERED: NITROGLYCERIN SL TABS 0.4 MG TAB SUBLINGUAL PRN ×2 (12:49→15:00)
[2017-08-04] MEDS ORDERED: MORPHINE SULFATE 4 MG/ML SYRINGE IV PRN (12:49)
[2017-08-04] MEDS ORDERED: HYDROcodone/APAP 5-325MG 1 EACH TAB PO PRN (15:00)
[2017-08-04] MEDS ORDERED: traZODone HCL 50 MG TAB PO PRN (15:00)
[2017-08-04] MEDS ORDERED: ONDANSETRON 4 MG TAB PO PRN (15:00)
[2017-08-04] MEDS ORDERED: CARVEDILOL 6.25 MG TAB PO SCH (17:30)
[2017-08-04] MEDS ORDERED: WARFARIN 3 MG TAB PO SCH (18:00)
[2017-08-04] MEDS: MECLIZINE 25 MG TAB PO SCH ×2 (19:05→23:23)
[2017-08-04] MEDS: FUROSEMIDE 40 MG TAB PO SCH (19:05)
[2017-08-04 20:47] LABS: Creatine Kinase 28 U/L (30-135)
[2017-08-04] MEDS: RANOLAZINE 500 MG TAB.ER.12H PO SCH (20:52)
[2017-08-04] MEDS: PYRIDOSTIGMINE 60 MG TAB PO SCH (20:52)
[2017-08-04] MEDS ORDERED: DOCUSATE 100 MG CAP PO PRN (20:59)
[2017-08-04 21:00] LABS: Creatine Kinase MB <0.2 ng/mL (0.0-2.4); Troponin I 0.023 ng/mL (0.000-0.034)
[2017-08-04] MEDS ORDERED: METOPROLOL TARTRATE 25 MG TAB PO SCH (21:00)
[2017-08-05] MEDS ORDERED: LEVOTHYROXINE 100 MCG TAB PO SCH (06:30)
[2017-08-05] MEDS ORDERED: CARVEDILOL 12.5 MG TAB PO SCH (07:30)
[2017-08-05 08:06] LABS: Anion Gap 7 mmol/L; Blood Urea Nitrogen 19 mg/dL (7-17); Calcium 9.1 mg/dL (8.4-10.2); Carbon Dioxide 35 mmol/L (22-30); Chloride 101 mmol/L (98-107); Cholesterol 245 mg/dL (<200); Glucose 102 mg/dL (74-99); HDL Cholesterol 60 mg/dL (40-60); LDL Cholesterol,Calculated 164 mg/dL (0-99); Potassium 4.2 mmol/L (3.5-5.1); Sodium 143 mmol/L (137-145); Triglycerides 103 mg/dL (<150)
[2017-08-05] MEDS: FUROSEMIDE 40 MG TAB PO SCH (08:55)
[2017-08-05] MEDS: RANOLAZINE 500 MG TAB.ER.12H PO SCH (08:56)
[2017-08-05] MEDS: MECLIZINE 25 MG TAB PO SCH (08:56)
[2017-08-05] MEDS: PYRIDOSTIGMINE 60 MG TAB PO SCH (08:56)
[2017-08-05] MEDS ORDERED: ASPIRIN 325 MG TAB PO SCH (09:00)
[2017-08-05] MEDS ORDERED: FAMOTIDINE 20 MG TAB PO SCH (09:00)
[2017-08-05] MEDS ORDERED: AMIODARONE 100 MG TAB PO SCH (09:00)
[2017-08-05] MEDS ORDERED: ANASTROZOLE 1 MG TAB PO SCH (09:00)
[2017-08-05] MEDS ORDERED: ASPIRIN 81 MG PO SCH (09:00)
[2017-08-05] MEDS ORDERED: ISOSORBIDE MONONITRATE ER 30 MG TAB.ER.24H PO SCH (09:00)
[2017-08-05] MEDS ORDERED: LISINOPRIL 10 MG TAB PO SCH (09:00)
[2017-08-05] MEDS ORDERED: POTASSIUM CHLORIDE ER 20 MEQ TAB.ER PO SCH (09:00)
[2017-08-05] MEDS ORDERED: ACETAMINOPHEN TAB 325 MG TAB PO PRN (11:51)
[2017-08-05 12:48] VITALS: BP 113/58; PULSE 62; RESP 14; TEMP 97.8
[2017-08-05] MEDS ORDERED: MORPHINE ORAL SOLN 10 MG/5 ML CUP PO PRN (14:17)
--- NOTE | 2017-08-05 14:35 | HP ---
HISTORY AND PHYSICAL CHIEF COMPLAINT: Chest pain. HISTORY OF PRESENT ILLNESS: This is another admission for this 81-year-old white female. She comes in the hospital frequently for chest pain. She has extensive history of coronary artery disease, CHF and carcinoma of the breast. She started to have a headache and then help began to develop chest pain and came to the emergency room. Workup was relatively negative. Effort was attempted to discharge her home, but she refused. REVIEW OF SYSTEMS: She has had no neurologic problems, shortness of breath and cough, hemoptysis, diaphoresis, abdominal pain, vomiting, diarrhea, melena, hematuria, hematuria, frequency, urgency, etc. PAST MEDICAL HISTORY, FAMILY HISTORY, PERSONAL AND SOCIAL HISTORIES: Are all otherwise unremarkable and unchanged from her recent admitting and discharge summaries. PHYSICAL EXAMINATION: Blood pressure 150/87 with a pulse of 76, respirations of 20. She is afebrile. In general, she appeared to be well developed, well nourished, in no acute distress. Head, ears, eyes, nose, mouth, and throat were normal. Neck veins not distended. Chest is clear. Cardiac exam is normal. The left breast is absent. Abdomen is soft, nontender and there are no masses. Extremities normal. Neurologically, she is intact. IMPRESSION: 1. Chest pain. 2. Angina pectoris. 3. Coronary artery disease. 4. Congestive heart failure. 5. Carcinoma of the breast. PLAN: 1. Bed rest. 2. IV fluids. 3. Serial EKGs and enzymes. MMODL / IJN: [id number] /
--- NOTE | 2017-08-05 14:47 | DS ---
DISCHARGE SUMMARY DATE OF DISCHARGE: 08/05/2017. CHIEF COMPLAINT: Chest pain. HISTORY OF PRESENT ILLNESS AND PHYSICAL EXAMINATION: Details of this lady's history and physical can be found in the initial workup. LABORATORY STUDIES: While she was in the hospital she had laboratory studies, details of which can be found in the laboratory section of her chart. COURSE IN THE HOSPITAL: After admission she was placed on bedrest and started on intravenous fluids. She had normal cardiac enzymes. It was felt that she could go home. She will go home on her usual activity, diet and medications and follow up in the office in few days. FINAL DIAGNOSES: 1. Angina pectoris. 2. Coronary artery disease. 3. Congestive heart failure. 4. History of carcinoma of the breast. OPERATIONS: None. CONSULTATIONS: None. She is improved. MMQUINTONL / MARIKAN: [id number] /
[2017-08-07] MEDS ORDERED: WARFARIN 2 MG TAB PO SCH (18:00)
== END 2017-08-05 15:10 | disposition home health service (06) ==
LOC: EC 07:24 → 3OBS 12:49
PROVIDERS: ADMIT Family Medicine; ATTEND Family Medicine
DX: I25.119 Atherosclerotic heart disease of native coronary artery with unspecified angina pectoris (principal); I11.0 Hypertensive heart disease with heart failure; I50.9 Heart failure, unspecified; I48.0 Paroxysmal atrial fibrillation; E03.9 Hypothyroidism, unspecified; E78.5 Hyperlipidemia, unspecified; M19.90 Unspecified osteoarthritis, unspecified site; G70.00 Myasthenia gravis without (acute) exacerbation; Z85.3 Personal history of malignant neoplasm of breast; Z87.891 Personal history of nicotine dependence; I25.2 Old myocardial infarction; Z95.5 Presence of coronary angioplasty implant and graft; Z95.2 Presence of prosthetic heart valve; Z79.811 Long term (current) use of aromatase inhibitors; Z79.01 Long term (current) use of anticoagulants; Z79.82 Long term (current) use of aspirin; Z79.899 Other long term (current) drug therapy; Z88.5 Allergy status to narcotic agent; Z87.01 Personal history of pneumonia (recurrent); Z82.49 Family history of ischemic heart disease and other diseases of the circulatory system
CPT/HCPCS: 36415; 93005; 80061; 80053; 80048; 82550; 82553; 83735; 84484; 85025; 85610; 85730; 71046; 99285; G0378 ×2; S0170

== ENCOUNTER 2017-09-02 18:12 | Emergency (ER) | payer MEDICARE, BC ==
--- NOTE | 2017-09-02 18:27 | ED ---
Chest Pain HPI - General Stated Complaint: Chest Pain Time Seen by Provider: 09/02/17 18:12 Source: patient, family, EMS, RN notes reviewed, old records reviewed Mode of arrival: EMS Limitations: no limitations - History of Present Illness Initial Comments: This 81-year-old female who states she's had lower midsternal chest pain on and off all day states it feels like something is poking her with a needle is currently 7/10 since about as bad as a gassy was 3.710 when EMS initially brought Brendon she states she took 324 mg of AB aspirin and 2 nitroglycerin without much relief. He's had no fevers chills nausea vomiting sweats cough or phlegm production she has a history of [place] and coronary artery bypass in the past. She denies any recent trauma though she did recently go shopping with her daughter. MD Complaint: chest pain - Related Data Home Medications Medication Instructions Recorded Confirmed Cholecalciferol [Vitamin D3] 1,000 unit PO DAILY 05/18/15 09/02/17 Cyanocobalamin [Vitamin B-12] 1,000 mcg PO DAILY 05/18/15 09/02/17 Anastrozole [Arimidex] 1 mg PO DAILY 09/14/15 09/02/17 Isosorbide Mononitrate ER [Imdur] 30 mg PO DAILY 04/25/16 09/02/17 Levothyroxine Sodium [Synthroid] 100 mcg PO DAILY 04/25/16 09/02/17 Nitroglycerin Sl Tabs [Nitrostat] 0.4 mg PO Q5M PRN 04/25/16 09/02/17 Ranitidine HCl 150 mg PO DAILY 04/25/16 09/02/17 Furosemide [Lasix] 40 mg PO BID 05/20/16 09/02/17 Carvedilol [Coreg] 12.5 mg PO QAM 11/28/16 09/02/17 Ranolazine [Ranexa] 500 mg PO BID 11/28/16 09/02/17 Aspirin 81 mg PO DAILY 03/22/17 09/02/17 Lisinopril [Prinivil] 10 mg PO DAILY 03/22/17 09/02/17 Meclizine [Antivert] 25 mg PO TID 05/06/17 09/02/17 Amiodarone HCl [Pacerone] 100 mg PO DAILY 05/16/17 09/02/17 HYDROcodone/APAP 5-325MG [[place] 1 tab PO DAILY PRN 06/03/17 09/02/17 5-325] traZODone HCL 50 mg PO HS PRN 06/03/17 09/02/17 Carvedilol [Coreg] 6.25 mg PO HS 08/04/17 09/02/17 Warfarin [Coumadin] 3 mg PO SUTH 08/04/17 09/02/17 Warfarin [Coumadin] 5 mg PO MOTUWEFRSA 08/04/17 09/02/17 Previous Rx's Medication Instructions Recorded Pyridostigmine [Mestinon] 30 mg PO BID tab 03/17/16 Potassium Chloride [K-Tab ER] 20 meq PO DAILY #30 tablet.er 05/06/17 Ondansetron [Zofran] 4 mg PO Q8HR PRN #30 tab 05/29/17 Allergies Allergy/AdvReac Type Severity Reaction Status Date / Time morphine AdvReac Severe Nausea & Verified 09/02/17 18:30 Vomiting Review of Systems ROS Statement: Those systems with pertinent positive or pertinent negative responses have been documented in the HPI. ROS Other: All systems not noted in ROS Statement are negative. EKG Findings - EKG Results: EKG: interpreted by [facility], sinus rhythm (Sinus rhythm with a rate of 78. Ago 182 QRS duration 82 QT since QTC of 414/471 this is a normal-appearing EKG with some artifact) Past Medical History Past Medical History: Atrial Fibrillation, Coronary Artery Disease (CAD), Cancer , Heart Failure, Diabetes Mellitus, Eye Disorder, Hyperlipidemia, Hypertension, Myocardial Infarction ([place]), Mitral Valve Prolapse (MVP), Osteoarthritis (OA), Pneumonia, Respiratory Disorder, Thyroid Disorder Additional Past Medical History / Comment(s): Paroxysmal Afib. Chronic CHF. RT Eye Occular Myasthenia Gravis. Chronic Back Pain. DJD. 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 DIET CONTROLLED DM. RECENT UTI. SKIN CA. RT breast CA with surgery. OCC Vertigo. CHRONIC Anemia. DIVERTICULOSIS. FALLS- hypothyroid, L hip fracture with surgery.UTI'S Last Myocardial Infarction Date:: 04/2014 History of Any Multi-Drug Resistant Organisms: None Reported Past Surgical History: Appendectomy, Back Surgery, Breast Surgery, Cardiac Valve Replacement, Heart Catheterization, Heart Catheterization With Stent, Hysterectomy, Orthopedic Surgery Additional Past Surgical History / Comment(s): 11/2016 L hip hemiarthroplasty, 2015 MVR. NEYMAR CTR, bilateral Rotator Cuff Repair. EXC Skin CA. TITANIUM VIMAL IN BACK, 7 BACK FUSIONS, 3 NECK FUSIONS. Stent Proximal RCA; HEART CATH . EXC NEYMAR CATARACTS, POSS Lens Implants, Bilateral Eye Laser. RT BREAST LUMPECTOMY x 2, RT BREAST SIMPLE MASTECTOMY 06/2015. ORIF Ankles. Colonoscopy. Past Anesthesia/Blood Transfusion Reactions: No Reported Reaction Additional Past Anesthesia/Blood Transfusion Reaction / Comment(s): Pt has recently received blood without reaction. Date of Last Stent Placement:: 08/17/2013 Past Psychological History: No Psychological Hx Reported Smoking Status: Former smoker - Past Family History Father History Unknown: Yes Family Medical History: No Reported History Additional Family Medical History / Comment(s): DAD IN MVA AT AGE 52 Mother History Unknown: Yes Family Medical History: Congestive Heart Failure (CHF) Additional Family Medical History / Comment(s): RHEUMATIC FEVER. Mother of CHF at the age of 59yrs. General Exam - General Exam Comments Initial Comments: This is a well-developed well-nourished awake alert oriented 3 female Limitations: no limitations General appearance: alert, in no apparent distress Head exam: Present: atraumatic, normocephalic, normal inspection Eye exam: Present: normal appearance, PERRL, EOMI. Absent: scleral icterus, conjunctival injection, periorbital swelling ENT exam: Present: normal exam, mucous membranes moist Neck exam: Present: normal inspection. Absent: tenderness, meningismus, lymphadenopathy Respiratory exam: Present: normal lung sounds bilaterally, chest wall tenderness (Reproducible tenderness palpation along the lower costal sternal margin and xiphoid. No step-off no crepitation). Absent: respiratory distress , wheezes, rales, rhonchi, stridor Cardiovascular Exam: Present: regular rate, normal rhythm, normal heart sounds. Absent: systolic murmur, diastolic murmur, rubs, gallop, clicks GI/Abdominal exam: Present: soft, normal bowel sounds. Absent: distended, tenderness, guarding, rebound, rigid Extremities exam: Present: normal inspection, full ROM, normal capillary refill. Absent: tenderness, pedal edema, joint swelling, calf tenderness Back exam: Present: normal inspection Neurological exam: Present: alert, oriented X3, CN II-XII intact Psychiatric exam: Present: normal affect, normal mood Skin exam: Present: warm, dry, intact, normal color. Absent: rash Course Vital Signs 09/02/17 09/02/17 18:13 19:22 Temperature 97.7 F Pulse Rate 78 75 Respiratory 16 18 Rate Blood Pressure 153/70 171/58 O2 Sat by Pulse 97 100 Oximetry Chest Pain MDM - MDM I did review the imaging and report no acute findings. The patient is feeling improved the presentation consistent with chest wall pain/costochondritis she will be discharged. She also was informed that she needs to drink more fluids as her BUN/creatinine ratio was elevated consistent with dehydration Disposition Clinical Impression: Costalchondritis, Chest wall syndrome, Dehydration, Prerenal azotemia Disposition: HOME SELF-CARE Condition: Good Instructions: Dehydration (ED), Costochondritis (ED) Additional Instructions: Tylenol for pain Referrals: Oscar Blancas MD [Primary Care Provider] - 1-2 days
[2017-09-02 18:39] LABS: Basophils # (A) 0.1 k/uL (0-0.2); Basophils % (A) 1 %; Eosinophils # (A) 0.3 k/uL (0-0.7); Eosinophils % (A) 5 %; HCT 37.3 % (34.0-46.0); HGB 12.8 gm/dL (11.4-16.0); Lymphocytes # (A) 1.6 k/uL (1.0-4.8); Lymphocytes % (A) 24 %; MCH 33.2 pg (25.0-35.0); MCHC 34.4 g/dL (31.0-37.0); MCV 96.6 fL (80.0-100.0); Mean Platelet Volume 7.4; Monocytes # (A) 0.5 k/uL (0-1.0); Monocytes % (A) 8 %; Neutrophils # (A) 3.9 k/uL (1.3-7.7); Neutrophils % (A) 60 %; Platelet Count 262 k/uL (150-450); RBC 3.86 m/uL (3.80-5.40); RDW 14.6 % (11.5-15.5); WBC 6.6 k/uL (3.8-10.6)
[2017-09-02 18:49] LABS: Albumin 4.3 g/dL (3.5-5.0); Calcium 9.3 mg/dL (8.4-10.2); INR 1.8 (<1.2); Partial Thromboplastin Time 29.4 sec (22.0-30.0); Potassium 4.4 mmol/L (3.5-5.1); Prothrombin Time 16.4 sec (9.0-12.0); Total Bilirubin 0.6 mg/dL (0.2-1.3); Total Protein 7.5 g/dL (6.3-8.2)
--- NOTE | 2017-09-02 18:56 | XR ---
EXAMINATION TYPE: XR chest 2V DATE OF EXAM: 09/02/2017 COMPARISON: August 04, 2017 HISTORY: Chest pain TECHNIQUE: Frontal and lateral views of the chest are obtained. FINDINGS: Cardiac silhouette is again enlarged. No pneumothorax is seen. There is no pleural effusio n. Lungs are clear. Previous sternotomy is noted. There is also extensive cervical fusion hardware. T here is also fusion of the thoracic and lumbar spine. Diffuse osteopenia is noted with exaggeration o f the normal thoracic kyphosis. IMPRESSION: No change in appearance of the chest.
[2017-09-02 19:07] LABS: Creatine Kinase MB 0.3 ng/mL (0.0-2.4); Troponin I 0.012 ng/mL (0.000-0.034)
[2017-09-02 19:23] VITALS: PULSE 75; RESP 18
[2017-09-02 20:24] VITALS: BP 119/58; TEMP 98.2
== END 2017-09-02 20:22 | disposition home or self-care (01) ==
LOC: EC 18:12
DX: M94.0 Chondrocostal junction syndrome [Tietze] (principal); R07.1 Chest pain on breathing; E86.0 Dehydration; R79.89 Other specified abnormal findings of blood chemistry; I25.10 Atherosclerotic heart disease of native coronary artery without angina pectoris; M19.90 Unspecified osteoarthritis, unspecified site; I25.2 Old myocardial infarction; I50.9 Heart failure, unspecified; I11.0 Hypertensive heart disease with heart failure; E03.9 Hypothyroidism, unspecified; I48.0 Paroxysmal atrial fibrillation; Z86.2 Personal history of diseases of the blood and blood-forming organs and certain disorders involving the immune mechanism; Z87.891 Personal history of nicotine dependence; Z85.3 Personal history of malignant neoplasm of breast; Z82.49 Family history of ischemic heart disease and other diseases of the circulatory system; Z88.5 Allergy status to narcotic agent; Z79.01 Long term (current) use of anticoagulants; Z79.82 Long term (current) use of aspirin; Z79.811 Long term (current) use of aromatase inhibitors; Z90.11 Acquired absence of right breast and nipple; Z79.899 Other long term (current) drug therapy; Z95.2 Presence of prosthetic heart valve; Z95.5 Presence of coronary angioplasty implant and graft
CPT/HCPCS: 36415; 71046; 80053; 82150; 82550; 82553; 83690; 83735; 83880; 84484; 85025; 85610; 85730; 93005; 99285

== ENCOUNTER 2017-09-13 06:57 | Inpatient (IN) | payer MEDICARE, BC ==
[2017-09-13] MEDS ORDERED: NITROGLYCERIN OINT 1 INCH/GM PACKET TOPICAL STA (07:43)
[2017-09-13 07:55] LABS: Basophils # (A) 0.1 k/uL (0-0.2); Basophils % (A) 1 %; Eosinophils # (A) 0.4 k/uL (0-0.7); Eosinophils % (A) 6 %; Lymphocytes # (A) 1.8 k/uL (1.0-4.8); Lymphocytes % (A) 30 %; MCHC 34.4 g/dL (31.0-37.0); MCV 95.9 fL (80.0-100.0); Mean Platelet Volume 7.5; Monocytes # (A) 0.4 k/uL (0-1.0); Monocytes % (A) 7 %; Neutrophils # (A) 3.2 k/uL (1.3-7.7); Neutrophils % (A) 54 %; Platelet Count 258 k/uL (150-450); RBC 3.65 m/uL (3.80-5.40); RDW 14.4 % (11.5-15.5)
[2017-09-13 08:02] LABS: INR 2.5 (<1.2); Partial Thromboplastin Time 33.8 sec (22.0-30.0); Prothrombin Time 22.1 sec (9.0-12.0)
--- NOTE | 2017-09-13 08:05 | XR ---
EXAMINATION TYPE: XR chest 2V DATE OF EXAM: 09/13/2017 COMPARISON: 09/02/2017 HISTORY: 81-year-old female with chest pain TECHNIQUE: Frontal and lateral views FINDINGS: Posterior cervical fusion and ACF hardware. Additional lower thoracolumbar fusion hardware and verteb roplasty change lower thoracic spine. Surgical clips right axilla. Median sternotomy wires are presen t. Embolic cement material noted bilaterally in the lungs. Heart upper limits of normal in size. Mild di ffuse interstitial prominence is unchanged. No consolidation or pleural effusion seen. IMPRESSION: Chronic changes without acute process seen. 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
--- NOTE | 2017-09-13 08:07 | ED ---
General Adult HPI - General Chief complaint: Chest Pain Stated complaint: chest pain Time Seen by Provider: 09/13/17 07:00 Source: patient, RN notes reviewed Mode of arrival: EMS Limitations: no limitations - History of Present Illness Initial comments: This is an 81-year-old female who presents emergency Department complaining of chest pain this morning. Patient states it lasted for an hour until she got 3 nitroglycerin. Patient states the pain was in the left side of her chest there was no radiation of the pain however she was short of breath and nauseated and sweating. Patient states all of her symptoms resolved at this time. Patient denies any recent fever chills or cough. Patient states she has a past history of a heart attack stents bypass surgery as well as diabetes hypertension high cholesterol. Patient denies any abdominal pain patient denies any vomiting or diarrhea. Patient denies any headache patient denies numbness weakness. Patient denies lightheadedness dizziness or near syncopal episode. - Related Data Home Medications Medication Instructions Recorded Confirmed Cholecalciferol [Vitamin D3] 1,000 unit PO DAILY 05/18/15 09/13/17 Cyanocobalamin [Vitamin B-12] 1,000 mcg PO DAILY 05/18/15 09/13/17 Anastrozole [Arimidex] 1 mg PO DAILY 09/14/15 09/13/17 Isosorbide Mononitrate ER [Imdur] 30 mg PO DAILY 04/25/16 09/13/17 Levothyroxine Sodium [Synthroid] 100 mcg PO DAILY 04/25/16 09/13/17 Nitroglycerin Sl Tabs [Nitrostat] 0.4 mg PO Q5M PRN 04/25/16 09/13/17 Ranitidine HCl 150 mg PO DAILY 04/25/16 09/13/17 Furosemide [Lasix] 40 mg PO BID 05/20/16 09/13/17 Carvedilol [Coreg] 12.5 mg PO QAM 11/28/16 09/13/17 Ranolazine [Ranexa] 500 mg PO BID 11/28/16 09/13/17 Aspirin 81 mg PO DAILY 03/22/17 09/13/17 Lisinopril [Prinivil] 10 mg PO DAILY 03/22/17 09/13/17 Meclizine [Antivert] 25 mg PO TID 05/06/17 09/13/17 Amiodarone HCl [Pacerone] 100 mg PO DAILY 05/16/17 09/13/17 HYDROcodone/APAP 5-325MG [[place] 1 tab PO DAILY PRN 06/03/17 09/13/17 5-325] traZODone HCL 50 mg PO HS PRN 06/03/17 09/13/17 Carvedilol [Coreg] 6.25 mg PO HS 08/04/17 09/13/17 Warfarin [Coumadin] 3 mg PO SUTH 08/04/17 09/13/17 Warfarin [Coumadin] 5 mg PO MOTUWEFRSA 08/04/17 09/13/17 Previous Rx's Medication Instructions Recorded Pyridostigmine [Mestinon] 30 mg PO BID tab 03/17/16 Potassium Chloride [K-Tab ER] 20 meq PO DAILY #30 tablet.er 05/06/17 Ondansetron [Zofran] 4 mg PO Q8HR PRN #30 tab 05/29/17 Allergies Allergy/AdvReac Type Severity Reaction Status Date / Time morphine AdvReac Severe Nausea & Verified 09/13/17 08:09 Vomiting Review of Systems ROS Statement: Those systems with pertinent positive or pertinent negative responses have been documented in the HPI. ROS Other: All systems not noted in ROS Statement are negative. Past Medical History Past Medical History: Atrial Fibrillation, Coronary Artery Disease (CAD), Cancer , Heart Failure, Diabetes Mellitus, Eye Disorder, Hyperlipidemia, Hypertension, Myocardial Infarction (MS), Mitral Valve Prolapse (MVP), Osteoarthritis (OA), Pneumonia, Respiratory Disorder, Thyroid Disorder Additional Past Medical History / Comment(s): Paroxysmal Afib. Chronic CHF. RT Eye Occular Myasthenia Gravis. Chronic Back Pain. DJD. 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 DIET CONTROLLED DM. RECENT UTI. SKIN CA. RT breast CA with surgery. OCC Vertigo. CHRONIC Anemia. DIVERTICULOSIS. FALLS- hypothyroid, L hip fracture with surgery.UTI'S Last Myocardial Infarction Date:: 04/2014 History of Any Multi-Drug Resistant Organisms: None Reported Past Surgical History: Appendectomy, Back Surgery, Breast Surgery, Cardiac Valve Replacement, Heart Catheterization, Heart Catheterization With Stent, Hysterectomy, Orthopedic Surgery Additional Past Surgical History / Comment(s): 11/2016 L hip hemiarthroplasty, 2015 MVR. NEYMAR CTR, bilateral Rotator Cuff Repair. EXC Skin CA. TITANIUM VIMAL IN BACK, 7 BACK FUSIONS, 3 NECK FUSIONS. Stent Proximal RCA; HEART CATH . EXC NEYMAR CATARACTS, POSS Lens Implants, Bilateral Eye Laser. RT BREAST LUMPECTOMY x 2, RT BREAST SIMPLE MASTECTOMY 06/2015. ORIF Ankles. Colonoscopy. Past Anesthesia/Blood Transfusion Reactions: No Reported Reaction Additional Past Anesthesia/Blood Transfusion Reaction / Comment(s): Pt has recently received blood without reaction. Date of Last Stent Placement:: 08/17/2013 Past Psychological History: No Psychological Hx Reported Smoking Status: Former smoker Past Alcohol Use History: None Reported Past Drug Use History: None Reported - Past Family History Father History Unknown: Yes Family Medical History: No Reported History Additional Family Medical History / Comment(s): DAD IN MVA AT AGE 52 Mother History Unknown: Yes Family Medical History: Congestive Heart Failure (CHF) Additional Family Medical History / Comment(s): RHEUMATIC FEVER. Mother of CHF at the age of 59yrs. General Exam - General Exam Comments Initial Comments: GENERAL: Patient is well-developed and well-nourished. Patient is nontoxic and well- hydrated and is in no acute distress. ENT: Neck is soft and supple. No significant lymphadenopathy is noted. Oropharynx is clear. Moist mucous membranes. Neck has full range of motion without eliciting any pain. EYES: The sclera were anicteric and conjunctiva were pink and moist. Extraocular movements were intact and pupils were equal round and reactive to light. Eyelids were unremarkable. PULMONARY: Unlabored respirations. Good breath sounds bilaterally. No audible rales rhonchi or wheezing was noted. CARDIOVASCULAR: There is a regular rate and rhythm without any murmurs gallops or rubs. ABDOMEN: Soft and nontender with normal bowel sounds. No palpable organomegaly was noted. There is no palpable pulsatile mass. SKIN: Skin is clear with no lesions or rashes and otherwise unremarkable. NEUROLOGIC: Patient is alert and oriented x3. Cranial nerves II through XII are grossly intact. Motor and sensory are also intact. Normal speech, volume and content. Symmetrical smile. MUSCULOSKELETAL: Normal extremities with adequate strength and full range of motion. No lower extremity swelling or edema. No calf tenderness. LYMPHATICS: No significant lymphadenopathy is noted PSYCHIATRIC: Normal psychiatric evaluation. Limitations: no limitations Course Vital Signs 09/13/17 09/13/17 09/13/17 07:00 07:32 09:05 Temperature 98.0 F 97.8 F Pulse Rate 78 66 66 Respiratory 18 16 16 Rate Blood Pressure 150/83 105/60 102/54 O2 Sat by Pulse 98 97 98 Oximetry Medical Decision Making - Medical Decision Making EKG shows normal sinus rhythm at 72 bpm. Was 176 dresses 94 Q-T intervals 440 QTC is 490 per patient's EKG shows no ST segment elevation or depression. - Lab Data Result diagrams: 09/13/17 07:08 09/13/17 07:08 Lab Results 09/13/17 09/13/17 09/13/17 Range/Units 07:08 07:08 07:08 WBC 6.0 (3.8-10.6) k/uL RBC 3.65 L (3.80-5.40) m/uL Hgb 12.0 (11.4-16.0) gm/dL Hct 35.0 (34.0-46.0) % MCV 95.9 (80.0-100.0) fL MCH 33.0 (25.0-35.0) pg MCHC 34.4 (31.0-37.0) g/dL RDW 14.4 (11.5-15.5) % Plt Count 258 (150-450) k/uL Neutrophils % 54 % Lymphocytes % 30 % Monocytes % 7 % Eosinophils % 6 % Basophils % 1 % Neutrophils # 3.2 (1.3-7.7) k/uL Lymphocytes # 1.8 (1.0-4.8) k/uL Monocytes # 0.4 (0-1.0) k/uL Eosinophils # 0.4 (0-0.7) k/uL Basophils # 0.1 (0-0.2) k/uL PT (9.0-12.0) sec INR (<1.2) APTT (22.0-30.0) sec Sodium 143 (137-145) mmol/L Potassium 4.3 (3.5-5.1) mmol/L Chloride 99 (98-107) mmol/L Carbon Dioxide 33 H (22-30) mmol/L Anion Gap 11 mmol/L BUN 35 H (7-17) mg/dL Creatinine 1.09 H (0.52-1.04) mg/dL Est GFR (CKD-EPI)AfAm 55 (>60 ml/min/1.73 sqM) Est GFR (CKD-EPI)NonAf 48 (>60 ml/min/1.73 sqM) Glucose 102 H (74-99) mg/dL Calcium 9.1 (8.4-10.2) mg/dL Magnesium 2.0 (1.6-2.3) mg/dL Total Bilirubin 0.8 (0.2-1.3) mg/dL AST 47 H (14-36) U/L ALT 18 (9-52) U/L Alkaline Phosphatase 75 (38-126) U/L Total Creatine Kinase 37 (30-135) U/L CK-MB (CK-2) 0.4 (0.0-2.4) ng/mL CK-MB (CK-2) Rel Index 1.1 Troponin I 0.016 (0.000-0.034) ng/mL Total Protein 7.1 (6.3-8.2) g/dL Albumin 4.0 (3.5-5.0) g/dL 09/13/17 Range/Units 07:08 WBC (3.8-10.6) k/uL RBC (3.80-5.40) m/uL Hgb (11.4-16.0) gm/dL Hct (34.0-46.0) % MCV (80.0-100.0) fL MCH (25.0-35.0) pg MCHC (31.0-37.0) g/dL RDW (11.5-15.5) % Plt Count (150-450) k/uL Neutrophils % % Lymphocytes % % Monocytes % % Eosinophils % % Basophils % % Neutrophils # (1.3-7.7) k/uL Lymphocytes # (1.0-4.8) k/uL Monocytes # (0-1.0) k/uL Eosinophils # (0-0.7) k/uL Basophils # (0-0.2) k/uL PT 22.1 H (9.0-12.0) sec INR 2.5 H (<1.2) APTT 33.8 H (22.0-30.0) sec Sodium (137-145) mmol/L Potassium (3.5-5.1) mmol/L Chloride (98-107) mmol/L Carbon Dioxide (22-30) mmol/L Anion Gap mmol/L BUN (7-17) mg/dL Creatinine (0.52-1.04) mg/dL Est GFR (CKD-EPI)AfAm (>60 ml/min/1.73 sqM) Est GFR (CKD-EPI)NonAf (>60 ml/min/1.73 sqM) Glucose (74-99) mg/dL Calcium (8.4-10.2) mg/dL Magnesium (1.6-2.3) mg/dL Total Bilirubin (0.2-1.3) mg/dL AST (14-36) U/L ALT (9-52) U/L Alkaline Phosphatase (38-126) U/L Total Creatine Kinase (30-135) U/L CK-MB (CK-2) (0.0-2.4) ng/mL CK-MB (CK-2) Rel Index Troponin I (0.000-0.034) ng/mL Total Protein (6.3-8.2) g/dL Albumin (3.5-5.0) g/dL Disposition Clinical Impression: Unstable angina Disposition: ADMITTED IP TO THIS HOSP Referrals: Oscar Blancas MD [Primary Care Provider] - 1-2 days Time of Disposition: 09:40
[2017-09-13 08:16] LABS: Calcium 9.1 mg/dL (8.4-10.2); Potassium 4.3 mmol/L (3.5-5.1); Total Bilirubin 0.8 mg/dL (0.2-1.3); Total Protein 7.1 g/dL (6.3-8.2)
[2017-09-13 08:29] LABS: Creatine Kinase MB 0.4 ng/mL (0.0-2.4); Troponin I 0.016 ng/mL (0.000-0.034)
[2017-09-13] MEDS ORDERED: NITROGLYCERIN SL TABS 0.4 MG TAB SUBLINGUAL PRN ×2 (09:40→20:46)
[2017-09-13 14:03] LABS: Creatine Kinase MB 0.8 ng/mL (0.0-2.4)
[2017-09-13 14:12] LABS: Troponin I 0.102 ng/mL (0.000-0.034)
[2017-09-13] MEDS: NITROGLYCERIN OINT 1 INCH/GM PACKET TOPICAL SCH ×3 (17:17→23:02)
--- NOTE | 2017-09-13 17:53 | HP ---
HISTORY AND PHYSICAL CHIEF COMPLAINT: Chest pain. HISTORY OF PRESENT ILLNESS: This is another admission for this lady who is in and out of the hospital almost weekly. She does live in a stressful environment with her daughter. She came back in with chest pain and normal enzymes and EKG. REVIEW OF SYSTEMS: She has had no diaphoresis, nausea, vomiting, radiation of the pain, shortness of breath, etc. The remainder of her history is unremarkable. Past medical history, family history, and personal and social histories are all unchanged from her recent admitting and discharge summaries. PHYSICAL EXAMINATION: Blood pressure is 161/74 with a pulse of 83 and regular, respirations of 30, and she is afebrile. In general she appeared well developed, well nourished, in no acute distress. Skin color is normal. Skin is warm and dry. Lymph nodes are not enlarged. Head, ears, eyes, nose, mouth and throat were normal. Neck veins are not distended. Thyroid is not enlarged. Chest is clear. Cardiac exam is normal. The abdomen is soft, nontender. Extremities are normal. Neurologically she is intact. IMPRESSION: 1. Unstable angina pectoris. 2. Coronary artery disease. 3. Carcinoma of the breast. 4. Depression. 5. Anxiety. PLAN: 1. Bed rest. 2. IV fluids. 3. Serial EKGs and enzymes. 4. Cardiology consult. MMQUINTONL / JENNIE: [id number] /
[2017-09-13 19:26] LABS: Creatine Kinase MB 0.6 ng/mL (0.0-2.4)
[2017-09-13 19:31] LABS: Troponin I 0.086 ng/mL (0.000-0.034)
[2017-09-13] MEDS ORDERED: ONDANSETRON 4 MG TAB PO PRN (20:46)
[2017-09-13] MEDS ORDERED: FUROSEMIDE 40 MG TAB PO SCH (21:00)
[2017-09-13] MEDS ORDERED: WARFARIN 5 MG TAB PO SCH (21:00)
[2017-09-13] MEDS: CARVEDILOL 6.25 MG TAB PO SCH (22:06)
[2017-09-13] MEDS: PYRIDOSTIGMINE 60 MG TAB PO SCH (22:07)
[2017-09-13] MEDS: RANOLAZINE 500 MG TAB.ER.12H PO SCH (22:07)
[2017-09-13] MEDS: traZODone HCL 50 MG TAB PO PRN (22:08)
[2017-09-14 03:58] LABS: Hemoglobin A1C 4.9 % (4.0-6.0)
[2017-09-14] MEDS: NITROGLYCERIN OINT 1 INCH/GM PACKET TOPICAL SCH (05:53)
[2017-09-14] MEDS: LEVOTHYROXINE 100 MCG TAB PO SCH (06:37)
[2017-09-14] MEDS: CARVEDILOL 12.5 MG TAB PO SCH (06:40)
[2017-09-14] MEDS ORDERED: SODIUM CHLORIDE 0.9% 500 ML IV ONE (07:03)
[2017-09-14 07:47] LABS: INR 2.3 (<1.2)
[2017-09-14 07:57] LABS: Cholesterol 239 mg/dL (<200); HDL Cholesterol 53 mg/dL (40-60); LDL Cholesterol,Calculated 144 mg/dL (0-99); Triglycerides 212 mg/dL (<150)
[2017-09-14] MEDS ORDERED: LISINOPRIL 10 MG TAB PO SCH (09:00)
[2017-09-14] MEDS ORDERED: ISOSORBIDE MONONITRATE ER 30 MG TAB.ER.24H PO SCH (09:00)
[2017-09-14] MEDS: HYDROcodone/APAP 5-325MG 1 EACH TAB PO PRN ×2 (10:28→18:02)
[2017-09-14] MEDS ORDERED: SODIUM CHLORIDE 0.9% 1,000 ML in EMPTY BAG 1 BAG IV ONE (10:42)
[2017-09-14] MEDS ORDERED: ATORVASTATIN 80 MG TAB PO STA (10:42)
[2017-09-14] MEDS ORDERED: NITROGLYCERIN SL TABS 0.4 MG TAB SUBLINGUAL PRN (10:42)
[2017-09-14] MEDS ORDERED: ALPRAZolam 0.5 MG TAB PO PRN (10:42)
[2017-09-14] MEDS ORDERED: ASPIRIN 325 MG TAB PO STA (10:42)
[2017-09-14] MEDS ORDERED: ALPRAZolam 0.25 MG TAB PO PRN (10:42)
--- NOTE | 2017-09-14 11:12 | CONS ---
CONSULTATION CHIEF COMPLAINT: Chest pain. HISTORY OF PRESENT ILLNESS: Dante is an 81-year-old lady with history of atrial fibrillation, mitral valve replacement, and prior coronary artery disease, status post angioplasty of right coronary artery, who is admitted to hospital with chest pain. She describes it as a precordial chest pressure mild to moderate intensity came on at rest without definite radiation to neck, arm or back. She received sublingual nitroglycerin x3 and became chest pain-free. Since admission, she has been doing well and is free of symptoms. Her troponins have come back elevated at 0.1, 0.08 and 0.04. EKG shows sinus rhythm without acute ST-T wave changes. The patient's clinical presentation is consistent with non ST-segment elevation CA and I advised her to undergo cardiac catheterization, which we will do tomorrow and Dr. Cornell Hua her primary hair specialist will be doing it. PAST MEDICAL HISTORY: Significant for coronary artery disease, status post angioplasty and atrial fibrillation, hypertension, dyslipidemia, mitral valve replacement, back surgery, appendectomy, breast surgery. MEDICATIONS: At home included Coumadin, Coreg 6.25 daily, Ranexa 500 b.i.d., Zantac, , K-Dur, Zofran, Antivert, Prinivil, Synthroid, Imdur, Lasix, Coreg, aspirin, Arimidex, and Pacerone. ALLERGIES: ALLERGIC TO MORPHINE. FAMILY HISTORY: Negative for premature coronary artery disease. SOCIAL HISTORY: Negative for smoking, EtOH abuse, or drug abuse. REVIEW OF SYSTEMS: HEENT is unremarkable. Cardiac as described above. Respiratory negative. GI negative. GENITOURINARY: Negative. Allergy none. Skin negative. Musculoskeletal negative. Endocrine negative. Derm negative. Constitutional negative. Oncological negative. Rest of the system review is not relevant. PHYSICAL EXAM: Patient is comfortable at rest. Vital signs are stable. There is no jugular venous distention. Chest exam reveals good air entry bilaterally. Heart exam reveals first and second heart sounds and early diastolic murmur in the aortic area. Abdomen is soft. Exam of extremities did not reveal edema. Peripheral pulses are felt. LAB: Show a hemoglobin of 12. INR is 2.3. Potassium is 4.3. Creatinine is 1. EKG does not reveal ischemic changes. Tropes are mildly elevated. ASSESSMENT: 1. Acute non ST-segment elevation myocardial infarction. 2. Mitral regurgitation, status post mitral valve replacement. 3. Coronary artery disease status post angioplasty of right coronary artery. PLAN: Patient will continue with the current medications. Coumadin will be held. She was scheduled for a cardiac catheterization by Dr. Cornell Hua and we will obtain a 2D echo to evaluate the prosthetic valve. MMODAsa / IJN: [id number] /
--- NOTE | 2017-09-14 12:23 | ECHOF ---
Referral Reason:chest pain MEASUREMENTS -------- HEIGHT: 165.1 cm WEIGHT: 61.7 kg BP: IVSd: 1.3 cm (0.6 - 1.1) LVIDd: 3.4 cm (3.9 - 5.3) LVPWd: 1.5 cm (0.6 - 1.1) IVSs: 1.5 cm LVIDs: 2.6 cm LVPWs: 1.9 cm LAESV Index (A-L): 48.01 ml/m Ao Diam: 3.1 cm (2.0 - 3.7) AV Cusp: 1.4 cm (1.5 - 2.6) LA Diam: 5.3 cm (2.7 - 3.8) MV E Harry: 2.10 m/s MV DecT: 378 ms MV A Harry: 0.71 m/s MV E/A Ratio: 2.94 AR PHT: 348 ms RAP: 5.00 mmHg RVSP: 41.96 mmHg FINDINGS -------- Sinus rhythm. This was a technically good study. The left ventricular size is normal. There is mild concentric left ventricular hypertrophy. Overa ll left ventricular systolic function is normal with, an EF between 55 - 60 %. The right ventricle is normal in size and function. LA is severely dilated >40 ml/m2 The right atrium is normal in size. Aortic valve is trileaflet and is mildly thickened. There is tbmwalse-rn-aojonp aortic regurgitatio n. Jwdg-qk-lsusscgr mitral regurgitation is present. The peak and mean MV gradients are 25.55mmHg 8.8 5mmHg as measured by doppler. Normally functioning bioprosthetic mitral valve. Mild tricuspid regurgitation present. There is mild pulmonary hypertension. The right ventricular systolic pressure, as measured by Doppler, is 41.96mmHg. Pulmonic valve appears structurally normal. The aortic root size is normal. The pericardium is normal. CONCLUSIONS -------- 1. Sinus rhythm. 2. This was a technically good study. 3. The left ventricular size is normal. 4. There is mild concentric left ventricular hypertrophy. 5. Overall left ventricular systolic function is normal with, an EF between 55 - 60 %. 6. The right ventricle is normal in size and function. 7. LA is severely dilated >40 ml/m2 8. The right atrium is normal in size. 9. Aortic valve is trileaflet and is mildly thickened. 10. There is ilyyofqa-ad-zrauuy aortic regurgitation. 11. Zvlk-df-dmozgwke mitral regurgitation is present. 12. The peak and mean MV gradients are 25.55mmHg 8.85mmHg as measured by doppler. 13. Normally functioning bioprosthetic mitral valve. 14. Mild tricuspid regurgitation present. 15. There is mild pulmonary hypertension. 16. The right ventricular systolic pressure, as measured by Doppler, is 41.96mmHg. 17. Pulmonic valve appears structurally normal. 18. The aortic root size is normal. 19. The pericardium is normal. WATER QUALITY TECHNICIAN: Yoko Terrazas RDCS
[2017-09-14] MEDS: PYRIDOSTIGMINE 60 MG TAB PO SCH ×2 (12:35→19:45)
[2017-09-14] MEDS: AMIODARONE 100 MG TAB PO SCH (12:35)
[2017-09-14] MEDS: RANOLAZINE 500 MG TAB.ER.12H PO SCH ×2 (12:35→19:45)
[2017-09-14] MEDS: FAMOTIDINE 20 MG TAB PO SCH (12:35)
[2017-09-14] MEDS: ANASTROZOLE 1 MG TAB PO SCH (12:36)
[2017-09-14] MEDS: ASPIRIN 325 MG TAB PO SCH (12:36)
[2017-09-14] MEDS: CARVEDILOL 6.25 MG TAB PO SCH (16:08)
--- NOTE | 2017-09-14 17:00 | PN ---
PROGRESS NOTE DATE OF SERVICE: 09/14/2017 CHIEF COMPLAINT: Chest pain and unstable angina. HISTORY OF PRESENT ILLNESS: This lady states that she is feeling fairly well and not having shortness of breath or pain, but her blood pressure did drop and her troponin has gone up. PHYSICAL EXAMINATION: Chest is fairly clear. Cardiac exam is normal. Abdomen is soft and nontender. She is in atrial fibrillation. IMPRESSION: 1. Unstable angina pectoris and acute coronary syndrome. 2. Probable myocardial infarction. 3. Atrial fibrillation. 4. Carcinoma of the breast. PLAN: Await recommendations of Cardiology. MMODL / IJN: [id number] /
[2017-09-14] MEDS ORDERED: WARFARIN 3 MG TAB PO SCH (18:00)
[2017-09-15 06:00] LABS: INR 2.5 (<1.2); Prothrombin Time 22.8 sec (9.0-12.0)
[2017-09-15 06:06] LABS: Glucose,Whole Blood 98 mg/dL (75-99)
[2017-09-15] MEDS: CARVEDILOL 12.5 MG TAB PO SCH (06:18)
[2017-09-15] MEDS: LEVOTHYROXINE 100 MCG TAB PO SCH (06:18)
[2017-09-15] MEDS: AMIODARONE 100 MG TAB PO SCH (06:19)
[2017-09-15] MEDS: FAMOTIDINE 20 MG TAB PO SCH (06:19)
[2017-09-15] MEDS: ASPIRIN 325 MG TAB PO SCH (06:19)
[2017-09-15] MEDS: ANASTROZOLE 1 MG TAB PO SCH (06:19)
[2017-09-15] MEDS: RANOLAZINE 500 MG TAB.ER.12H PO SCH ×2 (06:20→20:52)
[2017-09-15] MEDS: PYRIDOSTIGMINE 60 MG TAB PO SCH ×2 (06:20→20:52)
--- NOTE | 2017-09-15 15:00 | P.PN ---
Subjective Progress Note Date: 09/15/17 This is an 81-year-old lady with history of atrial fibrillation, mitral valve replacement, prior coronary artery disease with prior PCI, admitted to the hospital with symptoms of chest discomfort. Patient was seen in consultation by Dr. Anand. Troponins came back to be mildly at normal, and patient was recommended to undergo cardiac catheterization. This was initially scheduled to be performed today by Dr. Pricilla Hua, however the INR still remains elevated and for this reason the cardiac catheterization was canceled today and will tentatively be rescheduled for Monday. Overall the patient feels well, she denies any chest pain or difficulty in breathing. Hemodynamically she is stable. Objective - Vital Signs Vital signs: Vital Signs Temp 96.6 F L 09/15/17 11:47 Pulse 68 09/15/17 11:47 Resp 16 09/15/17 11:47 BP 122/66 09/15/17 11:47 Pulse Ox 97 09/15/17 11:47 Intake & Output 09/14/17 09/15/17 09/15/17 18:59 06:59 18:59 Intake Total 240 496 240 Balance 240 496 240 Weight 60.9 kg Intake: Intake, IV Titration 496 Amount Sodium Chloride 0.9% 1, 496 000 ml In Empty Bag 1 bag @ 1 ML/KG/HR 62 mls/hr IV .[id number] ONE Rx#: [id number] Oral 240 240 Other: Voiding Method Toilet Toilet Toilet # Voids 3 - Exam PHYSICAL EXAMINATION: HEENT: Head is atraumatic, normocephalic. Pupils equal, round. Neck is supple. There is no elevated jugular venous pressure. HEART EXAMINATION: Heart S1 and S2 1 diastolic murmur is heard. CHEST EXAMINATION: Lungs are clear to auscultation and precussion. No chest wall tenderness is noted on palpation or with deep breathing. ABDOMEN: Soft, nontender. Bowel sounds are heard. No organomegaly noted. EXTREMITIES: 2+ peripheral pulses with no evidence of peripheral edema and no calf tenderness noted. NEUROLOGIC patient is awake, alert and oriented -3. . - Labs CBC & Chem 7: 09/13/17 07:08 09/13/17 07:08 Labs: Abnormal Lab Results - Last 24 Hours (Table) 09/15/17 Range/Units 05:41 PT 22.8 H (9.0-12.0) sec INR 2.5 H (<1.2) Assessment and Plan Plan: Assessment and plan #1 non-ST elevation myocardial infarction #2 mitral regurg status post mitral valve replacement #3 CAD with prior RCA stenting #4 hypertension #5 hyperlipidemia Plan We will continue to hold the patient's Coumadin, tentatively reschedule the cardiac catheterization for Monday. Further recommendations to follow. DNP note has been reviewed, I agree with a documented findings and plan of care. Patient was seen and examined.
[2017-09-15] MEDS: CARVEDILOL 6.25 MG TAB PO SCH (17:07)
[2017-09-15] MEDS: HYDROcodone/APAP 5-325MG 1 EACH TAB PO PRN (19:20)
[2017-09-15] MEDS: traZODone HCL 50 MG TAB PO PRN (21:50)
[2017-09-16] MEDS: CARVEDILOL 12.5 MG TAB PO SCH (06:22)
[2017-09-16] MEDS: LEVOTHYROXINE 100 MCG TAB PO SCH (06:22)
[2017-09-16 06:49] LABS: INR 1.6 (<1.2); Prothrombin Time 15.2 sec (9.0-12.0)
[2017-09-16] MEDS ORDERED: ATORVASTATIN 80 MG TAB PO STA (09:05)
[2017-09-16] MEDS ORDERED: ALPRAZolam 0.5 MG TAB PO PRN (09:05)
[2017-09-16] MEDS ORDERED: NITROGLYCERIN SL TABS 0.4 MG TAB SUBLINGUAL PRN (09:05)
[2017-09-16] MEDS ORDERED: SODIUM CHLORIDE 0.9% 1,000 ML in EMPTY BAG 1 BAG IV ONE (09:05)
[2017-09-16] MEDS ORDERED: ASPIRIN 325 MG TAB PO STA (09:05)
[2017-09-16] MEDS ORDERED: ALPRAZolam 0.25 MG TAB PO PRN (09:05)
[2017-09-16] MEDS: RANOLAZINE 500 MG TAB.ER.12H PO SCH ×2 (09:22→19:51)
[2017-09-16] MEDS: AMIODARONE 100 MG TAB PO SCH (09:22)
[2017-09-16] MEDS: PYRIDOSTIGMINE 60 MG TAB PO SCH ×2 (09:22→19:51)
[2017-09-16] MEDS: ANASTROZOLE 1 MG TAB PO SCH (09:22)
[2017-09-16] MEDS: FAMOTIDINE 20 MG TAB PO SCH (09:23)
--- NOTE | 2017-09-16 12:23 | PN ---
PROGRESS NOTE DATE OF SERVICE: 09/16/2017. CHIEF COMPLAINT: 1. NSTEMI. 2. Coronary artery disease. HISTORY OF PRESENT ILLNESS: This lady is comfortable and was to be cathed today, but her PT/INR are still slightly high. PHYSICAL EXAM: Chest is clear. Cardiac exam is unchanged. The abdomen is soft and nontender. IMPRESSION: 1. Acute non-ST elevation myocardial infarction. 2. Coronary artery disease. 3. Carcinoma of the breast. PLAN: She will be cathed once her PT/INR are in a safe range. MMODL / IJN: [id number] /
[2017-09-16] MEDS ORDERED: LIDOCAINE 2% INJ 20 MG/ML (20 ML MDV) ONE (12:45)
[2017-09-16] MEDS ORDERED: IV FLUID CONTINUATION 1,000 ML IV ONE (12:52)
[2017-09-16] MEDS ORDERED: MIDAZOLAM 2 MG/2 ML VIAL ONE (12:54)
[2017-09-16] MEDS: MIDAZOLAM 2 MG/2 ML VIAL IV ONE ×2 (13:16→13:25)
[2017-09-16] MEDS ORDERED: IOPAMIDOL-370 100ML BTL INJ ONE (13:34)
[2017-09-16] MEDS ORDERED: RX INFO: IV CONTRAST WAS GIVEN 1 EACH MISC MISCELLANE PRN (13:35)
[2017-09-16] MEDS ORDERED: SODIUM CHLORIDE 0.9% 1,000 ML IV SCH (13:45)
--- NOTE | 2017-09-16 13:59 | PN ---
PROGRESS NOTE CHIEF COMPLAINT: N-STEMI. HISTORY OF PRESENT ILLNESS: This lady is comfortable. She is supposed to get her cardiac cath Monday, but it is possible that could be done today. PHYSICAL EXAM: She is slightly pale. Chest is clear. Cardiac exam is unremarkable. The abdomen is soft, nontender. IMPRESSION: 1. N-STEMI. 2. Coronary artery disease. 3. Congestive heart failure. 4. Carcinoma of the breast. PLAN: Possible cardiac cath today. MMODL / IJN: [id number] /
--- NOTE | 2017-09-16 15:20 | CC ---
CARDIAC CATHETERIZATION REPORT DATE OF SERVICE: September 16, 2017 PERFORMING PHYSICIAN: Philip Jim MD, moisture meter operator. PROCEDURE PERFORMED: Selective right and left coronary angiogram. INDICATION: This is a pleasant 81-year-old female patient who sees Dr. Kitty Hua as an outpatient with known history of coronary artery disease and prior stenting of the RCA in the past, presented to the hospital with chest discomfort and ruled in for acute non ST elevation myocardial infarction. Heart catheterization was recommended. APPROACH: Right common femoral artery. COMPLICATION: None LEVEL OF SEDATION: Moderate. SEDATION LENGTH: 15 minutes. PROCEDURE DESCRIPTION: After obtaining an informed consent, the patient was brought to cardiac laborer demolition. The right common femoral artery was cannulated using micropuncture technique and a micropuncture wire passed easily, then I placed a 6-Marshallese sheath in the right common femoral artery and then I did selective right and left coronary angiogram using JR4 and JL4 catheters. The procedure was completed without any complication. SELECTIVE CORONARY ANGIOGRAM: 1. The RCA is a large caliber vessel and it is a dominant vessel. The proximal RCA is stented and the stent is patent. The mid RCA has a lesion appeared to be in the range of 50%, seems to be unchanged compared to prior heart catheterization. The RCA distally is angiographically normal. It bifurcates into PDA and PLV branches both are angiographically normal. 2. The left main is angiographically normal it bifurcates into the left circumflex and left anterior descending artery. The left circumflex is a large caliber vessel and it is a nondominant vessel. The proximal circ appeared to have intermediate disease only and gives rise into a large first OM branch which has an ostial disease appeared to be in the range of 50% to 60%. The second OM branch is intermediate caliber vessel seems to be angiographically normal. 3. The left circumflex after the second OM branch has a lesion appeared to be in the range of 50%. Distally appeared to be angiographically normal. 4. The LAD is a large caliber vessel and is angiographically normal. It gives rise into 4 small diagonal branches. This seems to have mild disease only. CONCLUSION: 1. Patent stent in the proximal RCA with intermediate disease involving the mid RCA, unchanged compared to prior heart catheterization. 2. Normal left main coronary artery. 3. Intermediate disease involving the left circumflex. 4. Normal left anterior descending artery. POSTPROCEDURE MANAGEMENT: 1. Maximize medical treatment. 2. Follow up with the patient. DAO / MARIKAN: [id number] /
[2017-09-16] MEDS: HYDROcodone/APAP 5-325MG 1 EACH TAB PO PRN (16:23)
[2017-09-16] MEDS: CARVEDILOL 6.25 MG TAB PO SCH (16:24)
[2017-09-16] MEDS: traZODone HCL 50 MG TAB PO PRN (23:19)
[2017-09-17] MEDS: CARVEDILOL 12.5 MG TAB PO SCH (06:30)
[2017-09-17] MEDS: LEVOTHYROXINE 100 MCG TAB PO SCH (06:30)
[2017-09-17] MEDS ORDERED: ASPIRIN 325 MG TAB PO SCH (09:00)
[2017-09-17] MEDS: AMIODARONE 100 MG TAB PO SCH (09:49)
[2017-09-17] MEDS: RANOLAZINE 500 MG TAB.ER.12H PO SCH (09:49)
[2017-09-17] MEDS: PYRIDOSTIGMINE 60 MG TAB PO SCH (09:49)
[2017-09-17] MEDS: ANASTROZOLE 1 MG TAB PO SCH ×2 (09:50→10:38)
[2017-09-17] MEDS: FAMOTIDINE 20 MG TAB PO SCH (09:50)
--- NOTE | 2017-09-17 10:48 | DS ---
DISCHARGE SUMMARY CHIEF COMPLAINT: Chest pain. HISTORY OF PRESENT ILLNESS AND PHYSICAL EXAM: Details of this lady's history and physical can be found in the initial workup. LABORATORY STUDIES: While she was in the hospital, she had laboratory studies details which can be found laboratory section of her chart. COURSE IN HOSPITAL: After admission, she was placed on bedrest, started on intravenous fluids and had serial EKGs and enzymes. Troponins went up. She was seen by Cardiology and taken for cardiac cath. There are no critical lesions identified and it was felt that she could go home on her current medication and intense treatment for ASCVD and CAD. She will be discharged on her regular diet and activity and usual medications. It was noted that she was not on a statin at the time of discharge, and she is not allergic to one. She does not recall if she has had trouble for, however, she will be sent home on atorvastatin 80 mg at bedtime. She will be seen in the office in 1 or 2 days and she will be referred to [facility]. FINAL DIAGNOSES: 1. Acute non-ST elevation myocardial infarction. 2. Coronary artery disease. 3. Atherosclerotic cardiovascular disease. 4. Atrial fibrillation. 5. Carcinoma of the right breast. OPERATIONS: Cardiac cath. CONSULTATIONS: Cardiology. CONDITION ON DISCHARGE: She is improved. MMODL / IJN: [id number] /
--- NOTE | 2017-09-17 11:05 | P.PN ---
Progress Note - Text Progress Note Date: 09/17/17 this is a pleasant 81-year-old female patient who sees Dr. ADAM Hua in the office as an outpatient with a known CAD and prior stenting of the RCA presented to the hospital with chest discomfort and ruled in for acute coronary syndrome. She did undergo a heart catheterization yesterday and that revealed patent stent in the RCA with intermediate disease in the left circumflex seems to be unchanged compared to before. From a cardiovascular standpoint of view, she denies having any chest pain or discomfort. She can be discharged home today.
[2017-09-17 12:25] VITALS: PULSE 63; RESP 18
[2017-09-17 12:37] VITALS: BP 133/73; TEMP 97.1
[2017-09-17] MEDS ORDERED: ATORVASTATIN 80 MG TAB PO SCH (21:00)
--- NOTE | 2017-09-21 18:02 | CDI ---
Last Revision, May 2017 Documentation Clarification Form Date: 09/21/2017 5:59:41 PM From: Susan Curran Phone: If you have a question regarding this query, please contact Nikki Bowers at [phone] between 8am and 5pm. Admit Date: 09/14/2017 2:09:00 PM Patient Name: Dante Castañeda Visit Number: [id number] Discharge Date: 09/17/17 ATTENTION: The Clinical Documentation Specialists (CDI) and [facility] Coding Staff appreciate your assistance in clarifying documentation. Please respond to the clarification below the line at the bottom and electronically sign. The CDI & [facility] Coding staff will review the response and follow-up if needed. Please note: Queries are made part of the Legal Health Record. If you have any questions, please contact the author of this message via ITS. Dr. Jerry Wills CHF is documented in the past medical history of the ED note and in Dr. Blancas' s 09/16 progress note. History/Risk Factors:. Patient has a history of hypertension, coronary artery disease and mitral valve prolapse. VS/Pulse OX: T. 98.0, P. 78, R. 18, BP 150/83, Pulse Ox, 98% on room air Echocardiogram Results: overall left ventricular systolic function is normal with an EF between 55 - 60% Chest X Ray: Chronic changes without acute process seen. Treatment: Lasix 40 mg PO In your professional opinion, can you please clarify the type of CHF if known? Systolic Heart Failure: Diastolic Heart Failure: Systolic & Diastolic Heart Failure: Unable to Determine Other, please specify MTDD
--- NOTE | 2017-10-03 15:35 | CDI ---
Last Revision, May 2017 Documentation Clarification Form Date: 10/03/17 From: Susan Curran Phone: If you have a question regarding this query, please contact Nikki Bowers at [phone] between 8am and 5pm. Admit Date: 09/14/2017 2:09:00 PM Patient Name: Dante Castañeda Visit Number: [id number] Discharge Date: ATTENTION: The Clinical Documentation Specialists (CDI) and [facility] Coding Staff appreciate your assistance in clarifying documentation. Please respond to the clarification below the line at the bottom and electronically sign. The CDI & [facility] Coding staff will review the response and follow-up if needed. Please note: Queries are made part of the Legal Health Record. If you have any questions, please contact the author of this message via ITS. Dr. Jerry Wills Thank you for signing the previous query. Please document a response before signing this query. CHF is documented in the past medical history of the ED note and in Dr. Blancas' s 09/16 progress note. History/Risk Factors:. Patient has a history of hypertension, coronary artery disease and mitral valve prolapse. VS/Pulse OX: T. 98.0, P. 78, R. 18, BP 150/83, Pulse Ox, 98% on room air Echocardiogram Results: overall left ventricular systolic function is normal with an EF between 55 - 60% Chest X Ray: Chronic changes without acute process seen. Treatment: Lasix 40 mg PO In your professional opinion, can you please clarify the type of CHF if known? Systolic Heart Failure: Diastolic Heart Failure: Systolic & Diastolic Heart Failure: Unable to Determine Other, please specify MTDD
--- NOTE | 2017-10-09 08:05 | CDI ---
Last Revision, May 2017 Documentation Clarification Form Date: 10/09/17 From: Susan Curran Phone: If you have question regarding this query, please contact Nikki Bowers at [phone] between 8am and 5pm. Admit Date: 09/14/2017 2:09:00 PM Patient Name: Dante Castañeda Visit Number: [id number] Discharge Date: 09/17/17 ATTENTION: The Clinical Documentation Specialists (CDI) and [facility] Coding Staff appreciate your assistance in clarifying documentation. Please respond to the clarification below the line at the bottom and electronically sign. The CDI & [facility] Coding staff will review the response and follow-up if needed. Please note: Queries are made part of the Legal Health Record. If you have any questions, please contact the author of this message via ITS. Dr. Jerry Wills CHF is documented in the past medical history of the ED note and in Dr. Blancas' s 09/16 progress note. History/Risk Factors:. Patient has a history of hypertension, coronary artery disease and mitral valve prolapse. VS/Pulse OX: T. 98.0, P. 78, R. 18, BP 150/83, Pulse Ox, 98% on room air Echocardiogram Results: overall left ventricular systolic function is normal with an EF between 55 - 60% Chest X Ray: Chronic changes without acute process seen. Treatment: Lasix 40 mg PO In your professional opinion, can you please clarify the type of CHF if known? Systolic Heart Failure: Diastolic Heart Failure: Systolic & Diastolic Heart Failure: Unable to Determine Other, please specify MTDD
--- NOTE | 2017-10-13 16:26 | CDI ---
Last Revision, May 2017 Documentation Clarification Form Date: 10/13/14 From: Susan Curran Phone: If you have a question regarding this query, please contact Nikki Bowers at [phone] between 8am and 5pm Admit Date: 09/14/2017 2:09:00 PM Patient Name: Dante Castañeda Visit Number: [id number] Discharge Date: 09/17/17 ATTENTION: The Clinical Documentation Specialists (CDI) and [facility] Coding Staff appreciate your assistance in clarifying documentation. Please respond to the clarification below the line at the bottom and electronically sign. The CDI & [facility] Coding staff will review the response and follow-up if needed. Please note: Queries are made part of the Legal Health Record. If you have any questions, please contact the author of this message via ITS. Dr. Jerry Wills Thank you for signing your previous query. Please document a response before signing this query. CHF is documented in the past medical history of the ED note and in Dr. Blancas' s 09/16 progress note. History/Risk Factors:. Patient has a history of hypertension, coronary artery disease and mitral valve prolapse. VS/Pulse OX: T. 98.0, P. 78, R. 18, BP 150/83, Pulse Ox, 98% on room air Echocardiogram Results: overall left ventricular systolic function is normal with an EF between 55 - 60% Chest X Ray: Chronic changes without acute process seen. Treatment: Lasix 40 mg PO In your professional opinion, can you please clarify the type of CHF if known? Systolic Heart Failure: Diastolic Heart Failure: Systolic & Diastolic Heart Failure: Unable to Determine Other, please specify MTDD
--- NOTE | 2017-10-24 23:21 | CONS ---
CONSULTATION DATE OF CONSULTATION: 10/24/2017 REASON FOR CONSULTATION: Medical management requested by Dr. Morfin. CONSULTATION: This is a pleasant 38-year-old patient of Dr. Irvin. Chronic stable medical conditions include GERD, hypertension, rheumatoid arthritis, anxiety, depression, ADD. The patient has undergone left total hip arthroplasty. Pain is controlled. No nausea, vomiting, having his [employer] lunch when I walked in, present with his . Denies any cardiac history. No nausea, vomiting. The patient is active smoker. REVIEW OF SYSTEMS: CONSTITUTIONAL: None. HEENT: None. RESPIRATORY: Occasional cough. CARDIOVASCULAR: None. GASTROINTESTINAL: Heartburn. GENITOURINARY: None. MUSCULOSKELETAL: Arthritic pain in multiple joints. DERMATOLOGICAL: None. HEMATOLOGIC: None. LYMPHATIC: None. PSYCHIATRY: Anxious. NEUROLOGICAL: None. PAST HISTORY: GERD, hypertension, osteoarthritis, rheumatoid arthritis, obstructive sleep apnea, does not use CPAP machine, anxiety, depression, ADD. PAST SURGICAL HISTORY: Back surgery, joint replacement, right rotator cuff repair, total joint, right shoulder at [place], left knee arthroscopy, anterior total left hip arthroplasty. HOME MEDICATIONS: 1. Percocet 10 1 tab q.6h p.r.n. 2. Ambien 10 mg at bedtime p.r.n. 3. Zoloft 100 mg p.o. daily. 4. Imitrex 25 mg daily p.r.n. 5. Zantac 150 mg p.o. b.i.d. 6. Sudafed 120 mg p.o. daily. 7. Prazosin 2 mg p.o. daily. 8. Fish oil 1 capsule p.o. daily. 9. Niacin 100 mg p.o. daily. 10.Claritin 10 mg p.o. daily. 11.Zestril 10 mg p.o. daily. 12.Folic acid 1 mg p.o. daily. 13.Adderall 30 mg p.o. daily. 14.Vitamin D3 2000 units p.o. daily. 15.Abilify 10 mg p.o. daily. 16.Senokot 1 tab p.o. b.i.d. ALLERGIES: MORPHINE. PHYSICAL EXAMINATION: Temperature 97.9, pulse 64, respiration 16, blood pressure 143/54, pulse ox 98% on room air. GENERAL APPEARANCE: Well-built, BMI 36.5, sitting up, comfortable. EYES: Pupils equal and conjunctivae are normal. HEENT: External appearance of nose and ears normal. Oral cavity normal. NECK: JVD not raised. Mass not palpable. LUNGS: Slightly decreased breath sounds. CARDIOVASCULAR: First and second sounds normal. No edema. ABDOMEN: Soft, nontender. Liver and spleen not palpable. LYMPHATIC: No lymph node palpable in neck or axillae. PSYCHIATRY: Alert and oriented x3. Mood and affect anxious-appearing. NEUROLOGICAL: Pupils equal. Power and sensation grossly intact. MUSCULOSKELETAL: Dressing over the left hip. INVESTIGATIONS: No blood work. ASSESSMENT: 1. Left total hip arthroplasty. 2. Gastroesophageal reflux disease. 3. Essential hypertension. 4. Primary osteoarthritis and rheumatoid arthritis. 5. Obstructive sleep apnea, does not use CPAP machine. 6. Anxiety, depression, not otherwise specified. 7. Attention deficit hyperactivity disorder. 8. Chronic nicotine dependence. The patient is a smoker. PLAN: Care was discussed with the patient. Home medications are resumed. The patient will be given a nicotine patch. Pain is controlled. The patient has chronic pain. Questions were answered. MMODL / IJN: [id number] /
--- NOTE | 2017-11-07 17:04 | CDI ---
Last Revision, May 2017 Documentation Clarification Form Date: 10/13/17 From: Susan Curran Phone: If you have a question regarding this query, please contact Nikki Bowers at [phone] between 8am and 5pm. Admit Date: 09/14/2017 2:09:00 PM Patient Name: Dante Castañeda Visit Number: [id number] Discharge Date: 09/17/17 ATTENTION: The Clinical Documentation Specialists (CDI) and [facility] Coding Staff appreciate your assistance in clarifying documentation. Please respond to the clarification below the line at the bottom and electronically sign. The CDI & [facility] Coding staff will review the response and follow-up if needed. Please note: Queries are made part of the Legal Health Record. If you have any questions, please contact the author of this message via ITS. Dr. Jerry Wills Thank you for signing your last query. Please document a response before signing this query. CHF is documented in the past medical history of the ED note and in Dr. Blancas' s 09/16 progress note. History/Risk Factors:. Patient has a history of hypertension, coronary artery disease and mitral valve prolapse. VS/Pulse OX: T. 98.0, P. 78, R. 18, BP 150/83, Pulse Ox, 98% on room air Echocardiogram Results: overall left ventricular systolic function is normal with an EF between 55 - 60% Chest X Ray: Chronic changes without acute process seen. Treatment: Lasix 40 mg PO In your professional opinion, can you please clarify the type of CHF if known? Systolic Heart Failure: Diastolic Heart Failure: Systolic & Diastolic Heart Failure: Unable to Determine Other, please specify MTDD
--- NOTE | 2017-11-09 14:51 | P.PN ---
Progress Note - Text Progress Note Date: 11/09/17 This is an addendum to the cardiology consultation in progress note. Patient has preserved left ventricular systolic function, therefore congestive heart failure is heart failure with preserved LV function. Acute on chronic. DNP note has been reviewed, I agree with a documented findings and plan of care. Patient was seen and examined.
== END 2017-09-17 14:02 | disposition home health service (06) | DRG 280 ==
LOC: EC 06:57 → 3OBS 09:40 → 6SEL 14:30 → OBSVTOIN 09-14 14:09
PROVIDERS: ADMIT Family Medicine; ATTEND Family Medicine
PROC: B2111ZZ Fluoroscopy of Multiple Coronary Arteries using Low Osmolar Contrast (ICD-10-PCS; principal; 2017-09-16 12:37)
DX: I21.4 Non-ST elevation (NSTEMI) myocardial infarction (principal); I50.33 Acute on chronic diastolic (congestive) heart failure; G70.00 Myasthenia gravis without (acute) exacerbation; I11.0 Hypertensive heart disease with heart failure; I48.0 Paroxysmal atrial fibrillation; E11.9 Type 2 diabetes mellitus without complications; E03.9 Hypothyroidism, unspecified; G47.33 Obstructive sleep apnea (adult) (pediatric); I50.9 Heart failure, unspecified; K21.9 Gastro-esophageal reflux disease without esophagitis; M06.9 Rheumatoid arthritis, unspecified; F90.9 Attention-deficit hyperactivity disorder, unspecified type; I25.110 Atherosclerotic heart disease of native coronary artery with unstable angina pectoris; E78.00 Pure hypercholesterolemia, unspecified; E78.5 Hyperlipidemia, unspecified; F32.9 Major depressive disorder, single episode, unspecified; F41.9 Anxiety disorder, unspecified; I25.2 Old myocardial infarction; G89.29 Other chronic pain; K57.90 Diverticulosis of intestine, part unspecified, without perforation or abscess without bleeding; M19.90 Unspecified osteoarthritis, unspecified site; M19.91 Primary osteoarthritis, unspecified site; M54.9 Dorsalgia, unspecified; Z79.899 Other long term (current) drug therapy; Z79.01 Long term (current) use of anticoagulants; Z79.811 Long term (current) use of aromatase inhibitors; Z79.82 Long term (current) use of aspirin; Z95.5 Presence of coronary angioplasty implant and graft; Z98.42 Cataract extraction status, left eye; Z98.41 Cataract extraction status, right eye; Z96.1 Presence of intraocular lens; Z95.2 Presence of prosthetic heart valve; Z90.710 Acquired absence of both cervix and uterus; Z90.10 Acquired absence of unspecified breast and nipple; Z87.891 Personal history of nicotine dependence; Z85.3 Personal history of malignant neoplasm of breast; Z85.828 Personal history of other malignant neoplasm of skin; Z87.440 Personal history of urinary (tract) infections; Z90.49 Acquired absence of other specified parts of digestive tract; Z88.5 Allergy status to narcotic agent; Z98.1 Arthrodesis status; Z96.642 Presence of left artificial hip joint; Z82.49 Family history of ischemic heart disease and other diseases of the circulatory system
CPT/HCPCS: 36415; 71046; 80053; 80061; 82550; 82553; 83036; 83735; 84484; 85025; 85610; 85730; 93005; 93306; 93454; 94760; 99285

== ENCOUNTER 2017-10-08 18:31 | Observation (INO) | payer MEDICARE, BC ==
[2017-10-08] MEDS ORDERED: NITROGLYCERIN OINT 1 INCH/GM PACKET TOPICAL STA (18:33)
--- NOTE | 2017-10-08 18:35 | ED ---
General Adult HPI - General Stated complaint: chest pain Time Seen by Provider: 10/08/17 18:31 Source: RN notes reviewed - History of Present Illness Initial comments: This is an 81-year-old female presents emergency department with past medical history significant for mitral valve replacement as well as a cardiac stent. Patient states she controls it diabetes with diet and she does take some blood pressure medications. Patient comes in today stating about 45 minutes ago she started having central chest pain and some mild shortness of breath. Patient denies radiation of the pain. Patient denies any nausea or diaphoresis. Patient called EMS they gave her aspirin she took nitroglycerin 2 and it did not help. Patient denies any abdominal pain patient denies any vomiting diarrhea. Patient denies headache patient denies numbness weakness. Patient denies lightheadedness dizziness or near syncopal episode. - Related Data Home Medications Medication Instructions Recorded Confirmed Cholecalciferol [Vitamin D3] 1,000 unit PO DAILY 05/18/15 09/13/17 Cyanocobalamin [Vitamin B-12] 1,000 mcg PO DAILY 05/18/15 09/13/17 Anastrozole [Arimidex] 1 mg PO DAILY 09/14/15 09/13/17 Isosorbide Mononitrate ER [Imdur] 30 mg PO DAILY 04/25/16 09/13/17 Levothyroxine Sodium [Synthroid] 100 mcg PO DAILY 04/25/16 09/13/17 Nitroglycerin Sl Tabs [Nitrostat] 0.4 mg PO Q5M PRN 04/25/16 09/13/17 Ranitidine HCl 150 mg PO DAILY 04/25/16 09/13/17 Furosemide [Lasix] 40 mg PO BID 05/20/16 09/13/17 Carvedilol [Coreg] 12.5 mg PO QAM 11/28/16 09/13/17 Ranolazine [Ranexa] 500 mg PO BID 11/28/16 09/13/17 Aspirin 81 mg PO DAILY 03/22/17 09/13/17 Lisinopril [Prinivil] 10 mg PO DAILY 03/22/17 09/13/17 Meclizine [Antivert] 25 mg PO TID 05/06/17 09/13/17 Amiodarone HCl [Pacerone] 100 mg PO DAILY 05/16/17 09/13/17 HYDROcodone/APAP 5-325MG [[place] 1 tab PO DAILY PRN 06/03/17 09/13/17 5-325] traZODone HCL 50 mg PO HS PRN 06/03/17 09/13/17 Carvedilol [Coreg] 6.25 mg PO HS 08/04/17 09/13/17 Warfarin [Coumadin] 3 mg PO SUTH 08/04/17 09/13/17 Warfarin [Coumadin] 5 mg PO [id number] 08/04/17 09/13/17 Previous Rx's Medication Instructions Recorded Pyridostigmine [Mestinon] 30 mg PO BID tab 03/17/16 Potassium Chloride [K-Tab ER] 20 meq PO DAILY #30 tablet.er 05/06/17 Ondansetron [Zofran] 4 mg PO Q8HR PRN #30 tab 05/29/17 Allergies Allergy/AdvReac Type Severity Reaction Status Date / Time morphine AdvReac Severe Nausea & Verified 10/08/17 18:36 Vomiting Review of Systems ROS Statement: Those systems with pertinent positive or pertinent negative responses have been documented in the HPI. ROS Other: All systems not noted in ROS Statement are negative. Past Medical History Past Medical History: Atrial Fibrillation, Coronary Artery Disease (CAD), Cancer , Heart Failure, Diabetes Mellitus, Eye Disorder, Hyperlipidemia, Hypertension, Myocardial Infarction ([place]), Mitral Valve Prolapse (MVP), Osteoarthritis (OA), Pneumonia, Respiratory Disorder, Thyroid Disorder Additional Past Medical History / Comment(s): Paroxysmal Afib. Chronic CHF. RT Eye Occular Myasthenia Gravis. Chronic Back Pain. DJD. 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 DIET CONTROLLED DM, CHECKS BS ONCE A DAY BUT TAKES NO MEDS.. RECENT UTI. SKIN CA. RT breast CA with surgery.(NO BP RT ARM) OCC Vertigo. CHRONIC Anemia. DIVERTICULOSIS. FALLS- hypothyroid, L hip fracture with surgery.UTI'S Last Myocardial Infarction Date:: 04/2014 History of Any Multi-Drug Resistant Organisms: None Reported Past Surgical History: Appendectomy, Back Surgery, Breast Surgery, Cardiac Valve Replacement, Heart Catheterization, Heart Catheterization With Stent, Hysterectomy, Orthopedic Surgery Additional Past Surgical History / Comment(s): 11/2016 L hip hemiarthroplasty, 2015 MVR. NEYMAR CTR, bilateral Rotator Cuff Repair. EXC Skin CA. TITANIUM VIMAL IN BACK, 7 BACK FUSIONS, 3 NECK FUSIONS. Stent Proximal RCA; HEART CATH . EXC NEYMAR CATARACTS, POSS Lens Implants, Bilateral Eye Laser. RT BREAST LUMPECTOMY x 2, RT BREAST SIMPLE MASTECTOMY 06/2015. ORIF Ankles. Colonoscopy. Past Anesthesia/Blood Transfusion Reactions: No Reported Reaction Additional Past Anesthesia/Blood Transfusion Reaction / Comment(s): Pt has recently received blood without reaction. Date of Last Stent Placement:: 08/17/2013 Smoking Status: Former smoker - Past Family History Father History Unknown: Yes Family Medical History: No Reported History Additional Family Medical History / Comment(s): DAD IN MVA AT AGE 52 Mother History Unknown: Yes Family Medical History: Congestive Heart Failure (CHF) Additional Family Medical History / Comment(s): RHEUMATIC FEVER. Mother of CHF at the age of 59yrs. General Exam - General Exam Comments Initial Comments: GENERAL: Patient is well-developed and well-nourished. Patient is nontoxic and well- hydrated and is in mild distress. ENT: Neck is soft and supple. No significant lymphadenopathy is noted. Oropharynx is clear. Moist mucous membranes. Neck has full range of motion without eliciting any pain. EYES: The sclera were anicteric and conjunctiva were pink and moist. Extraocular movements were intact and pupils were equal round and reactive to light. Eyelids were unremarkable. PULMONARY: Unlabored respirations. Good breath sounds bilaterally. No audible rales rhonchi or wheezing was noted. CARDIOVASCULAR: There is a regular rate and rhythm without any murmurs gallops or rubs. ABDOMEN: Soft and nontender with normal bowel sounds. No palpable organomegaly was noted. There is no palpable pulsatile mass. SKIN: Skin is clear with no lesions or rashes and otherwise unremarkable. NEUROLOGIC: Patient is alert and oriented x3. Cranial nerves II through XII are grossly intact. Motor and sensory are also intact. Normal speech, volume and content. Symmetrical smile. MUSCULOSKELETAL: Normal extremities with adequate strength and full range of motion. No lower extremity swelling or edema. No calf tenderness. LYMPHATICS: No significant lymphadenopathy is noted PSYCHIATRIC: Normal psychiatric evaluation. Course Vital Signs 10/08/17 10/08/17 18:36 19:05 Temperature 98.2 F Pulse Rate 68 64 Respiratory 16 18 Rate Blood Pressure 140/63 126/60 O2 Sat by Pulse 99 99 Oximetry Medical Decision Making - Medical Decision Making EKG shows normal sinus rhythm at 60 bpm IA interval is 160 QRS 76 QT intervals 418 QTC is 444. Patient's EKG shows no ST segment elevation or depression or T wave abnormalities are noted Chest x-ray shows no acute abnormality. I spoke with Dr. Mcconnell in admitted the patient to his service I wrote admitting orders consult cardiology continue the patient on Nitropaste and aspirin patient did not need heparin because of the Coumadin she was already on. - Lab Data Result diagrams: 10/08/17 18:30 10/08/17 18:30 Lab Results 10/08/17 10/08/17 10/08/17 Range/Units 18:30 18:30 18:30 WBC 5.0 (3.8-10.6) k/uL RBC 3.29 L (3.80-5.40) m/uL Hgb 10.7 L (11.4-16.0) gm/dL Hct 31.7 L (34.0-46.0) % MCV 96.4 (80.0-100.0) fL MCH 32.6 (25.0-35.0) pg MCHC 33.9 (31.0-37.0) g/dL RDW 14.5 (11.5-15.5) % Plt Count 210 (150-450) k/uL Neutrophils % 54 % Lymphocytes % 30 % Monocytes % 8 % Eosinophils % 5 % Basophils % 0 % Neutrophils # 2.7 (1.3-7.7) k/uL Lymphocytes # 1.5 (1.0-4.8) k/uL Monocytes # 0.4 (0-1.0) k/uL Eosinophils # 0.3 (0-0.7) k/uL Basophils # 0.0 (0-0.2) k/uL PT (9.0-12.0) sec INR (<1.2) APTT (22.0-30.0) sec Sodium 141 (137-145) mmol/L Potassium 4.5 (3.5-5.1) mmol/L Chloride 102 (98-107) mmol/L Carbon Dioxide 30 (22-30) mmol/L Anion Gap 9 mmol/L BUN 31 H (7-17) mg/dL Creatinine 0.87 (0.52-1.04) mg/dL Est GFR (CKD-EPI)AfAm 72 (>60 ml/min/1.73 sqM) Est GFR (CKD-EPI)NonAf 62 (>60 ml/min/1.73 sqM) Glucose 102 H (74-99) mg/dL Calcium 8.7 (8.4-10.2) mg/dL Magnesium 1.9 (1.6-2.3) mg/dL Total Bilirubin 0.4 (0.2-1.3) mg/dL AST 28 (14-36) U/L ALT 19 (9-52) U/L Alkaline Phosphatase 119 (38-126) U/L Total Creatine Kinase 26 L (30-135) U/L CK-MB (CK-2) <0.2 (0.0-2.4) ng/mL CK-MB (CK-2) Rel Index Troponin I 0.015 (0.000-0.034) ng/mL Total Protein 6.1 L (6.3-8.2) g/dL Albumin 3.5 (3.5-5.0) g/dL 10/08/17 Range/Units 18:30 WBC (3.8-10.6) k/uL RBC (3.80-5.40) m/uL Hgb (11.4-16.0) gm/dL Hct (34.0-46.0) % MCV (80.0-100.0) fL MCH (25.0-35.0) pg MCHC (31.0-37.0) g/dL RDW (11.5-15.5) % Plt Count (150-450) k/uL Neutrophils % % Lymphocytes % % Monocytes % % Eosinophils % % Basophils % % Neutrophils # (1.3-7.7) k/uL Lymphocytes # (1.0-4.8) k/uL Monocytes # (0-1.0) k/uL Eosinophils # (0-0.7) k/uL Basophils # (0-0.2) k/uL PT 18.7 H (9.0-12.0) sec INR 2.1 H (<1.2) APTT 30.8 H (22.0-30.0) sec Sodium (137-145) mmol/L Potassium (3.5-5.1) mmol/L Chloride (98-107) mmol/L Carbon Dioxide (22-30) mmol/L Anion Gap mmol/L BUN (7-17) mg/dL Creatinine (0.52-1.04) mg/dL Est GFR (CKD-EPI)AfAm (>60 ml/min/1.73 sqM) Est GFR (CKD-EPI)NonAf (>60 ml/min/1.73 sqM) Glucose (74-99) mg/dL Calcium (8.4-10.2) mg/dL Magnesium (1.6-2.3) mg/dL Total Bilirubin (0.2-1.3) mg/dL AST (14-36) U/L ALT (9-52) U/L Alkaline Phosphatase (38-126) U/L Total Creatine Kinase (30-135) U/L CK-MB (CK-2) (0.0-2.4) ng/mL CK-MB (CK-2) Rel Index Troponin I (0.000-0.034) ng/mL Total Protein (6.3-8.2) g/dL Albumin (3.5-5.0) g/dL Disposition Clinical Impression: Unstable angina Disposition: ADMITTED IP TO THIS HOSP Is patient prescribed a controlled substance at d/c from ED?: No Referrals: Oscar Blancas MD [Primary Care Provider] - 1-2 days Time of Disposition: 19:27
[2017-10-08 18:58] LABS: Basophils % (A) 0 %; Eosinophils # (A) 0.3 k/uL (0-0.7); Eosinophils % (A) 5 %; HCT 31.7 % (34.0-46.0); HGB 10.7 gm/dL (11.4-16.0); Lymphocytes # (A) 1.5 k/uL (1.0-4.8); Lymphocytes % (A) 30 %; MCH 32.6 pg (25.0-35.0); MCHC 33.9 g/dL (31.0-37.0); MCV 96.4 fL (80.0-100.0); Monocytes # (A) 0.4 k/uL (0-1.0); Monocytes % (A) 8 %; Neutrophils # (A) 2.7 k/uL (1.3-7.7); Neutrophils % (A) 54 %; Platelet Count 210 k/uL (150-450); RBC 3.29 m/uL (3.80-5.40); RDW 14.5 % (11.5-15.5)
[2017-10-08 19:07] LABS: INR 2.1 (<1.2); Partial Thromboplastin Time 30.8 sec (22.0-30.0); Prothrombin Time 18.7 sec (9.0-12.0)
[2017-10-08 19:08] LABS: Creatine Kinase 26 U/L (30-135)
--- NOTE | 2017-10-08 19:12 | XR ---
EXAMINATION TYPE: XR chest 2V DATE OF EXAM: 10/08/2017 COMPARISON: 09/13/2017 HISTORY: Shortness of breath TECHNIQUE: Frontal and lateral views of the chest are obtained. FINDINGS: Scattered senescent parenchymal changes noted. Hyperinflation compatible with COPD. No evidence for infiltrate. No evidence for atelectasis. Heart size is stable. Mediastinal structures are stable and grossly unremarkable. No evidence for hilar prominence. Degenerative changes dorsal spine. IMPRESSION: 1. No evidence for acute pulmonary disease.
[2017-10-08 19:14] LABS: Albumin 3.5 g/dL (3.5-5.0); Calcium 8.7 mg/dL (8.4-10.2); Magnesium 1.9 mg/dL (1.6-2.3); Potassium 4.5 mmol/L (3.5-5.1); Total Bilirubin 0.4 mg/dL (0.2-1.3); Total Protein 6.1 g/dL (6.3-8.2)
[2017-10-08 19:21] LABS: Creatine Kinase MB <0.2 ng/mL (0.0-2.4); Troponin I 0.015 ng/mL (0.000-0.034)
[2017-10-08] MEDS ORDERED: NITROGLYCERIN SL TABS 0.4 MG TAB SUBLINGUAL PRN (19:27)
[2017-10-08 21:42] VITALS: RESP 16; BMI 21.6
[2017-10-08] MEDS ORDERED: traZODone HCL 50 MG TAB PO PRN (21:57)
[2017-10-08] MEDS ORDERED: ONDANSETRON 4 MG TAB PO PRN (21:57)
[2017-10-08] MEDS ORDERED: CARVEDILOL 6.25 MG TAB PO SCH (22:00)
[2017-10-08] MEDS ORDERED: WARFARIN 3 MG TAB PO SCH (22:00)
[2017-10-08] MEDS: MECLIZINE 25 MG TAB PO SCH (22:36)
[2017-10-08] MEDS: ATORVASTATIN 80 MG TAB PO SCH (22:36)
[2017-10-08] MEDS: RANOLAZINE 500 MG TAB.ER.12H PO SCH (22:36)
[2017-10-08] MEDS: PYRIDOSTIGMINE 60 MG TAB PO SCH (22:36)
[2017-10-08] MEDS: HYDROcodone/APAP 5-325MG 1 EACH TAB PO PRN (22:37)
[2017-10-08] MEDS: FUROSEMIDE 40 MG TAB PO SCH (22:37)
[2017-10-09] MEDS: NITROGLYCERIN OINT 1 INCH/GM PACKET TOPICAL SCH ×5 (00:21→23:00)
[2017-10-09 01:02] LABS: Creatine Kinase 27 U/L (30-135)
[2017-10-09 01:15] LABS: Creatine Kinase MB 0.2 ng/mL (0.0-2.4); Troponin I <0.012 ng/mL (0.000-0.034)
[2017-10-09 03:59] LABS: Cholesterol 155 mg/dL (<200); HDL Cholesterol 48 mg/dL (40-60); LDL Cholesterol,Calculated 74 mg/dL (0-99); Triglycerides 167 mg/dL (<150)
[2017-10-09] MEDS: LEVOTHYROXINE 100 MCG TAB PO SCH (06:26)
[2017-10-09 07:04] LABS: Glucose,Whole Blood 90 mg/dL (75-99)
[2017-10-09 07:37] LABS: Creatine Kinase MB 0.3 ng/mL (0.0-2.4); Troponin I 0.017 ng/mL (0.000-0.034)
[2017-10-09] MEDS ORDERED: ASPIRIN 325 MG TAB PO SCH (09:00)
[2017-10-09] MEDS ORDERED: CARVEDILOL 12.5 MG TAB PO SCH (09:00)
[2017-10-09] MEDS: ANASTROZOLE 1 MG TAB PO SCH (09:42)
[2017-10-09] MEDS: AMIODARONE 100 MG TAB PO SCH (09:42)
[2017-10-09] MEDS: FAMOTIDINE 20 MG TAB PO SCH (09:43)
[2017-10-09] MEDS: CHOLECALCIFEROL 1,000 UNIT TAB PO SCH (09:43)
[2017-10-09] MEDS: ASPIRIN 81 MG PO SCH (09:43)
[2017-10-09] MEDS: POTASSIUM CHLORIDE ER 20 MEQ TAB.ER PO SCH (09:44)
[2017-10-09] MEDS: LISINOPRIL 10 MG TAB PO SCH (09:44)
[2017-10-09] MEDS: FUROSEMIDE 40 MG TAB PO SCH ×2 (09:44→20:42)
[2017-10-09] MEDS: ISOSORBIDE MONONITRATE ER 30 MG TAB.ER.24H PO SCH (09:44)
[2017-10-09] MEDS: PYRIDOSTIGMINE 60 MG TAB PO SCH ×2 (09:44→20:42)
[2017-10-09] MEDS: MECLIZINE 25 MG TAB PO SCH ×3 (09:44→23:00)
[2017-10-09] MEDS: CYANOCOBALAMIN 500 MCG TAB PO SCH (09:44)
[2017-10-09] MEDS: RANOLAZINE 500 MG TAB.ER.12H PO SCH ×2 (09:45→20:42)
--- NOTE | 2017-10-09 10:34 | P.CRDCN ---
History of Present Illness Consult date: 10/09/17 History of present illness: Mrs. Castañeda is a pleasant 81-year-old female past medical history significant for paroxysmal atrial fibrillation s/p cardioversion on senior living anti-coagulation, prosthetic mitral valve replacement, coronary artery disease with stent in RCA, diabetes mellitus, hyperlipidemia and hypertension. She follows with Dr. ADAM Hua in the office. We have been asked to see her in consultation for chest pain. She states yesterday at 1700 while sitting she developed sharp burst of chest pain in the mid-sternal region that was associated with sob, palpitations and diaphoresis. After the initial jolt of pain an achy pressure sensation remained for about 60-90 minutes until she was here in the ED and nitropaste was applied. She denies radiation of the pain to the back, neck, jaw or arm. She also denies symptoms of nausea, vomiting or dizziness. No further symptoms since admission. At the time of my exam she is seen sitting in bed in no acute distress with no symptoms of chest pain. She was here in late August with an NSTEMI and underwent cardiac catheterization that revealed a patent stent in the proximal RCA with a mid lesion around 50% that was unchanged from previous study, proximal circumflex intermediate disease , ostial OM 50-60% disease and normal LAD. Maximum medial therapy recommended at that time. An echocardiogram done on that admission revealed preserved LV systolic function with EF 55-60%, severely dilated LA, mildly thickened aortic valve, mild to moderated MR with peak/mean gradient 25.55/8.85 mmHg with normally function prosthetic mitral valve and mild pulmonary hypertension with RVSP 41.96 mmHg. EKG reveals sinus mechanism with non-specific abnormalities. No acute ST or T- wave abnormalities. Chest xray negative for an acute cardiopulmonary process. Laboratory data reviewed, hgb 10.7, INR 2.1, sodium 141, potassium 4.5, creatinine 0.87, cardiac enzymes negative x3, LDL 74. Current cardiac medications include Coumadin, Ranexa 500 mg twice a day, potassium supplementation 20 daily, lisinopril 10 mg daily, Imdur 30 mg daily, Lasix 40 mg twice a day, carvedilol 6.25 mg at bedtime and 12.5 mg in the morning, atorvastatin 80 mg daily, aspirin 81 mg daily and amiodarone 100 mg daily. Review of Systems At the time of my exam: CONSTITUTIONAL: Denies fever. Denies chills. EYES: Denies blurred vision. Denies vision changes. Denies eye pain. EARS, NOSE, MOUTH & THROAT: Denies headache. Denies sore throat. Denies ear pain. CARDIOVASCULAR: Denies chest pain. Denies shortness of breath. Denies orthopnea. Denies PND. Denies palpitations. RESPIRATORY: Denies cough. GASTROINTESTINAL: Denies abdominal pain. Denies diarrhea. Denies constipation. Denies nausea. Denies vomiting. MUSCULOSKELETAL: Denies myalgias. INTEGUMENTARY: Denies pruitis. Denies rash. NEUROLOGIC: Denies numbness. Denies tingling. Denies weakness. PSYCHIATRIC: Denies anxiety. Denies depression. ENDOCRINE: Denies fatigue. Denies weight change. Denies polydipsia. Denies polyurina. GENITOURINARY: Denies burning, hematuria or urgency with micturation. HEMATOLOGIC: Denies history of anemia. Denies bleeding. Past Medical History Past Medical History: Atrial Fibrillation, Coronary Artery Disease (CAD), Cancer , Heart Failure, Diabetes Mellitus, Eye Disorder, Hyperlipidemia, Hypertension, Myocardial Infarction (SD), Mitral Valve Prolapse (MVP), Osteoarthritis (OA), Pneumonia, Respiratory Disorder, Thyroid Disorder Additional Past Medical History / Comment(s): Paroxysmal Afib. Chronic CHF. RT Eye Occular Myasthenia Gravis. Chronic Back Pain. DJD. 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 DIET CONTROLLED DM, CHECKS BS ONCE A DAY BUT TAKES NO MEDS.. RECENT UTI. SKIN CA. RT breast CA with surgery.(NO BP RT ARM) OCC Vertigo. CHRONIC Anemia. DIVERTICULOSIS. FALLS- hypothyroid, L hip fracture with surgery.UTI'S Last Myocardial Infarction Date:: 04/2014 History of Any Multi-Drug Resistant Organisms: None Reported Past Surgical History: Appendectomy, Back Surgery, Breast Surgery, Cardiac Valve Replacement, Heart Catheterization, Heart Catheterization With Stent, Hysterectomy, Orthopedic Surgery Additional Past Surgical History / Comment(s): 11/2016 L hip hemiarthroplasty, 2015 MVR. NEYMAR CTR, bilateral Rotator Cuff Repair. EXC Skin CA. TITANIUM VIMAL IN BACK, 7 BACK FUSIONS, 3 NECK FUSIONS. Stent Proximal RCA; HEART CATH . EXC NEYMAR CATARACTS, POSS Lens Implants, Bilateral Eye Laser. RT BREAST LUMPECTOMY x 2, RT BREAST SIMPLE MASTECTOMY 06/2015. ORIF Ankles. Colonoscopy. Past Anesthesia/Blood Transfusion Reactions: No Reported Reaction Additional Past Anesthesia/Blood Transfusion Reaction / Comment(s): Pt has recently received blood without reaction. Date of Last Stent Placement:: 08/17/2013 Past Psychological History: No Psychological Hx Reported Additional Psychological History / Comment(s): Pt lost her of 64 yrs IN JANUARY 2017,was 63 years. She has a clyde/son who take turns staying with her. She uses a walker NEEDED. She has a very supportive family. She no longer drives/has no vehicle so uses the bus or cab. She has a nebulizer. glucometer ,cane, walker and w/c if needed Smoking Status: Former smoker Past Alcohol Use History: None Reported Additional Past Alcohol Use History / Comment(s): STARTED SMOKING AT AGE 11 SMOKED 1/2 PPD QUIT 1976 Past Drug Use History: None Reported - Past Family History Father History Unknown: Yes Family Medical History: No Reported History Additional Family Medical History / Comment(s): DAD IN MVA AT AGE 52 Mother History Unknown: Yes Family Medical History: Congestive Heart Failure (CHF) Additional Family Medical History / Comment(s): RHEUMATIC FEVER. Mother of CHF at the age of 59yrs. Medications and Allergies Home Medications Medication Instructions Recorded Confirmed Type Cholecalciferol [Vitamin D3] 1,000 unit PO DAILY 05/18/15 10/09/17 History Cyanocobalamin [Vitamin B-12] 1,000 mcg PO DAILY 05/18/15 10/09/17 History Anastrozole [Arimidex] 1 mg PO DAILY 09/14/15 10/09/17 History Pyridostigmine [Mestinon] 30 mg PO BID tab 03/17/16 10/09/17 Rx Isosorbide Mononitrate ER [Imdur] 30 mg PO DAILY 04/25/16 10/09/17 History Levothyroxine Sodium [Synthroid] 100 mcg PO DAILY 04/25/16 10/09/17 History Nitroglycerin Sl Tabs [Nitrostat] 0.4 mg PO Q5M PRN 04/25/16 10/09/17 History Ranitidine HCl 150 mg PO DAILY 04/25/16 10/09/17 History Furosemide [Lasix] 40 mg PO BID 05/20/16 10/09/17 History Ranolazine [Ranexa] 500 mg PO BID 11/28/16 10/09/17 History Aspirin 81 mg PO DAILY 03/22/17 10/09/17 History Lisinopril [Prinivil] 10 mg PO DAILY 03/22/17 10/09/17 History Meclizine [Antivert] 25 mg PO TID 05/06/17 10/09/17 History Potassium Chloride [K-Tab ER] 20 meq PO DAILY #30 tablet.er 05/06/17 10/09/17 Rx Amiodarone HCl [Pacerone] 100 mg PO DAILY 05/16/17 10/09/17 History Ondansetron [Zofran] 4 mg PO Q8HR PRN #30 tab 05/29/17 10/09/17 Rx HYDROcodone/APAP 5-325MG [[place] 1 tab PO DAILY PRN 06/03/17 10/09/17 History 5-325] traZODone HCL 50 mg PO HS PRN 06/03/17 10/09/17 History Warfarin [Coumadin] 3 mg PO SUTH 08/04/17 10/09/17 History Warfarin [Coumadin] 5 mg PO [id number] 08/04/17 10/09/17 History Atorvastatin [Lipitor] 80 mg PO HS 10/08/17 10/09/17 History Carvedilol [Coreg] 6.25 mg PO BID-W/MEALS tab 10/09/17 Rx Allergies Allergy/AdvReac Type Severity Reaction Status Date / Time morphine AdvReac Severe Nausea & Verified 10/09/17 07:48 Vomiting Physical Exam Vitals: Vital Signs Temp Pulse Pulse Resp BP BP Pulse Ox 10/09/17 04:00 97.6 F 62 16 114/54 98 10/09/17 03:31 62 16 10/08/17 23:24 98.4 F 75 16 146/72 99 10/08/17 22:05 66 16 10/08/17 20:30 97.5 F L 66 16 139/58 98 10/08/17 20:00 69 18 109/54 100 10/08/17 19:05 64 18 126/60 99 10/08/17 18:36 98.2 F 68 16 140/63 99 Intake and Output 10/08/17 10/09/17 10/09/17 22:59 06:59 14:59 Other: Voiding Method Toilet Toilet # Voids 1 4 Weight 58.9 kg 58.3 kg Blood pressure 94/49 heart rate 59 afebrile maintaining oxygen saturation GENERAL: This is a 81-year-old female in no apparent distress at the time of my examination. HEENT: Head is atraumatic, normocephalic. Pupils are equal, round. Sclerae anicteric. Conjunctivae are clear. Mucous membranes of the mouth are moist. Neck is supple. There is no jugular venous distention. No carotid bruit is heard. LUNGS: Clear to auscultation no wheezes, rales or rhonchi. No chest wall tenderness is noted on palpation or with deep breathing. HEART: Regular rate and rhythm with murmur at the left sternal border, no rubs or gallops. S1 and S2 heard. ABDOMEN: Soft, nontender. Bowel sounds are heard. No organomegaly noted. EXTREMITIES: No evidence of peripheral edema and no calf tenderness noted. VASCULAR: Radial and dorsalis pedis pulses palpated, no evidence of clubbing. NEUROLOGIC: Patient is awake, alert and oriented x3. Results 10/08/17 18:30 10/08/17 18:30 Cardiac Enzymes 10/08/17 10/08/17 10/09/17 Range/Units 18:30 18:30 00:15 AST 28 (14-36) U/L CK-MB (CK-2) <0.2 0.2 (0.0-2.4) ng/mL Troponin I 0.015 <0.012 (0.000-0.034) ng/mL 10/09/17 Range/Units 06:29 AST (14-36) U/L CK-MB (CK-2) 0.3 (0.0-2.4) ng/mL Troponin I 0.017 (0.000-0.034) ng/mL Coagulation 10/08/17 Range/Units 18:30 PT 18.7 H (9.0-12.0) sec APTT 30.8 H (22.0-30.0) sec Lipids 10/08/17 Range/Units 18:30 Triglycerides 167 H (<150) mg/dL Cholesterol 155 (<200) mg/dL HDL Cholesterol 48 (40-60) mg/dL CBC 10/08/17 Range/Units 18:30 WBC 5.0 (3.8-10.6) k/uL RBC 3.29 L (3.80-5.40) m/uL Hgb 10.7 L (11.4-16.0) gm/dL Hct 31.7 L (34.0-46.0) % Plt Count 210 (150-450) k/uL Comprehensive Metabolic Panel 10/08/17 Range/Units 18:30 Sodium 141 (137-145) mmol/L Potassium 4.5 (3.5-5.1) mmol/L Chloride 102 (98-107) mmol/L Carbon Dioxide 30 (22-30) mmol/L BUN 31 H (7-17) mg/dL Creatinine 0.87 (0.52-1.04) mg/dL Glucose 102 H (74-99) mg/dL Calcium 8.7 (8.4-10.2) mg/dL AST 28 (14-36) U/L ALT 19 (9-52) U/L Alkaline Phosphatase 119 (38-126) U/L Total Protein 6.1 L (6.3-8.2) g/dL Albumin 3.5 (3.5-5.0) g/dL Current Medications Generic Name Dose Route Start Last Admin Trade Name Freq PRN Reason Stop Dose Admin Hydrocodone Bitart/Acetaminophen 1 each 10/08/17 21:57 10/08/17 22:37 [place] 5-325 PO 1 each DAILY PRN Administration Pain Amiodarone HCl 100 mg 10/09/17 09:00 Cordarone PO DAILY [facility] Anastrozole 1 mg 10/09/17 09:00 Arimidex PO DAILY [facility] Aspirin 325 mg 10/09/17 09:00 Aspirin PO DAILY [facility] Aspirin 81 mg 10/09/17 09:00 Aspirin PO DAILY [facility] Atorvastatin Calcium 80 mg 10/08/17 22:00 10/08/17 22:36 Lipitor PO 80 mg HS [facility] Administration Carvedilol 6.25 mg 10/08/17 22:00 10/08/17 22:37 Coreg PO 6.25 mg HS [facility] Administration Carvedilol 12.5 mg 10/09/17 09:00 Coreg PO QAM [facility] Cholecalciferol 1,000 unit 10/09/17 09:00 Vitamin D3 PO DAILY [facility] Cyanocobalamin 1,000 mcg 10/09/17 09:00 Vitamin B-12 PO DAILY [facility] Famotidine 20 mg 10/09/17 09:00 Pepcid PO DAILY [facility] Furosemide 40 mg 10/08/17 22:00 10/08/17 22:37 Lasix PO 40 mg BID [facility] Administration Isosorbide Mononitrate 30 mg 10/09/17 09:00 Imdur PO DAILY [facility] Levothyroxine Sodium 100 mcg 10/09/17 06:30 10/09/17 06:26 Synthroid PO Not Given DAILY@0630 [facility] Lisinopril 10 mg 10/09/17 09:00 Zestril PO DAILY [facility] Meclizine HCl 25 mg 10/08/17 22:00 10/08/17 22:36 Antivert PO 25 mg TID [facility] Administration Nitroglycerin 1 inch 10/09/17 00:00 10/09/17 06:23 Nitro-Bid Oint TOPICAL Not Given Q6HR [facility] Nitroglycerin 0.4 mg 10/08/17 19:27 Nitrostat SUBLINGUAL Q5M PRN Chest Pain Ondansetron HCl 4 mg 10/08/17 21:57 Zofran PO Q8HR PRN Nausea And Vomiting Potassium Chloride 20 meq 10/09/17 09:00 K-Dur 20 PO DAILY [facility] Pyridostigmine Gallagher 30 mg 10/08/17 22:00 10/08/17 22:36 Mestinon PO 30 mg BID [facility] Administration Ranolazine 500 mg 10/08/17 22:00 10/08/17 22:36 Ranexa PO 500 mg BID [facility] Administration Trazodone HCl 50 mg 10/08/17 21:57 10/09/17 00:21 Desyrel PO 50 mg HS PRN Administration Insomnia Warfarin Sodium 3 mg 10/08/17 22:00 10/08/17 22:37 Coumadin PO 3 mg SUTH [facility] Administration Warfarin Sodium 5 mg 10/09/17 21:57 Coumadin PO [id number] [facility] Intake and Output 10/08/17 10/09/17 10/09/17 22:59 06:59 14:59 Other: Voiding Method Toilet Toilet # Voids 1 4 Weight 58.9 kg 58.3 kg 10/08/17 18:30 10/08/17 18:30 Assessment and Plan Assessment: ASSESSMENT 1. Atypical chest pain wit recent catheterization revealing stable CAD with patent stent in RCA 2. History of coronary artery disease 3. Hypertension 4. Hyperlipidemia 5. Mitral valve replacement with prosthetic valve 6. Diabetes mellitus 7. Paroxysmal atrial fibrillation on senior living anticoagulation, currently maintaining sinus mechanism. 8. Frequent symptoms of chest pain PLAN An acute coronary event has been ruled out. Change coreg to 6.25 mg BID secondary to hypotension. Telemetry tracings have been unremarkable. Stable from a cardiac perspective. Follow-up with Dr. Hua in 2 weeks. Thank you kindly for this consultation. The above impression and plan of care have been discussed and directed by the signing physician. Ifrah Palacios, nurse practitioner, acting as scribe for signing physician.
[2017-10-09] MEDS ORDERED: ALPRAZolam 0.5 MG TAB PO STA (11:21)
[2017-10-09] MEDS ORDERED: NITROGLYCERIN SL TABS 0.4 MG TAB SUBLINGUAL PRN (11:31)
[2017-10-09 12:32] LABS: Glucose,Whole Blood 100 mg/dL (75-99)
[2017-10-09] MEDS: HYDROcodone/APAP 5-325MG 1 EACH TAB PO PRN (14:22)
[2017-10-09] MEDS: busPIRone HCl 5 MG TAB PO SCH ×2 (17:09→23:00)
[2017-10-09] MEDS: CARVEDILOL 6.25 MG TAB PO SCH (17:18)
[2017-10-09 18:15] LABS: Glucose,Whole Blood 128 mg/dL (75-99)
--- NOTE | 2017-10-09 19:20 | HP ---
HISTORY AND PHYSICAL DATE OF ADMISSION: 10/08/2017. CHIEF COMPLAINT: Chest pain. HISTORY OF PRESENT ILLNESS: This is another admission for this 81-year-old white female who is in and out of the hospital frequently for coronary artery disease and unstable angina. Enzymes are normal. PHYSICAL EXAM: Chest is clear. Cardiac exam is normal. Abdomen is soft, nontender. Extremities normal. Neurological is intact. IMPRESSION: 1. Unstable angina pectoris. 2. Coronary artery disease. PLAN: 1. Bed rest. 2. IV fluids. 3. Serial EKGs and enzymes. 4. Cardiology consult. MMODL / IJN: [id number] /
[2017-10-09 20:36] LABS: Glucose,Whole Blood 116 mg/dL (75-99)
[2017-10-09] MEDS: ATORVASTATIN 80 MG TAB PO SCH (20:42)
[2017-10-09] MEDS ORDERED: WARFARIN 5 MG TAB PO SCH (21:57)
[2017-10-10] MEDS: HYDROcodone/APAP 5-325MG 1 EACH TAB PO PRN (05:48)
[2017-10-10] MEDS: LEVOTHYROXINE 100 MCG TAB PO SCH (05:48)
[2017-10-10] MEDS: NITROGLYCERIN OINT 1 INCH/GM PACKET TOPICAL SCH (05:53)
[2017-10-10 06:35] LABS: Glucose,Whole Blood 104 mg/dL (75-99)
[2017-10-10 07:26] VITALS: BP 125/56; PULSE 61; TEMP 98.1
[2017-10-10] MEDS: RANOLAZINE 500 MG TAB.ER.12H PO SCH (08:39)
[2017-10-10] MEDS: FUROSEMIDE 40 MG TAB PO SCH (08:40)
[2017-10-10] MEDS: ISOSORBIDE MONONITRATE ER 30 MG TAB.ER.24H PO SCH (08:40)
[2017-10-10] MEDS: CYANOCOBALAMIN 500 MCG TAB PO SCH (08:40)
[2017-10-10] MEDS: busPIRone HCl 5 MG TAB PO SCH (08:40)
[2017-10-10] MEDS: FAMOTIDINE 20 MG TAB PO SCH (08:40)
[2017-10-10] MEDS: ASPIRIN 81 MG PO SCH (08:40)
[2017-10-10] MEDS: POTASSIUM CHLORIDE ER 20 MEQ TAB.ER PO SCH (08:40)
[2017-10-10] MEDS: CHOLECALCIFEROL 1,000 UNIT TAB PO SCH (08:40)
[2017-10-10] MEDS: AMIODARONE 100 MG TAB PO SCH (08:40)
[2017-10-10] MEDS: PYRIDOSTIGMINE 60 MG TAB PO SCH (08:40)
[2017-10-10] MEDS: MECLIZINE 25 MG TAB PO SCH (08:40)
[2017-10-10] MEDS: ANASTROZOLE 1 MG TAB PO SCH (08:41)
[2017-10-10] MEDS: CARVEDILOL 6.25 MG TAB PO SCH (08:41)
[2017-10-10] MEDS: LISINOPRIL 10 MG TAB PO SCH (08:41)
--- NOTE | 2017-10-10 13:35 | PN ---
PROGRESS NOTE DATE OF SERVICE: 10/09/2017. CHIEF COMPLAINT: Chest pain. HISTORY OF PRESENT ILLNESS: This lady was doing well and her studies were negative and she was released by Cardiology and was to be sent home, but her brother during the night and she was just notified. She is very upset and is asking to stay over. She will be kept in the hospital overnight on observation. MMODL / IJN: [id number] /
--- NOTE | 2017-10-10 16:50 | DS ---
DISCHARGE SUMMARY DATE OF SERVICE: 10/10/2017 CHIEF COMPLAINT: Chest pain. HISTORY OF PRESENT ILLNESS AND PHYSICAL EXAM: Details of this lady's history and physical can be found in the initial workup. LABORATORY STUDIES: While she is in the hospital she had laboratory studies details of which can be found in the laboratory section of her chart. COURSE IN THE HOSPITAL: After admission she was placed in bedrest and started on intravenous fluids and she had serial EKGs and enzymes which were normal. She was seen by Cardiology. It was felt that she could be released. When she was about to be sent home she received news that her brother had suddenly and unexpectedly and became very upset and requests to stay in the hospital another 24 hours, which was granted. She will go home on usual activity and diet and medications and will be followed up in the office soon. FINAL DIAGNOSES: 1. Acute coronary syndrome. 2. Coronary artery disease. 3. Atrial fibrillation. 4. Carcinoma of breast. 5. Depression. OPERATIONS: None. CONSULTATION: Cardiology. She is improved. MMODL / IJN: [id number] /
== END 2017-10-10 12:29 | disposition home health service (06) ==
LOC: EC 18:31 → 3OBS 19:27
PROVIDERS: ADMIT Family Medicine; ATTEND Family Medicine
DX: I24.9 Acute ischemic heart disease, unspecified (principal); I25.10 Atherosclerotic heart disease of native coronary artery without angina pectoris; F32.9 Major depressive disorder, single episode, unspecified; I48.0 Paroxysmal atrial fibrillation; E78.5 Hyperlipidemia, unspecified; E11.9 Type 2 diabetes mellitus without complications; R07.89 Other chest pain; R06.02 Shortness of breath; R00.2 Palpitations; R61 Generalized hyperhidrosis; R42 Dizziness and giddiness; I50.9 Heart failure, unspecified; I34.1 Nonrheumatic mitral (valve) prolapse; I11.0 Hypertensive heart disease with heart failure; M19.90 Unspecified osteoarthritis, unspecified site; G70.00 Myasthenia gravis without (acute) exacerbation; M54.9 Dorsalgia, unspecified; G89.29 Other chronic pain; D64.9 Anemia, unspecified; E03.9 Hypothyroidism, unspecified; I25.2 Old myocardial infarction; Z91.81 History of falling; Z95.2 Presence of prosthetic heart valve; Z95.5 Presence of coronary angioplasty implant and graft; Z79.82 Long term (current) use of aspirin; Z79.899 Other long term (current) drug therapy; Z79.01 Long term (current) use of anticoagulants; Z87.01 Personal history of pneumonia (recurrent); Z85.828 Personal history of other malignant neoplasm of skin; Z87.440 Personal history of urinary (tract) infections; Z98.1 Arthrodesis status; Z87.891 Personal history of nicotine dependence; Z79.811 Long term (current) use of aromatase inhibitors; Z79.890 Hormone replacement therapy; Z88.5 Allergy status to narcotic agent; Z85.3 Personal history of malignant neoplasm of breast
CPT/HCPCS: 99285 ×2; 36415; 93005; 80061; 80053; 82550 ×2; 82553 ×2; 83735; 84484 ×2; 85025; 85610; 85730; 83036; 71046; G0378 ×3; S0170 ×2

== ENCOUNTER 2017-12-10 11:58 | Observation (INO) | payer MEDICARE, BC ==
[2017-12-10] MEDS ORDERED: NITROGLYCERIN OINT 1 INCH/GM PACKET TOPICAL STA (12:07)
[2017-12-10] MEDS ORDERED: ASPIRIN 81 MG PO STA (12:07)
--- NOTE | 2017-12-10 12:11 | ED ---
General Adult HPI - General Chief complaint: Chest Pain Stated complaint: Chest pain Time Seen by Provider: 12/10/17 12:00 Source: patient, EMS, RN notes reviewed Mode of arrival: EMS Limitations: no limitations - History of Present Illness Initial comments: Patient is a pleasant 82-year-old female presenting to the emergency Department with chest discomfort. Onset of symptoms was around 8 this morning. Symptoms have been waxing and waning. Patient has taken 3 nitroglycerin with improvement of symptoms. Discomfort is currently 5/10. Discomfort feels sharp without radiation. There is some minimal associated dyspnea. No nausea or diaphoresis. Symptoms are similar to previous cardiac problems. - Related Data Home Medications Medication Instructions Recorded Confirmed Cholecalciferol [Vitamin D3] 1,000 unit PO DAILY 05/18/15 12/10/17 Cyanocobalamin [Vitamin B-12] 1,000 mcg PO DAILY 05/18/15 12/10/17 Anastrozole [Arimidex] 1 mg PO DAILY 09/14/15 12/10/17 Isosorbide Mononitrate ER [Imdur] 30 mg PO DAILY 04/25/16 12/10/17 Levothyroxine Sodium [Synthroid] 100 mcg PO DAILY 04/25/16 12/10/17 Ranitidine HCl 150 mg PO DAILY 04/25/16 12/10/17 Furosemide [Lasix] 40 mg PO BID 05/20/16 12/10/17 Ranolazine [Ranexa] 500 mg PO BID 11/28/16 12/10/17 Aspirin 81 mg PO DAILY 03/22/17 12/10/17 Lisinopril [Prinivil] 10 mg PO DAILY 03/22/17 12/10/17 Meclizine [Antivert] 25 mg PO TID 05/06/17 12/10/17 Amiodarone HCl [Pacerone] 100 mg PO DAILY 05/16/17 12/10/17 Warfarin [Coumadin] 3 mg PO SUTUWEFRSA 08/04/17 12/10/17 Warfarin [Coumadin] 5 mg PO MOTH 08/04/17 12/10/17 Atorvastatin [Lipitor] 80 mg PO HS 10/08/17 12/10/17 Multivitamins, Thera [Multivitamin 1 tab PO DAILY 12/10/17 12/10/17 (formulary)] busPIRone HCL 5 mg PO DAILY PRN 12/10/17 12/10/17 Previous Rx's Medication Instructions Recorded Pyridostigmine [Mestinon] 30 mg PO BID tab 03/17/16 Potassium Chloride [K-Tab ER] 20 meq PO DAILY #30 tablet.er 05/06/17 Carvedilol [Coreg] 6.25 mg PO BID-W/MEALS tab 10/09/17 Allergies Allergy/AdvReac Type Severity Reaction Status Date / Time morphine AdvReac Severe Nausea & Verified 12/10/17 12:59 Vomiting Review of Systems ROS Statement: Those systems with pertinent positive or pertinent negative responses have been documented in the HPI. ROS Other: All systems not noted in ROS Statement are negative. Constitutional: Denies: fever Eyes: Denies: eye pain ENT: Denies: ear pain Respiratory: Denies: cough Cardiovascular: Reports: chest pain Endocrine: Denies: fatigue Gastrointestinal: Denies: abdominal pain, nausea Genitourinary: Denies: dysuria Musculoskeletal: Denies: back pain Skin: Denies: rash Neurological: Denies: weakness Past Medical History Past Medical History: Atrial Fibrillation, Coronary Artery Disease (CAD), Cancer , Heart Failure, Diabetes Mellitus, Eye Disorder, Hyperlipidemia, Hypertension, Myocardial Infarction (DC), Mitral Valve Prolapse (MVP), Osteoarthritis (OA), Pneumonia, Respiratory Disorder, Thyroid Disorder Additional Past Medical History / Comment(s): Paroxysmal Afib. Chronic CHF. RT Eye Occular Myasthenia Gravis. Chronic Back Pain. DJD. 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 DIET CONTROLLED DM, CHECKS BS ONCE A DAY BUT TAKES NO MEDS.. RECENT UTI. SKIN CA. RT breast CA with surgery.(NO BP RT ARM) OCC Vertigo. CHRONIC Anemia. DIVERTICULOSIS. FALLS- hypothyroid, L hip fracture with surgery.UTI'S Last Myocardial Infarction Date:: 04/2014 History of Any Multi-Drug Resistant Organisms: None Reported Past Surgical History: Appendectomy, Back Surgery, Breast Surgery, Cardiac Valve Replacement, Heart Catheterization, Heart Catheterization With Stent, Hysterectomy, Orthopedic Surgery Additional Past Surgical History / Comment(s): 11/2016 L hip hemiarthroplasty, 2015 MVR. NEYMAR CTR, bilateral Rotator Cuff Repair. EXC Skin CA. TITANIUM VIMAL IN BACK, 7 BACK FUSIONS, 3 NECK FUSIONS. Stent Proximal RCA; HEART CATH . EXC NEYMAR CATARACTS, POSS Lens Implants, Bilateral Eye Laser. RT BREAST LUMPECTOMY x 2, RT BREAST SIMPLE MASTECTOMY 06/2015. ORIF Ankles. Colonoscopy. Past Anesthesia/Blood Transfusion Reactions: No Reported Reaction Additional Past Anesthesia/Blood Transfusion Reaction / Comment(s): Pt has recently received blood without reaction. Date of Last Stent Placement:: 08/17/2013 Past Psychological History: No Psychological Hx Reported Smoking Status: Former smoker Past Alcohol Use History: None Reported Past Drug Use History: None Reported - Past Family History Father History Unknown: Yes Family Medical History: No Reported History Additional Family Medical History / Comment(s): DAD IN MVA AT AGE 52 Mother History Unknown: Yes Family Medical History: Congestive Heart Failure (CHF) Additional Family Medical History / Comment(s): RHEUMATIC FEVER. Mother of CHF at the age of 59yrs. General Exam Limitations: no limitations General appearance: alert, in no apparent distress Head exam: Present: atraumatic Eye exam: Present: normal appearance, PERRL ENT exam: Present: normal oropharynx Neck exam: Present: normal inspection Respiratory exam: Present: normal lung sounds bilaterally. Absent: chest wall tenderness Cardiovascular Exam: Present: regular rate, normal rhythm Expanded Peripheral pulses: 2+: Radial (R), Radial (L), Dorsalis Pedis (R), Dorsalis Pedis (L) GI/Abdominal exam: Present: soft. Absent: tenderness Extremities exam: Present: normal inspection. Absent: pedal edema, calf tenderness Neurological exam: Present: alert Psychiatric exam: Present: normal affect, normal mood Skin exam: Present: normal color Course Vital Signs 12/10/17 12/10/17 12:00 13:01 Temperature 98.7 F Pulse Rate 63 56 L Respiratory 18 18 Rate Blood Pressure 151/63 117/59 O2 Sat by Pulse 99 100 Oximetry EKG Findings - EKG Comments: EKG Findings:: Normal sinus rhythm 62. IA 180. QRS 82. QT 468. QTC 475. Normal axis. Septal Q waves. No acute ST change. Biphasic T waves V4 through V6. Medical Decision Making - Medical Decision Making Patient reevaluated and improved and resting comfortably in bed. Patient updated on results and plan. Case was discussed in detail with Dr. marx, covering for Dr. Balncas, who will admit. - Lab Data Result diagrams: 12/10/17 12:20 12/10/17 12:20 Lab Results 12/10/17 12/10/17 12/10/17 Range/Units 12:20 12:20 12:20 WBC 5.1 (3.8-10.6) k/uL RBC 3.50 L (3.80-5.40) m/uL Hgb 11.4 (11.4-16.0) gm/dL Hct 34.0 (34.0-46.0) % MCV 97.3 (80.0-100.0) fL MCH 32.5 (25.0-35.0) pg MCHC 33.4 (31.0-37.0) g/dL RDW 15.1 (11.5-15.5) % Plt Count 180 (150-450) k/uL Neutrophils % 62 % Lymphocytes % 22 % Monocytes % 6 % Eosinophils % 8 % Basophils % 1 % Neutrophils # 3.2 (1.3-7.7) k/uL Lymphocytes # 1.1 (1.0-4.8) k/uL Monocytes # 0.3 (0-1.0) k/uL Eosinophils # 0.4 (0-0.7) k/uL Basophils # 0.0 (0-0.2) k/uL PT (9.0-12.0) sec INR (<1.2) APTT (22.0-30.0) sec Sodium 142 (137-145) mmol/L Potassium 3.2 L (3.5-5.1) mmol/L Chloride 99 (98-107) mmol/L Carbon Dioxide 35 H (22-30) mmol/L Anion Gap 8 mmol/L BUN 20 H (7-17) mg/dL Creatinine 0.69 (0.52-1.04) mg/dL Est GFR (CKD-EPI)AfAm >90 (>60 ml/min/1.73 sqM) Est GFR (CKD-EPI)NonAf 81 (>60 ml/min/1.73 sqM) Glucose 113 H (74-99) mg/dL Calcium 9.1 (8.4-10.2) mg/dL Magnesium 1.5 L (1.6-2.3) mg/dL Total Bilirubin 0.9 (0.2-1.3) mg/dL AST 29 (14-36) U/L ALT 21 (9-52) U/L Alkaline Phosphatase 76 (38-126) U/L Total Creatine Kinase 31 (30-135) U/L CK-MB (CK-2) <0.2 (0.0-2.4) ng/mL CK-MB (CK-2) Rel Index Troponin I 0.014 (0.000-0.034) ng/mL Total Protein 6.5 (6.3-8.2) g/dL Albumin 3.8 (3.5-5.0) g/dL 12/10/17 Range/Units 12:20 WBC (3.8-10.6) k/uL RBC (3.80-5.40) m/uL Hgb (11.4-16.0) gm/dL Hct (34.0-46.0) % MCV (80.0-100.0) fL MCH (25.0-35.0) pg MCHC (31.0-37.0) g/dL RDW (11.5-15.5) % Plt Count (150-450) k/uL Neutrophils % % Lymphocytes % % Monocytes % % Eosinophils % % Basophils % % Neutrophils # (1.3-7.7) k/uL Lymphocytes # (1.0-4.8) k/uL Monocytes # (0-1.0) k/uL Eosinophils # (0-0.7) k/uL Basophils # (0-0.2) k/uL PT 16.2 H (9.0-12.0) sec INR 1.8 H (<1.2) APTT 27.8 (22.0-30.0) sec Sodium (137-145) mmol/L Potassium (3.5-5.1) mmol/L Chloride (98-107) mmol/L Carbon Dioxide (22-30) mmol/L Anion Gap mmol/L BUN (7-17) mg/dL Creatinine (0.52-1.04) mg/dL Est GFR (CKD-EPI)AfAm (>60 ml/min/1.73 sqM) Est GFR (CKD-EPI)NonAf (>60 ml/min/1.73 sqM) Glucose (74-99) mg/dL Calcium (8.4-10.2) mg/dL Magnesium (1.6-2.3) mg/dL Total Bilirubin (0.2-1.3) mg/dL AST (14-36) U/L ALT (9-52) U/L Alkaline Phosphatase (38-126) U/L Total Creatine Kinase (30-135) U/L CK-MB (CK-2) (0.0-2.4) ng/mL CK-MB (CK-2) Rel Index Troponin I (0.000-0.034) ng/mL Total Protein (6.3-8.2) g/dL Albumin (3.5-5.0) g/dL - Radiology Data Interpreted by me: Chest x-ray shows chronic changes without acute process. Compared to previous exam. Disposition Clinical Impression: Chest pain Disposition: ADMITTED IP TO THIS HOSP Is patient prescribed a controlled substance at d/c from ED?: No Referrals: Oscar Blancas MD [Primary Care Provider] - 1-2 days Decision Time: 13:44
[2017-12-10 12:46] LABS: Basophils % (A) 1 %; Eosinophils # (A) 0.4 k/uL (0-0.7); Eosinophils % (A) 8 %; HGB 11.4 gm/dL (11.4-16.0); Lymphocytes # (A) 1.1 k/uL (1.0-4.8); Lymphocytes % (A) 22 %; MCH 32.5 pg (25.0-35.0); MCHC 33.4 g/dL (31.0-37.0); MCV 97.3 fL (80.0-100.0); Mean Platelet Volume 7.9; Monocytes # (A) 0.3 k/uL (0-1.0); Monocytes % (A) 6 %; Neutrophils # (A) 3.2 k/uL (1.3-7.7); Neutrophils % (A) 62 %; Platelet Count 180 k/uL (150-450); RDW 15.1 % (11.5-15.5); WBC 5.1 k/uL (3.8-10.6)
[2017-12-10 12:55] LABS: INR 1.8 (<1.2); Partial Thromboplastin Time 27.8 sec (22.0-30.0); Prothrombin Time 16.2 sec (9.0-12.0)
[2017-12-10 12:56] LABS: ALT 21 U/L (9-52); AST 29 U/L (14-36); Albumin 3.8 g/dL (3.5-5.0); Alkaline Phosphatase 76 U/L (38-126); Anion Gap 8 mmol/L; Blood Urea Nitrogen 20 mg/dL (7-17); Calcium 9.1 mg/dL (8.4-10.2); Carbon Dioxide 35 mmol/L (22-30); Chloride 99 mmol/L (98-107); Glucose 113 mg/dL (74-99); Magnesium 1.5 mg/dL (1.6-2.3); Potassium 3.2 mmol/L (3.5-5.1); Sodium 142 mmol/L (137-145); Total Bilirubin 0.9 mg/dL (0.2-1.3); Total Protein 6.5 g/dL (6.3-8.2)
[2017-12-10 13:00] LABS: Creatine Kinase 31 U/L (30-135)
[2017-12-10 13:13] LABS: Creatine Kinase MB <0.2 ng/mL (0.0-2.4); Troponin I 0.014 ng/mL (0.000-0.034)
[2017-12-10] MEDS ORDERED: NITROGLYCERIN SL TABS 0.4 MG TAB SUBLINGUAL PRN (13:44)
--- NOTE | 2017-12-10 13:53 | XR ---
EXAMINATION TYPE: XR chest 2V DATE OF EXAM: 12/10/2017 COMPARISON: 10/08/2017 INDICATION: Chest pain TECHNIQUE: Frontal and lateral views of the chest are obtained. FINDINGS: The heart size is enlarged. The pulmonary vasculature is normal. No suspicious consolidations are evident. EKG leads overlie the chest. Sternotomy wires are in the mi dline. Surgical clips to the right axillary right chest region. Postsurgical fixation rods are within the thoracolumbar region within the cervical spine.. IMPRESSION: 1. No acute pulmonary process.
[2017-12-10 16:40] VITALS: BMI 22.4
[2017-12-10] MEDS ORDERED: Potassium Replacement Protocol 1 EACH MISC MISCELLANE PRN (16:54)
[2017-12-10 16:58] LABS: Glucose,Whole Blood 98 mg/dL (75-99)
[2017-12-10] MEDS: POTASSIUM CHLORIDE ER 20 MEQ TAB.ER PO SCH ×2 (17:54→18:58)
[2017-12-10] MEDS: NITROGLYCERIN OINT 1 INCH/GM PACKET TOPICAL SCH (17:54)
[2017-12-10] MEDS ORDERED: busPIRone HCl 5 MG TAB PO PRN (18:54)
[2017-12-10] MEDS ORDERED: Magnesium Replacement Protocol 1 EACH MISC MISCELLANE PRN (18:57)
[2017-12-10 19:46] LABS: Creatine Kinase MB 0.2 ng/mL (0.0-2.4); Troponin I 0.012 ng/mL (0.000-0.034)
[2017-12-10] MEDS ORDERED: WARFARIN 3 MG TAB PO SCH (20:00)
[2017-12-10 20:01] LABS: Glucose,Whole Blood 109 mg/dL (75-99)
[2017-12-10] MEDS ORDERED: DOCUSATE 100 MG CAP PO STA (20:32)
[2017-12-10] MEDS: MAGNESIUM SULFATE-D5W PMX 1 GM in DEXTROSE/WATER 1 100ML.BAG IVPB SCH ×2 (20:39→22:31)
[2017-12-10] MEDS: PYRIDOSTIGMINE 60 MG TAB PO SCH (20:41)
[2017-12-10] MEDS: RANOLAZINE 500 MG TAB.ER.12H PO SCH (20:42)
[2017-12-10] MEDS: MECLIZINE 25 MG TAB PO SCH (20:43)
[2017-12-10] MEDS ORDERED: ATORVASTATIN 80 MG TAB PO SCH (21:00)
--- NOTE | 2017-12-11 00:53 | P.HPIM ---
History of Present Illness H&P Date: 12/10/17 Chief Complaint: Chest pain Patient is a 82-year-old female with a known history of paroxysmal atrial fibrillation on anticoagulation with Coumadin, coronary artery disease chronic CHF, diabetes type 2, history of mitral valve surgery and other multiple medical problems came to ER with complaints of chest pain is mostly under the left breast area. On and off since 8 in the morning today. Patient felt sharp pain. 5/10. Denied any radiation. No associated nausea or vomiting. Patient did have some shortness of breath. No headache or dizziness or lightheadedness. No diaphoresis. Patient was admitted to hospital with similar complaints previously. Hospital production. No fever no chills. Chest x-ray showed no acute cardio pulmonary process. EKG showed normal sinus rhythm Review of Systems Constitutional: Patient denies any fever or chills . No generalized weakness or weight loss. Abdomen: Patient denied nausea vomiting and diarrhea and abdominal pain. Cardiovascular: Patient does have chest discomfort. No shortness of breath. No leg swelling. No palpitations. Respiratory: patient denied any cough is from production. No shortness of breath Neurologic: Patient denied any numbness or tingling headache. Musculoskeletal: Patient denies any complaints of joint swelling or deformity. Skin: Negative Psychiatric: Negative Endocrine: No heat or cold intolerance. No recent weight gain. Genitourinary: No dysuria or hematuria. All other 14 point ROS negative except the above Past Medical History Past Medical History: Atrial Fibrillation, Coronary Artery Disease (CAD), Cancer , Heart Failure, Diabetes Mellitus, Eye Disorder, Hyperlipidemia, Hypertension, Myocardial Infarction (MS), Mitral Valve Prolapse (MVP), Osteoarthritis (OA), Pneumonia, Respiratory Disorder, Thyroid Disorder Additional Past Medical History / Comment(s): Paroxysmal Afib. Chronic CHF. RT Eye Occular Myasthenia Gravis. Chronic Back Pain. DJD. 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 DIET CONTROLLED DM, CHECKS BS ONCE A DAY BUT TAKES NO MEDS.. RECENT UTI. SKIN CA. RT breast CA with surgery.(NO BP RT ARM) OCC Vertigo. CHRONIC Anemia. DIVERTICULOSIS. FALLS- hypothyroid, L hip fracture with surgery.UTI'S Last Myocardial Infarction Date:: 04/2014 History of Any Multi-Drug Resistant Organisms: None Reported Past Surgical History: Appendectomy, Back Surgery, Breast Surgery, Cardiac Valve Replacement, Heart Catheterization, Heart Catheterization With Stent, Hysterectomy, Orthopedic Surgery Additional Past Surgical History / Comment(s): 11/2016 L hip hemiarthroplasty, 2015 MVR. [facility] CTR, bilateral Rotator Cuff Repair. EXC Skin CA. TITANIUM VIMAL IN BACK, 7 BACK FUSIONS, 3 NECK FUSIONS. Stent Proximal RCA; HEART CATH . EXC NEYMAR CATARACTS, POSS Lens Implants, Bilateral Eye Laser. RT BREAST LUMPECTOMY x 2, RT BREAST SIMPLE MASTECTOMY 06/2015. ORIF Ankles. Colonoscopy. Past Anesthesia/Blood Transfusion Reactions: No Reported Reaction Additional Past Anesthesia/Blood Transfusion Reaction / Comment(s): Pt has recently received blood without reaction. Date of Last Stent Placement:: 08/17/2013 Past Psychological History: No Psychological Hx Reported Smoking Status: Former smoker Past Alcohol Use History: None Reported Past Drug Use History: None Reported - Past Family History Father History Unknown: Yes Family Medical History: No Reported History Additional Family Medical History / Comment(s): DAD IN MVA AT AGE 52 Mother History Unknown: Yes Family Medical History: Congestive Heart Failure (CHF) Additional Family Medical History / Comment(s): RHEUMATIC FEVER. Mother of CHF at the age of 59yrs. Medications and Allergies Home Medications Medication Instructions Recorded Confirmed Type Cholecalciferol [Vitamin D3] 1,000 unit PO DAILY 05/18/15 12/10/17 History Cyanocobalamin [Vitamin B-12] 1,000 mcg PO DAILY 05/18/15 12/10/17 History Anastrozole [Arimidex] 1 mg PO DAILY 09/14/15 12/10/17 History Pyridostigmine [Mestinon] 30 mg PO BID tab 03/17/16 12/10/17 Rx Isosorbide Mononitrate ER [Imdur] 30 mg PO DAILY 04/25/16 12/10/17 History Levothyroxine Sodium [Synthroid] 100 mcg PO DAILY 04/25/16 12/10/17 History Ranitidine HCl 150 mg PO DAILY 04/25/16 12/10/17 History Furosemide [Lasix] 40 mg PO BID 05/20/16 12/10/17 History Ranolazine [Ranexa] 500 mg PO BID 11/28/16 12/10/17 History Aspirin 81 mg PO DAILY 03/22/17 12/10/17 History Lisinopril [Prinivil] 10 mg PO DAILY 03/22/17 12/10/17 History Meclizine [Antivert] 25 mg PO TID 05/06/17 12/10/17 History Potassium Chloride [K-Tab ER] 20 meq PO DAILY #30 tablet.er 05/06/17 12/10/17 Rx Amiodarone HCl [Pacerone] 100 mg PO DAILY 05/16/17 12/10/17 History Warfarin [Coumadin] 3 mg PO SUTUWEFRSA 08/04/17 12/10/17 History Warfarin [Coumadin] 5 mg PO MOTH 08/04/17 12/10/17 History Atorvastatin [Lipitor] 80 mg PO HS 10/08/17 12/10/17 History Carvedilol [Coreg] 6.25 mg PO BID-W/MEALS tab 10/09/17 12/10/17 Rx Multivitamins, Thera [Multivitamin 1 tab PO DAILY 12/10/17 12/10/17 History (formulary)] busPIRone HCL 5 mg PO DAILY PRN 12/10/17 12/10/17 History Allergies Allergy/AdvReac Type Severity Reaction Status Date / Time morphine AdvReac Severe Nausea & Verified 12/10/17 12:59 Vomiting Physical Exam Vitals: Vital Signs Temp Pulse Resp BP Pulse Ox 12/10/17 15:40 97.9 F 53 L 18 123/59 97 12/10/17 14:00 61 18 127/60 99 12/10/17 13:01 56 L 18 117/59 100 12/10/17 12:00 98.7 F 63 18 151/63 99 Intake and Output 12/10/17 12/10/17 12/10/17 06:59 14:59 22:59 Other: Weight 61.235 kg PHYSICAL EXAMINATION: Patient is lying in the bed comfortably, no acute distress, awake alert and oriented.. HEENT: Normocephalic. Neck is supple. Pupils reactive. Nostrils clear. Oral cavity is moist. Ears reveal no drainage. Neck reveals no JVD, carotid bruits, or thyromegaly. CHEST EXAMINATION: Trachea is central. Symmetrical expansion. Lung mccray clear to auscultation and percussion. CARDIAC: Normal S1, S2 with no gallops. Systolic murmur. ABDOMEN: Soft. Bowel sounds normal. No organomegaly. No abdominal bruits. Extremities: reveal no edema. No clubbing or cyanosis Neurologically awake, alert, oriented x3 with well-coordinated movements. No focal deficits noted Skin: No rash or skin lesions. Psychiatric: Cooperative. Nonsuicidal Musculoskeletal: No joint swelling or deformity. Normal range of motion. Results CBC & Chem 7: 12/10/17 12:20 12/10/17 12:20 Labs: Abnormal Lab Results - Last 24 Hours (Table) 12/10/17 12/10/17 12/10/17 Range/Units 12:20 12:20 12:20 RBC 3.50 L (3.80-5.40) m/uL PT 16.2 H (9.0-12.0) sec INR 1.8 H (<1.2) Potassium 3.2 L (3.5-5.1) mmol/L Carbon Dioxide 35 H (22-30) mmol/L BUN 20 H (7-17) mg/dL Glucose 113 H (74-99) mg/dL Magnesium 1.5 L (1.6-2.3) mg/dL Assessment and Plan Assessment: Atypical chest pain with known history of coronary artery disease. Rule out ACS. Hypokalemia and hypomagnesemia History of coronary artery disease status post and placement to proximal RCA History of mitral valve surgery in 2016 Paroxysmal atrial fibrillation on anticoagulation with warfarin. INR 1.8 Diabetes type 2. Diet controlled Hypertension Hyperlipidemia History of MS Mitral valve prolapse Osteoarthritis of multiple joints Hypothyroidism Ocular myasthenia gravis Chronic back pain History of skin cancer History of right breast cancer with surgery. Right breast lumpectomyx2 and right breast simple mastectomy Previous history of smoking Plan: Patient will be continued on telemetry monitoring. Serial EKG and troponins. Continue with anticoagulation with warfarin and other home medications and follow closely. Coumadin monitoring. Insulin sliding scale. Continue the H2 blockers. Pain management. Cardiology was consulted. Further recommendations based on the clinical course. Prognosis is guarded with multiple medical complex issues. Time with Patient: Greater than 30
[2017-12-11 01:39] LABS: Creatine Kinase 32 U/L (30-135)
[2017-12-11 01:52] LABS: Creatine Kinase MB 0.2 ng/mL (0.0-2.4); Troponin I <0.012 ng/mL (0.000-0.034)
[2017-12-11] MEDS: NITROGLYCERIN OINT 1 INCH/GM PACKET TOPICAL SCH (01:54)
[2017-12-11] MEDS ORDERED: LEVOTHYROXINE 100 MCG TAB PO SCH (06:30)
[2017-12-11 07:30] LABS: Glucose,Whole Blood 92 mg/dL (75-99)
[2017-12-11] MEDS ORDERED: CARVEDILOL 6.25 MG TAB PO SCH (07:30)
--- NOTE | 2017-12-11 08:44 | CONS ---
CONSULTATION This is an 82-year-old patient who I follow in the office on a regular basis. She has history of mitral valve stenosis secondary to rheumatic heart disease. She is status post mitral valve replacement with a tissue valve. She has paroxysmal atrial fibrillation, maintaining sinus rhythm at this time. She is adequately anticoagulated. She also has CAD with a prior inferior MT and underwent stenting of RCA in the past. Her recent cardiac cath was in August of this year, which revealed patent vessels without significant disease. She came into the hospital with episode of chest pain, very atypical, took some nitro with inconsistent relief. Troponins are normal. EKG is unremarkable maintaining sinus rhythm. She is basically asymptomatic today and wishes to go home. PAST MEDICAL HISTORY: 1. CAD with prior inferior MT and PCI of RCA. 2. History of remote pulmonary embolism. 3. Paroxysmal Afib. 4. Status post mitral valve replacement with a tissue valve for rheumatic valve disease. 5. History of atrial fibrillation. MEDICATIONS AT HOME INCLUDE: Coumadin, lisinopril, Ranexa, Lipitor, and she also takes Lasix, Imdur, Synthroid, potassium supplements and amiodarone 100 mg daily. PHYSICAL EXAMINATION: Blood pressure is 130/70, pulse rate is 60 per minute, regular. HEENT: Unremarkable. Fundus was not examined by me. Neck is supple. There is no JVD. No carotid bruit. Heart exam reveals S1, S2 with a short systolic murmur at the apex. Lungs are clear. Abdomen is soft, nontender. Lower extremities reveal normal pulses. No edema. Central nervous system is normal. EKG revealed sinus mechanism, sinus bradycardia. no acute changes. LABORATORY DATA: Suggests no elevation of troponins. IMPRESSION: 1. Atypical chest pain. 2. Known coronary artery disease with a previous cardiac cath 3 months ago which revealed no significant progression of disease. 3. Paroxysmal atrial fibrillation, on fairly decent anticoagulation and maintaining sinus rhythm. 4. History of mitral valve replacement with a tissue valve. RECOMMENDATION: I am recommending that will increase activity and if she has no further symptoms, she can be discharged today and I will see her in the office as per her scheduled appointment. I discussed my thoughts in detail with the patient. MMODL / IJN: [id number] /
[2017-12-11] MEDS: MECLIZINE 25 MG TAB PO SCH (08:51)
[2017-12-11] MEDS: PYRIDOSTIGMINE 60 MG TAB PO SCH (08:51)
[2017-12-11] MEDS: RANOLAZINE 500 MG TAB.ER.12H PO SCH (08:51)
[2017-12-11] MEDS ORDERED: AMIODARONE 100 MG TAB PO SCH (09:00)
[2017-12-11] MEDS ORDERED: POTASSIUM CHLORIDE ER 20 MEQ TAB.ER PO SCH (09:00)
[2017-12-11] MEDS ORDERED: FAMOTIDINE 20 MG TAB PO SCH (09:00)
[2017-12-11] MEDS ORDERED: CYANOCOBALAMIN 500 MCG TAB PO SCH (09:00)
[2017-12-11] MEDS ORDERED: FUROSEMIDE 40 MG TAB PO SCH (09:00)
[2017-12-11] MEDS ORDERED: ASPIRIN 325 MG TAB PO SCH (09:00)
[2017-12-11] MEDS ORDERED: ANASTROZOLE 1 MG TAB PO SCH (09:00)
[2017-12-11] MEDS ORDERED: CHOLECALCIFEROL 1,000 UNIT TAB PO SCH (09:00)
[2017-12-11] MEDS ORDERED: LISINOPRIL 10 MG TAB PO SCH (09:00)
[2017-12-11] MEDS ORDERED: ISOSORBIDE MONONITRATE ER 30 MG TAB.ER.24H PO SCH (09:00)
[2017-12-11 11:11] LABS: Anion Gap 6 mmol/L; Blood Urea Nitrogen 18 mg/dL (7-17); Calcium 8.9 mg/dL (8.4-10.2); Carbon Dioxide 35 mmol/L (22-30); Chloride 101 mmol/L (98-107); Cholesterol 151 mg/dL (<200); Glucose 87 mg/dL (74-99); HDL Cholesterol 60 mg/dL (40-60); LDL Cholesterol,Calculated 74 mg/dL (0-99); Magnesium 2.1 mg/dL (1.6-2.3); Potassium 4.2 mmol/L (3.5-5.1); Sodium 142 mmol/L (137-145); Triglycerides 87 mg/dL (<150)
[2017-12-11] MEDS ORDERED: MULTIVITAMINS, THERA 1 EACH TAB PO SCH (12:00)
[2017-12-11 12:14] LABS: Glucose,Whole Blood 94 mg/dL (75-99)
[2017-12-11 12:49] LABS: Hemoglobin A1C 4.4 % (4.0-6.0)
[2017-12-11] MEDS ORDERED: ACETAMINOPHEN TAB 325 MG TAB PO PRN (13:08)
[2017-12-11 16:09] VITALS: BP 119/47; PULSE 59; RESP 18; TEMP 98.4
[2017-12-11] MEDS ORDERED: WARFARIN 5 MG TAB PO SCH (18:00)
--- NOTE | 2017-12-11 19:56 | HP ---
HISTORY AND PHYSICAL ADMITTING SUMMARY: Patient admitted in my absence for chest pain. She comes in frequently and usually does not require any intervention. She has congestive heart failure and unstable angina about which very little more can be done. She was admitted with the diagnosis of unstable angina pectoris for cardiac enzyme and EKG series. DAO / MARIKAN: [id number] /
--- NOTE | 2017-12-11 21:05 | DS ---
DISCHARGE SUMMARY CHIEF COMPLAINT: Chest pain. HISTORY OF PRESENT ILLNESS AND PHYSICAL EXAM: Details of this lady's history and physical can be found in the initial workup. LABORATORY STUDIES: While she was in a hospital she had laboratory studies, details of which can be found in the laboratory section of her chart. COURSE IN HOSPITAL: After admission she was placed on bedrest and started on intravenous fluids and she had serial EKGs and enzymes, which were normal. She was seen by Cardiology. It was felt that she could go home on the on usual activity, diet and medication and we will see her in the office . FINAL DIAGNOSES: 1. Coronary artery disease. 2. History of carcinoma of the breast. 3. Depression. OPERATIONS: None. CONSULTATION: Cardiology. She is improved. DAO / MARIKAN: [id number] /
[2017-12-12] MEDS ORDERED: ASPIRIN 81 MG PO SCH (09:00)
== END 2017-12-11 16:47 | disposition home or self-care (01) ==
LOC: EC 11:58 → 3OBS 13:44
PROVIDERS: ADMIT Family Medicine; ATTEND Family Medicine
DX: R07.89 Other chest pain (principal); E83.42 Hypomagnesemia; E87.6 Hypokalemia; I11.0 Hypertensive heart disease with heart failure; I50.9 Heart failure, unspecified; I48.0 Paroxysmal atrial fibrillation; I25.110 Atherosclerotic heart disease of native coronary artery with unstable angina pectoris; E11.9 Type 2 diabetes mellitus without complications; G70.00 Myasthenia gravis without (acute) exacerbation; G89.29 Other chronic pain; M54.9 Dorsalgia, unspecified; K57.90 Diverticulosis of intestine, part unspecified, without perforation or abscess without bleeding; E03.9 Hypothyroidism, unspecified; M15.9 Polyosteoarthritis, unspecified; D64.9 Anemia, unspecified; F32.9 Major depressive disorder, single episode, unspecified; I09.9 Rheumatic heart disease, unspecified; Z90.11 Acquired absence of right breast and nipple; Z79.811 Long term (current) use of aromatase inhibitors; Z79.890 Hormone replacement therapy; Z79.82 Long term (current) use of aspirin; Z79.01 Long term (current) use of anticoagulants; Z88.5 Allergy status to narcotic agent; I25.2 Old myocardial infarction; Z95.4 Presence of other heart-valve replacement; Z95.5 Presence of coronary angioplasty implant and graft; Z96.642 Presence of left artificial hip joint; Z87.891 Personal history of nicotine dependence; Z86.711 Personal history of pulmonary embolism; Z85.828 Personal history of other malignant neoplasm of skin; Z85.3 Personal history of malignant neoplasm of breast; Z87.01 Personal history of pneumonia (recurrent); Z98.1 Arthrodesis status; Z91.81 History of falling; Z87.440 Personal history of urinary (tract) infections; Z82.49 Family history of ischemic heart disease and other diseases of the circulatory system
CPT/HCPCS: 99285 ×2; 96365; 96366; 36415; 93005; 80061; 80053; 80048; 82550 ×2; 82553 ×2; 83735 ×2; 84484 ×2; 85025; 85610; 85730; 83036; 71046; G0378 ×2; S0170; J3475

== ENCOUNTER 2017-12-27 17:46 | Emergency (ER) | payer MEDICARE, BC ==
[2017-12-27 17:57] VITALS: RESP 18; TEMP 99.3
[2017-12-27] MEDS ORDERED: ASPIRIN 81 MG PO STA (18:22)
[2017-12-27 18:40] LABS: Basophils % (A) 1 %; Eosinophils # (A) 0.3 k/uL (0-0.7); Eosinophils % (A) 7 %; HGB 10.1 gm/dL (11.4-16.0); Lymphocytes # (A) 0.9 k/uL (1.0-4.8); Lymphocytes % (A) 19 %; MCH 32.4 pg (25.0-35.0); MCHC 33.6 g/dL (31.0-37.0); MCV 96.5 fL (80.0-100.0); Mean Platelet Volume 7.9; Monocytes # (A) 0.4 k/uL (0-1.0); Monocytes % (A) 8 %; Neutrophils # (A) 3.1 k/uL (1.3-7.7); Neutrophils % (A) 64 %; Platelet Count 186 k/uL (150-450); RBC 3.11 m/uL (3.80-5.40); RDW 14.8 % (11.5-15.5); WBC 4.9 k/uL (3.8-10.6)
--- NOTE | 2017-12-27 18:54 | XR ---
EXAMINATION TYPE: XR chest 2V DATE OF EXAM: 12/27/2017 COMPARISON: 12/10/2017 HISTORY: Chest pain TECHNIQUE: Frontal and lateral views of the chest are obtained. FINDINGS: There is no heart failure nor confluent pneumonic infiltrate. There are sternal wires. The re are chest leads. There is posterior fusion surgery at the thoracolumbar junction. There is vertebr oplasty. IMPRESSION: No active cardiopulmonary disease. No change.
[2017-12-27 18:57] LABS: INR 2.6 (<1.2); Partial Thromboplastin Time 32.5 sec (22.0-30.0)
[2017-12-27 19:08] LABS: Creatine Kinase 26 U/L (30-135)
[2017-12-27 19:11] LABS: Albumin 3.3 g/dL (3.5-5.0); Calcium 8.2 mg/dL (8.4-10.2); Magnesium 1.4 mg/dL (1.6-2.3); Potassium 3.1 mmol/L (3.5-5.1); Total Bilirubin 0.4 mg/dL (0.2-1.3); Total Protein 5.8 g/dL (6.3-8.2)
[2017-12-27 19:21] LABS: Creatine Kinase MB <0.2 ng/mL (0.0-2.4); Troponin I 0.014 ng/mL (0.000-0.034)
--- NOTE | 2017-12-27 20:24 | ED ---
General Adult HPI - General Chief complaint: Chest Pain Stated complaint: Chest Pain Source: patient, EMS Mode of arrival: EMS Limitations: no limitations - History of Present Illness Initial comments: Dictation was produced using [employer] dictation software. please excuse any grammatical, word or spelling errors. Chief Complaint: 82-year-old female past medical history of atrial fibrillation, valvular disease status post valvular replacement, heart failure, pneumonia presents with chief complaint of chest pain. History of Present Illness: Patient reports that her pain started this morning. She describes the pain as sharp and located to her left anterior chest with radiation to the left Adderall thorax. Patient states the pain as sharp and worsened with movement of the left upper extremity and rotation of the thorax. Patient has extensive cardiac history of The ROS documented in this emergency department record has been reviewed and confirmed by me. Those systems with pertinent positive or negative responses have been documented in the HPI. All other systems are other negative and/or noncontributory. Patient last had a cardiac catheterization in August of this year and found to be within normal limits. Patient was also admitted to the hospital last month for similar complaint where she was advised by cardiology. No further tests was performed at that time. Patient denies any constitutional symptoms. - Related Data Home Medications Medication Instructions Recorded Confirmed Cholecalciferol [Vitamin D3] 1,000 unit PO DAILY 05/18/15 12/27/17 Cyanocobalamin [Vitamin B-12] 1,000 mcg PO DAILY 05/18/15 12/27/17 Anastrozole [Arimidex] 1 mg PO DAILY 09/14/15 12/27/17 Isosorbide Mononitrate ER [Imdur] 30 mg PO DAILY 04/25/16 12/27/17 Levothyroxine Sodium [Synthroid] 100 mcg PO DAILY 04/25/16 12/27/17 Ranitidine HCl 150 mg PO DAILY 04/25/16 12/27/17 Furosemide [Lasix] 40 mg PO BID 05/20/16 12/27/17 Ranolazine [Ranexa] 500 mg PO BID 11/28/16 12/27/17 Aspirin 81 mg PO DAILY 03/22/17 12/27/17 Lisinopril [Prinivil] 10 mg PO DAILY 03/22/17 12/27/17 Meclizine [Antivert] 25 mg PO TID 05/06/17 12/27/17 Amiodarone HCl [Pacerone] 100 mg PO DAILY 05/16/17 12/27/17 Warfarin [Coumadin] 3 mg PO SUTUWEFRSA 08/04/17 12/27/17 Warfarin [Coumadin] 5 mg PO MOTH 08/04/17 12/27/17 Atorvastatin [Lipitor] 80 mg PO HS 10/08/17 12/27/17 Multivitamins, Thera [Multivitamin 1 tab PO DAILY 12/10/17 12/27/17 (formulary)] busPIRone HCL 5 mg PO DAILY PRN 12/10/17 12/27/17 Previous Rx's Medication Instructions Recorded Pyridostigmine [Mestinon] 30 mg PO BID tab 03/17/16 Carvedilol [Coreg] 6.25 mg PO BID-W/MEALS tab 10/09/17 Allergies Allergy/AdvReac Type Severity Reaction Status Date / Time morphine AdvReac Severe Nausea & Verified 12/27/17 18:14 Vomiting Review of Systems ROS Statement: Those systems with pertinent positive or pertinent negative responses have been documented in the HPI. ROS Other: All systems not noted in ROS Statement are negative. Past Medical History Past Medical History: Atrial Fibrillation, Coronary Artery Disease (CAD), Cancer , Heart Failure, Diabetes Mellitus, Eye Disorder, Hyperlipidemia, Hypertension, Myocardial Infarction (CT), Mitral Valve Prolapse (MVP), Osteoarthritis (OA), Pneumonia, Respiratory Disorder, Thyroid Disorder Additional Past Medical History / Comment(s): Paroxysmal Afib. Chronic CHF. RT Eye Occular Myasthenia Gravis. Chronic Back Pain. DJD. 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 DIET CONTROLLED DM, CHECKS BS ONCE A DAY BUT TAKES NO MEDS.. RECENT UTI. SKIN CA. RT breast CA with surgery.(NO BP RT ARM) OCC Vertigo. CHRONIC Anemia. DIVERTICULOSIS. FALLS- hypothyroid, L hip fracture with surgery.UTI'S Last Myocardial Infarction Date:: 04/2014 History of Any Multi-Drug Resistant Organisms: None Reported Past Surgical History: Appendectomy, Back Surgery, Breast Surgery, Cardiac Valve Replacement, Heart Catheterization, Heart Catheterization With Stent, Hysterectomy, Orthopedic Surgery Additional Past Surgical History / Comment(s): 11/2016 L hip hemiarthroplasty, 2015 MVR. NEYMAR CTR, bilateral Rotator Cuff Repair. EXC Skin CA. TITANIUM VIMAL IN BACK, 7 BACK FUSIONS, 3 NECK FUSIONS. Stent Proximal RCA; HEART CATH . EXC NEYMAR CATARACTS, POSS Lens Implants, Bilateral Eye Laser. RT BREAST LUMPECTOMY x 2, RT BREAST SIMPLE MASTECTOMY 06/2015. ORIF Ankles. Colonoscopy. Past Anesthesia/Blood Transfusion Reactions: No Reported Reaction Additional Past Anesthesia/Blood Transfusion Reaction / Comment(s): Pt has recently received blood without reaction. Date of Last Stent Placement:: 08/17/2013 Past Psychological History: No Psychological Hx Reported Smoking Status: Former smoker Past Alcohol Use History: None Reported Past Drug Use History: None Reported - Past Family History Father History Unknown: Yes Family Medical History: No Reported History Additional Family Medical History / Comment(s): DAD IN MVA AT AGE 52 Mother History Unknown: Yes Family Medical History: Congestive Heart Failure (CHF) Additional Family Medical History / Comment(s): RHEUMATIC FEVER. Mother of CHF at the age of 59yrs. General Exam - General Exam Comments Initial Comments: PHYSICAL EXAM: General Impression: Alert and oriented x3, not in acute distress HEENT: Normocephalic atraumatic, extra-ocular movements intact, pupils equal and reactive to light bilaterally, mucous membranes moist. Cardiovascular: Heart regular rate and rhythm, S1&S2 audible, no murmurs, rubs or gallops Chest: Lungs clear to auscultation bilaterally, no rhonchi, no wheeze, no rales , tenderness to palpation to the anterior chest that's reproduced with manipulation of the left upper extremity and turning the thorax. Abdomen: Bowel sounds present, abdomen soft, non-tender, non-distended, no organomegaly Musculoskeletal: Pulses present and equal in all extremities, no peripheral edema Motor: Power 5/5 bilaterally, no focal deficits noted Neurological: CN II-XII grossly intact, no focal motor or sensory deficits noted Skin: Intact with no visualized rashes Psych: Normal affect and mood Limitations: no limitations Course Vital Signs 12/27/17 12/27/17 17:48 18:57 Temperature 99.3 F Pulse Rate 68 62 Respiratory 18 18 Rate Blood Pressure 115/56 113/87 O2 Sat by Pulse 98 99 Oximetry Medical Decision Making - Medical Decision Making ED course: In is 82-year-old female with multiple comorbidities and cardiac disease presents with atypical chest pain. Upon arrival are within normal limits. Physical examination is benign. Laboratory evaluation obtained. CBC unremarkable. Coag panel shows therapeutic INR of 2.6. Rest of labs unremarkable. Troponin is negative. EKG is benign. Patient's presentation is clearly atypical. There are no atypical features. Patient clear for discharge. 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 Patient is agreeable to discharge with outpatient management. She is told to return to the emergency department should she have any worsening features namely crushing substernal chest pressure that is worsened with exertion, associated diaphoresis or radiating to the upper extremities. Patient is understandable and agreeable. EKG Interpretation: A 12 lead EKG was obtained. It was interpreted by myself and attending physician. There is a P wave before every QRS complex. Rate is 67. Rhythm is normal sinus rhythm, [place] interval 170, QRS 82, QTc 481. QT is not prolonged. No ST segment depression or elevation. Overall, this EKG is unremarkable - Lab Data Result diagrams: 12/27/17 18:06 12/27/17 18:06 Lab Results 12/27/17 12/27/17 12/27/17 Range/Units 18:06 18:06 18:06 WBC 4.9 (3.8-10.6) k/uL RBC 3.11 L (3.80-5.40) m/uL Hgb 10.1 L (11.4-16.0) gm/dL Hct 30.0 L (34.0-46.0) % MCV 96.5 (80.0-100.0) fL MCH 32.4 (25.0-35.0) pg MCHC 33.6 (31.0-37.0) g/dL RDW 14.8 (11.5-15.5) % Plt Count 186 (150-450) k/uL Neutrophils % 64 % Lymphocytes % 19 % Monocytes % 8 % Eosinophils % 7 % Basophils % 1 % Neutrophils # 3.1 (1.3-7.7) k/uL Lymphocytes # 0.9 L (1.0-4.8) k/uL Monocytes # 0.4 (0-1.0) k/uL Eosinophils # 0.3 (0-0.7) k/uL Basophils # 0.0 (0-0.2) k/uL PT (9.0-12.0) sec INR (<1.2) APTT (22.0-30.0) sec Sodium 142 (137-145) mmol/L Potassium 3.1 L (3.5-5.1) mmol/L Chloride 104 (98-107) mmol/L Carbon Dioxide 28 (22-30) mmol/L Anion Gap 10 mmol/L BUN 23 H (7-17) mg/dL Creatinine 0.82 (0.52-1.04) mg/dL Est GFR (CKD-EPI)AfAm 77 (>60 ml/min/1.73 sqM) Est GFR (CKD-EPI)NonAf 66 (>60 ml/min/1.73 sqM) Glucose 118 H (74-99) mg/dL Calcium 8.2 L (8.4-10.2) mg/dL Magnesium 1.4 L (1.6-2.3) mg/dL Total Bilirubin 0.4 (0.2-1.3) mg/dL AST 28 (14-36) U/L ALT 23 (9-52) U/L Alkaline Phosphatase 67 (38-126) U/L Total Creatine Kinase 26 L (30-135) U/L CK-MB (CK-2) <0.2 (0.0-2.4) ng/mL CK-MB (CK-2) Rel Index Troponin I 0.014 (0.000-0.034) ng/mL NT-Pro-B Natriuret Pep pg/mL Total Protein 5.8 L (6.3-8.2) g/dL Albumin 3.3 L (3.5-5.0) g/dL 12/27/17 12/27/17 Range/Units 18:06 18:06 WBC (3.8-10.6) k/uL RBC (3.80-5.40) m/uL Hgb (11.4-16.0) gm/dL Hct (34.0-46.0) % MCV (80.0-100.0) fL MCH (25.0-35.0) pg MCHC (31.0-37.0) g/dL RDW (11.5-15.5) % Plt Count (150-450) k/uL Neutrophils % % Lymphocytes % % Monocytes % % Eosinophils % % Basophils % % Neutrophils # (1.3-7.7) k/uL Lymphocytes # (1.0-4.8) k/uL Monocytes # (0-1.0) k/uL Eosinophils # (0-0.7) k/uL Basophils # (0-0.2) k/uL PT 23.0 H (9.0-12.0) sec INR 2.6 H (<1.2) APTT 32.5 H (22.0-30.0) sec Sodium (137-145) mmol/L Potassium (3.5-5.1) mmol/L Chloride (98-107) mmol/L Carbon Dioxide (22-30) mmol/L Anion Gap mmol/L BUN (7-17) mg/dL Creatinine (0.52-1.04) mg/dL Est GFR (CKD-EPI)AfAm (>60 ml/min/1.73 sqM) Est GFR (CKD-EPI)NonAf (>60 ml/min/1.73 sqM) Glucose (74-99) mg/dL Calcium (8.4-10.2) mg/dL Magnesium (1.6-2.3) mg/dL Total Bilirubin (0.2-1.3) mg/dL AST (14-36) U/L ALT (9-52) U/L Alkaline Phosphatase (38-126) U/L Total Creatine Kinase (30-135) U/L CK-MB (CK-2) (0.0-2.4) ng/mL CK-MB (CK-2) Rel Index Troponin I (0.000-0.034) ng/mL NT-Pro-B Natriuret Pep 1270 pg/mL Total Protein (6.3-8.2) g/dL Albumin (3.5-5.0) g/dL Disposition Clinical Impression: Chest wall muscle strain Disposition: HOME SELF-CARE Condition: Fair Instructions: Chest Pain (ED) Is patient prescribed a controlled substance at d/c from ED?: No Referrals: Oscar Blancas MD [Primary Care Provider] - 1-2 days Decision Time: 20:28
[2017-12-27 20:37] VITALS: BP 115/85; PULSE 88
== END 2017-12-27 20:37 | disposition home or self-care (01) ==
LOC: EC 17:46
DX: S29.011A Strain of muscle and tendon of front wall of thorax, initial encounter (principal); I48.0 Paroxysmal atrial fibrillation; I25.10 Atherosclerotic heart disease of native coronary artery without angina pectoris; I11.0 Hypertensive heart disease with heart failure; I50.9 Heart failure, unspecified; E78.5 Hyperlipidemia, unspecified; I25.2 Old myocardial infarction; I34.1 Nonrheumatic mitral (valve) prolapse; E03.9 Hypothyroidism, unspecified; Z85.828 Personal history of other malignant neoplasm of skin; Z85.3 Personal history of malignant neoplasm of breast; Z95.2 Presence of prosthetic heart valve; Z95.5 Presence of coronary angioplasty implant and graft; Z95.818 Presence of other cardiac implants and grafts; Z87.891 Personal history of nicotine dependence; Z79.82 Long term (current) use of aspirin; Z79.01 Long term (current) use of anticoagulants; Z79.899 Other long term (current) drug therapy; Z88.5 Allergy status to narcotic agent
CPT/HCPCS: 36415; 71046; 80053; 82550; 82553; 83735; 83880; 84484; 85025; 85610; 85730; 99285

== ENCOUNTER → 2018-01-18 | Outpatient (CLI) | payer MEDICARE, BC ==
[2018-01-18 16:27] LABS: Basophils % (A) 0 %; Eosinophils # (A) 0.4 k/uL (0-0.7); Eosinophils % (A) 6 %; HCT 35.7 % (34.0-46.0); HGB 11.5 gm/dL (11.4-16.0); Lymphocytes # (A) 1.2 k/uL (1.0-4.8); Lymphocytes % (A) 19 %; MCH 30.4 pg (25.0-35.0); MCHC 32.2 g/dL (31.0-37.0); MCV 94.4 fL (80.0-100.0); Mean Platelet Volume 7.9; Monocytes # (A) 0.4 k/uL (0-1.0); Monocytes % (A) 6 %; Neutrophils # (A) 4.4 k/uL (1.3-7.7); Neutrophils % (A) 68 %; Platelet Count 220 k/uL (150-450); RBC 3.78 m/uL (3.80-5.40); RDW 15.1 % (11.5-15.5); WBC 6.5 k/uL (3.8-10.6)
[2018-01-18 16:53] LABS: ALT 22 U/L (9-52); AST 29 U/L (14-36); Albumin 3.9 g/dL (3.5-5.0); Alkaline Phosphatase 87 U/L (38-126); Anion Gap 6 mmol/L; Blood Urea Nitrogen 16 mg/dL (7-17); Calcium 8.5 mg/dL (8.4-10.2); Carbon Dioxide 37 mmol/L (22-30); Chloride 99 mmol/L (98-107); Glucose 112 mg/dL (74-99); Sodium 142 mmol/L (137-145); Total Bilirubin 0.6 mg/dL (0.2-1.3); Total Protein 6.7 g/dL (6.3-8.2)
[2018-01-18 17:00] LABS: Potassium 2.8 mmol/L (3.5-5.1)
== END | disposition home or self-care (01) ==
LOC: LABWHC1 15:41
PROVIDERS: ATTEND Family Medicine
DX: R06.02 Shortness of breath (principal); R53.83 Other fatigue
CPT/HCPCS: 36415; 80053; 83880; 85025

== ENCOUNTER 2018-01-21 08:27 | Observation (INO) | payer MEDICARE, BC ==
[2018-01-21] MEDS ORDERED: ONDANSETRON 4 MG/2 ML VIAL IVP STA (08:56)
[2018-01-21 08:59] LABS: Basophils % (A) 0 %; Eosinophils # (A) 0.4 k/uL (0-0.7); Eosinophils % (A) 6 %; HCT 31.7 % (34.0-46.0); HGB 10.8 gm/dL (11.4-16.0); Lymphocytes % (A) 17 %; MCH 32.3 pg (25.0-35.0); MCHC 34.1 g/dL (31.0-37.0); MCV 94.7 fL (80.0-100.0); Mean Platelet Volume 7.3; Monocytes # (A) 0.3 k/uL (0-1.0); Monocytes % (A) 6 %; Neutrophils # (A) 4.1 k/uL (1.3-7.7); Neutrophils % (A) 69 %; Platelet Count 213 k/uL (150-450); RBC 3.35 m/uL (3.80-5.40); RDW 15.5 % (11.5-15.5); WBC 5.9 k/uL (3.8-10.6)
--- NOTE | 2018-01-21 09:02 | ED ---
General Adult HPI - General Chief complaint: Chest Pain Stated complaint: chest pain Time Seen by Provider: 01/21/18 08:29 Source: patient, family, RN notes reviewed, old records reviewed Mode of arrival: EMS Limitations: no limitations - History of Present Illness Initial comments: 82-year-old female history of CAD status post open heart surgery remotely presents for evaluation of left-sided chest pain. Patient describes pain as a pressure. She has been seen in this emergency department with chest pain on many occasions. She states that her pain began approximately one to 2 hours prior to arrival. She had some nausea and diaphoresis associated with this. She has taken a total of 2 nitroglycerin and 325 mg of aspirin. Her pain is improved but still present at the time my evaluation. Denies any neck trauma, shoulder or arm pain. Denies abdominal pain. Denies cough. Denies fever or chills. - Related Data Home Medications Medication Instructions Recorded Confirmed Cholecalciferol [Vitamin D3] 1,000 unit PO DAILY 05/18/15 12/27/17 Cyanocobalamin [Vitamin B-12] 1,000 mcg PO DAILY 05/18/15 12/27/17 Anastrozole [Arimidex] 1 mg PO DAILY 09/14/15 12/27/17 Isosorbide Mononitrate ER [Imdur] 30 mg PO DAILY 04/25/16 12/27/17 Levothyroxine Sodium [Synthroid] 100 mcg PO DAILY 04/25/16 12/27/17 Ranitidine HCl 150 mg PO DAILY 04/25/16 12/27/17 Furosemide [Lasix] 40 mg PO BID 05/20/16 12/27/17 Ranolazine [Ranexa] 500 mg PO BID 11/28/16 12/27/17 Aspirin 81 mg PO DAILY 03/22/17 12/27/17 Lisinopril [Prinivil] 10 mg PO DAILY 03/22/17 12/27/17 Meclizine [Antivert] 25 mg PO TID 05/06/17 12/27/17 Amiodarone HCl [Pacerone] 100 mg PO DAILY 05/16/17 12/27/17 Warfarin [Coumadin] 3 mg PO SUTUWEFRSA 08/04/17 12/27/17 Warfarin [Coumadin] 5 mg PO MOTH 08/04/17 12/27/17 Atorvastatin [Lipitor] 80 mg PO HS 10/08/17 12/27/17 Multivitamins, Thera [Multivitamin 1 tab PO DAILY 12/10/17 12/27/17 (formulary)] busPIRone HCL 5 mg PO DAILY PRN 12/10/17 12/27/17 Previous Rx's Medication Instructions Recorded Pyridostigmine [Mestinon] 30 mg PO BID tab 03/17/16 Carvedilol [Coreg] 6.25 mg PO BID-W/MEALS tab 10/09/17 Allergies Allergy/AdvReac Type Severity Reaction Status Date / Time morphine AdvReac Severe Nausea & Verified 01/21/18 08:42 Vomiting Review of Systems ROS Statement: Those systems with pertinent positive or pertinent negative responses have been documented in the HPI. ROS Other: All systems not noted in ROS Statement are negative. Past Medical History Past Medical History: Atrial Fibrillation, Coronary Artery Disease (CAD), Cancer , Heart Failure, Diabetes Mellitus, Eye Disorder, Hyperlipidemia, Hypertension, Myocardial Infarction (ID), Mitral Valve Prolapse (MVP), Osteoarthritis (OA), Pneumonia, Respiratory Disorder, Thyroid Disorder Additional Past Medical History / Comment(s): Paroxysmal Afib. Chronic CHF. RT Eye Occular Myasthenia Gravis. Chronic Back Pain. DJD. 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 DIET CONTROLLED DM, CHECKS BS ONCE A DAY BUT TAKES NO MEDS.. RECENT UTI. SKIN CA. RT breast CA with surgery.(NO BP RT ARM) OCC Vertigo. CHRONIC Anemia. DIVERTICULOSIS. FALLS- hypothyroid, L hip fracture with surgery.UTI'S Last Myocardial Infarction Date:: 04/2014 History of Any Multi-Drug Resistant Organisms: None Reported Past Surgical History: Appendectomy, Back Surgery, Breast Surgery, Cardiac Valve Replacement, Heart Catheterization, Heart Catheterization With Stent, Hysterectomy, Orthopedic Surgery Additional Past Surgical History / Comment(s): 11/2016 L hip hemiarthroplasty, 2015 MVR. NEYMAR CTR, bilateral Rotator Cuff Repair. EXC Skin CA. TITANIUM VIMAL IN BACK, 7 BACK FUSIONS, 3 NECK FUSIONS. Stent Proximal RCA; HEART CATH . EXC NEYMAR CATARACTS, POSS Lens Implants, Bilateral Eye Laser. RT BREAST LUMPECTOMY x 2, RT BREAST SIMPLE MASTECTOMY 06/2015. ORIF Ankles. Colonoscopy. Past Anesthesia/Blood Transfusion Reactions: No Reported Reaction Additional Past Anesthesia/Blood Transfusion Reaction / Comment(s): Pt has recently received blood without reaction. Date of Last Stent Placement:: 08/17/2013 Past Psychological History: No Psychological Hx Reported Smoking Status: Former smoker Past Alcohol Use History: None Reported Past Drug Use History: None Reported - Past Family History Father History Unknown: Yes Family Medical History: No Reported History Additional Family Medical History / Comment(s): DAD IN MVA AT AGE 52 Mother History Unknown: Yes Family Medical History: Congestive Heart Failure (CHF) Additional Family Medical History / Comment(s): RHEUMATIC FEVER. Mother of CHF at the age of 59yrs. General Exam Limitations: no limitations General appearance: alert, in no apparent distress Head exam: Present: atraumatic, normocephalic Eye exam: Present: normal appearance, PERRL ENT exam: Present: normal exam Neck exam: Present: normal inspection. Absent: tenderness, meningismus Respiratory exam: Present: normal lung sounds bilaterally. Absent: respiratory distress, wheezes Cardiovascular Exam: Present: regular rate, normal rhythm GI/Abdominal exam: Present: soft. Absent: distended, tenderness, guarding Extremities exam: Present: normal inspection, full ROM, normal capillary refill. Absent: pedal edema Neurological exam: Present: alert, oriented X3, CN II-XII intact. Absent: motor sensory deficit Psychiatric exam: Present: normal affect, normal mood Skin exam: Present: warm, dry, intact. Absent: cyanosis, diaphoretic Course Vital Signs 01/21/18 08:28 Temperature 97.8 F Pulse Rate 58 L Respiratory 16 Rate Blood Pressure 133/60 O2 Sat by Pulse 97 Oximetry EKG Findings - EKG Comments: EKG Findings:: EKG: Sinus bradycardia, rate of 59, ND interval 174, QRS duration 86, QTC 50 to, no ST segment elevation or depression. Medical Decision Making - Medical Decision Making 82-year-old female history of CAD presenting with left-sided chest pain. Chest x-ray obtained, does show some cardiomegaly, no focal pneumonia. White blood cell count normal, hemoglobin is stable for this patient 10.8, INR is therapeutic at 2.7, potassium low 2.8 which is replaced, magnesium is 1.3 which is also replaced. Troponin is 0.018 and mild elevation in BNP at 3420. Patient will be kept in observation for serial cardiac enzymes. Case discussed with her primary care physician Dr. Blancas who will accept admission. - Lab Data Result diagrams: 01/21/18 08:51 01/21/18 08:51 Lab Results 01/21/18 01/21/18 01/21/18 Range/Units 08:51 08:51 08:51 WBC 5.9 (3.8-10.6) k/uL RBC 3.35 L (3.80-5.40) m/uL Hgb 10.8 L (11.4-16.0) gm/dL Hct 31.7 L (34.0-46.0) % MCV 94.7 (80.0-100.0) fL MCH 32.3 (25.0-35.0) pg MCHC 34.1 (31.0-37.0) g/dL RDW 15.5 (11.5-15.5) % Plt Count 213 (150-450) k/uL Neutrophils % 69 % Lymphocytes % 17 % Monocytes % 6 % Eosinophils % 6 % Basophils % 0 % Neutrophils # 4.1 (1.3-7.7) k/uL Lymphocytes # 1.0 (1.0-4.8) k/uL Monocytes # 0.3 (0-1.0) k/uL Eosinophils # 0.4 (0-0.7) k/uL Basophils # 0.0 (0-0.2) k/uL PT (9.0-12.0) sec INR (<1.2) APTT (22.0-30.0) sec Sodium 140 (137-145) mmol/L Potassium 2.8 L* (3.5-5.1) mmol/L Chloride 101 (98-107) mmol/L Carbon Dioxide 34 H (22-30) mmol/L Anion Gap 5 mmol/L BUN 19 H (7-17) mg/dL Creatinine 0.61 (0.52-1.04) mg/dL Est GFR (CKD-EPI)AfAm >90 (>60 ml/min/1.73 sqM) Est GFR (CKD-EPI)NonAf 84 (>60 ml/min/1.73 sqM) Glucose 99 (74-99) mg/dL Calcium 8.1 L (8.4-10.2) mg/dL Magnesium 1.3 L (1.6-2.3) mg/dL Total Bilirubin 1.0 (0.2-1.3) mg/dL AST 35 (14-36) U/L ALT 22 (9-52) U/L Alkaline Phosphatase 78 (38-126) U/L Total Creatine Kinase 45 (30-135) U/L CK-MB (CK-2) 0.3 (0.0-2.4) ng/mL CK-MB (CK-2) Rel Index 0.7 Troponin I 0.018 (0.000-0.034) ng/mL NT-Pro-B Natriuret Pep pg/mL Total Protein 6.0 L (6.3-8.2) g/dL Albumin 3.3 L (3.5-5.0) g/dL 01/21/18 01/21/18 Range/Units 08:51 08:51 WBC (3.8-10.6) k/uL RBC (3.80-5.40) m/uL Hgb (11.4-16.0) gm/dL Hct (34.0-46.0) % MCV (80.0-100.0) fL MCH (25.0-35.0) pg MCHC (31.0-37.0) g/dL RDW (11.5-15.5) % Plt Count (150-450) k/uL Neutrophils % % Lymphocytes % % Monocytes % % Eosinophils % % Basophils % % Neutrophils # (1.3-7.7) k/uL Lymphocytes # (1.0-4.8) k/uL Monocytes # (0-1.0) k/uL Eosinophils # (0-0.7) k/uL Basophils # (0-0.2) k/uL PT 24.2 H (9.0-12.0) sec INR 2.7 H (<1.2) APTT 33.5 H (22.0-30.0) sec Sodium (137-145) mmol/L Potassium (3.5-5.1) mmol/L Chloride (98-107) mmol/L Carbon Dioxide (22-30) mmol/L Anion Gap mmol/L BUN (7-17) mg/dL Creatinine (0.52-1.04) mg/dL Est GFR (CKD-EPI)AfAm (>60 ml/min/1.73 sqM) Est GFR (CKD-EPI)NonAf (>60 ml/min/1.73 sqM) Glucose (74-99) mg/dL Calcium (8.4-10.2) mg/dL Magnesium (1.6-2.3) mg/dL Total Bilirubin (0.2-1.3) mg/dL AST (14-36) U/L ALT (9-52) U/L Alkaline Phosphatase (38-126) U/L Total Creatine Kinase (30-135) U/L CK-MB (CK-2) (0.0-2.4) ng/mL CK-MB (CK-2) Rel Index Troponin I (0.000-0.034) ng/mL NT-Pro-B Natriuret Pep 3420 pg/mL Total Protein (6.3-8.2) g/dL Albumin (3.5-5.0) g/dL Disposition Clinical Impression: Chest pain Disposition: ADMITTED IP TO THIS [facility] Condition: Stable Is patient prescribed a controlled substance at d/c from ED?: No Referrals: Oscar Blancas MD [Primary Care Provider] - 1-2 days Decision to Admit Reason: Admit from EC Decision Date: 01/21/18 Decision Time: 09:55
[2018-01-21 09:05] VITALS: RESP 16
[2018-01-21 09:07] LABS: INR 2.7 (<1.2); Partial Thromboplastin Time 33.5 sec (22.0-30.0); Prothrombin Time 24.2 sec (9.0-12.0)
--- NOTE | 2018-01-21 09:09 | XR ---
EXAMINATION TYPE: XR chest 2V DATE OF EXAM: 01/21/2018 HISTORY: Chest Pain. REFERENCE: Previous study. FINDINGS: There has been a previous midline sternotomy. There has been a previous interpedicular fusi on at the thoracolumbar junction and a posterior cervical fusion in the lower cervical spine. Heart size upper limits of normal. Lungs are clear. Pleural spaces are clear. IMPRESSION: 1. BORDERLINE CARDIOMEGALY. 2. EXTENSIVE POSTSURGICAL CHANGE.
[2018-01-21 09:15] LABS: Albumin 3.3 g/dL (3.5-5.0); Anion Gap 5 mmol/L; Calcium 8.1 mg/dL (8.4-10.2); Carbon Dioxide 34 mmol/L (22-30); Chloride 101 mmol/L (98-107); Glucose 99 mg/dL (74-99); Magnesium 1.3 mg/dL (1.6-2.3); Sodium 140 mmol/L (137-145)
[2018-01-21 09:24] LABS: Potassium 2.8 mmol/L (3.5-5.1)
[2018-01-21 09:25] LABS: ALT 22 U/L (9-52); AST 35 U/L (14-36); Alkaline Phosphatase 78 U/L (38-126); Blood Urea Nitrogen 19 mg/dL (7-17)
[2018-01-21] MEDS ORDERED: POTASSIUM CHLORIDE ER 20 MEQ TAB.ER PO STA (09:25)
[2018-01-21 09:30] LABS: Creatine Kinase MB 0.3 ng/mL (0.0-2.4); Troponin I 0.018 ng/mL (0.000-0.034)
[2018-01-21] MEDS ORDERED: FUROSEMIDE 10 MG/ML 2 ML VIAL IV STA (09:46)
[2018-01-21] MEDS ORDERED: ONDANSETRON 4 MG/2 ML VIAL IVP PRN (09:50)
[2018-01-21] MEDS ORDERED: NALOXONE 0.4 MG/ML 1 ML VIAL IV PRN (09:50)
[2018-01-21] MEDS: POTASSIUM CHLORIDE 20 MEQ in WATER FOR INJECTION 1 100ML.BAG IVPB SCH ×2 (10:08→12:03)
[2018-01-21 11:16] VITALS: BMI 20.9
[2018-01-21] MEDS ORDERED: busPIRone HCl 5 MG TAB PO PRN (11:57)
[2018-01-21] MEDS: MAGNESIUM SULFATE-D5W PMX 1 GM in DEXTROSE/WATER 1 100ML.BAG IVPB SCH (12:11)
[2018-01-21] MEDS: MAGNESIUM OXIDE 400 MG TAB PO SCH (13:49)
[2018-01-21 15:59] LABS: Creatine Kinase MB 0.3 ng/mL (0.0-2.4); Troponin I 0.019 ng/mL (0.000-0.034)
[2018-01-21] MEDS: POTASSIUM CHLORIDE ER 20 MEQ TAB.ER PO SCH ×2 (17:15→21:40)
[2018-01-21] MEDS: MECLIZINE 25 MG TAB PO SCH ×2 (17:15→21:40)
[2018-01-21] MEDS: CARVEDILOL 6.25 MG TAB PO SCH (17:15)
[2018-01-21] MEDS ORDERED: WARFARIN 3 MG TAB PO SCH (18:00)
[2018-01-21] MEDS: RANOLAZINE 500 MG TAB.ER.12H PO SCH (19:56)
[2018-01-21] MEDS: FUROSEMIDE 40 MG TAB PO SCH (19:56)
[2018-01-21] MEDS: PYRIDOSTIGMINE 60 MG TAB PO SCH (19:57)
[2018-01-21 20:08] LABS: Glucose,Whole Blood 130 mg/dL (75-99)
[2018-01-21] MEDS ORDERED: ATORVASTATIN 80 MG TAB PO SCH (21:00)
--- NOTE | 2018-01-21 21:13 | HP ---
HISTORY AND PHYSICAL CHIEF COMPLAINT: Chest pain. HISTORY OF PRESENT ILLNESS: This is another admission for this 82-year-old white female who is in the hospital frequently. She does have coronary artery disease and has had numerous procedures in the past and is felt not to be a candidate for any further interventions. She comes in frequently with unstable angina. She came to the emergency room this time with similar complaints and was admitted. Her troponin is up slightly. She had no syncope, palpitations, orthopnea, PND, etc. Past medical history, family history and personal and social histories are otherwise unremarkable and unchanged. Medications can be found in the MAR portion of her record. She did have a low calcium at 8.1 and magnesium 1.3, potassium 2.8. PHYSICAL EXAMINATION: Blood pressure is 125/74 with a pulse 57, respirations of 32 and she is afebrile. In general she appeared to be slightly pale, but in no acute distress. Skin was dry. Lymph nodes not enlarged. Head, ears, eyes, nose, mouth, and throat were normal. Neck veins not distended. Thyroid is not enlarged. Chest is clear. Cardiac exam demonstrated atrial fibrillation. Abdomen is soft, nontender. Extremities are normal. Neurological is intact. IMPRESSION: 1. Unstable angina pectoris. 2. Coronary artery disease. 3. Hypertension. 4. History of carcinoma of the breast. PLAN: 1. Bed rest. 2. IV fluids. 3. Serial EKGs and enzymes. 4. Probably discharge after 24 hours. MMODL / IJN: [id number] /
[2018-01-21 21:31] LABS: Creatine Kinase MB 0.3 ng/mL (0.0-2.4); Troponin I 0.017 ng/mL (0.000-0.034)
[2018-01-21] MEDS: ACETAMINOPHEN TAB 325 MG TAB PO PRN (22:26)
[2018-01-22] MEDS ORDERED: ETODOLAC 400 MG TAB PO STA (05:46)
[2018-01-22] MEDS ORDERED: traMADol 50 MG TAB PO STA (06:08)
[2018-01-22] MEDS ORDERED: LEVOTHYROXINE 100 MCG TAB PO SCH (06:30)
[2018-01-22 07:02] LABS: Glucose,Whole Blood 117 mg/dL (75-99)
[2018-01-22 07:49] LABS: Anion Gap 4 mmol/L; Blood Urea Nitrogen 19 mg/dL (7-17); Calcium 8.1 mg/dL (8.4-10.2); Carbon Dioxide 33 mmol/L (22-30); Chloride 104 mmol/L (98-107); Glucose 106 mg/dL (74-99); Magnesium 1.5 mg/dL (1.6-2.3); Potassium 3.7 mmol/L (3.5-5.1); Sodium 141 mmol/L (137-145)
[2018-01-22] MEDS ORDERED: FAMOTIDINE 20 MG TAB PO SCH (09:00)
[2018-01-22] MEDS ORDERED: CHOLECALCIFEROL 1,000 UNIT TAB PO SCH (09:00)
[2018-01-22] MEDS ORDERED: MULTIVITAMINS, THERA 1 EACH TAB PO SCH (09:00)
[2018-01-22] MEDS ORDERED: ASPIRIN 81 MG PO SCH (09:00)
[2018-01-22] MEDS ORDERED: CYANOCOBALAMIN 500 MCG TAB PO SCH (09:00)
[2018-01-22] MEDS ORDERED: LISINOPRIL 10 MG TAB PO SCH (09:00)
[2018-01-22] MEDS ORDERED: ANASTROZOLE 1 MG TAB PO SCH (09:00)
[2018-01-22] MEDS ORDERED: AMIODARONE 100 MG TAB PO SCH (09:00)
[2018-01-22] MEDS ORDERED: ISOSORBIDE MONONITRATE ER 30 MG TAB.ER.24H PO SCH (09:00)
[2018-01-22] MEDS: RANOLAZINE 500 MG TAB.ER.12H PO SCH (09:13)
[2018-01-22] MEDS: FUROSEMIDE 40 MG TAB PO SCH (09:13)
[2018-01-22] MEDS: MAGNESIUM OXIDE 400 MG TAB PO SCH (09:13)
[2018-01-22] MEDS: CARVEDILOL 6.25 MG TAB PO SCH (09:13)
[2018-01-22] MEDS: PYRIDOSTIGMINE 60 MG TAB PO SCH (09:14)
[2018-01-22] MEDS: MECLIZINE 25 MG TAB PO SCH (09:14)
[2018-01-22] MEDS: POTASSIUM CHLORIDE ER 20 MEQ TAB.ER PO SCH (10:33)
[2018-01-22] MEDS: ACETAMINOPHEN TAB 325 MG TAB PO PRN (11:01)
[2018-01-22 11:51] LABS: Hemoglobin A1C 4.9 % (4.0-6.0)
[2018-01-22 12:10] VITALS: BP 137/70; PULSE 63; TEMP 98.1
[2018-01-22 12:16] LABS: Glucose,Whole Blood 101 mg/dL (75-99)
[2018-01-22] MEDS ORDERED: WARFARIN 5 MG TAB PO SCH (18:00)
--- NOTE | 2018-01-22 19:35 | DS ---
DISCHARGE SUMMARY DATE OF DISCHARGE: 01/22/2018 CHIEF COMPLAINT: Chest pain. HISTORY OF PRESENT ILLNESS AND PHYSICAL EXAMINATION: Details of this lady's history and physical can be found in the initial workup. LABORATORY STUDIES: While she was in a hospital, she had laboratory studies, details which can be found in the laboratory section of her chart. COURSE IN HOSPITAL: After admission she was placed on bedrest and started on intravenous fluids and she had no further problems. Enzymes and EKG were unremarkable. She is stable and it was felt that she could go home on the and she will go home on her usual diet, medications, activity, and she will be seen in the office in 1 or 2 days. FINAL DIAGNOSES: 1. Unstable angina pectoris. 2. Coronary artery disease. 3. History of carcinoma of the breast. OPERATIONS: None. CONSULTATIONS: None. She is improved. DAO / JENNIE: [id number] /
== END 2018-01-22 13:55 | disposition home health service (06) ==
LOC: EC 08:27 → 3OBS 09:50
PROVIDERS: ADMIT Family Medicine; ATTEND Family Medicine
DX: I25.110 Atherosclerotic heart disease of native coronary artery with unstable angina pectoris (principal); Z85.3 Personal history of malignant neoplasm of breast; E83.51 Hypocalcemia; R77.8 Other specified abnormalities of plasma proteins; E87.6 Hypokalemia; E83.42 Hypomagnesemia; Z87.891 Personal history of nicotine dependence; Z95.5 Presence of coronary angioplasty implant and graft; Z98.1 Arthrodesis status; Z85.828 Personal history of other malignant neoplasm of skin; I50.9 Heart failure, unspecified; E11.9 Type 2 diabetes mellitus without complications; E78.5 Hyperlipidemia, unspecified; I25.2 Old myocardial infarction; M19.90 Unspecified osteoarthritis, unspecified site; Z87.01 Personal history of pneumonia (recurrent); I34.1 Nonrheumatic mitral (valve) prolapse; I48.0 Paroxysmal atrial fibrillation; I11.0 Hypertensive heart disease with heart failure; M54.9 Dorsalgia, unspecified; G89.29 Other chronic pain; G70.00 Myasthenia gravis without (acute) exacerbation; Z87.440 Personal history of urinary (tract) infections; D64.9 Anemia, unspecified; E03.9 Hypothyroidism, unspecified; R42 Dizziness and giddiness; Z95.2 Presence of prosthetic heart valve; Z88.5 Allergy status to narcotic agent; Z79.899 Other long term (current) drug therapy; Z79.01 Long term (current) use of anticoagulants; Z79.82 Long term (current) use of aspirin; Z79.890 Hormone replacement therapy; Z79.811 Long term (current) use of aromatase inhibitors; Z91.81 History of falling
CPT/HCPCS: 99285 ×2; 96365 ×2; 96375 ×3; 36415; 93005; 83880; 80053; 80048; 82550; 82553; 83735 ×2; 84484; 85025; 85610; 85730; 83036; 71046; G0378 ×2; J1940; J3480; J2405; S0170

== ENCOUNTER 2018-01-24 07:20 | Emergency (ER) | payer MEDICARE, BC ==
[2018-01-24 07:23] VITALS: TEMP 98.6
--- NOTE | 2018-01-24 07:54 | ED ---
Lower Extremity Injury HPI - General Chief Complaint: Extremity Injury, Lower Stated Complaint: Toe injury Time Seen by Provider: 01/24/18 07:35 Source: patient, RN notes reviewed Mode of arrival: wheelchair Limitations: no limitations - History of Present Illness Initial Comments: This is a 82-year-old female states she fell last night and hurt her great toe on the right foot. Just complains some pain to the left knee superior aspect lateral anterior portion she points to. She has difficulty walking she states she had a hip repair done a couple years ago her right leg is shorter than the left leg. She denies any head neck or back pain or other injury. He states most of the pain is the joint of the left great toe and she points to the MTP. - Related Data Home Medications Medication Instructions Recorded Confirmed Cholecalciferol [Vitamin D3] 1,000 unit PO DAILY 05/18/15 01/24/18 Cyanocobalamin [Vitamin B-12] 1,000 mcg PO DAILY 05/18/15 01/24/18 Anastrozole [Arimidex] 1 mg PO DAILY 09/14/15 01/24/18 Isosorbide Mononitrate ER [Imdur] 30 mg PO DAILY 04/25/16 01/24/18 Levothyroxine Sodium [Synthroid] 100 mcg PO DAILY 04/25/16 01/24/18 Ranitidine HCl 150 mg PO DAILY 04/25/16 01/24/18 Furosemide [Lasix] 40 mg PO BID 05/20/16 01/24/18 Ranolazine [Ranexa] 500 mg PO BID 11/28/16 01/24/18 Aspirin 81 mg PO DAILY 03/22/17 01/24/18 Lisinopril [Prinivil] 10 mg PO DAILY 03/22/17 01/24/18 Meclizine [Antivert] 25 mg PO TID 05/06/17 01/24/18 Amiodarone HCl [Pacerone] 100 mg PO DAILY 05/16/17 01/24/18 Warfarin [Coumadin] 3 mg PO SUTUWEFRSA 08/04/17 01/24/18 Warfarin [Coumadin] 5 mg PO MOTH 08/04/17 01/24/18 Atorvastatin [Lipitor] 80 mg PO HS 10/08/17 01/24/18 Multivitamins, Thera [Multivitamin 1 tab PO DAILY 12/10/17 01/24/18 (formulary)] Carvedilol [Coreg] 6.25 mg PO HS 01/24/18 01/24/18 Carvedilol [Coreg] 12.5 mg PO QAM 01/24/18 01/24/18 Hydrocodone/Acetaminophen [[place] 1 tab PO BID PRN 01/24/18 01/24/18 5-325] Potassium Chloride [Klor-Con 20] 20 meq PO DAILY 01/24/18 01/24/18 Previous Rx's Medication Instructions Recorded Pyridostigmine [Mestinon] 30 mg PO BID tab 03/17/16 Allergies Allergy/AdvReac Type Severity Reaction Status Date / Time morphine AdvReac Severe Nausea & Verified 01/24/18 07:40 Vomiting Review of Systems ROS Statement: Those systems with pertinent positive or pertinent negative responses have been documented in the HPI. ROS Other: All systems not noted in ROS Statement are negative. Past Medical History Past Medical History: Atrial Fibrillation, Coronary Artery Disease (CAD), Cancer , Heart Failure, Diabetes Mellitus, Eye Disorder, Hyperlipidemia, Hypertension, Myocardial Infarction ([place]), Mitral Valve Prolapse (MVP), Osteoarthritis (OA), Pneumonia, Respiratory Disorder, Thyroid Disorder Additional Past Medical History / Comment(s): Paroxysmal Afib. Chronic CHF. RT Eye Occular Myasthenia Gravis. Chronic Back Pain. DJD. 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 DIET CONTROLLED DM, CHECKS BS ONCE A DAY BUT TAKES NO MEDS.. RECENT UTI. SKIN CA. RT breast CA with surgery.(NO BP RT ARM) OCC Vertigo. CHRONIC Anemia. DIVERTICULOSIS. FALLS- hypothyroid, L hip fracture with surgery.UTI'S Last Myocardial Infarction Date:: 04/2014 History of Any Multi-Drug Resistant Organisms: None Reported Past Surgical History: Appendectomy, Back Surgery, Breast Surgery, Cardiac Valve Replacement, Heart Catheterization, Heart Catheterization With Stent, Hysterectomy, Orthopedic Surgery Additional Past Surgical History / Comment(s): 11/2016 L hip hemiarthroplasty, 2015 MVR. NEYMAR CTR, bilateral Rotator Cuff Repair. EXC Skin CA. TITANIUM VIMAL IN BACK, 7 BACK FUSIONS, 3 NECK FUSIONS. Stent Proximal RCA; HEART CATH . EXC NEYMAR CATARACTS, POSS Lens Implants, Bilateral Eye Laser. RT BREAST LUMPECTOMY x 2, RT BREAST SIMPLE MASTECTOMY 06/2015. ORIF Ankles. Colonoscopy. Past Anesthesia/Blood Transfusion Reactions: No Reported Reaction Additional Past Anesthesia/Blood Transfusion Reaction / Comment(s): Pt has recently received blood without reaction. Date of Last Stent Placement:: 08/17/2013 Past Psychological History: No Psychological Hx Reported Smoking Status: Former smoker Past Alcohol Use History: None Reported Past Drug Use History: None Reported - Past Family History Father History Unknown: Yes Family Medical History: No Reported History Additional Family Medical History / Comment(s): DAD IN MVA AT AGE 52 Mother History Unknown: Yes Family Medical History: Congestive Heart Failure (CHF) Additional Family Medical History / Comment(s): RHEUMATIC FEVER. Mother of CHF at the age of 59yrs. General Exam - General Exam Comments Initial Comments: This is a well-developed well-nourished awake alert oriented 3 female demonstrate a [place] Coma Scale of 15 Limitations: no limitations General appearance: alert, in no apparent distress Head exam: Present: atraumatic, normocephalic, normal inspection Eye exam: Present: normal appearance, PERRL, EOMI. Absent: scleral icterus, conjunctival injection, periorbital swelling Neck exam: Present: normal inspection, full ROM. Absent: tenderness, meningismus, lymphadenopathy Extremities exam: Present: tenderness, normal capillary refill, other (Slight discoloration of the left great toe with some tenderness over the first MTP joint no obvious deformity however no step-off or crepitation remainder exams are unremarkable except for some mild tenderness palpation of the anterior lateral superior aspect the left knee again demonstrate no step-off crepitation she does state it hurts to ambulate however in this area.) Back exam: Present: normal inspection Neurological exam: Present: alert, oriented X3, CN II-XII intact Psychiatric exam: Present: normal affect, normal mood Skin exam: Present: warm, dry, intact. Absent: normal color, rash Course Vital Signs 01/24/18 07:21 Temperature 98.6 F Pulse Rate 64 Respiratory 18 Rate Blood Pressure 148/64 O2 Sat by Pulse 94 L Oximetry Medical Decision Making - Medical Decision Making I did discuss [employer] the patient and her family. Patient be discharged presentation is consistent with a right great toe sprain and knee contusion on the left - Radiology Data Radiology results: report reviewed (I did review the imaging and reports no definite evidence of fracture. Evidence of osteopenia and degenerative joint disease. To the report for complete analysis), image reviewed Disposition Clinical Impression: Sprain of toe, great, right, Contusion of left knee Disposition: HOME SELF-CARE Condition: Good Instructions: Sprain (ED), Knee Pain (ED), Contusion in Adults (ED) Additional Instructions: [id number] medication for pain Is patient prescribed a controlled substance at d/c from ED?: No Referrals: Oscar Blancas MD [Primary Care Provider] - 1-2 days
--- NOTE | 2018-01-24 08:28 | XR ---
EXAMINATION TYPE: XR knee complete 3 views LT, XR foot complete 3 views RT DATE OF EXAM: 01/24/2018 COMPARISON: NONE HISTORY: 82-year-old female with pain after fall FINDINGS: Left knee: There is marked osteopenia. No knee joint effusion. No displaced fracture seen. Extensor mechanism is intact. Right foot: Moderate hallux valgus deformity with bunion and mild degenerative change at the first MTP joint. Dif fuse osteopenia. Small posterior and plantar calcaneal spurs. No acute fracture, subluxation, or disl ocation. IMPRESSION: 1. Left knee: No acute osseous abnormality seen. However, there is marked osteopenia limiting assessm ent. If patient has significant pain or there is concern for an occult injury, MRI can be considered. However, the lack of a joint effusion argues against a significant injury. 2. Right foot: Osteopenia. Moderate hallux valgus with bunion and mild first MTP joint OA. No acute f racture identified.
[2018-01-24 08:50] VITALS: BP 142/80; PULSE 65; RESP 16
== END 2018-01-24 08:50 | disposition home or self-care (01) ==
LOC: EC 07:20
DX: S93.501A Unspecified sprain of right great toe, initial encounter (principal); S80.02XA Contusion of left knee, initial encounter; I48.91 Unspecified atrial fibrillation; I25.10 Atherosclerotic heart disease of native coronary artery without angina pectoris; I11.0 Hypertensive heart disease with heart failure; I50.9 Heart failure, unspecified; E11.9 Type 2 diabetes mellitus without complications; E78.5 Hyperlipidemia, unspecified; I25.2 Old myocardial infarction; M19.90 Unspecified osteoarthritis, unspecified site; E03.9 Hypothyroidism, unspecified; D64.9 Anemia, unspecified; Z85.828 Personal history of other malignant neoplasm of skin; Z85.3 Personal history of malignant neoplasm of breast; Z87.891 Personal history of nicotine dependence; Z79.82 Long term (current) use of aspirin; Z79.01 Long term (current) use of anticoagulants; Z79.899 Other long term (current) drug therapy; Z88.5 Allergy status to narcotic agent; Z95.2 Presence of prosthetic heart valve; Z95.5 Presence of coronary angioplasty implant and graft; W19.XXXA Unspecified fall, initial encounter
CPT/HCPCS: 99283

== ENCOUNTER 2018-02-01 16:14 | Inpatient (IN) | payer MEDICARE, BC ==
[2018-02-01] MEDS ORDERED: SODIUM CHLORIDE 0.9% 1,000 ML IV STA (16:17)
--- NOTE | 2018-02-01 16:21 | ED ---
Chest Pain HPI - General Stated Complaint: chest pain Time Seen by Provider: 02/01/18 16:14 Source: patient, family, EMS, RN notes reviewed Mode of arrival: EMS Limitations: no limitations - History of Present Illness Initial Comments: This 82-year-old female history of angina who states she had the onset of chest pain about an hour ago. She took 3 of her own nitroglycerin without relief it was 9/10 in severity sharp she points to her mid epigastric lower sternal area. She is given 2 nitros by EMS and was noted to have a pain down to 7/10 she states that sharp she also has some sweats no nausea no vomiting no other symptoms reported. She has had similar complaints in the past. MD Complaint: chest pain - Related Data Home Medications Medication Instructions Recorded Confirmed Cholecalciferol [Vitamin D3] 1,000 unit PO DAILY 05/18/15 02/01/18 Cyanocobalamin [Vitamin B-12] 1,000 mcg PO DAILY 05/18/15 02/01/18 Anastrozole [Arimidex] 1 mg PO DAILY 09/14/15 02/01/18 Isosorbide Mononitrate ER [Imdur] 30 mg PO DAILY 04/25/16 02/01/18 Levothyroxine Sodium [Synthroid] 100 mcg PO DAILY 04/25/16 02/01/18 Ranitidine HCl 150 mg PO DAILY 04/25/16 02/01/18 Furosemide [Lasix] 40 mg PO BID 05/20/16 02/01/18 Ranolazine [Ranexa] 500 mg PO BID 11/28/16 02/01/18 Aspirin 81 mg PO DAILY 03/22/17 02/01/18 Lisinopril [Prinivil] 10 mg PO DAILY 03/22/17 02/01/18 Meclizine [Antivert] 25 mg PO TID 05/06/17 02/01/18 Amiodarone HCl [Pacerone] 100 mg PO DAILY 05/16/17 02/01/18 Warfarin [Coumadin] 3 mg PO SUTUWEFRSA 08/04/17 02/01/18 Warfarin [Coumadin] 5 mg PO MOTH 08/04/17 02/01/18 Atorvastatin [Lipitor] 80 mg PO HS 10/08/17 02/01/18 Multivitamins, Thera [Multivitamin 1 tab PO DAILY 12/10/17 02/01/18 (formulary)] Carvedilol [Coreg] 6.25 mg PO HS 01/24/18 02/01/18 Carvedilol [Coreg] 12.5 mg PO QAM 01/24/18 02/01/18 Hydrocodone/Acetaminophen [[place] 1 tab PO BID PRN 01/24/18 02/01/18 5-325] Potassium Chloride [Klor-Con 20] 20 meq PO DAILY 01/24/18 02/01/18 Previous Rx's Medication Instructions Recorded Pyridostigmine [Mestinon] 30 mg PO BID tab 03/17/16 Allergies Allergy/AdvReac Type Severity Reaction Status Date / Time morphine AdvReac Severe Nausea & Verified 02/01/18 16:38 Vomiting Review of Systems ROS Statement: Those systems with pertinent positive or pertinent negative responses have been documented in the HPI. ROS Other: All systems not noted in ROS Statement are negative. EKG Findings - EKG Results: EKG: interpreted by [facility], sinus rhythm (Sinus rhythm rate of 82. A phone 82 QRS duration 78 daily since QTC 452/528 poor R-wave progression prolonged QT and no change compared to one dated 01/21/18) Past Medical History Past Medical History: Atrial Fibrillation, Coronary Artery Disease (CAD), Cancer , Heart Failure, Diabetes Mellitus, Eye Disorder, Hyperlipidemia, Hypertension, Myocardial Infarction ([place]), Mitral Valve Prolapse (MVP), Osteoarthritis (OA), Pneumonia, Respiratory Disorder, Thyroid Disorder Additional Past Medical History / Comment(s): Paroxysmal Afib. Chronic CHF. RT Eye Occular Myasthenia Gravis. Chronic Back Pain. DJD. 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 DIET CONTROLLED DM, CHECKS BS ONCE A DAY BUT TAKES NO MEDS.. RECENT UTI. SKIN CA. RT breast CA with surgery.(NO BP RT ARM) OCC Vertigo. CHRONIC Anemia. DIVERTICULOSIS. FALLS- hypothyroid, L hip fracture with surgery.UTI'S Last Myocardial Infarction Date:: 04/2014 History of Any Multi-Drug Resistant Organisms: None Reported Past Surgical History: Appendectomy, Back Surgery, Breast Surgery, Cardiac Valve Replacement, Heart Catheterization, Heart Catheterization With Stent, Hysterectomy, Orthopedic Surgery Additional Past Surgical History / Comment(s): 11/2016 L hip hemiarthroplasty, 2015 MVR. NEYMAR CTR, bilateral Rotator Cuff Repair. EXC Skin CA. TITANIUM VIMAL IN BACK, 7 BACK FUSIONS, 3 NECK FUSIONS. Stent Proximal RCA; HEART CATH . EXC NEYMAR CATARACTS, POSS Lens Implants, Bilateral Eye Laser. RT BREAST LUMPECTOMY x 2, RT BREAST SIMPLE MASTECTOMY 06/2015. ORIF Ankles. Colonoscopy. Past Anesthesia/Blood Transfusion Reactions: No Reported Reaction Additional Past Anesthesia/Blood Transfusion Reaction / Comment(s): Pt has recently received blood without reaction. Date of Last Stent Placement:: 08/17/2013 Past Psychological History: No Psychological Hx Reported Smoking Status: Former smoker Past Alcohol Use History: None Reported Past Drug Use History: None Reported - Past Family History Father History Unknown: Yes Family Medical History: No Reported History Additional Family Medical History / Comment(s): DAD IN MVA AT AGE 52 Mother History Unknown: Yes Family Medical History: Congestive Heart Failure (CHF) Additional Family Medical History / Comment(s): RHEUMATIC FEVER. Mother of CHF at the age of 59yrs. General Exam - General Exam Comments Initial Comments: This is a well-developed well-nourished awake alert oriented 3 female Limitations: no limitations General appearance: alert, anxious Head exam: Present: atraumatic, normocephalic, normal inspection Eye exam: Present: normal appearance, PERRL, EOMI. Absent: scleral icterus, conjunctival injection, periorbital swelling ENT exam: Present: normal exam, mucous membranes moist Neck exam: Present: normal inspection. Absent: tenderness, meningismus, lymphadenopathy Respiratory exam: Present: normal lung sounds bilaterally. Absent: respiratory distress, wheezes, rales, rhonchi, stridor, chest wall tenderness Cardiovascular Exam: Present: regular rate, normal rhythm, normal heart sounds. Absent: systolic murmur, diastolic murmur, rubs, gallop, clicks GI/Abdominal exam: Present: soft, tenderness (Epigastric has palpation some voluntary guarding no rebound masses or bruits), normal bowel sounds. Absent: distended, guarding, rebound, rigid Extremities exam: Present: normal inspection, full ROM, normal capillary refill. Absent: tenderness, pedal edema, joint swelling, calf tenderness Back exam: Present: normal inspection Neurological exam: Present: alert, oriented X3, CN II-XII intact Psychiatric exam: Present: normal affect, normal mood Skin exam: Present: warm, dry, intact, normal color. Absent: rash Course Vital Signs 02/01/18 02/01/18 16:17 17:49 Temperature 99.1 F Pulse Rate 81 71 Respiratory 18 18 Rate Blood Pressure 130/60 151/66 O2 Sat by Pulse 91 L 98 Oximetry Chest Pain MDM - MDM Imaging shows increased markings consistent with pulmonary edema he does have evidence of UTI also. She will be admitted for evaluation of atypical chest pain and treatment for UTI. I did reevaluate patient several occasions she still persists with some leg pain was reproducible epigastric pain. Critical Care Time Critical Care Time: Yes Critical Care Time: 31 minutes of critical care time which includes initial EMS run and discussed with paramedics history physical labs x-rays discussed with the patient family review of old charting several reevaluation the patient discussed with the main physician documentation of the above Disposition Clinical Impression: Atypical chest pain, Congestive heart failure (CHF), Urinary tract infection Disposition: ADMITTED IP TO THIS HOSP Condition: Stable Referrals: Oscar Blancas MD [Primary Care Provider] - 1-2 days
[2018-02-01] MEDS: MAG HYDROX/AL HYDROX/SIMETH 30 ML, HYOSCYAMINE ELIXIR 10 ML, CIMETIDINE HCL 300 MG PO STA ×6 (16:31→16:34)
[2018-02-01 16:42] LABS: Basophils % (A) 0 %; Eosinophils # (A) 0.5 k/uL (0-0.7); Eosinophils % (A) 6 %; HCT 31.7 % (34.0-46.0); HGB 10.3 gm/dL (11.4-16.0); Hypochromasia Slight; Lymphocytes # (A) 0.9 k/uL (1.0-4.8); Lymphocytes % (A) 10 %; MCH 30.8 pg (25.0-35.0); MCHC 32.5 g/dL (31.0-37.0); MCV 94.9 fL (80.0-100.0); Mean Platelet Volume 7.9; Monocytes # (A) 0.4 k/uL (0-1.0); Monocytes % (A) 5 %; Neutrophils # (A) 6.5 k/uL (1.3-7.7); Neutrophils % (A) 77 %; Platelet Count 293 k/uL (150-450); RBC 3.34 m/uL (3.80-5.40); RDW 15.5 % (11.5-15.5); WBC 8.5 k/uL (3.8-10.6)
[2018-02-01 16:57] LABS: ALT 22 U/L (9-52); AST 34 U/L (14-36); Albumin 3.3 g/dL (3.5-5.0); Alkaline Phosphatase 111 U/L (38-126); Amylase 66 U/L (30-110); Anion Gap 6 mmol/L; Blood Urea Nitrogen 17 mg/dL (7-17); Calcium 8.5 mg/dL (8.4-10.2); Carbon Dioxide 27 mmol/L (22-30); Chloride 107 mmol/L (98-107); Glucose 121 mg/dL (74-99); Lipase 85 U/L (23-300); Magnesium 1.8 mg/dL (1.6-2.3); Potassium 3.6 mmol/L (3.5-5.1); Sodium 140 mmol/L (137-145); Total Bilirubin 0.9 mg/dL (0.2-1.3); Total Protein 6.2 g/dL (6.3-8.2)
[2018-02-01 16:59] LABS: Partial Thromboplastin Time 46.8 sec (22.0-30.0); Prothrombin Time 36.1 sec (9.0-12.0)
--- NOTE | 2018-02-01 17:04 | XR ---
EXAMINATION TYPE: XR chest 2V DATE OF EXAM: 02/01/2018 COMPARISON: 01/21/2018 HISTORY: Chest pain TECHNIQUE: Frontal and lateral views of the chest are obtained. FINDINGS: There is general diffuse interstitial pulmonary edema. Heart is enlarged. Thoracic aorta i s atheromatous. There are sternal wires. There is posterior fusion surgery in the lower thoracic and lumbar spine. There are chest leads. IMPRESSION: There is new pulmonary edema compared to old exam that could be acute congestive heart f ailure.
--- NOTE | 2018-02-01 17:05 | XR ---
EXAMINATION TYPE: XR abdomen 1V DATE OF EXAM: 02/01/2018 COMPARISON: 05/24/2017 HISTORY: Abdominal pain TECHNIQUE: 2 views FINDINGS: 2 views upright show no sign of intestinal obstruction or pneumoperitoneum. There are rods and screws fusing posteriorly the thoracic and lumbar spine. There is no evidence of a mass. There is left hip prosthesis. IMPRESSION: Nonacute abdomen. No change compared to old exam.
[2018-02-01 17:09] LABS: Creatine Kinase MB 0.3 ng/mL (0.0-2.4); Troponin I 0.013 ng/mL (0.000-0.034)
[2018-02-01 18:45] LABS: Appearance,Urine Turbid (Clear); Bacteria,Urine Many /hpf; Bilirubin,Urine Negative (Negative); Blood,Urine Trace (Negative); Color,Urine Yellow; Glucose,Urine (UA) Negative (Negative); Ketones,Urine Negative (Negative); Leukocyte Esterase,Urine Large (Negative); Mucus,Urine Few /hpf; Nitrite,Urine Positive (Negative); PH, Urine 5.5 (5.0-8.0); Protein,Urine Trace (Negative); RBC,Urine 10 /hpf (0-5); Specific Gravity,Urine 1.018 (1.001-1.035); Squamous Epithelial Cell,Urine 27 /hpf (0-4); Urobilinogen,Urine <2.0 mg/dL (<2.0); WBC,Urine >182 /hpf (0-5)
[2018-02-01] MEDS ORDERED: cefTRIAXone IN SWFI 1,000 MG/10 ML SYRINGE IVP STA (18:47)
[2018-02-01] MEDS ORDERED: FUROSEMIDE 10 MG/ML 4 ML VIAL IV STA (18:48)
[2018-02-01] MEDS ORDERED: WARFARIN 1 MG TAB PO SCH (19:00)
[2018-02-01] MEDS: SODIUM CHLORIDE 0.9% 1,000 ML IV SCH (19:18)
[2018-02-01 20:39] LABS: Glucose,Whole Blood 158 mg/dL (75-99)
[2018-02-01] MEDS: CARVEDILOL 6.25 MG TAB PO SCH (20:57)
[2018-02-01] MEDS: MECLIZINE 25 MG TAB PO SCH (20:58)
[2018-02-01] MEDS: RANOLAZINE 500 MG TAB.ER.12H PO SCH (20:58)
[2018-02-01] MEDS: PYRIDOSTIGMINE 60 MG TAB PO SCH ×2 (20:58→21:31)
[2018-02-01] MEDS ORDERED: FUROSEMIDE 40 MG TAB PO SCH (21:00)
[2018-02-01] MEDS: ATORVASTATIN 80 MG TAB PO SCH (21:00)
[2018-02-01] MEDS: NITROGLYCERIN OINT 1 INCH/GM PACKET TOPICAL SCH (21:01)
[2018-02-01] MEDS: HYDROcodone/APAP 5-325MG 1 EACH TAB PO PRN (23:21)
[2018-02-02] MEDS: ALPRAZolam 0.25 MG TAB PO PRN ×2 (00:15→22:54)
[2018-02-02 02:39] LABS: Anion Gap 5 mmol/L; Blood Urea Nitrogen 18 mg/dL (7-17); Calcium 8.3 mg/dL (8.4-10.2); Carbon Dioxide 30 mmol/L (22-30); Chloride 102 mmol/L (98-107); Glucose 144 mg/dL (74-99); Magnesium 1.6 mg/dL (1.6-2.3); Potassium 3.3 mmol/L (3.5-5.1); Sodium 137 mmol/L (137-145)
[2018-02-02] MEDS: MAGNESIUM SULFATE-D5W PMX 1 GM in DEXTROSE/WATER 1 100ML.BAG IVPB SCH ×2 (04:04→05:48)
[2018-02-02] MEDS: POTASSIUM CHLORIDE ER 20 MEQ TAB.ER PO SCH ×3 (04:21→09:56)
[2018-02-02 06:05] LABS: Glucose,Whole Blood 144 mg/dL (75-99)
[2018-02-02] MEDS: PANTOPRAZOLE 40 MG TABLET PO SCH (06:43)
[2018-02-02] MEDS: LEVOTHYROXINE 100 MCG TAB PO SCH (06:43)
[2018-02-02] MEDS: FUROSEMIDE 10 MG/ML 4 ML VIAL IV SCH ×2 (07:02→17:29)
--- NOTE | 2018-02-02 07:03 | HP ---
HISTORY AND PHYSICAL DATE OF SERVICE: 02/01/2018 I am covering for Dr. Blancas. CHIEF COMPLAINT: Chest pain. HISTORY OF PRESENT ILLNESS: This 82-year-old woman with a past history of atrial fibrillation, CAD, history of CHF, diabetes mellitus, history of hypertension, history of myocardial infarction, history of being followed by Dr. Blancas in the outpatient setting, was complaining of chest pain. The pain was felt in the anterior part of chest, crushing in character. The patient reported 9/10 intensity which is more towards the lower sternal area and the epigastric area. The patient took some nitroglycerin with some relief and the EMS also gave some nitroglycerin and the patient taken to [facility] and was admitted for further evaluation and treatment. The initial troponin 0.013. NT proBNP was 2870. The UA showed has got some UTI. The initial EKG showed nonspecific ST-T changes and a chest x-ray showed some pulmonary edema. The patient admitted for further evaluation and treatment. There is no history of fever, rigors. No headache, loss of consciousness, seizures. PAST MEDICAL HISTORY: History of atrial fibrillation, CAD, history of CHF, history of diabetes type 2, history of hypertension, history of myocardial infarction, history of pneumonia, history of paroxysmal atrial fibrillation. MEDICATIONS: Prior to admission, home medications are: 1. Coumadin 3 mg Monday, Monday, Monday, Monday, Monday. 2. [place] 5 mg b.i.d. p.r.n. 3. Coreg 6.25 mg p.o. q.h.s. 4. Lipitor 80 mg q.h.s. 5. Coumadin 5 mg p.o. Monday, Monday, . 6. Ranexa 500 mg p.o. b.i.d. 7. Dilantin 150 mg p.o. daily. 8. Mestinon 30 mg p.o. b.i.d. 9. Klor-Con 10 mg p.o. 10.Multivitamins 1 p.o. daily. 11.Antivert 25 mg p.o. t.i.d. 12.Prinivil 10 mg p.o. daily. 13.Synthroid 100 mcg p.o. daily. 14.Imdur 30 mg p.o. daily. 15.Lasix 40 mg p.o. b.i.d. 16.Vitamin B12 1000 mcg p.o. 17.Vitamin D3 1000 units daily. 18.Coreg 12.5 mg p.o. q.a.m. 19.Aspirin 81 mg p.o. daily. 21.Pacerone 100 mg p.o. daily. ALLERGIES: MORPHINE. FAMILY HISTORY: No history of heart disease or strokes in the family. SOCIAL HISTORY: Previous history of smoking. No history of current smoking or alcohol intake. REVIEW OF SYSTEMS: ENT: Diminished hearing and vision. CARDIOVASCULAR: As mentioned earlier. RESPIRATORY: As mentioned earlier. GI: No nausea. : No dysuria. NERVOUS SYSTEM: No numbness or weakness. ALLERGY/IMMUNOLOGY: No asthma. MUSCULOSKELETAL: As mentioned earlier. HEMATOLOGY: No history of anemia. ENDOCRINE: History of hypothyroidism. CONSTITUTIONAL: As mentioned earlier. DERMATOLOGY: Negative. RHEUMATOLOGY: Negative. PSYCHIATRY: As mentioned earlier. PHYSICAL EXAMINATION: Alert and oriented x3. Pulse 54, blood pressure 132/60, respirations 17, temperature 98.6, pulse ox 94% on 2 L. HEENT: Conjunctivae normal. Oral mucosa moist. Neck is no jugular venous distention. No carotid bruit. No lymph node enlargement. CARDIOVASCULAR: S1, S2. Ejection systolic murmur. RESPIRATORY: Breath sounds diminished in the bases. A few scattered rhonchi and crackles. ABDOMEN: Soft, nontender. No mass palpable. LEGS: No edema, no swelling. NERVOUS SYSTEM: Higher functions as mentioned. Moves all 4 limbs. No focal motor sensory deficits. LYMPHATICS: No lymphadenopathy in the neck, axillae, groin. SKIN: No ulcer, rashes, bleeding. LABS: WBC 8, hemoglobin 10.8, INR is 4. NT proBNP is 2872. UA noted. ASSESSMENT: 1. Chest pain possible unstable angina. 2. Rule out pneumonia. 3. Congestive heart failure acute exacerbation. 4. Urinary tract infection, present on admission. 5. Coumadin coagulopathy. 6. Anemia of chronic disease. 7. Atrial fibrillation. 8. Coronary artery disease. 9. Congestive heart failure. 10.Diabetes mellitus type 2. 11.Hypertension. 12.Hyperlipidemia. 13.History of myocardial infarction. 15.History of paroxysmal atrial fibrillation. 16.History of skin cancer. 17.History of right breast cancer. 18.History of cardiac valve replacement. 19.History of coronary artery disease, stent. 20.History of degenerative joint disease. 21.Remote history of nicotine dependence. RECOMMENDATIONS AND DISCUSSION: This 82-year-old woman who presented with multiple complex medical issues, will monitor the patient closely. Continue the current management and symptomatic treatment. Otherwise rule out myocardial infarction. Closely follow with Cardiology. Resume the home medications. I would also recommend Pulmonary evaluation to rule out pneumonia. Otherwise, continue with diuresis and empiric antibiotics will be initiated. Cultures will be obtained. Guarded prognosis because of multiple complex medical issues. See orders for details. MMODL / IJN: [id number] / MTDD
[2018-02-02 08:28] LABS: INR 2.8 (<1.2); Prothrombin Time 25.3 sec (9.0-12.0)
[2018-02-02 08:29] LABS: Basophils % (A) 0 %; Eosinophils # (A) 0.2 k/uL (0-0.7); Eosinophils % (A) 3 %; HCT 30.6 % (34.0-46.0); HGB 10.2 gm/dL (11.4-16.0); Lymphocytes # (A) 1.1 k/uL (1.0-4.8); Lymphocytes % (A) 12 %; MCH 31.3 pg (25.0-35.0); MCHC 33.2 g/dL (31.0-37.0); MCV 94.5 fL (80.0-100.0); Mean Platelet Volume 7.7; Monocytes # (A) 0.5 k/uL (0-1.0); Monocytes % (A) 6 %; Neutrophils # (A) 7.1 k/uL (1.3-7.7); Neutrophils % (A) 77 %; Platelet Count 275 k/uL (150-450); RBC 3.24 m/uL (3.80-5.40); RDW 15.6 % (11.5-15.5); WBC 9.2 k/uL (3.8-10.6)
[2018-02-02] MEDS: RANOLAZINE 500 MG TAB.ER.12H PO SCH ×2 (08:48→21:36)
[2018-02-02 08:56] LABS: Anion Gap 5 mmol/L; Blood Urea Nitrogen 16 mg/dL (7-17); Calcium 8.6 mg/dL (8.4-10.2); Carbon Dioxide 31 mmol/L (22-30); Chloride 103 mmol/L (98-107); Glucose 109 mg/dL (74-99); Magnesium 2.5 mg/dL (1.6-2.3); Potassium 3.9 mmol/L (3.5-5.1); Sodium 139 mmol/L (137-145)
--- NOTE | 2018-02-02 08:56 | P.CNPUL ---
History of Present Illness Consult date: 02/02/18 Reason for consult: dyspnea, cough Chief complaint: Acute onset of chest pain on day of admission History of present illness: 82-year-old female well-known to me patient has a history of coronary artery disease status post CABG also has a history of chronic atrial fibrillation and anticoagulation with Coumadin on day of admission patient has acute onset chest pain retrosternal as well as an epigastric area started 1 day prior to coming into the hospital EMS were notified and Route she took nitro sublingual pain improved has been admitted into the hospital for close monitoring and evaluation currently patient is pain-free, she had mildly elevated troponin my EKG suggestive of the sinus rhythm with PACs with questionable anterior infarct along with prolonged QT interval well, chest x-ray hard copies reviewed suggestive of cardiomegaly interstitial edema more suggestive of pulmonary edema , other significant laboratory data suggestive of "neuropathy with INR of 4 however came down to 2.8 today, urine is suggestive of infection with turbid appearance positive for nitrite and large leukocyte esterase trace many bacteria were seen culture results are pending, currently she is on the continuation of her home medications including amiodarone 100 mg daily and Rocephin as antibacterial agent with cardiovascular services on consult as well , proBNP is over 2800 suggestive of pulmonary edema and heart failure and volume overload Review of Systems All systems: negative Past Medical History Past Medical History: Atrial Fibrillation, Coronary Artery Disease (CAD), Cancer , Heart Failure, Diabetes Mellitus, Eye Disorder, Hyperlipidemia, Hypertension, Myocardial Infarction ([place]), Mitral Valve Prolapse (MVP), Osteoarthritis (OA), Pneumonia, Respiratory Disorder, Thyroid Disorder Additional Past Medical History / Comment(s): Paroxysmal Afib. Chronic CHF. RT Eye Occular Myasthenia Gravis. Chronic Back Pain. DJD. 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 DIET CONTROLLED DM, CHECKS BS ONCE A DAY BUT TAKES NO MEDS.. RECENT UTI. SKIN CA. RT breast CA with surgery.(NO BP RT ARM) OCC Vertigo. CHRONIC Anemia. DIVERTICULOSIS. FALLS- hypothyroid, L hip fracture with surgery.UTI'S Last Myocardial Infarction Date:: 04/2014 History of Any Multi-Drug Resistant Organisms: None Reported Past Surgical History: Appendectomy, Back Surgery, Breast Surgery, Cardiac Valve Replacement, Heart Catheterization, Heart Catheterization With Stent, Hysterectomy, Orthopedic Surgery Additional Past Surgical History / Comment(s): 11/2016 L hip hemiarthroplasty, 2015 MVR. [facility], bilateral Rotator Cuff Repair. EXC Skin CA. TITANIUM VIMAL IN BACK, 7 BACK FUSIONS, 3 NECK FUSIONS. Stent Proximal RCA; HEART CATH . EXC NEYMAR CATARACTS, POSS Lens Implants, Bilateral Eye Laser. RT BREAST LUMPECTOMY x 2, RT BREAST SIMPLE MASTECTOMY 06/2015. ORIF Ankles. Colonoscopy. Past Anesthesia/Blood Transfusion Reactions: No Reported Reaction Additional Past Anesthesia/Blood Transfusion Reaction / Comment(s): Pt has recently received blood without reaction. Date of Last Stent Placement:: 08/17/2013 Smoking Status: Former smoker - Past Family History Father History Unknown: Yes Family Medical History: No Reported History Additional Family Medical History / Comment(s): DAD IN MVA AT AGE 52 Mother History Unknown: Yes Family Medical History: Congestive Heart Failure (CHF) Additional Family Medical History / Comment(s): RHEUMATIC FEVER. Mother of CHF at the age of 59yrs. Medications and Allergies Home Medications Medication Instructions Recorded Confirmed Type Cholecalciferol [Vitamin D3] 1,000 unit PO DAILY 05/18/15 02/01/18 History Cyanocobalamin [Vitamin B-12] 1,000 mcg PO DAILY 05/18/15 02/01/18 History Anastrozole [Arimidex] 1 mg PO DAILY 09/14/15 02/01/18 History Pyridostigmine [Mestinon] 30 mg PO BID tab 03/17/16 02/01/18 Rx Isosorbide Mononitrate ER [Imdur] 30 mg PO DAILY 04/25/16 02/01/18 History Levothyroxine Sodium [Synthroid] 100 mcg PO DAILY 04/25/16 02/01/18 History Ranitidine HCl 150 mg PO DAILY 04/25/16 02/01/18 History Furosemide [Lasix] 40 mg PO BID 05/20/16 02/01/18 History Ranolazine [Ranexa] 500 mg PO BID 11/28/16 02/01/18 History Aspirin 81 mg PO DAILY 03/22/17 02/01/18 History Lisinopril [Prinivil] 10 mg PO DAILY 03/22/17 02/01/18 History Meclizine [Antivert] 25 mg PO TID 05/06/17 02/01/18 History Amiodarone HCl [Pacerone] 100 mg PO DAILY 05/16/17 02/01/18 History Warfarin [Coumadin] 3 mg PO SUTUWEFRSA 08/04/17 02/01/18 History Warfarin [Coumadin] 5 mg PO MOTH 08/04/17 02/01/18 History Atorvastatin [Lipitor] 80 mg PO HS 10/08/17 02/01/18 History Multivitamins, Thera [Multivitamin 1 tab PO DAILY 12/10/17 02/01/18 History (formulary)] Carvedilol [Coreg] 6.25 mg PO HS 01/24/18 02/01/18 History Carvedilol [Coreg] 12.5 mg PO QAM 01/24/18 02/01/18 History Hydrocodone/Acetaminophen [[place] 1 tab PO BID PRN 01/24/18 02/01/18 History 5-325] Potassium Chloride [Klor-Con 20] 20 meq PO DAILY 01/24/18 02/01/18 History Allergies Allergy/AdvReac Type Severity Reaction Status Date / Time morphine AdvReac Severe Nausea & Verified 02/01/18 16:38 Vomiting Physical Exam Vitals: Vital Signs Temp Pulse Pulse Resp BP BP Pulse Ox 02/02/18 04:00 97.6 F 65 17 106/49 96 02/02/18 00:00 98.5 F 78 17 148/67 98 02/01/18 20:00 98.6 F 84 17 132/62 95 02/01/18 19:19 71 18 148/66 98 02/01/18 19:06 98.6 F 69 18 150/69 96 02/01/18 17:49 71 18 151/66 98 02/01/18 16:17 99.1 F 81 18 130/60 91 L Intake and Output 02/01/18 02/02/18 02/02/18 22:59 06:59 14:59 Intake Total 1020 Balance 1020 Intake: Intake, IV Titration 420 Amount Magnesium Sulfate-D5w Pmx 200 1 gm In Dextrose/Water 1 100ml.bag @ 100 mls/hr IVPB Q1H [facility] Rx#: [id number] Sodium Chloride 0.9% 1, 220 000 ml @ 20 mls/hr IV . Q24H [facility] Rx#:[id number] Oral 600 Other: Voiding Method Bedside Commode Toilet Bedpan Bedside Commode Diaper Bedpan # Voids 1 Weight 61.689 kg 60.3 kg General appearance: alert, anxious Head exam: Present: atraumatic, normocephalic, normal inspection Eye exam: Present: normal appearance, PERRL, EOMI. Absent: scleral icterus, conjunctival injection, periorbital swelling ENT exam: Present: normal exam, mucous membranes moist Neck exam: Present: normal inspection. Absent: tenderness, meningismus, lymphadenopathy Respiratory exam: Present: normal lung sounds bilaterally. Absent: respiratory distress, wheezes, rales, rhonchi, stridor, chest wall tenderness Cardiovascular Exam: Present: regular rate, normal rhythm, normal heart sounds. Absent: systolic murmur, diastolic murmur, rubs, gallop, clicks GI/Abdominal exam: Present: soft, tenderness (Epigastric has palpation some voluntary guarding no rebound masses or bruits), normal bowel sounds. Absent: distended, guarding, rebound, rigid Extremities exam: Present: normal inspection, full ROM, normal capillary refill. Absent: tenderness, pedal edema, joint swelling, calf tenderness Back exam: Present: normal inspection Neurological exam: Present: alert, oriented X3, CN II-XII intact Psychiatric exam: Present: normal affect, normal mood Skin exam: Present: warm, dry, intact, normal color. Absent: rash Results - Laboratory Findings CBC and BMP: 02/01/18 16:32 02/02/18 02:07 PT/INR, D-dimer PT 25.3 sec (9.0-12.0) H 02/02/18 08:10 INR 2.8 (<1.2) H 02/02/18 08:10 Abnormal lab findings: Abnormal Labs 02/01/18 02/01/18 02/01/18 16:32 16:32 16:32 RBC 3.34 L Hgb 10.3 L Hct 31.7 L Lymphocytes # 0.9 L PT 36.1 H INR 4.0 H APTT 46.8 H Potassium BUN Glucose 121 H POC Glucose (mg/dL) Calcium Total Protein 6.2 L Albumin 3.3 L Urine Appearance Urine Protein Urine Blood Urine Nitrite Ur Leukocyte Esterase Urine RBC Urine WBC Urine WBC Clumps Ur Squamous Epith Cells Urine Bacteria Urine Mucus 02/01/18 02/01/1818 18:35 20:38 02:07 RBC Hgb Hct Lymphocytes # PT INR APTT Potassium 3.3 L BUN 18 H Glucose 144 H POC Glucose (mg/dL) 158 H Calcium 8.3 L Total Protein Albumin Urine Appearance Turbid H Urine Protein Trace H Urine Blood Trace H Urine Nitrite Positive H Ur Leukocyte Esterase Large H Urine RBC 10 H Urine WBC >182 H Urine WBC Clumps Moderate H Ur Squamous Epith Cells 27 H Urine Bacteria Many H Urine Mucus Few H 02/02/18 02/02/18 06:04 08:10 RBC Hgb Hct Lymphocytes # PT 25.3 H INR 2.8 H APTT Potassium BUN Glucose POC Glucose (mg/dL) 144 H Calcium Total Protein Albumin Urine Appearance Urine Protein Urine Blood Urine Nitrite Ur Leukocyte Esterase Urine RBC Urine WBC Urine WBC Clumps Ur Squamous Epith Cells Urine Bacteria Urine Mucus - Diagnostic Findings Chest x-ray: report reviewed (Labs reviewed) Assessment and Plan Assessment: Urinary tract infection Acute non-ST segment elevated VA Acute pulmonary edema related to above Doubt pneumonia Coagulopathy related to Coumadin however appears to have improved today Chronic atrial fibrillation History of coronary artery bypass surgery and recurrent pleural effusion post CABG Plan: Gentle diuresis Agree with IV Rocephin avoid macrolides and quinolone group due to prolonged QT interval well Doubt pneumonia being an issue likely UTI Coumadin as per PT/INR Deep breathing exercises incentive spirometry Increase activity as tolerated The recommendations pending plan of care as per clinical response of the patient Thanks for kind referral follow with you Time with Patient: Greater than 30
[2018-02-02] MEDS: CHOLECALCIFEROL 1,000 UNIT TAB PO SCH (09:56)
[2018-02-02] MEDS: AMIODARONE 100 MG TAB PO SCH (09:56)
[2018-02-02] MEDS: MULTIVITAMINS, THERA 1 EACH TAB PO SCH (09:56)
[2018-02-02] MEDS: PYRIDOSTIGMINE 60 MG TAB PO SCH ×2 (09:56→21:35)
[2018-02-02] MEDS: CYANOCOBALAMIN 500 MCG TAB PO SCH (09:56)
[2018-02-02] MEDS: NITROGLYCERIN OINT 1 INCH/GM PACKET TOPICAL SCH ×4 (09:57→21:36)
[2018-02-02] MEDS: FAMOTIDINE 20 MG TAB PO SCH (09:57)
[2018-02-02] MEDS: ASPIRIN 81 MG PO SCH (09:57)
[2018-02-02] MEDS: LISINOPRIL 10 MG TAB PO SCH (09:57)
[2018-02-02] MEDS: ISOSORBIDE MONONITRATE ER 30 MG TAB.ER.24H PO SCH (09:57)
[2018-02-02] MEDS: MECLIZINE 25 MG TAB PO SCH ×3 (09:57→21:36)
[2018-02-02] MEDS: ANASTROZOLE 1 MG TAB PO SCH (09:57)
[2018-02-02] MEDS: CARVEDILOL 12.5 MG TAB PO SCH (10:12)
[2018-02-02 11:30] LABS: Glucose,Whole Blood 105 mg/dL (75-99)
[2018-02-02] MEDS: cefTRIAXone IN SWFI 1,000 MG/10 ML SYRINGE IVP SCH (11:49)
--- NOTE | 2018-02-02 13:33 | P.CRDCN ---
History of Present Illness Consult date: 02/02/18 Requesting physician: Oscar Blancas Reason for Consult (text): atypical chest pain Chief complaint: chest pain History of present illness: This is a pleasant 82-year-old female patient who follows with Dr. ADAM Hua in the office. She has a known history of mitral valve stenosis, status post mitral valve replacement, paroxysmal atrial fibrillation, on Coumadin, coronary artery disease with prior stent placement to the RCA with most recent cardiac catheterization in August of this year showing a patent RCA stent, congestive heart failure, diabetes. Most recent echocardiogram in August of this year showed normal LV systolic function with an ejection fraction between 55-60%, severely dilated LA, moderate to severe aortic regurgitation, mild to moderate mitral regurgitation, normally functioning bioprosthetic mitral valve. Presented to the emergency department with complaints of sharp mid epigastric/ lower sternal chest discomfort with associated shortness of breath and feeling her heart racing. She apparently had an episode a couple days ago that was relieved with nitro. She did take nitroglycerin sublingual for this episode as well without relief. She presented to the emergency department at around 2-30 in the afternoon and pain was relieved finally around 6 PM. Chest x-ray on admission showed new pulmonary edema. NT pro BNP was 2870. Other labs showed an INR 4.0 which is down to 2.8 this morning, BUN 17, creatinine 0.6 and troponins of 0.013 and 0.014. EKG showed sinus rhythm with no acute ST-T wave abnormalities Upon examination, patient is resting comfortably in bed. She is currently pain-free. She's had no recurrence since 6 PM of her chest discomfort. She denies complaints of orthopnea, PND, edema. Past Medical History Past Medical History: Atrial Fibrillation, Coronary Artery Disease (CAD), Cancer , Heart Failure, Diabetes Mellitus, Eye Disorder, Hyperlipidemia, Hypertension, Myocardial Infarction ([place]), Mitral Valve Prolapse (MVP), Osteoarthritis (OA), Pneumonia, Respiratory Disorder, Thyroid Disorder Additional Past Medical History / Comment(s): Paroxysmal Afib. Chronic CHF. RT Eye Occular Myasthenia Gravis. Chronic Back Pain. DJD. 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 DIET CONTROLLED DM, CHECKS BS ONCE A DAY BUT TAKES NO MEDS.. RECENT UTI. SKIN CA. RT breast CA with surgery.(NO BP RT ARM) OCC Vertigo. CHRONIC Anemia. DIVERTICULOSIS. FALLS- hypothyroid, L hip fracture with surgery.UTI'S Last Myocardial Infarction Date:: 04/2014 History of Any Multi-Drug Resistant Organisms: None Reported Past Surgical History: Appendectomy, Back Surgery, Breast Surgery, Cardiac Valve Replacement, Heart Catheterization, Heart Catheterization With Stent, Hysterectomy, Orthopedic Surgery Additional Past Surgical History / Comment(s): 11/2016 L hip hemiarthroplasty, 2015 MVR. [facility], bilateral Rotator Cuff Repair. EXC Skin CA. TITANIUM VIMAL IN BACK, 7 BACK FUSIONS, 3 NECK FUSIONS. Stent Proximal RCA; HEART CATH . EXC NEYMAR CATARACTS, POSS Lens Implants, Bilateral Eye Laser. RT BREAST LUMPECTOMY x 2, RT BREAST SIMPLE MASTECTOMY 06/2015. ORIF Ankles. Colonoscopy. Past Anesthesia/Blood Transfusion Reactions: No Reported Reaction Additional Past Anesthesia/Blood Transfusion Reaction / Comment(s): Pt has recently received blood without reaction. Date of Last Stent Placement:: 08/17/2013 Smoking Status: Former smoker - Past Family History Father History Unknown: Yes Family Medical History: No Reported History Additional Family Medical History / Comment(s): DAD IN MVA AT AGE 52 Mother History Unknown: Yes Family Medical History: Congestive Heart Failure (CHF) Additional Family Medical History / Comment(s): RHEUMATIC FEVER. Mother of CHF at the age of 59yrs. Medications and Allergies Home Medications Medication Instructions Recorded Confirmed Type Cholecalciferol [Vitamin D3] 1,000 unit PO DAILY 05/18/15 02/01/18 History Cyanocobalamin [Vitamin B-12] 1,000 mcg PO DAILY 05/18/15 02/01/18 History Anastrozole [Arimidex] 1 mg PO DAILY 09/14/15 02/01/18 History Pyridostigmine [Mestinon] 30 mg PO BID tab 03/17/16 02/01/18 Rx Isosorbide Mononitrate ER [Imdur] 30 mg PO DAILY 04/25/16 02/01/18 History Levothyroxine Sodium [Synthroid] 100 mcg PO DAILY 04/25/16 02/01/18 History Ranitidine HCl 150 mg PO DAILY 04/25/16 02/01/18 History Furosemide [Lasix] 40 mg PO BID 05/20/16 02/01/18 History Ranolazine [Ranexa] 500 mg PO BID 11/28/16 02/01/18 History Aspirin 81 mg PO DAILY 03/22/17 02/01/18 History Lisinopril [Prinivil] 10 mg PO DAILY 03/22/17 02/01/18 History Meclizine [Antivert] 25 mg PO TID 05/06/17 02/01/18 History Amiodarone HCl [Pacerone] 100 mg PO DAILY 05/16/17 02/01/18 History Warfarin [Coumadin] 3 mg PO SUTUWEFRSA 08/04/17 02/01/18 History Warfarin [Coumadin] 5 mg PO MOTH 08/04/17 02/01/18 History Atorvastatin [Lipitor] 80 mg PO HS 10/08/17 02/01/18 History Multivitamins, Thera [Multivitamin 1 tab PO DAILY 12/10/17 02/01/18 History (formulary)] Carvedilol [Coreg] 6.25 mg PO HS 01/24/18 02/01/18 History Carvedilol [Coreg] 12.5 mg PO QAM 01/24/18 02/01/18 History Hydrocodone/Acetaminophen [[place] 1 tab PO BID PRN 01/24/18 02/01/18 History 5-325] Potassium Chloride [Klor-Con 20] 20 meq PO DAILY 01/24/18 02/01/18 History Allergies Allergy/AdvReac Type Severity Reaction Status Date / Time morphine AdvReac Severe Nausea & Verified 02/01/18 16:38 Vomiting Physical Exam Vitals: Vital Signs Temp Pulse Pulse Resp BP BP Pulse Ox 02/02/18 08:00 98.1 F 69 18 119/58 94 L 02/02/18 04:00 97.6 F 65 17 106/49 96 02/02/18 00:00 98.5 F 78 17 148/67 98 02/01/18 20:00 98.6 F 84 17 132/62 95 02/01/18 19:19 71 18 148/66 98 02/01/18 19:06 98.6 F 69 18 150/69 96 02/01/18 17:49 71 18 151/66 98 02/01/18 16:17 99.1 F 81 18 130/60 91 L Intake and Output 02/01/18 02/02/1802/02/18 22:59 06:59 14:59 Intake Total 1020 Balance 1020 Intake: Intake, IV Titration 420 Amount Magnesium Sulfate-D5w Pmx 200 1 gm In Dextrose/Water 1 100ml.bag @ 100 mls/hr IVPB Q1H [facility] Rx#: [id number] Sodium Chloride 0.9% 1, 220 000 ml @ 20 mls/hr IV . Q24H [facility] Rx#:[id number] Oral 600 Other: Voiding Method Bedside Commode Toilet Bedpan Bedside Commode Diaper Bedpan # Voids 1 Weight 61.689 kg 60.3 kg PHYSICAL EXAMINATION: HEENT: [Head is atraumatic, normocephalic. Pupils equal, round. Neck is supple. There is no elevated jugular venous pressure.] HEART EXAMINATION: [Heart sounds regular, S1 and S2 with a diastolic murmur at the base and a holosystolic murmur at the apex.] CHEST EXAMINATION:[ Lungs are clear to auscultation and precussion. No chest wall tenderness is noted on palpation or with deep breathing.] ABDOMEN: [ Soft, nontender. Bowel sounds are heard. No organomegaly noted]. EXTREMITIES:[ 1+ peripheral pulses with no evidence of peripheral edema and no calf tenderness noted]. NEUROLOGIC [patient is awake, alert and oriented x3.] . Results 02/02/18 08:10 02/02/18 08:10 Cardiac Enzymes 02/01/18 02/01/18 02/02/18 Range/Units 16:32 16:32 08:10 AST 34 (14-36) U/L CK-MB (CK-2) 0.3 (0.0-2.4) ng/mL Troponin I 0.013 0.014 (0.000-0.034) ng/mL Coagulation 02/01/18 02/02/18 Range/Units 16:32 08:10 PT 36.1 H 25.3 H (9.0-12.0) sec APTT 46.8 H (22.0-30.0) sec CBC 02/01/18 02/02/18 Range/Units 16:32 08:10 WBC 8.5 9.2 (3.8-10.6) k/uL RBC 3.34 L 3.24 L (3.80-5.40) m/uL Hgb 10.3 L 10.2 L (11.4-16.0) gm/dL Hct 31.7 L 30.6 L (34.0-46.0) % Plt Count 293 275 (150-450) k/uL Comprehensive Metabolic Panel 02/01/18 02/02/18 02/02/18 Range/Units 16:32 02:07 08:10 Sodium 140 137 139 (137-145) mmol/L Potassium 3.6 3.3 L 3.9 (3.5-5.1) mmol/L Chloride 107 102 103 (98-107) mmol/L Carbon Dioxide 27 30 31 H (22-30) mmol/L BUN 17 18 H 16 (7-17) mg/dL Creatinine 0.60 0.60 0.62 (0.52-1.04) mg/dL Glucose 121 H 144 H 109 H (74-99) mg/dL Calcium 8.5 8.3 L 8.6 (8.4-10.2) mg/dL AST 34 (14-36) U/L ALT 22 (9-52) U/L Alkaline Phosphatase 111 (38-126) U/L Total Protein 6.2 L (6.3-8.2) g/dL Albumin 3.3 L (3.5-5.0) g/dL Current Medications Generic Name Dose Route Start Last Admin Trade Name Freq PRN Reason Stop Dose Admin Acetaminophen 500 mg 02/01/18 21:37 Tylenol Tab PO Q6HR PRN Fever and/ or MILD Pain Hydrocodone Bitart/Acetaminophen 1 each 02/01/18 18:52 02/01/18 23:21 [place] 5-325 PO 1 each BID PRN Administration Pain Alprazolam 0.25 mg 02/01/18 21:37 02/02/18 00:15 Xanax PO 0.25 mg TID PRN Administration Anxiety Amiodarone HCl 100 mg 02/02/18 09:00 02/02/18 09:56 Cordarone PO 100 mg DAILY [facility] Administration Anastrozole 1 mg 02/02/18 09:00 02/02/18 09:57 Arimidex PO 1 mg DAILY [facility] Administration Aspirin 81 mg 02/02/18 09:00 02/02/18 09:57 Aspirin PO 81 mg DAILY [facility] Administration Atorvastatin Calcium 80 mg 02/01/18 21:00 02/01/18 21:00 Lipitor PO 80 mg HS [facility] Administration Carvedilol 12.5 mg 02/02/18 07:30 02/02/18 10:12 Coreg PO Not Given AC-BRKFST [facility] Carvedilol 6.25 mg 02/01/18 20:00 02/01/18 20:57 Coreg PO 6.25 mg AC-SUPPER [facility] Administration Ceftriaxone Sodium 1,000 mg 02/02/18 09:00 02/02/18 11:49 Rocephin IVP 1,000 mg Q24HR [facility] Administration Cholecalciferol 1,000 unit 02/02/18 12:00 02/02/18 09:56 Vitamin D3 PO 1,000 unit 1200 [facility] Administration Cyanocobalamin 1,000 mcg 02/02/18 12:00 02/02/18 09:56 Vitamin B-12 PO 1,000 mcg 1200 [facility] Administration Famotidine 20 mg 02/02/18 09:00 02/02/18 09:57 Pepcid PO 20 mg DAILY [facility] Administration Furosemide 40 mg 02/02/18 07:00 02/02/18 07:02 Lasix IV 40 mg Q12H [facility] Administration Sodium Chloride 1,000 mls @ 20 mls/hr 02/01/18 19:00 02/01/18 19:18 Saline 0.9% IV 20 mls/hr .Q24H [facility] Administration Isosorbide Mononitrate 30 mg 02/02/18 09:00 02/02/18 09:57 Imdur PO 30 mg DAILY [facility] Administration Levothyroxine Sodium 100 mcg 02/02/18 06:30 02/02/18 06:43 Synthroid PO 100 mcg 0630 [facility] Administration Lisinopril 10 mg 02/02/18 09:00 02/02/18 09:57 Zestril PO 10 mg DAILY [facility] Administration Meclizine HCl 25 mg 02/01/18 22:00 02/02/18 09:57 Antivert PO 25 mg TID [facility] Administration Melatonin 3 mg 02/02/18 21:00 Melatonin PO HS [facility] Multivitamins 1 each 02/02/18 12:00 02/02/18 09:56 Theragran PO 1 each 1200 [facility] Administration Nitroglycerin 0.5 inch 02/01/18 22:00 02/02/18 09:57 Nitro-Bid Oint TOPICAL 0.5 inch QID [facility] Administration Pantoprazole Sodium 40 mg 02/02/18 07:30 02/02/18 06:43 Protonix PO 40 mg AC-BRKFST [facility] Administration Potassium Chloride 20 meq 02/02/18 09:00 02/02/18 09:56 K-Dur 20 PO 20 meq DAILY [facility] Administration Pyridostigmine [place] 30 mg 02/01/18 21:00 02/02/18 09:56 Mestinon PO 30 mg BID [facility] Administration Ranolazine 500 mg 02/01/18 21:00 02/02/18 08:48 Ranexa PO 500 mg BID [facility] Administration Intake and Output 02/01/18 02/02/18 02/02/18 22:59 06:59 14:59 Intake Total 1020 Balance 1020 Intake: Intake, IV Titration 420 Amount Magnesium Sulfate-D5w Pmx 200 1 gm In Dextrose/Water 1 100ml.bag @ 100 mls/hr IVPB Q1H [facility] Rx#: [id number] Sodium Chloride 0.9% 1, 220 000 ml @ 20 mls/hr IV . Q24H [facility] Rx#:[id number] Oral 600 Other: Voiding Method Bedside Commode Toilet Bedpan Bedside Commode Diaper Bedpan # Voids 1 Weight 61.689 kg 60.3 kg 02/02/18 08:10 02/02/18 08:10 Assessment and Plan Assessment: #1 symptoms of atypical chest pain not consistent with acute myocardial infarction, troponins negative 2 with cardiac catheterization in August showing patent RCA stent #2 mitral valve stenosis, status post mitral valve replacement with most recent echo showing mild to moderate MR #3 diastolic congestive heart failure, chronic #4 paroxysmal atrial fibrillation, on Coumadin #5 diabetes #6 history of CAD with prior stent placement to the RCA #7 moderate to severe aortic regurgitation Plan: From criminal justice teacher perspective, we'll obtain a 2-D echo with Doppler. Follow trend of troponins. Ambulate the patient. We anticipate the patient will be discharged home in the next 24 hours. She will follow up in the office with Dr. ADMA Hua. 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 Patient was seen and examined.
[2018-02-02 15:05] VITALS: BMI 23.5
[2018-02-02 16:26] LABS: Glucose,Whole Blood 116 mg/dL (75-99)
--- NOTE | 2018-02-02 17:21 | PN ---
PROGRESS NOTE DATE OF SERVICE: 02/02/2018 I am covering for Dr. Blancas. This 81-year-old woman is admitted with chest pain also had a possible pneumonia. Patient also has some CHF acute exacerbation, UTI also. Patient being treated with antibiotics. Dr. Moses and Cardiology following the patient closely. The patient is being closely monitored in telemetry at this time. PAST MEDICAL HISTORY: Reviewed. REVIEW OF SYSTEMS: Cardio system: As mentioned earlier. Respiratory: As mentioned earlier. GI: No nausea or vomiting. : No dysuria. Central nervous system: No focal deficits. CURRENT MEDICATIONS: Reviewed and include: 1. Tylenol 500 mg q.6h p.r.n. 2. Chester 5 mg b.i.d. p.r.n. 3. Xanax 0.25 t.i.d. 4. Cordarone 100 mg. 5. Arimidex 1 mg b.i.d. 6. Aspirin 81 mg p.o. daily. 7. Lipitor 80 mg q.p.m. 8. Coreg 6.25 mg p.o. daily. 9. Coreg 12.5 mg p.o. b.i.d. 10.Rocephin 1 g daily. 11.Vitamin D3 1000. 12.Vitamin B12 500 mg daily. 13.Pepcid 20 mg. 14.Lasix 20 mg. 15.Imdur 30 mg. 16.Synthroid 100 mg daily. 17.Zestril 10 mg. 18.Antivert 25 mg t.i.d. 19.Melatonin 3 mg at bedtime. 21.Protonix 40 mg. 22.K-Dur 20 mEq. 23.Mestinon 30 mg p.o. b.i.d. p.r.n. 24.Ranexa 500 mg p.o. b.i.d. 25.Coumadin 5 mg p.o. daily. PHYSICAL EXAM: Patient is alert, oriented times three. Pulse is 69, blood pressure 90/50, respiration 18, temperature 98.1, pulse ox 98 percent on 2 L. HEENT: Conjunctivae normal. Oral mucosa moist. Neck is no jugular venous distention. No carotid bruit. No lymph node enlargement. Cardiovascular System: S1, S2 muffled. Respirations: Breath sounds diminished in the bases. A few scattered rhonchi and crackles. Expiratory wheezing also present. ABDOMEN: Soft, nontender. No mass palpable. Legs: No edema. No swelling. Central nervous system: Diffusely weak. LAB STUDIES: WBC 9.1, hemoglobin 10.2, INR is 2.8. Magnesium is 2.5. Cultures are negative so far. ASSESSMENT: 1. Chest pain possible unstable angina possibly. 2. Pneumonia possibly community acquired. 3. Congestive heart failure acute exacerbation. 4. Urinary tract infection present on admission. 5. Coumadin coagulopathy. 6. Anemia of chronic disease. 7. Atrial fibrillation. 8. Coronary artery disease. 9. History of congestive heart failure. 10.Diabetes mellitus type 2. 11.Hypertension. 12.Hyperlipidemia. 13.History of myocardial infarction. 14.History of paroxysmal atrial fibrillation. 15.History of skin cancer. 16.History of right breast cancer. 17.History of cardiac valve replacement. 18.History of coronary artery disease stent. 19.History of degenerative joint disease. 20.Remote history of nicotine dependence. RECOMMENDATIONS AND DISCUSSION: In this 82-year-old woman who presented with multiple complex medical issues, we will monitor the patient closely. Continue the current medications. Continue with IV Rocephin. Closely follow with pulmonary. Continue with observing the cultures. Otherwise the patient will also continue with IV Lasix. Monitor fluid and electrolytes balance closely. Fluid restriction. Monitor PT/INR closely. Otherwise, continue the rest of the medications. DVT prophylaxis. The overall prognosis guarded because of multiple complex medical issues. Further recommendations to follow. MMODL / IJN: [id number] / MTDD
[2018-02-02] MEDS: WARFARIN 3 MG TAB PO SCH (17:29)
[2018-02-02] MEDS: CARVEDILOL 6.25 MG TAB PO SCH (17:29)
[2018-02-02] MEDS ORDERED: WARFARIN 1 MG TAB PO SCH (18:52)
[2018-02-02] MEDS: SODIUM CHLORIDE 0.9% 1,000 ML IV SCH (20:23)
[2018-02-02] MEDS: ACETAMINOPHEN TAB 500 MG TAB PO PRN (21:34)
[2018-02-02 21:36] LABS: Glucose,Whole Blood 156 mg/dL (75-99)
[2018-02-02] MEDS: ATORVASTATIN 80 MG TAB PO SCH (21:36)
[2018-02-02] MEDS: MELATONIN 3 MG TABLET PO SCH (21:36)
[2018-02-03 06:13] LABS: Glucose,Whole Blood 109 mg/dL (75-99)
[2018-02-03 06:21] LABS: INR 2.7 (<1.2); Prothrombin Time 24.6 sec (9.0-12.0)
[2018-02-03 06:23] LABS: Basophils % (A) 0 %; Eosinophils # (A) 0.6 k/uL (0-0.7); Eosinophils % (A) 6 %; HCT 30.7 % (34.0-46.0); HGB 10.4 gm/dL (11.4-16.0); Hypochromasia Slight; Lymphocytes # (A) 1.2 k/uL (1.0-4.8); Lymphocytes % (A) 13 %; MCH 31.9 pg (25.0-35.0); MCHC 33.7 g/dL (31.0-37.0); MCV 94.6 fL (80.0-100.0); Mean Platelet Volume 8.6; Monocytes # (A) 0.7 k/uL (0-1.0); Monocytes % (A) 7 %; Neutrophils % (A) 72 %; Platelet Count 241 k/uL (150-450); RBC 3.25 m/uL (3.80-5.40); RDW 15.5 % (11.5-15.5); WBC 9.7 k/uL (3.8-10.6)
[2018-02-03] MEDS: FUROSEMIDE 10 MG/ML 4 ML VIAL IV SCH ×2 (06:26→17:57)
[2018-02-03] MEDS: PANTOPRAZOLE 40 MG TABLET PO SCH (06:27)
[2018-02-03] MEDS: CARVEDILOL 12.5 MG TAB PO SCH (06:27)
[2018-02-03] MEDS: LEVOTHYROXINE 100 MCG TAB PO SCH (06:27)
[2018-02-03 06:31] LABS: Anion Gap 3 mmol/L; Blood Urea Nitrogen 20 mg/dL (7-17); Calcium 8.5 mg/dL (8.4-10.2); Carbon Dioxide 32 mmol/L (22-30); Chloride 102 mmol/L (98-107); Glucose 98 mg/dL (74-99); Sodium 137 mmol/L (137-145)
[2018-02-03] MEDS: cefTRIAXone IN SWFI 1,000 MG/10 ML SYRINGE IVP SCH ×2 (09:55→11:13)
[2018-02-03] MEDS: HYDROcodone/APAP 5-325MG 1 EACH TAB PO PRN ×2 (09:55→23:28)
[2018-02-03] MEDS: NITROGLYCERIN OINT 1 INCH/GM PACKET TOPICAL SCH ×5 (09:56→21:44)
[2018-02-03] MEDS: ASPIRIN 81 MG PO SCH (09:57)
[2018-02-03] MEDS: ANASTROZOLE 1 MG TAB PO SCH (09:58)
[2018-02-03] MEDS: FAMOTIDINE 20 MG TAB PO SCH (09:58)
[2018-02-03] MEDS: ISOSORBIDE MONONITRATE ER 30 MG TAB.ER.24H PO SCH (09:59)
[2018-02-03] MEDS: MECLIZINE 25 MG TAB PO SCH ×3 (09:59→20:07)
[2018-02-03] MEDS: AMIODARONE 100 MG TAB PO SCH (09:59)
[2018-02-03] MEDS: LISINOPRIL 10 MG TAB PO SCH (09:59)
[2018-02-03] MEDS: RANOLAZINE 500 MG TAB.ER.12H PO SCH ×2 (10:00→20:06)
[2018-02-03] MEDS: PYRIDOSTIGMINE 60 MG TAB PO SCH ×2 (10:00→20:06)
[2018-02-03] MEDS: POTASSIUM CHLORIDE ER 20 MEQ TAB.ER PO SCH (10:00)
[2018-02-03 12:14] LABS: Glucose,Whole Blood 120 mg/dL (75-99)
[2018-02-03] MEDS: MULTIVITAMINS, THERA 1 EACH TAB PO SCH (12:29)
[2018-02-03] MEDS: CYANOCOBALAMIN 500 MCG TAB PO SCH (12:29)
[2018-02-03] MEDS: CHOLECALCIFEROL 1,000 UNIT TAB PO SCH (12:29)
--- NOTE | 2018-02-03 13:14 | P.PN ---
Subjective Progress Note Date: 02/03/18 This is a pleasant 82-year-old female patient who follows with Dr. ADAM Hua in the office. She has a known history of mitral valve stenosis, status post mitral valve replacement, paroxysmal atrial fibrillation, on Coumadin, coronary artery disease with prior stent placement to the RCA with most recent cardiac catheterization in August of this year showing a patent RCA stent, congestive heart failure, diabetes. Most recent echocardiogram in August of this year showed normal LV systolic function with an ejection fraction between 55-60%, severely dilated LA, moderate to severe aortic regurgitation, mild to moderate mitral regurgitation, normally functioning bioprosthetic mitral valve. Presented to the emergency department with complaints of sharp mid epigastric/ lower sternal chest discomfort with associated shortness of breath and feeling her heart racing. She apparently had an episode a couple days ago that was relieved with nitro. She did take nitroglycerin sublingual for this episode as well without relief. She presented to the emergency department at around 2-30 in the afternoon and pain was relieved finally around 6 PM. Chest x-ray on admission showed new pulmonary edema. NT pro BNP was 2870. Other labs showed an INR 4.0 which is down to 2.8 this morning, BUN 17, creatinine 0.6 and troponins of 0.013 and 0.014. EKG showed sinus rhythm with no acute ST-T wave abnormalities Upon examination, patient is resting comfortably in bed. She is currently pain-free. She's had no recurrence since 6 PM of her chest discomfort. She denies complaints of orthopnea, PND, edema. 02/04/2008 Patient seen and examined this morning, denied any further chest discomfort, states that she feels so weak. Blood pressure 95/60, heart rate in the 60s, 96 % on 3 L. INR 2.7 Objective - Vital Signs Vital signs: Vital Signs Temp 97 F L 02/03/18 08:15 Pulse 67 02/03/18 11:00 Resp 16 02/03/18 11:00 BP 95/48 02/03/18 11:00 Pulse Ox 96 02/03/18 11:00 Intake & Output 02/02/18 02/03/18 02/03/18 18:59 06:59 18:59 Intake Total 444 Output Total 300 Balance 444 -300 Weight 60.3 kg 51 kg Intake: Oral 444 Output: Urine 300 Other: Voiding Method Bedside Commode # Voids 1 2 # Bowel Movements 0 - Exam PHYSICAL EXAMINATION: HEENT: [Head is atraumatic, normocephalic. Pupils equal, round. Neck is supple. There is no elevated jugular venous pressure.] HEART EXAMINATION: [Heart sounds regular, S1 and S2 with a diastolic murmur at the base and a holosystolic murmur at the apex.] CHEST EXAMINATION:[ Lungs are clear to auscultation and precussion. No chest wall tenderness is noted on palpation or with deep breathing.] ABDOMEN: [ Soft, nontender. Bowel sounds are heard. No organomegaly noted]. EXTREMITIES:[ 1+ peripheral pulses with no evidence of peripheral edema and no calf tenderness noted]. NEUROLOGIC [patient is awake, alert and oriented x3.] - Labs CBC & Chem 7: 02/03/18 05:42 02/03/18 05:42 Labs: Abnormal Lab Results - Last 24 Hours (Table) 02/02/18 02/02/18 02/03/18 Range/Units 16:24 21:21 05:42 RBC 3.25 L (3.80-5.40) m/uL Hgb 10.4 L (11.4-16.0) gm/dL Hct 30.7 L (34.0-46.0) % PT (9.0-12.0) sec INR (<1.2) Carbon Dioxide (22-30) mmol/L BUN (7-17) mg/dL POC Glucose (mg/dL) 116 H 156 H (75-99) mg/dL 02/03/18 02/03/18 02/03/18 Range/Units 05:42 05:42 06:10 RBC (3.80-5.40) m/uL Hgb (11.4-16.0) gm/dL Hct (34.0-46.0) % PT 24.6 H (9.0-12.0) sec INR 2.7 H (<1.2) Carbon Dioxide 32 H (22-30) mmol/L BUN 20 H (7-17) mg/dL POC Glucose (mg/dL) 109 H (75-99) mg/dL 02/03/18 Range/Units 12:09 RBC (3.80-5.40) m/uL Hgb (11.4-16.0) gm/dL Hct (34.0-46.0) % PT (9.0-12.0) sec INR (<1.2) Carbon Dioxide (22-30) mmol/L BUN (7-17) mg/dL POC Glucose (mg/dL) 120 H (75-99) mg/dL Microbiology - Last 24 Hours (Table) 02/01/18 18:33 Urine Culture - Preliminary Urine,Voided Gram Neg Bacilli 02/01/18 16:32 Blood Culture - Preliminary Blood No Growth after 24 hours Assessment and Plan Plan: Assessment: #1 symptoms of atypical chest pain not consistent with acute myocardial infarction, troponins negative 3 with cardiac catheterization in August showing patent RCA stent #2 mitral valve stenosis, status post mitral valve replacement with most recent echo showing mild to moderate MR #3 diastolic congestive heart failure, chronic #4 paroxysmal atrial fibrillation, on Coumadin #5 diabetes #6 history of CAD with prior stent placement to the RCA #7 moderate to severe aortic regurgitation Plan Cardiology's perspective, patient may be able to be discharged home once cleared by primary. We'll make her a follow-up appointment to see Dr. ADAM Hua in the office post discharge. DNP note has been reviewed, I agree with a documented findings and plan of care. Patient was seen and examined.
--- NOTE | 2018-02-03 13:16 | P.PN ---
Subjective Progress Note Date: 02/03/18 82-year-old female well-known to me patient has a history of coronary artery disease status post CABG also has a history of chronic atrial fibrillation and anticoagulation with Coumadin on day of admission patient has acute onset chest pain retrosternal as well as an epigastric area started 1 day prior to coming into the hospital EMS were notified and Route she took nitro sublingual pain improved has been admitted into the hospital for close monitoring and evaluation currently patient is pain-free, she had mildly elevated troponin my EKG suggestive of the sinus rhythm with PACs with questionable anterior infarct along with prolonged QT interval well, chest x-ray hard copies reviewed suggestive of cardiomegaly interstitial edema more suggestive of pulmonary edema , other significant laboratory data suggestive of "neuropathy with INR of 4 however came down to 2.8 today, urine is suggestive of infection with turbid appearance positive for nitrite and large leukocyte esterase trace many bacteria were seen culture results are pending, currently she is on the continuation of her home medications including amiodarone 100 mg daily and Rocephin as antibacterial agent with cardiovascular services on consult as well , proBNP is over 2800 suggestive of pulmonary edema and heart failure and volume overload 02/03/2018: Patient seen and examined covering for Dr. Moses. The patient states that she is feeling better overall. She is complaining of intermittent cough. She is currently on 3 L nasal cannula. She states she was supposed to have oxygen at home but thought she was doing better and didn't need it so she gave it back. She denies fevers but states that she is always cold. Objective - Vital Signs Vital signs: Vital Signs Temp 97 F L 02/03/18 08:15 Pulse 67 02/03/18 11:00 Resp 16 02/03/18 11:00 BP 95/48 02/03/18 11:00 Pulse Ox 96 02/03/18 11:00 Intake & Output 02/02/18 02/03/18 02/03/18 18:59 06:59 18:59 Intake Total 444 Output Total 300 Balance 444 -300 Weight 60.3 kg 51 kg Intake: Oral 444 Output: Urine 300 Other: Voiding Method Bedside Commode # Voids 1 2 # Bowel Movements 0 - Exam General appearance: alert, NAD Head exam: Present: atraumatic, normocephalic, normal inspection Eye exam: Present: normal appearance, PERRL, EOMI. Absent: scleral icterus, conjunctival injection, periorbital swelling ENT exam: Present: normal exam, mucous membranes moist Neck exam: Present: normal inspection. Absent: tenderness, meningismus, lymphadenopathy Respiratory exam: Scattered crackles bilaterally Cardiovascular Exam: Present: regular rate, normal rhythm, normal heart sounds. Absent: systolic murmur, diastolic murmur, rubs, gallop, clicks GI/Abdominal exam: Present: soft, tenderness (Epigastric has palpation some voluntary guarding no rebound masses or bruits), normal bowel sounds. Absent: distended, guarding, rebound, rigid Extremities exam: Present: normal inspection, full ROM, normal capillary refill. Absent: tenderness, pedal edema, joint swelling, calf tenderness Back exam: Present: normal inspection Neurological exam: Present: alert, oriented X3, CN II-XII intact Psychiatric exam: Present: normal affect, normal mood Skin exam: Present: warm, dry, intact, normal color. Absent: rash - Labs CBC & Chem 7: 02/03/18 05:42 02/03/18 05:42 Labs: Abnormal Lab Results - Last 24 Hours (Table) 02/02/18 02/02/18 02/03/18 Range/Units 16:24 21:21 05:42 RBC 3.25 L (3.80-5.40) m/uL Hgb 10.4 L (11.4-16.0) gm/dL Hct 30.7 L (34.0-46.0) % PT (9.0-12.0) sec INR (<1.2) Carbon Dioxide (22-30) mmol/L BUN (7-17) mg/dL POC Glucose (mg/dL) 116 H 156 H (75-99) mg/dL 02/03/18 02/03/18 02/03/18 Range/Units 05:42 05:42 06:10 RBC (3.80-5.40) m/uL Hgb (11.4-16.0) gm/dL Hct (34.0-46.0) % PT 24.6 H (9.0-12.0) sec INR 2.7 H (<1.2) Carbon Dioxide 32 H (22-30) mmol/L BUN 20 H (7-17) mg/dL POC Glucose (mg/dL) 109 H (75-99) mg/dL 02/03/18 Range/Units 12:09 RBC (3.80-5.40) m/uL Hgb (11.4-16.0) gm/dL Hct (34.0-46.0) % PT (9.0-12.0) sec INR (<1.2) Carbon Dioxide (22-30) mmol/L BUN (7-17) mg/dL POC Glucose (mg/dL) 120 H (75-99) mg/dL Microbiology - Last 24 Hours (Table) 02/01/18 18:33 Urine Culture - Preliminary Urine,Voided Gram Neg Bacilli 02/01/18 16:32 Blood Culture - Preliminary Blood No Growth after 24 hours Assessment and Plan Assessment: Acute on chronic hypoxic respiratory failure Urinary tract infection Acute non-ST segment elevated HI Acute pulmonary edema related to above Doubt pneumonia Coagulopathy related to Coumadin however appears to have improved today Chronic atrial fibrillation History of coronary artery bypass surgery and recurrent pleural effusion post CABG Plan: Gentle diuresis Agree with IV Rocephin avoid macrolides and quinolone group due to prolonged QT interval well Doubt pneumonia being an issue likely UTI Coumadin as per PT/INR Deep breathing exercises incentive spirometry Increase activity as tolerated The recommendations pending plan of care as per clinical response of the patient Add Pulmicort BID Repeat CXR in AM
[2018-02-03] MEDS: ACETAMINOPHEN TAB 500 MG TAB PO PRN (13:48)
[2018-02-03] MEDS: ALPRAZolam 0.25 MG TAB PO PRN (16:19)
[2018-02-03 16:54] LABS: Glucose,Whole Blood 143 mg/dL (75-99)
[2018-02-03] MEDS: WARFARIN 3 MG TAB PO SCH (17:58)
[2018-02-03] MEDS: CARVEDILOL 6.25 MG TAB PO SCH (17:58)
[2018-02-03] MEDS: ATORVASTATIN 80 MG TAB PO SCH (20:06)
[2018-02-03] MEDS: MELATONIN 3 MG TABLET PO SCH (20:07)
[2018-02-03 20:52] LABS: Glucose,Whole Blood 146 mg/dL (75-99)
--- NOTE | 2018-02-03 21:44 | PN ---
PROGRESS NOTE I am covering for Dr. Blancas. DATE OF SERVICE: 02/03/2018 This 82-year-old woman was admitted with chest pain, also had possible pneumonia and CHF acute exacerbation. Multiple consultants are following the patient closely. No chest pain. No palpitations. No fever at this time. EXAM: Alert and oriented x3. Pulse is 70, blood pressure 94/48, respirations 16, temperature 97.6, pulse ox 96% on 3L. HEENT: Conjunctivae normal. Oral mucosa moist. NECK: No jugular venous distention. CARDIOVASCULAR: S1, S2 muffled. RESPIRATORY: Breath sounds diminished in the bases. A few scattered rhonchi. No crackles. ABDOMEN: Soft, nontender. LEGS: No edema. NERVOUS SYSTEM: Nonfocal. LAB STUDIES: WBC 7.6, hemoglobin 10, INR 2.7. Glucose noted. ASSESSMENT: 1. Chest pain, possible unstable angina. Myocardial infarction ruled out. 2. Pneumonia, possibly community-acquired. 3. Congestive heart failure acute exacerbation. 4. Urinary tract infection, present on admission. 5. Coumadin coagulopathy. 6. Anemia of chronic disease. 7. Atrial fibrillation. 8. History of coronary artery disease. 9. History of congestive heart failure. 10.Diabetes mellitus type 2. 11.History of mitral stenosis and repair. 12.Hypertension. 13.Hyperlipidemia. 14.History of myocardial infarction. 15.History of paroxysmal atrial fibrillation. 16.History of skin cancer. 17.History of right breast cancer. 18.History of coronary artery disease, stent. 19.History of degenerative joint disease. 20.Remote history of nicotine dependence. RECOMMENDATIONS AND DISCUSSION: Recommend to continue current medical management. Continue with monitoring and symptomatic treatment. Otherwise at this time, I would recommend to continue with empiric antibiotics. Continue the rest of the medications, including diuretics. Otherwise, the prognosis guarded. I would recommend a repeat x-ray tomorrow and we will continue to monitor and assess the fluid-electrolyte balance status also. Otherwise, prognosis is guarded because of multiple complex medical issues and further recommendations to follow. Dr. Blancas will follow from Monday onward. MMODL / IJN: [id number] /
[2018-02-03] MEDS: SODIUM CHLORIDE 0.9% 1,000 ML IV SCH (21:46)
[2018-02-03] MEDS: BUDESONIDE 0.5 MG/2 ML NEBU INHALATION SCH (21:59)
[2018-02-04 05:40] LABS: Glucose,Whole Blood 113 mg/dL (75-99)
[2018-02-04 06:17] LABS: INR 2.5 (<1.2)
[2018-02-04 06:27] LABS: Anion Gap 4 mmol/L; Blood Urea Nitrogen 25 mg/dL (7-17); Calcium 8.6 mg/dL (8.4-10.2); Carbon Dioxide 31 mmol/L (22-30); Chloride 103 mmol/L (98-107); Glucose 99 mg/dL (74-99); Potassium 4.5 mmol/L (3.5-5.1); Sodium 138 mmol/L (137-145)
[2018-02-04 06:38] LABS: Basophils % (A) 0 %; Eosinophils # (A) 0.6 k/uL (0-0.7); Eosinophils % (A) 7 %; HCT 28.2 % (34.0-46.0); HGB 9.2 gm/dL (11.4-16.0); Hypochromasia Slight; Lymphocytes # (A) 1.1 k/uL (1.0-4.8); Lymphocytes % (A) 13 %; MCH 30.8 pg (25.0-35.0); MCHC 32.5 g/dL (31.0-37.0); MCV 94.8 fL (80.0-100.0); Mean Platelet Volume 8.1; Monocytes # (A) 0.5 k/uL (0-1.0); Monocytes % (A) 6 %; Neutrophils % (A) 73 %; Platelet Count 309 k/uL (150-450); RBC 2.97 m/uL (3.80-5.40); RDW 15.4 % (11.5-15.5); WBC 8.2 k/uL (3.8-10.6)
[2018-02-04] MEDS: PANTOPRAZOLE 40 MG TABLET PO SCH ×2 (06:41→17:41)
[2018-02-04] MEDS: LEVOTHYROXINE 100 MCG TAB PO SCH (06:41)
[2018-02-04] MEDS: CARVEDILOL 12.5 MG TAB PO SCH (06:41)
[2018-02-04] MEDS: FUROSEMIDE 10 MG/ML 4 ML VIAL IV SCH ×2 (06:42→17:39)
--- NOTE | 2018-02-04 06:48 | XR ---
EXAMINATION TYPE: XR chest 1V portable DATE OF EXAM: 02/04/2018 HISTORY: chf. REFERENCE: Previous study dated 02/01/2018. FINDINGS: There has been a previous anterior and posterior fusion of the lower cervical spine. There has been an interpedicular fusion of the thoracic lumbar junction. There has been a midline sternotom y. The study is quite rotated. Heart size is upper limits of normal. There is mild improvement in the ae ration of both lungs. I suspect a small left effusion. IMPRESSION: SLIGHT IMPROVEMENT IN THE PATIENT'S CONGESTIVE HEART FAILURE.
[2018-02-04] MEDS: BUDESONIDE 0.5 MG/2 ML NEBU INHALATION SCH ×2 (07:40→20:34)
--- NOTE | 2018-02-04 09:06 | ECHOF ---
Referral Reason:chest pain MEASUREMENTS -------- HEIGHT: 160.0 cm WEIGHT: 59.9 kg BP: IVSd: 1.0 cm (0.6 - 1.1) LVIDd: 4.7 cm (3.9 - 5.3) LVPWd: 1.1 cm (0.6 - 1.1) IVSs: 1.4 cm LVIDs: 2.9 cm LVPWs: 1.5 cm LAESV Index (A-L): 71.07 ml/m Ao Diam: 2.9 cm (2.0 - 3.7) AV Cusp: 1.7 cm (1.5 - 2.6) LA Diam: 5.2 cm (2.7 - 3.8) MV E Harry: 2.12 m/s MV DecT: 303 ms MV A Harry: 1.26 m/s MV E/A Ratio: 1.68 AR PHT: 387 ms RAP: 5.00 mmHg RVSP: 41.41 mmHg FINDINGS -------- Sinus rhythm. This was a technically good study. The left ventricular size is normal. Left ventricular wall thickness is normal. Overall left vent ricular systolic function is normal with, an EF between 55 - 60 %. The right ventricle is normal in size and function. The left atrium is moderately dilated. LA is severely dilated >40 ml/m2 The right atrium is normal in size. Aortic valve is trileaflet and is mildly thickened. There is moderate aortic regurgitation. Mild mitral regurgitation is present , predominately a posteriorly directed jet. The peak and mean MV gradients are 20.25mmHg 6.66mmHg as measured by doppler. Mitral ring annulloplasty is in place. Normally functioning bioprosthetic mitral valve. [id number] tricuspid regurgitation present. There is mild pulmonary hypertension. The right ventricular systolic pressure, as measured by Doppler, is 41.41mmHg. Trace/mild (physiologic) pulmonic regurgitation. The aortic root size is normal. Normal inferior vena cava with normal inspiratory collapse consistent with estimated right atrial pre ssure of 5 mmHg. The pericardium is normal. CONCLUSIONS -------- 1. Sinus rhythm. 2. This was a technically good study. 3. The left ventricular size is normal. 4. Left ventricular wall thickness is normal. 5. Overall left ventricular systolic function is normal with, an EF between 55 - 60 %. 6. The right ventricle is normal in size and function. 7. The left atrium is moderately dilated. 8. LA is severely dilated >40 ml/m2 9. The right atrium is normal in size. 10. Aortic valve is trileaflet and is mildly thickened. 11. There is moderate aortic regurgitation. 12. Mild mitral regurgitation is present. 13. , predominately a posteriorly directed jet. 14. The peak and mean MV gradients are 20.25mmHg 6.66mmHg as measured by doppler. 15. Mitral ring annulloplasty is in place. 16. Normally functioning bioprosthetic mitral valve. 17. [id number] tricuspid regurgitation present. 18. There is mild pulmonary hypertension. 19. Trace/mild (physiologic) pulmonic regurgitation. 20. The aortic root size is normal. 21. Normal inferior vena cava with normal inspiratory collapse consistent with estimated right atrial pressure of 5 mmHg. 22. The pericardium is normal. SILVICULTURE PROFESSOR: Yoko Terrazas RDCS
--- NOTE | 2018-02-04 09:46 | P.PN ---
Subjective Progress Note Date: 02/04/18 82-year-old female well-known to me patient has a history of coronary artery disease status post CABG also has a history of chronic atrial fibrillation and anticoagulation with Coumadin on day of admission patient has acute onset chest pain retrosternal as well as an epigastric area started 1 day prior to coming into the hospital EMS were notified and Route she took nitro sublingual pain improved has been admitted into the hospital for close monitoring and evaluation currently patient is pain-free, she had mildly elevated troponin my EKG suggestive of the sinus rhythm with PACs with questionable anterior infarct along with prolonged QT interval well, chest x-ray hard copies reviewed suggestive of cardiomegaly interstitial edema more suggestive of pulmonary edema , other significant laboratory data suggestive of "neuropathy with INR of 4 however came down to 2.8 today, urine is suggestive of infection with turbid appearance positive for nitrite and large leukocyte esterase trace many bacteria were seen culture results are pending, currently she is on the continuation of her home medications including amiodarone 100 mg daily and Rocephin as antibacterial agent with cardiovascular services on consult as well , proBNP is over 2800 suggestive of pulmonary edema and heart failure and volume overload 02/03/2018: Patient seen and examined covering for Dr. Moses. The patient states that she is feeling better overall. She is complaining of intermittent cough. She is currently on 3 L nasal cannula. She states she was supposed to have oxygen at home but thought she was doing better and didn't need it so she gave it back. She denies fevers but states that she is always cold. 02/04/18- patient is seen and examined on rounds while covering for Dr. Moses. Patient is resting in bed on 2 L of supplemental oxygen via nasal cannula. She states she continues to improve and her shortness of breath is decreasing as well. She does have occasional cough that has been nonproductive. She has had a good appetite. All labs and reports reviewed chest x-ray does show improvement. Objective - Vital Signs Vital signs: Vital Signs Temp 97.6 F 02/04/18 07:55 Pulse 69 02/04/18 07:55 Resp 18 02/04/18 07:55 BP 109/68 02/04/18 07:55 Pulse Ox 92 L 02/04/18 07:55 Intake & Output 02/03/18 02/04/18 02/04/18 18:59 06:59 18:59 Intake Total 822 300 Output Total 500 Balance 822 -200 Weight 52.5 kg Intake: Oral 822 300 Output: Urine 500 Other: Voiding Method Bedside Commode Bedside Commode # Voids 2 - Exam General appearance: alert, NAD Head exam: Present: atraumatic, normocephalic, normal inspection Eye exam: Present: normal appearance, PERRL, EOMI. Absent: scleral icterus, conjunctival injection, periorbital swelling ENT exam: Present: normal exam, mucous membranes moist Neck exam: Present: normal inspection. Absent: tenderness, meningismus, lymphadenopathy Respiratory exam: Scattered crackles bilaterally Cardiovascular Exam: Present: regular rate, normal rhythm, normal heart sounds. Absent: systolic murmur, diastolic murmur, rubs, gallop, clicks GI/Abdominal exam: Present: soft, tenderness (Epigastric has palpation some voluntary guarding no rebound masses or bruits), normal bowel sounds. Absent: distended, guarding, rebound, rigid Extremities exam: Present: normal inspection, full ROM, normal capillary refill. Absent: tenderness, pedal edema, joint swelling, calf tenderness Back exam: Present: normal inspection Neurological exam: Present: alert, oriented X3, CN II-XII intact Psychiatric exam: Present: normal affect, normal mood Skin exam: Present: warm, dry, intact, normal color. Absent: rash - Labs CBC & Chem 7: 02/04/18 05:28 02/04/18 05:28 Labs: Abnormal Lab Results - Last 24 Hours (Table) 02/03/18 02/03/18 02/03/18 Range/Units 12:09 16:53 20:51 RBC (3.80-5.40) m/uL Hgb (11.4-16.0) gm/dL Hct (34.0-46.0) % PT (9.0-12.0) sec INR (<1.2) Carbon Dioxide (22-30) mmol/L BUN (7-17) mg/dL POC Glucose (mg/dL) 120 H 143 H 146 H (75-99) mg/dL 02/04/18 02/04/18 02/04/18 Range/Units 05:28 05:28 05:28 RBC 2.97 L (3.80-5.40) m/uL Hgb 9.2 L (11.4-16.0) gm/dL Hct 28.2 L (34.0-46.0) % PT 22.0 H (9.0-12.0) sec INR 2.5 H (<1.2) Carbon Dioxide 31 H (22-30) mmol/L BUN 25 H (7-17) mg/dL POC Glucose (mg/dL) (75-99) mg/dL 02/04/18 Range/Units 05:39 RBC (3.80-5.40) m/uL Hgb (11.4-16.0) gm/dL Hct (34.0-46.0) % PT (9.0-12.0) sec INR (<1.2) Carbon Dioxide (22-30) mmol/L BUN (7-17) mg/dL POC Glucose (mg/dL) 113 H (75-99) mg/dL Microbiology - Last 24 Hours (Table) 02/01/18 18:33 Urine Culture - Final Urine,Voided Escherichia coli 02/01/18 16:32 Blood Culture - Preliminary Blood No Growth after 48 hours Assessment and Plan Assessment: Assessment: Acute on chronic hypoxic respiratory failure Urinary tract infection Acute non-ST segment elevated ND Acute pulmonary edema related to above Doubt pneumonia Coagulopathy related to Coumadin however appears to have improved today Chronic atrial fibrillation History of coronary artery bypass surgery and recurrent pleural effusion post CABG Plan: Gentle diuresis Agree with IV Rocephin avoid macrolides and quinolone group due to prolonged QT interval well Doubt pneumonia being an issue likely UTI Coumadin as per PT/INR Deep breathing exercises incentive spirometry Increase activity as tolerated Budesonide twice a day GI and DVT prophylaxis with Pepcid and Coumadin The recommendations pending plan of care as per clinical response of the patient I performed an examination of the patient and discussed their management with the nurse practitioner. I have reviewed the nurse practitioner's note and agree with the documented findings and plan of care.
[2018-02-04] MEDS: AMIODARONE 100 MG TAB PO SCH (10:08)
[2018-02-04] MEDS: ACETAMINOPHEN TAB 500 MG TAB PO PRN (10:08)
[2018-02-04] MEDS: ANASTROZOLE 1 MG TAB PO SCH (10:08)
[2018-02-04] MEDS: ASPIRIN 81 MG PO SCH (10:09)
[2018-02-04] MEDS: MECLIZINE 25 MG TAB PO SCH ×3 (10:09→19:53)
[2018-02-04] MEDS: FAMOTIDINE 20 MG TAB PO SCH (10:09)
[2018-02-04] MEDS: LISINOPRIL 10 MG TAB PO SCH (10:09)
[2018-02-04] MEDS: ISOSORBIDE MONONITRATE ER 30 MG TAB.ER.24H PO SCH (10:09)
[2018-02-04] MEDS: cefTRIAXone IN SWFI 1,000 MG/10 ML SYRINGE IVP SCH (10:09)
[2018-02-04] MEDS: POTASSIUM CHLORIDE ER 20 MEQ TAB.ER PO SCH (10:10)
[2018-02-04] MEDS: RANOLAZINE 500 MG TAB.ER.12H PO SCH ×2 (10:10→19:52)
[2018-02-04] MEDS: PYRIDOSTIGMINE 60 MG TAB PO SCH ×2 (10:10→19:52)
[2018-02-04 11:55] LABS: Glucose,Whole Blood 105 mg/dL (75-99)
[2018-02-04] MEDS: MULTIVITAMINS, THERA 1 EACH TAB PO SCH (12:10)
[2018-02-04] MEDS: CYANOCOBALAMIN 500 MCG TAB PO SCH (12:10)
[2018-02-04] MEDS: CHOLECALCIFEROL 1,000 UNIT TAB PO SCH (12:10)
[2018-02-04] MEDS: HYDROcodone/APAP 5-325MG 1 EACH TAB PO PRN ×2 (12:10→23:28)
--- NOTE | 2018-02-04 13:46 | P.PN ---
Subjective Progress Note Date: 02/04/18 This is a 81-year-old female was admitted to the hospital with the atypical chest pain and shortness of breath. Chest x-ray showed evidence of CHF and pulmonary edema. Her Cardec enzymes are nonspecific. She is treated with IV Lasix with improvement of symptoms. Chest x-ray showed some improvement. She doesn't complain of any chest pain but complains of back pain and leg pain. Her echo Cardigan showed proper functioning mitral valve with preserved LV function. She does have aortic regurgitation of moderate to severe degree. We' ll continue her current medical therapy. Follow electrolytes. Increase activity as tolerated Objective - Vital Signs Vital signs: Vital Signs Temp 97.6 F 02/04/18 07:55 Pulse 66 02/04/18 11:30 Resp 16 02/04/18 11:30 BP 103/58 02/04/18 11:30 Pulse Ox 97 02/04/18 11:30 Intake & Output 02/03/18 02/04/18 02/04/18 18:59 06:59 18:59 Intake Total 822 300 Output Total 500 400 Balance 822 -200 -400 Weight 52.5 kg Intake: Oral 822 300 Output: Urine 500 400 Other: Voiding Method Bedside Commode Bedside Commode # Voids 2 - Exam GENERAL EXAM: Patient is alert and oriented and doesn't appear to be in any acute distress HEENT: Normocephalic. Normal reaction of pupils, equal size, normal range of extraocular motion. No erythema or exudates in the throat. NECK: No masses, no nuchal rigidity. CHEST: No chest wall deformity. LUNGS: Diminished breath sounds at bases HEART: [S1 and S2 normal with no audible mumurs or gallops. Regular rhythm, femorals equal on both sides..] ABDOMEN: No hepatosplenomegaly, normal bowel sounds, no guarding or rigidity. SKIN: No rashes CENTRAL NERVOUS SYSTEM: No focal deficits. EXTREMITIES: [No cyanosis, clubbing or edema.]Accepted the falls - Labs CBC & Chem 7: 02/04/18 05:28 02/04/18 05:28 Labs: Abnormal Lab Results - Last 24 Hours (Table) 02/03/18 02/03/18 02/04/18 Range/Units 16:53 20:51 05:28 RBC 2.97 L (3.80-5.40) m/uL Hgb 9.2 L (11.4-16.0) gm/dL Hct 28.2 L (34.0-46.0) % PT (9.0-12.0) sec INR (<1.2) Carbon Dioxide (22-30) mmol/L BUN (7-17) mg/dL POC Glucose (mg/dL) 143 H 146 H (75-99) mg/dL 02/04/18 02/04/18 02/04/18 Range/Units 05:28 05:28 05:39 RBC (3.80-5.40) m/uL Hgb (11.4-16.0) gm/dL Hct (34.0-46.0) % PT 22.0 H (9.0-12.0) sec INR 2.5 H (<1.2) Carbon Dioxide 31 H (22-30) mmol/L BUN 25 H (7-17) mg/dL POC Glucose (mg/dL) 113 H (75-99) mg/dL 02/04/18 Range/Units 11:53 RBC (3.80-5.40) m/uL Hgb (11.4-16.0) gm/dL Hct (34.0-46.0) % PT (9.0-12.0) sec INR (<1.2) Carbon Dioxide (22-30) mmol/L BUN (7-17) mg/dL POC Glucose (mg/dL) 105 H (75-99) mg/dL Microbiology - Last 24 Hours (Table) 02/01/18 18:33 Urine Culture - Final Urine,Voided Escherichia coli 02/01/18 16:32 Blood Culture - Preliminary Blood No Growth after 48 hours Assessment and Plan (1) History of mitral valve replacement Current Visit: Yes Status: Acute Code(s): Z95.2 - PRESENCE OF PROSTHETIC HEART VALVE SNOMED Code(s): 8981874962574 (2) CHF (congestive heart failure) Current Visit: Yes Status: Acute Code(s): I50.9 - HEART FAILURE, UNSPECIFIED SNOMED Code(s): 70363823 (3) CAD (coronary artery disease) Current Visit: No Status: Acute Code(s): I25.10 - ATHSCL HEART DISEASE OF [place] CORONARY ARTERY W/O ANG PCTRS SNOMED Code(s): 59776930 (4) Chest pain Current Visit: No Status: Acute Code(s): R07.9 - CHEST PAIN, UNSPECIFIED SNOMED Code(s): 64967233 (5) Chronic atrial fibrillation Current Visit: No Status: Acute Code(s): I48.2 - CHRONIC ATRIAL FIBRILLATION SNOMED Code(s): 221311956 Plan: Continue current treatment for diastolic CHF. Increase activity. Patient may be going to a nursing facility.
[2018-02-04 16:49] LABS: Glucose,Whole Blood 112 mg/dL (75-99)
--- NOTE | 2018-02-04 17:09 | PN ---
PROGRESS NOTE DATE OF SERVICE: 02/04/2018 I am covering for Dr. Blancas. HISTORY OF PRESENT ILLNESS: This is 82-year-old woman was admitted with chest pain also had possibly community- acquired pneumonia. The patient reports diminished p.o. appetite at this time. The most recent chest x-ray done today showed which was reviewed personally by me showed diffuse opacities suggestive of possible pneumonia/CHF. No chest pain. No palpitations. PHYSICAL EXAM: Alert and oriented times three. Pulse 69. Blood pressure 109/168. Respiration 18. Temperature 97.6, pulse ox 98 percent on 2 L. HEENT: Conjunctivae normal. Oral mucosa moist. Neck is no jugular venous distention. No carotid bruit. No lymph node enlargement. Cardiovascular systems: S1, S2 muffled. Respiration: Breath sounds diminished in the bases. A few scattered rhonchi. No crackles. ABDOMEN: Soft, nontender. No mass palpable. CENTRAL NERVOUS SYSTEM: No focal deficits. LABS: WBC 8, hemoglobin is 9.2. Sodium 138. ASSESSMENT: 1. Chest pain possible unstable angina. Myocardial infarction ruled out. 2. Pneumonia possibly community-acquired. 3. Congestive heart failure acute exacerbation. 4. Urinary tract infection present on admission. 5. Coumadin coagulopathy. 6. Anemia of chronic disease. 7. Atrial fibrillation. 8. History of coronary artery disease. 9. History of congestive heart failure. 10.Diabetes type 2. 11.History of mitral stenosis repair. 12.Hypertension. 13.Hyperlipidemia. 14.History of myocardial infarction. 15.History of paroxysmal atrial fibrillation. 16.History of skin cancer. 17.History of right breast cancer. 18.History of coronary artery disease/stent. 19.History of degenerative joint disease. 20.Remote history of nicotine dependence. RECOMMENDATIONS AND DISCUSSION: Recommend to continue current medications, monitoring, management and symptomatic treatment. Otherwise at this time, I would recommend continue the antibiotics, bronchodilators. Continue the rest of medications. Prognosis guarded. Will add Protonix to the current regimen. Otherwise, prognosis guarded and monitor PT/INR closely. Dr. Blancas will follow tomorrow. MMODL / IJN: [id number] /
[2018-02-04] MEDS: WARFARIN 3 MG TAB PO SCH (17:39)
[2018-02-04] MEDS: CARVEDILOL 6.25 MG TAB PO SCH (17:40)
[2018-02-04] MEDS: ATORVASTATIN 80 MG TAB PO SCH (19:52)
[2018-02-04] MEDS: MELATONIN 3 MG TABLET PO SCH (19:52)
[2018-02-04] MEDS: SODIUM CHLORIDE 0.9% 1,000 ML IV SCH (19:54)
[2018-02-04 20:44] LABS: Glucose,Whole Blood 126 mg/dL (75-99)
[2018-02-05 00:47] VITALS: RESP 16
[2018-02-05] MEDS: LEVOTHYROXINE 100 MCG TAB PO SCH (06:51)
[2018-02-05 07:11] VITALS: BP 132/62; TEMP 96.8
[2018-02-05 07:25] LABS: Glucose,Whole Blood 111 mg/dL (75-99)
[2018-02-05] MEDS: BUDESONIDE 0.5 MG/2 ML NEBU INHALATION SCH (07:25)
[2018-02-05 07:40] VITALS: PULSE 78
[2018-02-05] MEDS: NITROGLYCERIN OINT 1 INCH/GM PACKET TOPICAL SCH (08:01)
[2018-02-05 08:21] LABS: Basophils # (A) 0.1 k/uL (0-0.2); Basophils % (A) 1 %; Eosinophils # (A) 0.6 k/uL (0-0.7); Eosinophils % (A) 7 %; HCT 30.7 % (34.0-46.0); HGB 9.9 gm/dL (11.4-16.0); Hypochromasia Moderate; Lymphocytes # (A) 0.9 k/uL (1.0-4.8); Lymphocytes % (A) 12 %; MCH 31.6 pg (25.0-35.0); MCHC 32.3 g/dL (31.0-37.0); MCV 97.9 fL (80.0-100.0); Mean Platelet Volume 7.3; Monocytes # (A) 0.5 k/uL (0-1.0); Monocytes % (A) 6 %; Neutrophils # (A) 5.9 k/uL (1.3-7.7); Neutrophils % (A) 74 %; Platelet Count 343 k/uL (150-450); RBC 3.14 m/uL (3.80-5.40); RDW 15.1 % (11.5-15.5); WBC 8.1 k/uL (3.8-10.6)
[2018-02-05] MEDS: PYRIDOSTIGMINE 60 MG TAB PO SCH (08:26)
[2018-02-05] MEDS: LISINOPRIL 10 MG TAB PO SCH (08:26)
[2018-02-05] MEDS: PANTOPRAZOLE 40 MG TABLET PO SCH (08:26)
[2018-02-05] MEDS: RANOLAZINE 500 MG TAB.ER.12H PO SCH (08:26)
[2018-02-05] MEDS: MULTIVITAMINS, THERA 1 EACH TAB PO SCH (08:26)
[2018-02-05] MEDS: POTASSIUM CHLORIDE ER 20 MEQ TAB.ER PO SCH (08:27)
[2018-02-05] MEDS: CYANOCOBALAMIN 500 MCG TAB PO SCH (08:27)
[2018-02-05] MEDS: ASPIRIN 81 MG PO SCH (08:27)
[2018-02-05] MEDS: CHOLECALCIFEROL 1,000 UNIT TAB PO SCH (08:27)
[2018-02-05] MEDS: ISOSORBIDE MONONITRATE ER 30 MG TAB.ER.24H PO SCH (08:27)
[2018-02-05] MEDS: MECLIZINE 25 MG TAB PO SCH (08:27)
[2018-02-05] MEDS: ANASTROZOLE 1 MG TAB PO SCH (08:27)
[2018-02-05] MEDS: AMIODARONE 100 MG TAB PO SCH (08:29)
[2018-02-05] MEDS: FUROSEMIDE 10 MG/ML 4 ML VIAL IV SCH (08:29)
[2018-02-05] MEDS: FAMOTIDINE 20 MG TAB PO SCH (08:29)
[2018-02-05] MEDS: CARVEDILOL 12.5 MG TAB PO SCH (08:29)
[2018-02-05] MEDS: cefTRIAXone IN SWFI 1,000 MG/10 ML SYRINGE IVP SCH (08:29)
[2018-02-05 08:35] LABS: INR 2.2 (<1.2); Prothrombin Time 19.6 sec (9.0-12.0)
[2018-02-05 08:42] LABS: Potassium 4.8 mmol/L (3.5-5.1)
--- NOTE | 2018-02-05 09:59 | P.PN ---
Subjective This is a pleasant 82-year-old female past medical history significant for coronary artery disease status post angioplasty to RCA, paroxysmal atrial fibrillation on long-term anticoagulation, mitral valve stenosis status post replacement, diastolic heart failure and diabetes mellitus. She follows with Dr. ADAM Hua in the office. She is seen and examined resting comfortably in bed in no acute distress. She states she had a rough night sleeping last night due to getting up to the bathroom and mild shortness of breath and chest discomfort. She states she is feeling anxious this morning. Denies palpitations, dizziness, nausea, vomiting or diaphoresis. Telemetry tracings have been unremarkable. Hgb 9.9, plt 343, INR 2.2, sodium 137, potassium 4.8, creatinine 0.76. Negative fluid balance 420cc. Blood pressure 132 /62 heart rate 70 afebrile. Objective - Vital Signs Vital signs: Vital Signs Temp 96.8 F L 02/05/18 06:30 Pulse 78 02/05/18 07:39 Resp 16 02/05/18 06:30 BP 132/62 02/05/18 06:30 Pulse Ox 96 02/05/18 06:30 Intake & Output 02/04/18 02/05/18 02/05/18 18:59 06:59 18:59 Intake Total 730 Output Total 400 750 Balance -400 -20 Intake: Oral 240 Other 490 Output: Urine 400 750 Other: Voiding Method Bedside Commode Bedside Commode # Voids 1 - Exam GENERAL: Well-appearing, well-nourished and in no acute distress. NECK: Supple without JVD or thyromegaly. LUNGS: Breath sounds clear to auscultation bilaterally. Respiration equal and unlabored. No wheezes, rales or rhonchi. HEART: Regular rate and rhythm with murmur at the apex, no rubs or gallops. S1 and S2 heard. EXTREMITIES: Normal range of motion, no edema. No clubbing or cyanosis. Peripheral pulses intact. - Labs CBC & Chem 7: 02/05/18 07:33 02/05/18 07:33 Labs: Abnormal Lab Results - Last 24 Hours (Table) 02/04/18 02/04/18 02/04/18 Range/Units 11:53 16:47 20:42 RBC (3.80-5.40) m/uL Hgb (11.4-16.0) gm/dL Hct (34.0-46.0) % Lymphocytes # (1.0-4.8) k/uL PT (9.0-12.0) sec INR (<1.2) BUN (7-17) mg/dL POC Glucose (mg/dL) 105 H 112 H 126 H (75-99) mg/dL 02/05/18 02/05/18 02/05/18 Range/Units 07:22 07:33 07:33 RBC 3.14 L (3.80-5.40) m/uL Hgb 9.9 L (11.4-16.0) gm/dL Hct 30.7 L (34.0-46.0) % Lymphocytes # 0.9 L (1.0-4.8) k/uL PT 19.6 H (9.0-12.0) sec INR 2.2 H (<1.2) BUN (7-17) mg/dL POC Glucose (mg/dL) 111 H (75-99) mg/dL 02/05/18 Range/Units 07:33 RBC (3.80-5.40) m/uL Hgb (11.4-16.0) gm/dL Hct (34.0-46.0) % Lymphocytes # (1.0-4.8) k/uL PT (9.0-12.0) sec INR (<1.2) BUN 27 H (7-17) mg/dL POC Glucose (mg/dL) (75-99) mg/dL Microbiology - Last 24 Hours (Table) 02/01/18 16:32 Blood Culture - Preliminary Blood No Growth after 72 hours Assessment and Plan Assessment: ASSESSMENT Chest pain, atypical. An acute coronary event has been ruled out with no EKG evidence of ischemia and negative cardiac enzymes. Recent catheterization 2017 revealing patent stent to proximal RCA, intermediate disease of mid RCA unchanged from previous and intermiediate 50% disease of left circumflex after the second OM. Acute on chronic diastolic heart failure, improving History of mitral stenosis s/p mitral valve preplacement Diabetes mellitus Paroxysmal atrial fibrillation on retirement anticoagulation with coumadin. INR therapeutic. PLAN Transition to oral diuretics, lasix 40 mg BID. Lungs are clear and she is currently euvolemic. Stable from a cardiac perspective, follow up with Dr. ADAM Hua in 2-3 weeks. Nurse Practitioner note has been reviewed, I agree with a documented findings and plan of care. Patient was seen and examined.
[2018-02-05 11:57] LABS: Glucose,Whole Blood 146 mg/dL (75-99)
--- NOTE | 2018-02-05 12:56 | P.PN ---
Subjective Progress Note Date: 02/05/18 Principal diagnosis: Sepsis associated urinary tract infection, acute non-ST segment elevated ME, pulmonary edema, acute on chronic hypoxic respirator failure, coagulopathy, chronic atrial fibrillation, coronary artery disease history of prior CABG 82-year-old female well-known to me patient has a history of coronary artery disease status post CABG also has a history of chronic atrial fibrillation and anticoagulation with Coumadin on day of admission patient has acute onset chest pain retrosternal as well as an epigastric area started 1 day prior to coming into the hospital EMS were notified and Route she took nitro sublingual pain improved has been admitted into the hospital for close monitoring and evaluation currently patient is pain-free, she had mildly elevated troponin my EKG suggestive of the sinus rhythm with PACs with questionable anterior infarct along with prolonged QT interval well, chest x-ray hard copies reviewed suggestive of cardiomegaly interstitial edema more suggestive of pulmonary edema , other significant laboratory data suggestive of "neuropathy with INR of 4 however came down to 2.8 today, urine is suggestive of infection with turbid appearance positive for nitrite and large leukocyte esterase trace many bacteria were seen culture results are pending, currently she is on the continuation of her home medications including amiodarone 100 mg daily and Rocephin as antibacterial agent with cardiovascular services on consult as well , proBNP is over 2800 suggestive of pulmonary edema and heart failure and volume overload 02/05/2018, patient seen eval examined during the rounds clinically doing slightly better still left shortness of breath and congestion but severity has improved patient able to get him move around labs and x-rays reviewed, urine culture is positive for E. coli which is sensitive to fluoroquinolones as well as Bactrim Objective - Vital Signs Vital signs: Vital Signs Temp 96.8 F L 02/05/18 06:30 Pulse 78 02/05/18 07:39 Resp 16 02/05/18 06:30 BP 132/62 02/05/18 06:30 Pulse Ox 96 02/05/18 06:30 Intake & Output 02/04/18 02/05/18 02/05/18 18:59 06:59 18:59 Intake Total 730 Output Total 400 750 Balance -400 -20 Intake: Oral 240 Other 490 Output: Urine 400 750 Other: Voiding Method Bedside Commode Bedside Commode # Voids 1 - Exam General appearance: alert, oriented 3 Head exam: Present: atraumatic, normocephalic, normal inspection Eye exam: Present: normal appearance, PERRL, EOMI. Absent: scleral icterus, conjunctival injection, periorbital swelling ENT exam: Present: normal exam, mucous membranes moist Neck exam: Present: normal inspection. Absent: tenderness, meningismus, lymphadenopathy Respiratory exam: Scattered crackles bilaterally, exam significantly improved compared to prior Cardiovascular Exam: Present: regular rate, normal rhythm, normal heart sounds. Absent: systolic murmur, diastolic murmur, rubs, gallop, clicks GI/Abdominal exam: Present: soft, tenderness (Epigastric has palpation some voluntary guarding no rebound masses or bruits), normal bowel sounds. Absent: distended, guarding, rebound, rigid Extremities exam: Present: normal inspection, full ROM, normal capillary refill. Absent: tenderness, pedal edema, joint swelling, calf tenderness Back exam: Present: normal inspection Neurological exam: Present: alert, oriented X3, CN II-XII intact Psychiatric exam: Present: normal affect, normal mood Skin exam: Present: warm, dry, intact, normal color. Absent: rash - Labs CBC & Chem 7: 02/05/18 07:33 02/05/18 07:33 Labs: Abnormal Lab Results - Last 24 Hours (Table) 02/04/18 02/04/18 02/05/18 Range/Units 16:47 20:42 07:22 RBC (3.80-5.40) m/uL Hgb (11.4-16.0) gm/dL Hct (34.0-46.0) % Lymphocytes # (1.0-4.8) k/uL PT (9.0-12.0) sec INR (<1.2) BUN (7-17) mg/dL POC Glucose (mg/dL) 112 H 126 H 111 H (75-99) mg/dL 02/05/18 02/05/18 02/05/18 Range/Units 07:33 07:33 07:33 RBC 3.14 L (3.80-5.40) m/uL Hgb 9.9 L (11.4-16.0) gm/dL Hct 30.7 L (34.0-46.0) % Lymphocytes # 0.9 L (1.0-4.8) k/uL PT 19.6 H (9.0-12.0) sec INR 2.2 H (<1.2) BUN 27 H (7-17) mg/dL POC Glucose (mg/dL) (75-99) mg/dL 02/05/18 Range/Units 11:44 RBC (3.80-5.40) m/uL Hgb (11.4-16.0) gm/dL Hct (34.0-46.0) % Lymphocytes # (1.0-4.8) k/uL PT (9.0-12.0) sec INR (<1.2) BUN (7-17) mg/dL POC Glucose (mg/dL) 146 H (75-99) mg/dL Microbiology - Last 24 Hours (Table) 02/01/18 16:32 Blood Culture - Preliminary Blood No Growth after 72 hours Assessment and Plan Assessment: Urinary tract infection Acute non-ST segment elevated ME Acute pulmonary edema related to above Doubt pneumonia Coagulopathy related to Coumadin however appears to have improved today Chronic atrial fibrillation History of coronary artery bypass surgery and recurrent pleural effusion post CABG Plan: Gentle diuresis Agree with IV Rocephin however at the time of discharge patient can be switched to oral agents like Bactrim Doubt pneumonia being an issue likely UTI Coumadin as per PT/INR Deep breathing exercises incentive spirometry Increase activity as tolerated The recommendations pending plan of care as per clinical response of the patient Thanks for kind referral follow with you Time with Patient: Greater than 30
[2018-02-05] MEDS ORDERED: FUROSEMIDE 40 MG TAB PO SCH (16:00)
--- NOTE | 2018-02-08 18:16 | DS ---
DISCHARGE SUMMARY DATE OF DISCHARGE: 02/05/2018 CHIEF COMPLAINT: Chest pain. HISTORY OF PRESENT ILLNESS AND PHYSICAL EXAM: Details of this lady's history and physical can be found in the initial workup. LABORATORY STUDIES: While she was in a hospital, she had laboratory studies, details of which can be found laboratory section of her chart. COURSE IN HOSPITAL: After admission she was placed on bedrest, started on intravenous fluids and she had serial EKGs and enzymes. She was seen and released by Cardiology. It was felt she could return home on her usual activity, diet and medication and we will follow her as an outpatient. FINAL DIAGNOSES: 1. Unstable angina pectoris. 2. Coronary artery disease. 3. Depression. 4. Anemia. 5. Carcinoma of the breast. OPERATIONS: None. CONSULTATION: Cardiology. She is improved. MMODL / IJN: [id number] /
== END 2018-02-05 15:13 | disposition home health service (06) | DRG 302 ==
LOC: EC 16:14 → 6SEL 18:50 → 4MS4W 02-04 20:26
PROVIDERS: ADMIT Family Medicine; ATTEND Family Medicine
DX: I25.110 Atherosclerotic heart disease of native coronary artery with unstable angina pectoris (principal); I50.33 Acute on chronic diastolic (congestive) heart failure; J96.21 Acute and chronic respiratory failure with hypoxia; N39.0 Urinary tract infection, site not specified; G70.00 Myasthenia gravis without (acute) exacerbation; I48.2 Chronic atrial fibrillation; E11.9 Type 2 diabetes mellitus without complications; D63.8 Anemia in other chronic diseases classified elsewhere; I11.0 Hypertensive heart disease with heart failure; I08.0 Rheumatic disorders of both mitral and aortic valves; E78.5 Hyperlipidemia, unspecified; E03.9 Hypothyroidism, unspecified; K57.90 Diverticulosis of intestine, part unspecified, without perforation or abscess without bleeding; I25.2 Old myocardial infarction; M19.91 Primary osteoarthritis, unspecified site; D64.9 Anemia, unspecified; G89.29 Other chronic pain; M54.9 Dorsalgia, unspecified; F32.9 Major depressive disorder, single episode, unspecified; T45.515A Adverse effect of anticoagulants, initial encounter; R79.1 Abnormal coagulation profile; Z85.828 Personal history of other malignant neoplasm of skin; Z79.82 Long term (current) use of aspirin; Z79.01 Long term (current) use of anticoagulants; Z79.811 Long term (current) use of aromatase inhibitors; Z79.890 Hormone replacement therapy; Z79.899 Other long term (current) drug therapy; Z99.81 Dependence on supplemental oxygen; Z85.3 Personal history of malignant neoplasm of breast; Z87.440 Personal history of urinary (tract) infections; Z95.5 Presence of coronary angioplasty implant and graft; Z90.710 Acquired absence of both cervix and uterus; Z96.642 Presence of left artificial hip joint; Z87.81 Personal history of (healed) traumatic fracture; Z98.42 Cataract extraction status, left eye; Z98.41 Cataract extraction status, right eye; Z96.1 Presence of intraocular lens; Z90.10 Acquired absence of unspecified breast and nipple; Z95.2 Presence of prosthetic heart valve; Z87.891 Personal history of nicotine dependence; Z98.1 Arthrodesis status; Z87.01 Personal history of pneumonia (recurrent); Z95.1 Presence of aortocoronary bypass graft; Z88.5 Allergy status to narcotic agent; Z82.49 Family history of ischemic heart disease and other diseases of the circulatory system
CPT/HCPCS: 36415; 71045; 71046; 74018; 80048; 80053; 81001; 82150; 82550; 82553; 83605; 83690; 83735; 83880; 84484; 85025; 85610; 85730; 87040; 87077; 87086; 87186; 93005; 93306; 94640; 96361; 96374; 96375; 99291

== ENCOUNTER 2018-02-06 08:52 | Observation (INO) | payer MEDICARE, BC ==
[2018-02-06] MEDS ORDERED: SODIUM CHLORIDE 0.9% 500 ML IV STA (08:57)
--- NOTE | 2018-02-06 09:41 | ED ---
General Adult HPI - General Chief complaint: Weakness Stated complaint: Weakness Time Seen by Provider: 02/06/18 08:55 Source: EMS, RN notes reviewed Mode of arrival: EMS Limitations: physical limitation - History of Present Illness Initial comments: This is an 82-year-old female presents emergency Department complaining of generalized weakness. Patient states she spent 4 days in the hospital after she was having chest pain and discharged home yesterday. It was recommended that she go to a [facility] which she refused at that time. Patient states she got home was unable to go to the bathroom and back to bed because she became too weak and at this point she didn't think she needs to go to a [facility] to get her strength back. Patient denies any headache. Numbness or weakness. Patient denies any fall or injury. Patient denies any chest pain palpitations difficulty breathing or shortness of breath. Patient denies any abdominal pain. Patient states she has some chronic back pain. Patient denies any dysuria hematuria urinary frequency. Patient denies any recent fever chills or cough. - Related Data Home Medications Medication Instructions Recorded Confirmed Cholecalciferol [Vitamin D3] 1,000 unit PO DAILY 05/18/15 02/06/18 Cyanocobalamin [Vitamin B-12] 1,000 mcg PO DAILY 05/18/15 02/06/18 Anastrozole [Arimidex] 1 mg PO DAILY 09/14/15 02/06/18 Isosorbide Mononitrate ER [Imdur] 30 mg PO DAILY 04/25/16 02/06/18 Levothyroxine Sodium [Synthroid] 100 mcg PO DAILY 04/25/16 02/06/18 Ranitidine HCl 150 mg PO DAILY 04/25/16 02/06/18 Furosemide [Lasix] 40 mg PO BID 05/20/16 02/06/18 Ranolazine [Ranexa] 500 mg PO BID 11/28/16 02/06/18 Aspirin 81 mg PO DAILY 03/22/17 02/06/18 Lisinopril [Prinivil] 10 mg PO DAILY 03/22/17 02/06/18 Meclizine [Antivert] 25 mg PO TID 05/06/17 02/06/18 Amiodarone HCl [Pacerone] 100 mg PO DAILY 05/16/17 02/06/18 Warfarin [Coumadin] 3 mg PO SUTUWEFRSA 08/04/17 02/06/18 Atorvastatin [Lipitor] 80 mg PO HS 10/08/17 02/06/18 Multivitamins, Thera [Multivitamin 1 tab PO DAILY 12/10/17 02/06/18 (formulary)] Carvedilol [Coreg] 6.25 mg PO HS 01/24/18 02/06/18 Carvedilol [Coreg] 12.5 mg PO QAM 01/24/18 02/06/18 Hydrocodone/Acetaminophen [[place] 1 tab PO BID PRN 01/24/18 02/06/18 5-325] Potassium Chloride [Klor-Con 20] 20 meq PO DAILY 01/24/18 02/06/18 Previous Rx's Medication Instructions Recorded Pyridostigmine [Mestinon] 30 mg PO BID tab 03/17/16 Allergies Allergy/AdvReac Type Severity Reaction Status Date / Time morphine AdvReac Severe Nausea & Verified 02/06/18 08:55 Vomiting Review of Systems ROS Statement: Those systems with pertinent positive or pertinent negative responses have been documented in the HPI. ROS Other: All systems not noted in ROS Statement are negative. Past Medical History Past Medical History: Atrial Fibrillation, Coronary Artery Disease (CAD), Cancer , Heart Failure, Diabetes Mellitus, Eye Disorder, Hyperlipidemia, Hypertension, Myocardial Infarction ([place]), Mitral Valve Prolapse (MVP), Osteoarthritis (OA), Pneumonia, Respiratory Disorder, Thyroid Disorder Additional Past Medical History / Comment(s): Paroxysmal Afib. Chronic CHF. RT Eye Occular Myasthenia Gravis. Chronic Back Pain. DJD. 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 DIET CONTROLLED DM, CHECKS BS ONCE A DAY BUT TAKES NO MEDS.. RECENT UTI. SKIN CA. RT breast CA with surgery.(NO BP RT ARM) OCC Vertigo. CHRONIC Anemia. DIVERTICULOSIS. FALLS- hypothyroid, L hip fracture with surgery.UTI'S Last Myocardial Infarction Date:: 04/2014 History of Any Multi-Drug Resistant Organisms: None Reported Past Surgical History: Appendectomy, Back Surgery, Breast Surgery, Cardiac Valve Replacement, Heart Catheterization, Heart Catheterization With Stent, Hysterectomy, Orthopedic Surgery Additional Past Surgical History / Comment(s): 11/2016 L hip hemiarthroplasty, 2015 MVR. NEYMAR CTR, bilateral Rotator Cuff Repair. EXC Skin CA. TITANIUM VIMAL IN BACK, 7 BACK FUSIONS, 3 NECK FUSIONS. Stent Proximal RCA; HEART CATH . EXC NEYMAR CATARACTS, POSS Lens Implants, Bilateral Eye Laser. RT BREAST LUMPECTOMY x 2, RT BREAST SIMPLE MASTECTOMY 06/2015. ORIF Ankles. Colonoscopy. Past Anesthesia/Blood Transfusion Reactions: No Reported Reaction Additional Past Anesthesia/Blood Transfusion Reaction / Comment(s): Pt has recently received blood without reaction. Date of Last Stent Placement:: 08/17/2013 Past Psychological History: No Psychological Hx Reported Smoking Status: Former smoker Past Alcohol Use History: None Reported Past Drug Use History: None Reported - Past Family History Father History Unknown: Yes Family Medical History: No Reported History Additional Family Medical History / Comment(s): DAD IN MVA AT AGE 52 Mother History Unknown: Yes Family Medical History: Congestive Heart Failure (CHF) Additional Family Medical History / Comment(s): RHEUMATIC FEVER. Mother of CHF at the age of 59yrs. General Exam - General Exam Comments Initial Comments: GENERAL: Patient is well-developed and well-nourished. Patient is nontoxic and well- hydrated and is in no acute distress. ENT: Neck is soft and supple. No significant lymphadenopathy is noted. Oropharynx is clear. Moist mucous membranes. Neck has full range of motion without eliciting any pain. EYES: The sclera were anicteric and conjunctiva were pink and moist. Extraocular movements were intact and pupils were equal round and reactive to light. Eyelids were unremarkable. PULMONARY: Unlabored respirations. Good breath sounds bilaterally. No audible rales rhonchi or wheezing was noted. CARDIOVASCULAR: There is a regular rate and rhythm without any murmurs gallops or rubs. ABDOMEN: Soft and nontender with normal bowel sounds. No palpable organomegaly was noted. There is no palpable pulsatile mass. SKIN: Skin is clear with no lesions or rashes and otherwise unremarkable. NEUROLOGIC: Patient is alert and oriented x3. Cranial nerves II through XII are grossly intact. Motor and sensory are also intact. Normal speech, volume and content. Symmetrical smile. MUSCULOSKELETAL: Normal extremities with adequate strength and full range of motion. No lower extremity swelling or edema. No calf tenderness. LYMPHATICS: No significant lymphadenopathy is noted PSYCHIATRIC: Normal psychiatric evaluation. Limitations: physical limitation Course Vital Signs 02/06/18 02/06/18 08:55 09:45 Temperature 98.7 F Pulse Rate 72 63 Respiratory 18 16 Rate Blood Pressure 124/53 112/51 O2 Sat by Pulse 98 95 Oximetry Medical Decision Making - Medical Decision Making EKG shows normal sinus rhythm at 60 bpm SD interval is 178 QRSs 80 QT interval 436 QTC is 463. Patient's EKG shows no ST segment elevation or depression or T wave abnormalities are noted Chest x-ray shows no acute abnormality I spoke with Dr. Mcconnell and Dr. Mcconnell and wanted the patient admitted psychiatric place the patient a [facility] for rehabilitation. - Lab Data Result diagrams: 02/06/18 09:26 02/06/18 09:26 Lab Results 02/06/18 02/06/18 02/06/18 Range/Units 09:26 09:26 09:26 WBC 9.5 (3.8-10.6) k/uL RBC 3.46 L (3.80-5.40) m/uL Hgb 10.6 L (11.4-16.0) gm/dL Hct 33.8 L (34.0-46.0) % MCV 97.7 (80.0-100.0) fL MCH 30.5 (25.0-35.0) pg MCHC 31.3 (31.0-37.0) g/dL RDW 15.2 (11.5-15.5) % Plt Count 381 (150-450) k/uL Neutrophils % 79 % Lymphocytes % 10 % Monocytes % 4 % Eosinophils % 5 % Basophils % 0 % Neutrophils # 7.6 (1.3-7.7) k/uL Lymphocytes # 1.0 (1.0-4.8) k/uL Monocytes # 0.4 (0-1.0) k/uL Eosinophils # 0.5 (0-0.7) k/uL Basophils # 0.0 (0-0.2) k/uL Hypochromasia Moderate PT 16.0 H (9.0-12.0) sec INR 1.7 H (<1.2) APTT 35.1 H (22.0-30.0) sec Sodium 137 (137-145) mmol/L Potassium 5.2 H (3.5-5.1) mmol/L Chloride 101 (98-107) mmol/L Carbon Dioxide 28 (22-30) mmol/L Anion Gap 8 mmol/L BUN 34 H (7-17) mg/dL Creatinine 0.94 (0.52-1.04) mg/dL Est GFR (CKD-EPI)AfAm 65 (>60 ml/min/1.73 sqM) Est GFR (CKD-EPI)NonAf 56 (>60 ml/min/1.73 sqM) Glucose 99 (74-99) mg/dL Plasma Lactic Acid Gold (0.7-2.0) mmol/L Calcium 9.0 (8.4-10.2) mg/dL Total Bilirubin 0.8 (0.2-1.3) mg/dL AST 35 (14-36) U/L ALT 23 (9-52) U/L Alkaline Phosphatase 109 (38-126) U/L Total Creatine Kinase (30-135) U/L CK-MB (CK-2) (0.0-2.4) ng/mL CK-MB (CK-2) Rel Index Troponin I (0.000-0.034) ng/mL Total Protein 7.0 (6.3-8.2) g/dL Albumin 3.5 (3.5-5.0) g/dL Urine Color Urine Appearance (Clear) Urine pH (5.0-8.0) Ur Specific [place] (1.001-1.035) Urine Protein (Negative) Urine Glucose (UA) (Negative) Urine Ketones (Negative) Urine Blood (Negative) Urine Nitrite (Negative) Urine Bilirubin (Negative) Urine Urobilinogen (<2.0) mg/dL Ur Leukocyte Esterase (Negative) Urine RBC (0-5) /hpf Urine WBC (0-5) /hpf Ur Squamous Epith Cells (0-4) /hpf Urine Bacteria (None) /hpf Hyaline Casts (0-2) /lpf Granular Casts (0) /lpf Urine Mucus (None) /hpf 02/06/18 02/06/18 02/06/18 Range/Units 09:26 09:26 10:21 WBC (3.8-10.6) k/uL RBC (3.80-5.40) m/uL Hgb (11.4-16.0) gm/dL Hct (34.0-46.0) % MCV (80.0-100.0) fL MCH (25.0-35.0) pg MCHC (31.0-37.0) g/dL RDW (11.5-15.5) % Plt Count (150-450) k/uL Neutrophils % % Lymphocytes % % Monocytes % % Eosinophils % % Basophils % % Neutrophils # (1.3-7.7) k/uL Lymphocytes # (1.0-4.8) k/uL Monocytes # (0-1.0) k/uL Eosinophils # (0-0.7) k/uL Basophils # (0-0.2) k/uL Hypochromasia PT (9.0-12.0) sec INR (<1.2) APTT (22.0-30.0) sec Sodium (137-145) mmol/L Potassium (3.5-5.1) mmol/L Chloride (98-107) mmol/L Carbon Dioxide (22-30) mmol/L Anion Gap mmol/L BUN (7-17) mg/dL Creatinine (0.52-1.04) mg/dL Est GFR (CKD-EPI)AfAm (>60 ml/min/1.73 sqM) Est GFR (CKD-EPI)NonAf (>60 ml/min/1.73 sqM) Glucose (74-99) mg/dL Plasma Lactic Acid Gold 0.8 (0.7-2.0) mmol/L Calcium (8.4-10.2) mg/dL Total Bilirubin (0.2-1.3) mg/dL AST (14-36) U/L ALT (9-52) U/L Alkaline Phosphatase (38-126) U/L Total Creatine Kinase 77 (30-135) U/L CK-MB (CK-2) 0.7 (0.0-2.4) ng/mL CK-MB (CK-2) Rel Index 0.9 Troponin I 0.016 (0.000-0.034) ng/mL Total Protein (6.3-8.2) g/dL Albumin (3.5-5.0) g/dL Urine Color Yellow Urine Appearance Cloudy H (Clear) Urine pH 5.5 (5.0-8.0) Ur Specific [place] 1.015 (1.001-1.035) Urine Protein Negative (Negative) Urine Glucose (UA) Negative (Negative) Urine Ketones Negative (Negative) Urine Blood Negative (Negative) Urine Nitrite Negative (Negative) Urine Bilirubin Negative (Negative) Urine Urobilinogen <2.0 (<2.0) mg/dL Ur Leukocyte Esterase Moderate H (Negative) Urine RBC 1 (0-5) /hpf Urine WBC 22 H (0-5) /hpf Ur Squamous Epith Cells 5 H (0-4) /hpf Urine Bacteria Rare H (None) /hpf Hyaline Casts 9 H (0-2) /lpf Granular Casts 1 (0) /lpf Urine Mucus Rare H (None) /hpf Disposition Clinical Impression: Generalized weakness Disposition: ADMITTED IP TO THIS HOSP Referrals: Oscar Blancas MD [Primary Care Provider] - 1-2 days Time of Disposition: 11:43
[2018-02-06 09:42] LABS: Basophils % (A) 0 %; Eosinophils # (A) 0.5 k/uL (0-0.7); Eosinophils % (A) 5 %; HCT 33.8 % (34.0-46.0); HGB 10.6 gm/dL (11.4-16.0); Hypochromasia Moderate; Lymphocytes % (A) 10 %; MCH 30.5 pg (25.0-35.0); MCHC 31.3 g/dL (31.0-37.0); MCV 97.7 fL (80.0-100.0); Mean Platelet Volume 7.4; Monocytes # (A) 0.4 k/uL (0-1.0); Monocytes % (A) 4 %; Neutrophils # (A) 7.6 k/uL (1.3-7.7); Neutrophils % (A) 79 %; Platelet Count 381 k/uL (150-450); RBC 3.46 m/uL (3.80-5.40); RDW 15.2 % (11.5-15.5); WBC 9.5 k/uL (3.8-10.6)
[2018-02-06 09:53] LABS: INR 1.7 (<1.2); Partial Thromboplastin Time 35.1 sec (22.0-30.0)
[2018-02-06 10:03] LABS: Albumin 3.5 g/dL (3.5-5.0); Potassium 5.2 mmol/L (3.5-5.1); Total Bilirubin 0.8 mg/dL (0.2-1.3)
[2018-02-06 10:19] LABS: Creatine Kinase MB 0.7 ng/mL (0.0-2.4); Troponin I 0.016 ng/mL (0.000-0.034)
[2018-02-06 11:00] LABS: Appearance,Urine Cloudy (Clear); Bacteria,Urine Rare /hpf; Bilirubin,Urine Negative (Negative); Blood,Urine Negative (Negative); Color,Urine Yellow; Glucose,Urine (UA) Negative (Negative); Granular Casts,Urine 1 /lpf (0); Hyaline Casts,Urine 9 /lpf (0-2); Ketones,Urine Negative (Negative); Leukocyte Esterase,Urine Moderate (Negative); Mucus,Urine Rare /hpf; Nitrite,Urine Negative (Negative); PH, Urine 5.5 (5.0-8.0); Protein,Urine Negative (Negative); RBC,Urine 1 /hpf (0-5); Specific Gravity,Urine 1.015 (1.001-1.035); Squamous Epithelial Cell,Urine 5 /hpf (0-4); Urobilinogen,Urine <2.0 mg/dL (<2.0); WBC,Urine 22 /hpf (0-5)
--- NOTE | 2018-02-06 11:08 | XR ---
EXAMINATION TYPE: XR chest 2V DATE OF EXAM: 02/06/2018 COMPARISON: Chest x-ray from 2 days ago and older studies. HISTORY: Shortness of breath and weakness today. TECHNIQUE: Frontal and lateral views of the chest are obtained. FINDINGS: Anterior fusion plate cervical thoracic junction is redemonstrated. There is partial visua lization of posterior fusion hardware in the cervical spine. There is partial visualization of fusion hardware in the lumbar spine with multilevel vertebroplasty. [place] osseous structures are demineral ized. Overlying sternal wires and mediastinal clips as well as evidence of prior valvular surgery are redem onstrated. There is persistent cardiomegaly without reflect thoracic aorta. Right axillary surgical c lips are redemonstrated. There is chronic parenchymal change with scattered areas of increased opacity redemonstrated bilatera lly. No significant change from most recent study. No new focal airspace opacity, pleural effusion, o r pneumothorax is evident bilaterally. IMPRESSION: Cardiomegaly and chronic parenchymal changes with diffuse bilateral alveolar and interst itial edema and/or infiltrates all redemonstrated. No significant change from most recent study.
[2018-02-06] MEDS ORDERED: SODIUM CHLORIDE 0.9% 1,000 ML IV ONE (11:43)
[2018-02-06] MEDS: ATORVASTATIN 80 MG TAB PO SCH (21:59)
[2018-02-06] MEDS: CARVEDILOL 6.25 MG TAB PO SCH ×2 (21:59→22:19)
[2018-02-06] MEDS: HYDROcodone/APAP 5-325MG 1 EACH TAB PO PRN (22:00)
[2018-02-06] MEDS: PYRIDOSTIGMINE 60 MG TAB PO SCH (22:00)
[2018-02-06] MEDS: RANOLAZINE 500 MG TAB.ER.12H PO SCH (22:00)
[2018-02-06] MEDS: MECLIZINE 25 MG TAB PO SCH (22:00)
[2018-02-07] MEDS: LEVOTHYROXINE 100 MCG TAB PO SCH (06:07)
[2018-02-07] MEDS: RANOLAZINE 500 MG TAB.ER.12H PO SCH ×2 (08:06→20:17)
[2018-02-07] MEDS: CHOLECALCIFEROL 1,000 UNIT TAB PO SCH (08:06)
[2018-02-07] MEDS: POTASSIUM CHLORIDE ER 20 MEQ TAB.ER PO SCH (08:07)
[2018-02-07] MEDS: ISOSORBIDE MONONITRATE ER 30 MG TAB.ER.24H PO SCH (08:07)
[2018-02-07] MEDS: LISINOPRIL 10 MG TAB PO SCH (08:07)
[2018-02-07] MEDS: AMIODARONE 100 MG TAB PO SCH (08:07)
[2018-02-07] MEDS: ANASTROZOLE 1 MG TAB PO SCH (08:07)
[2018-02-07] MEDS: FAMOTIDINE 20 MG TAB PO SCH (08:07)
[2018-02-07] MEDS: FUROSEMIDE 40 MG TAB PO SCH ×2 (08:07→15:14)
[2018-02-07] MEDS: MECLIZINE 25 MG TAB PO SCH ×3 (08:07→20:17)
[2018-02-07] MEDS: ASPIRIN 81 MG PO SCH (08:07)
[2018-02-07] MEDS: CYANOCOBALAMIN 500 MCG TAB PO SCH (08:08)
[2018-02-07] MEDS: PYRIDOSTIGMINE 60 MG TAB PO SCH ×2 (08:10→21:32)
[2018-02-07] MEDS: MULTIVITAMINS, THERA 1 EACH TAB PO SCH (12:24)
[2018-02-07] MEDS: ACETAMINOPHEN TAB 325 MG TAB PO PRN (15:14)
[2018-02-07] MEDS: WARFARIN 1 MG TAB PO SCH (17:25)
[2018-02-07] MEDS: ATORVASTATIN 80 MG TAB PO SCH (20:16)
[2018-02-07] MEDS: busPIRone HCl 5 MG TAB PO PRN (20:18)
[2018-02-07] MEDS: CARVEDILOL 6.25 MG TAB PO SCH (21:32)
[2018-02-07] MEDS: HYDROcodone/APAP 5-325MG 1 EACH TAB PO PRN (22:19)
[2018-02-08] MEDS: PYRIDOSTIGMINE 60 MG TAB PO SCH ×2 (07:40→22:04)
[2018-02-08] MEDS: CHOLECALCIFEROL 1,000 UNIT TAB PO SCH (07:41)
[2018-02-08] MEDS: MECLIZINE 25 MG TAB PO SCH ×3 (07:41→22:05)
[2018-02-08] MEDS: ISOSORBIDE MONONITRATE ER 30 MG TAB.ER.24H PO SCH (07:41)
[2018-02-08] MEDS: CYANOCOBALAMIN 500 MCG TAB PO SCH (07:41)
[2018-02-08] MEDS: POTASSIUM CHLORIDE ER 20 MEQ TAB.ER PO SCH (07:41)
[2018-02-08] MEDS: FUROSEMIDE 40 MG TAB PO SCH ×2 (07:41→15:57)
[2018-02-08] MEDS: LISINOPRIL 10 MG TAB PO SCH (07:41)
[2018-02-08] MEDS: FAMOTIDINE 20 MG TAB PO SCH (07:42)
[2018-02-08] MEDS: RANOLAZINE 500 MG TAB.ER.12H PO SCH ×2 (07:42→22:04)
[2018-02-08] MEDS: AMIODARONE 100 MG TAB PO SCH (07:42)
[2018-02-08] MEDS: LEVOTHYROXINE 100 MCG TAB PO SCH (07:42)
[2018-02-08] MEDS: ASPIRIN 81 MG PO SCH (07:43)
[2018-02-08] MEDS: CARVEDILOL 6.25 MG TAB PO SCH ×2 (07:44→22:03)
[2018-02-08] MEDS: ANASTROZOLE 1 MG TAB PO SCH (07:46)
[2018-02-08] MEDS: busPIRone HCl 5 MG TAB PO PRN ×2 (10:28→22:05)
[2018-02-08] MEDS: MULTIVITAMINS, THERA 1 EACH TAB PO SCH (10:28)
[2018-02-08 15:50] VITALS: RESP 16
--- NOTE | 2018-02-08 16:25 | HP ---
HISTORY AND PHYSICAL DATE OF SERVICE: 02/06/2018. CHIEF COMPLAINT: Generalized weakness and debility. HISTORY OF PRESENT ILLNESS: This is another admission for this 82-year-old white female who was discharged from the hospital and then came back to the emergency room complaining that she was too weak and could not function at home and requests to be admitted for placement in a rehab center. REVIEW OF SYSTEMS: She has had no neurologic changes, change in vision hearing, chest pain, palpitations, syncope, abdominal pain, etc. Past medical history, family history, personal and social histories are all otherwise unremarkable and unchanged from her admitting and discharge summaries. PHYSICAL EXAMINATION: Blood pressure is 135/72 with a pulse of 77, respirations of 35 and she is afebrile. In general she appeared to be pale. Skin was dry. Head, ears, eyes, nose, mouth, and throat were normal. Neck veins not distended. Chest is clear. Cardiac exam is normal. Right breast is absent. Abdomen is soft, nontender. Extremities are normal. Neurological is intact She is admitted to the hospital with diagnoses: 1. General debility and failure to thrive. 2. Coronary artery disease with unstable angina pectoris. 3. Depression. 4. Anemia. 5. History of carcinoma of the right breast. PLAN: 1. Bed rest. 2. Discharge planning for rehab. MMANDERSON / MARIKAN: [id number] /
--- NOTE | 2018-02-08 16:34 | PN ---
PROGRESS NOTE DATE OF SERVICE: 02/07/2018 CHIEF COMPLAINT: General debility. HISTORY OF PRESENT ILLNESS: This lady is stable and having no problems. PHYSICAL EXAM: Chest is clear. Cardiac exam is normal. IMPRESSION: 1. General debility and weakness. 2. Coronary artery disease. 3. Carcinoma of breast. 4. Depression. PLAN: Arrange for discharge to rehab facility. MMODL / IJN: [id number] /
--- NOTE | 2018-02-08 16:40 | PN ---
PROGRESS NOTE CHIEF COMPLAINT: General debility and failure to thrive. HISTORY OF PRESENT ILLNESS: This lady became very upset last night with apparently 1 of her sons tried to committed suicide. She feels better today and is less agitated. She probably could use counseling. PHYSICAL EXAM: Chest is clear. Cardiac exam is unchanged. Abdomen is soft and nontender. IMPRESSION: 1. General debility and weakness. 2. Depression. 3. Anxiety. 4. Unstable angina pectoris. 5. Coronary artery disease. 6. Status post mastectomy. PLAN: Await for discharge plan and meantime look into psychiatric evaluation. MMODL / IJN: [id number] /
[2018-02-08] MEDS: ATORVASTATIN 80 MG TAB PO SCH (22:03)
[2018-02-08] MEDS: HYDROcodone/APAP 5-325MG 1 EACH TAB PO PRN (22:05)
[2018-02-09] MEDS: LEVOTHYROXINE 100 MCG TAB PO SCH (05:49)
[2018-02-09] MEDS: busPIRone HCl 5 MG TAB PO PRN ×2 (05:49→16:10)
[2018-02-09 06:01] VITALS: BP 106/67; PULSE 67; TEMP 97.8
[2018-02-09] MEDS: POTASSIUM CHLORIDE ER 20 MEQ TAB.ER PO SCH (08:05)
[2018-02-09] MEDS: AMIODARONE 100 MG TAB PO SCH (08:05)
[2018-02-09] MEDS: CHOLECALCIFEROL 1,000 UNIT TAB PO SCH (08:06)
[2018-02-09] MEDS: FUROSEMIDE 40 MG TAB PO SCH ×2 (08:06→16:10)
[2018-02-09] MEDS: PYRIDOSTIGMINE 60 MG TAB PO SCH (08:06)
[2018-02-09] MEDS: LISINOPRIL 10 MG TAB PO SCH (08:06)
[2018-02-09] MEDS: FAMOTIDINE 20 MG TAB PO SCH (08:07)
[2018-02-09] MEDS: RANOLAZINE 500 MG TAB.ER.12H PO SCH (08:07)
[2018-02-09] MEDS: MECLIZINE 25 MG TAB PO SCH ×2 (08:07→16:10)
[2018-02-09] MEDS: CARVEDILOL 6.25 MG TAB PO SCH (08:08)
[2018-02-09] MEDS: ISOSORBIDE MONONITRATE ER 30 MG TAB.ER.24H PO SCH (08:08)
[2018-02-09] MEDS: ASPIRIN 81 MG PO SCH (08:08)
[2018-02-09] MEDS: CYANOCOBALAMIN 500 MCG TAB PO SCH (08:09)
[2018-02-09] MEDS: ANASTROZOLE 1 MG TAB PO SCH (08:09)
[2018-02-09] MEDS ORDERED: ONDANSETRON 4 MG/2 ML VIAL IVP PRN (12:27)
[2018-02-09] MEDS: ACETAMINOPHEN TAB 325 MG TAB PO PRN (12:30)
[2018-02-09] MEDS: MULTIVITAMINS, THERA 1 EACH TAB PO SCH (12:30)
[2018-02-09] MEDS: WARFARIN 1 MG TAB PO SCH (16:10)
--- NOTE | 2018-02-09 18:07 | DS ---
DISCHARGE SUMMARY CHIEF COMPLAINT: Failure to thrive and weakness. HISTORY OF PRESENT ILLNESS AND PHYSICAL EXAM: Details of this lady's history and physical can be found in the initial workup. LABORATORY STUDIES: While she was in the hospital, she had laboratory studies, details which can be found in the laboratory section of her chart. COURSE IN HOSPITAL: After admission, she was placed on bedrest, started on intravenous fluids and she was referred for discharge planning in hopes of getting her into her halfway for rehab. Bed was still being awaited at the time of this dictation. FINAL DIAGNOSES: 1. Generalized weakness and debility. 2. Failure to thrive. 3. Unstable angina pectoris. 4. Coronary artery disease. 5. Depression. 6. Anemia. 7. History of carcinoma of the breast. OPERATIONS: None. CONSULTATION: None. She is improved. MMODL / IJN: [id number] /
== END 2018-02-09 17:40 ==
LOC: EC 08:52 → 5MS5E 11:44 → 5ONC 12:04 → 5MS5E 22:59 → 5ONC 22:59 → 5MS5E 23:01
PROVIDERS: ADMIT Family Medicine; ATTEND Family Medicine
DX: R53.1 Weakness (principal); R53.81 Other malaise; R62.7 Adult failure to thrive; I25.110 Atherosclerotic heart disease of native coronary artery with unstable angina pectoris; G89.29 Other chronic pain; M54.9 Dorsalgia, unspecified; F32.9 Major depressive disorder, single episode, unspecified; D64.9 Anemia, unspecified; F41.9 Anxiety disorder, unspecified; I50.9 Heart failure, unspecified; I11.0 Hypertensive heart disease with heart failure; I48.0 Paroxysmal atrial fibrillation; I34.1 Nonrheumatic mitral (valve) prolapse; E11.9 Type 2 diabetes mellitus without complications; K57.90 Diverticulosis of intestine, part unspecified, without perforation or abscess without bleeding; G70.00 Myasthenia gravis without (acute) exacerbation; E03.9 Hypothyroidism, unspecified; E78.5 Hyperlipidemia, unspecified; M19.90 Unspecified osteoarthritis, unspecified site; Z79.811 Long term (current) use of aromatase inhibitors; Z79.82 Long term (current) use of aspirin; Z79.01 Long term (current) use of anticoagulants; Z79.899 Other long term (current) drug therapy; Z88.5 Allergy status to narcotic agent; Z85.3 Personal history of malignant neoplasm of breast; Z87.891 Personal history of nicotine dependence; Z90.10 Acquired absence of unspecified breast and nipple; I25.2 Old myocardial infarction; Z87.01 Personal history of pneumonia (recurrent); Z87.440 Personal history of urinary (tract) infections; Z85.828 Personal history of other malignant neoplasm of skin; Z87.81 Personal history of (healed) traumatic fracture; Z95.5 Presence of coronary angioplasty implant and graft; Z95.2 Presence of prosthetic heart valve; Z98.1 Arthrodesis status; Z98.42 Cataract extraction status, left eye; Z98.41 Cataract extraction status, right eye; Z90.710 Acquired absence of both cervix and uterus; Z90.89 Acquired absence of other organs; Z82.49 Family history of ischemic heart disease and other diseases of the circulatory system
CPT/HCPCS: 99285 ×2; 96361 ×4; 96374; 36415; 93005; 97116; 97162; 97535; 97166; 80053; 82550; 82553; 83605; 84484; 85025; 85610; 85730; 81001; 87086; 71046; G0378 ×4; J2405; S0170 ×3

== ENCOUNTER 2018-02-28 18:07 | Emergency (ER) | payer MEDICARE, BC ==
[2018-02-28 18:11] VITALS: RESP 18
[2018-02-28] MEDS ORDERED: ONDANSETRON ODT 4 MG TAB PO STA (18:22)
--- NOTE | 2018-02-28 18:24 | ED ---
General Adult HPI - General Chief complaint: Dizziness Stated complaint: Dizziness/headache Time Seen by Provider: 02/28/18 18:07 Source: EMS, RN notes reviewed Mode of arrival: EMS Limitations: no limitations - History of Present Illness Initial comments: This is an 82-year-old female presents emergency Department with a past medical history significant for vertigo. Patient comes in today because of vertigo has been worse over the last 2 days. Patient states if she lies in bed the room starts suspension becomes nauseated gets a little bit of a frontal headache. Patient states headache is not really concerning towards very slight. Patient states the dizziness is the same and she's always had when she gets her vertigo but usually her Antivert works but today she's taken it and it has not helped at all. Patient denies any chest pain difficulty breathing shortness of breath. Patient denies any recent fever chills or cough. Patient denies any neck pain. - Related Data Home Medications Medication Instructions Recorded Confirmed Cholecalciferol [Vitamin D3] 1,000 unit PO DAILY 05/18/15 02/28/18 Cyanocobalamin [Vitamin B-12] 1,000 mcg PO DAILY 05/18/15 02/28/18 Anastrozole [Arimidex] 1 mg PO DAILY 09/14/15 02/28/18 Levothyroxine Sodium [Synthroid] 100 mcg PO DAILY 04/25/16 02/28/18 Ranitidine HCl 150 mg PO DAILY 04/25/16 02/28/18 Furosemide [Lasix] 40 mg PO BID 05/20/16 02/28/18 Ranolazine [Ranexa] 500 mg PO BID 11/28/16 02/28/18 Aspirin 81 mg PO DAILY 03/22/17 02/28/18 Lisinopril [Prinivil] 10 mg PO DAILY 03/22/17 02/28/18 Meclizine [Antivert] 25 mg PO TID 05/06/17 02/28/18 Amiodarone HCl [Pacerone] 100 mg PO DAILY 05/16/17 02/28/18 Warfarin [Coumadin] 3 mg PO SUTUWEFRSA 08/04/17 02/28/18 Atorvastatin [Lipitor] 80 mg PO HS 10/08/17 02/28/18 Multivitamins, Thera [Multivitamin 1 tab PO DAILY 12/10/17 02/28/18 (formulary)] Carvedilol [Coreg] 6.25 mg PO BID 01/24/18 02/28/18 Ibuprofen [Advil] 200 mg PO Q6H PRN 02/28/18 02/28/18 Warfarin [Coumadin] 5 mg PO MOTH 02/28/18 02/28/18 busPIRone HCl [Buspar] 5 mg PO BID PRN 02/28/18 02/28/18 Previous Rx's Medication Instructions Recorded Pyridostigmine [Mestinon] 30 mg PO BID tab 03/17/16 Isosorbide Mononitrate ER [Imdur] 30 mg PO DAILY #30 tab.er.24h 02/09/18 Allergies Allergy/AdvReac Type Severity Reaction Status Date / Time morphine AdvReac Severe Nausea & Verified 02/28/18 18:51 Vomiting Review of Systems ROS Statement: Those systems with pertinent positive or pertinent negative responses have been documented in the HPI. ROS Other: All systems not noted in ROS Statement are negative. Past Medical History Past Medical History: Atrial Fibrillation, Coronary Artery Disease (CAD), Cancer , Heart Failure, Diabetes Mellitus, Eye Disorder, Hyperlipidemia, Hypertension, Myocardial Infarction (CA), Mitral Valve Prolapse (MVP), Osteoarthritis (OA), Pneumonia, Respiratory Disorder, Thyroid Disorder Additional Past Medical History / Comment(s): Pt recently admitted to [facility] on with UTI/sepsis, pulmonary edema. Other hx: Paroxysmal Afib, chronic CHF, mitral valve prolapse with surgery, NIDDM type II/diet controlled, skin cancer with removals, R breast cancer with surgery, hypothyroid, UTIs, occasional vertigo, chronic anemia, R eye ocular myasthenia gravis. Last Myocardial Infarction Date:: 04/2014 History of Any Multi-Drug Resistant Organisms: None Reported Past Surgical History: Appendectomy, Back Surgery, Breast Surgery, Cardiac Valve Replacement, Heart Catheterization, Heart Catheterization With Stent, Hysterectomy, Orthopedic Surgery Additional Past Surgical History / Comment(s): 11/2016 L hip hemiarthroplasty, 2015 MVR. NEYMAR CTR, bilateral Rotator Cuff Repair. EXC Skin CA. TITANIUM VIMAL IN BACK, 7 BACK FUSIONS, 3 NECK FUSIONS. Stent Proximal RCA; HEART CATH . EXC NEYMAR CATARACTS, POSS Lens Implants, Bilateral Eye Laser. RT BREAST LUMPECTOMY x 2, RT BREAST SIMPLE MASTECTOMY 06/2015. ORIF Ankles. Colonoscopy. Past Anesthesia/Blood Transfusion Reactions: No Reported Reaction Additional Past Anesthesia/Blood Transfusion Reaction / Comment(s): Pt has recently received blood without reaction. Date of Last Stent Placement:: 08/17/2013 Past Psychological History: No Psychological Hx Reported Smoking Status: Former smoker Past Alcohol Use History: None Reported Past Drug Use History: None Reported - Past Family History Father History Unknown: Yes Family Medical History: No Reported History Additional Family Medical History / Comment(s): DAD IN MVA AT AGE 52 Mother History Unknown: Yes Family Medical History: Congestive Heart Failure (CHF) Additional Family Medical History / Comment(s): RHEUMATIC FEVER. Mother of CHF at the age of 59yrs. General Exam - General Exam Comments Initial Comments: GENERAL: Patient is well-developed and well-nourished. Patient is nontoxic and well- hydrated and is in mild distress. ENT: Neck is soft and supple. No significant lymphadenopathy is noted. Oropharynx is clear. Moist mucous membranes. Neck has full range of motion without eliciting any pain. EYES: The sclera were anicteric and conjunctiva were pink and moist. Extraocular movements were intact and pupils were equal round and reactive to light. Eyelids were unremarkable. PULMONARY: Unlabored respirations. Good breath sounds bilaterally. No audible rales rhonchi or wheezing was noted. CARDIOVASCULAR: There is a regular rate and rhythm without any murmurs gallops or rubs. ABDOMEN: Soft and nontender with normal bowel sounds. No palpable organomegaly was noted. There is no palpable pulsatile mass. SKIN: Skin is clear with no lesions or rashes and otherwise unremarkable. NEUROLOGIC: Patient is alert and oriented x3. Cranial nerves II through XII are grossly intact. Motor and sensory are also intact. Normal speech, volume and content. Symmetrical smile. Finger to nose testing was normal bilaterally MUSCULOSKELETAL: Normal extremities with adequate strength and full range of motion. No lower extremity swelling or edema. No calf tenderness. LYMPHATICS: No significant lymphadenopathy is noted PSYCHIATRIC: Normal psychiatric evaluation. Limitations: no limitations Course Vital Signs 02/28/18 02/28/18 18:08 19:23 Temperature 98.7 F 98.2 F Pulse Rate 67 66 Respiratory 18 18 Rate Blood Pressure 151/69 132/63 O2 Sat by Pulse 96 95 Oximetry Medical Decision Making - Medical Decision Making I medicated the patient was and Zofran for her nausea I gave her a little bit of time for her vertigo and gave her her Lasix case she has left her pills at home and she went to a motel. I will back into reevaluate her she was able to ablate without dizziness. Disposition Clinical Impression: Chronic vertigo Disposition: HOME SELF-CARE Condition: Good Instructions: Vertigo (ED) Additional Instructions: Patient should continue taking her Antivert as prescribed. Patient should follow-up with her primary medical care doctor. Patient should go home and get her Lasix and continue taking her Lasix as prescribed Is patient prescribed a controlled substance at d/c from ED?: No Referrals: Oscar Blancas MD [Primary Care Provider] - 1-2 days Time of Disposition: 19:25
[2018-02-28] MEDS ORDERED: FUROSEMIDE 20 MG TAB PO STA (18:25)
[2018-02-28] MEDS ORDERED: DIAZEPAM 2 MG TAB PO STA (18:25)
[2018-02-28 19:24] VITALS: BP 132/63; PULSE 66; TEMP 98.2
== END 2018-02-28 19:53 | disposition home or self-care (01) ==
LOC: EC 18:07
DX: R42 Dizziness and giddiness (principal); R11.0 Nausea; R51 Headache; I48.0 Paroxysmal atrial fibrillation; E78.5 Hyperlipidemia, unspecified; I11.0 Hypertensive heart disease with heart failure; I50.9 Heart failure, unspecified; I25.10 Atherosclerotic heart disease of native coronary artery without angina pectoris; E11.9 Type 2 diabetes mellitus without complications; E03.9 Hypothyroidism, unspecified; M19.90 Unspecified osteoarthritis, unspecified site; I25.2 Old myocardial infarction; Z87.891 Personal history of nicotine dependence; Z88.5 Allergy status to narcotic agent; Z79.01 Long term (current) use of anticoagulants; Z79.82 Long term (current) use of aspirin; Z79.899 Other long term (current) drug therapy; Z85.3 Personal history of malignant neoplasm of breast; Z90.11 Acquired absence of right breast and nipple; Z85.828 Personal history of other malignant neoplasm of skin; Z98.890 Other specified postprocedural states
CPT/HCPCS: 99284